=== PATIENT | female | born 1995 | race Caucasian/White ===

== ENCOUNTER → 2019-01-01 10:38 | Outpatient (CLI) | payer SELFPAY ==
[2016-04-16 21:20] VITALS: BMI 28.7
== END ==
LOC: LABSPEC 10:51
PROVIDERS: Referring Provider Nurse Practitioner Family; Visit Provider Nurse Practitioner Family
DX: R30.0 Dysuria (principal)
CPT/HCPCS: 87086; 87088

== ENCOUNTER 2019-08-30 12:37 | Emergency (ER) | payer OTHER, MEDICAID, SELFPAY ==
[2019-08-30 12:39] VITALS: BP 128/73; PULSE 83; RESP 16; TEMP 36.3; O2SAT 99
[2019-08-30 12:40] VITALS: BP 128/73; PULSE 83; RESP 16; TEMP 36.3; O2SAT 99
--- NOTE | 2019-08-30 13:03 | ED.VIS.UPPEX ---
History of Present Illness Chief Complaint: Cellulitis Informant: Patient Occurred: Yesterday Mechanism/Context: Puncture Wound Onset: Yesterday Context: Gradual Onset Timing: Continuous Quality of Pain: Sharp Location: left ring finger Current Severity: Moderate Maximum Severity: Moderate Worsened by: movement, palpation Relieved by: rest Associated Symptoms: Negative for: Parasthesia, Weakness, Loss of Funtion Narrative: 24-year-old ioosb-cwyr-vvoaxaso female presents to the emergency department with an infection on her left ring finger. She just recently began to wear her ring again on this finger she has a small blister that she is concerned is infected and redness into the finger and hand. No other trauma. No numbness or tingling. No weakness. No fevers or chills. Tetanus Immunization: Unknown Prior similar symptoms: No Recent Illness/Hospitalization: No Past Medical History - Allergies and Home Meds Allergies/Adverse Reactions: Allergies No Known Allergies Allergy (Verified 08/30/19 12:38) Primary Care Physician: Care Physician,No Primary [Primary Care Provider] - Prior records reviewed: Yes Past Medical History: None Surgical History: tonsillectomy, - - Lives: With Family Smoking Status: Current some day smoker Alcohol: Occasional Drugs: None Review of Systems All systems negative except as indicated General: Denies: Chills, Fever, Malaise Eyes: Denies: Visual changes - bilaterally, Blurred Vision - bilaterally, Diplopia ENT: Denies: Rhinorrhea, Sore throat Cardiovascular: Denies: Chest pain, Palpitations, Heart racing Respiratory: Denies: Dyspnea, Cough, Sputum Gastrointestinal: Denies: Abdominal pain, Nausea, Vomiting, Diarrhea Genitourinary: Denies: Dysuria, Hematuria, Frequency Musculoskeletal: Reports: Swelling, Extremity Pain. Denies: Myalgias, Arthralgias, Neck pain, Back pain Skin: Reports: Abrasions, Wounds. Denies: Rash, Abscess Neurological: Denies: Headache, Weakness, Parasthesia, Numbness Hematologic: Denies: Easy bruising, Easy bleeding Physical Exam Vital Signs/Narrative: Vital Signs Temp Pulse Resp BP Pulse Ox 08/30/19 12:40 97.3 F L 83 16 128/73 H 99 08/30/19 12:39 97.3 F L 83 16 128/73 H 99 Inital Vital Signs reviewed: Yes Left Finger: - - Patient has a small blister on her left ring finger. There is some very mild surrounding redness. There is no lymphatic streaking. She has normal active range of motion of her left ring finger. She has normal capillary refill and sensation. General: Well nourished, Well developed Head: Normocephalic, Atraumatic Eyes: Perrl, EOMI ENT: No Trauma, Moist Mucous Membranes Neck: Nontender, Full ROM Cardiovascular: Regular rate, Regular rhythm, No murmurs Respiratory: No distress, CTA bilaterally, Chest nontender Abdomen: Soft, Nontender, Nondistended, Normal bowel sounds, No masses Back: Nontender Skin: Normal color, No rash Neurological: Alert, Oriented x3 Psychological: Normal affect, Normal Mood Diagnostic/Tx/Re-eval - Medical Decision Making Patient has an infected blister on her left ring finger. There is no lymphatic streaking. I used an 18-gauge needle under sterile conditions after cleansing with Betadine to ruptured the blister. I cleansed and placed in dressing. Patient will be placed on Bactrim and Keflex. First doses were given to the patient in the emergency department. I advised her to have a follow-up in the next 2 to 3 days with her primary care physician for wound check. Discussed supportive care at home wound care at home and return precautions ED Disposition - Plan for ED Patient: Disposition: Home or Assisted Living Diagnosis: Blister of finger, infected Instructions: Cellulitis Prescriptions: Smz/Tmp Ds [Bactrim Ds] 1 tab PO BID #14 tab Prescription Printed Cephalexin [Keflex] 500 mg PO Q6 #40 cap Prescription Printed Referrals: Dev De Pza MD [STAFF PHYSICIAN] - 2 Days for wound check
[2019-08-30] MEDS: BACITRACIN 15 GM Tube 1 APPLIC TOPICAL (13:19)
[2019-08-30] MEDS: Smz/Tmp Ds Tablet 1 TABLET PO (13:19)
[2019-08-30] MEDS: Cephalexin 250 MG Capsule 500 MG PO (13:19)
== END 2019-08-30 13:32 | disposition home or self-care (01) ==
LOC: ED 13:30
PROVIDERS: Emergency Provider Physician Assistant Medical; PCP Physician Assistant
DX: L03.012 Cellulitis of left finger (principal); S60.425A Blister (nonthermal) of left ring finger, initial encounter; X58.XXXA Exposure to other specified factors, initial encounter; Y93.9 Activity, unspecified; Y92.9 Unspecified place or not applicable; Y99.9 Unspecified external cause status
CPT/HCPCS: 99284

== ENCOUNTER 2022-06-07 07:06 | Emergency (ER) | payer MEDICAID, SELFPAY ==
[2022-06-07 07:07] VITALS: BP 128/75; PULSE 106; RESP 16; TEMP 36.6; O2SAT 100; BMI 25.1
--- NOTE | 2022-06-07 07:32 | EX.ED.DYSGE1 ---
HPI History of Present Illness Chief Complaint: Headache Informant: patient Narrative Narrative: Patient 27-year-old female with history of migraines, currently approximately 12 to 13 weeks (G4, P2) presenting with headache, nausea, vomiting and diarrhea. Patient states she just has been feeling well all week and started feeling sick 3 days ago with nausea. The following day she felt better and was eating but then got nauseous again. Yesterday she was nauseous, vomiting and developed a headache. She did take Tylenol for this. She is also developed diarrhea. She continues to have a bad headache today which she describes as behind her eyes and the back of her head. She has associated photophobia. She continues to have nausea and abdominal discomfort. She notes she is having some urinary frequency. She states she also wants to make sure that the baby's heartbeat is okay. She denies any leakage of fluid, abnormal vaginal discharge or vaginal bleeding. She did think that she had a yeast infection but states those symptoms have resolved. Denies any fever. Denies any sick contacts. Denies any rash. No other complaints at this time. States that she does have issues with morning sickness and takes B6 with Unisom but is not helping. PFSH [facility] Medical History no medical history Home Medications cephalexin 500 mg capsule 500 mg PO Q6 #40 caps 08/30/19 [Rx Last Taken Unknown] sulfamethoxazole 800 mg-trimethoprim 160 mg tablet 1 tab PO BID #14 tabs 08/30/19 [Rx Last Taken Unknown] folic acid 800 mcg tablet 0.8 mg PO DAILY #30 tabs 06/07/22 [Rx Last Taken Unknown] ondansetron 4 mg disintegrating tablet 4 mg PO Q6H PRN nausea and vomiting #20 tabs 06/07/22 [Rx Last Taken Unknown] Allergy/AdvReac Type Severity Reaction Status Date / Time No Known Allergies Allergy Verified 06/07/22 07:09 Social History Smoking Status: Current some day smoker tobacco type: cigarettes ROS ROS ED Constitutional Constitutional ED: Denies chills or fever(s) Eyes Eyes: Reports other Details: photophobia ; Denies change in vision ENT ENT ED: Denies rhinorrhea or sore throat Cardiovascular Cardiovascular: Denies chest pain Respiratory/Chest Respiratory/Chest: Denies cough Gastrointestinal Gastrointestinal: Reports abdominal pain, diarrhea, nausea and vomiting Genitourinary Genitourinary ED: Reports LMP (females 10-50) Details: Comment: (03/03/22) and urinary frequency; Denies dysuria Musculoskeletal Musculoskeletal: Denies arthralgias or myalgias Integumentary Denies rash Neurologic Neurologic: Reports headache(s); Denies paresthesias or weakness Psychiatric Psychiatric: Denies anxiety EXAM Physical Exam Const Vital Signs: 06/07/22 07:07 06/07/22 09:06 06/07/22 10:55 Temperature 97.9 F Temperature Source Temporal Pulse Rate 106 H 101 H 99 Respiratory Rate 16 16 16 Blood Pressure 128/75 H 125/99 H 118/98 H Blood Pressure Mean 92 107 Pulse Ox 100 99 99 Oxygen Delivery Method Room Air Room Air Positive well nourished and well developed General Appearance ED: well developed and NAD HEENT Reports TM's clear and moist mucous membranes Negative for trauma Tympanic Membrane ED: Yes TM's clear Eyes PERRL and EOMs intact bilaterally General Eye ED: Negative for scleral icterus Neck supple Neck Narrative: Normal range of motion, no meningeal signs General: Negative for tenderness Chest Wall inspection of chest normal and palpation of chest normal Resp normal respiratory effort and clear to auscultation bilaterally Cardio regular rate, regular rhythm and no murmurs GI normal to inspection, nondistended, normoactive bowel sounds Palpation: soft and tender suprapubic; Negative for guarding Back/Spine no CVA tenderness Extremity normal to inspection Neuro oriented x3 Sensorium / Orientation: alert Motor Exam: Negative for general weakness Psych mental status grossly normal Skin no rashes or lesions noted MDM MDM MDM Narrative Medical decision making narrative: Patient is evaluated for headache, nausea and vomiting. She is 13 weeks . Bedside ultrasound performed by myself shows heart tones 154 with spontaneous activity. Patient peers nontoxic. I think she was more concerned about her . She is given IV fluids and Zofran as well as Tylenol. On repeat evaluation she is feeling much better. She is a mild leukocytosis 11.9 which is of uncertain clinical significance. It could be reactive from her vomiting. Hemoglobin is mildly low at 11.5. CMP and lipase normal. Urinalysis most consistent with contamination but will be sent off for culture as does have 1+ bacteria. Patient's tachycardia improved with IV fluids. She does not have any meningeal signs. I do not think she requires admission for further work-up of her headache, dehydration and I do not think there is any acute surgical intra-abdominal pathology requiring surgical consult and or further imaging at this time. Patient does request a prescription for folic acid as she can only take [place] vitamins because she does not tolerate vitamins. She is given a prescription for 800 mcg of folic acid. Patient encouraged to follow-up with her ASSOCIATE MEDIA DIRECTOR. Given return precautions. Discharged home in improved and stable condition. Lab Data Attestation: I reviewed the patient's lab results. Labs: Laboratory Results - last 24 hr 06/07/22 06/07/22 06/07/22 07:40 07:44 07:44 WBC 11.9 H RBC 4.11 L Hgb 11.5 L Hct 35.8 L MCV 87.1 MCH 28.0 MCHC 32.1 RDW Std Deviation 44.4 H RDW Coeff of Luc 14.0 Plt Count 323 MPV 10.5 Immature Gran % (Auto) 0.400 Neut % (Auto) 80.2 H Lymph % (Auto) 11.9 L Kay % (Auto) 6.4 Eos % (Auto) 0.8 Baso % (Auto) 0.3 Absolute Neuts (auto) 9.5 H Absolute Lymphs (auto) 1.41 Nucleated RBC % 0 Sodium 139 Potassium 3.7 Chloride 107 Carbon Dioxide 26.0 Anion Gap 6 BUN 7 Creatinine 0.50 L Estim Creat Clear Calc 152.08 Est GFR (MDRD) Af Amer 188 Est GFR (MDRD) Non-Af 155 BUN/Creatinine Ratio 13.9 Glucose 103 Calcium 8.9 Total Bilirubin 0.20 AST 16 ALT 48 Alkaline Phosphatase 64 Total Protein 7.4 Albumin 3.3 Globulin 4.1 Albumin/Globulin Ratio 0.8 L Lipase 88 Urine Color Yellow Urine Clarity Sl. Cloudy Urine pH 6.5 Ur Specific [place] 1.020 Urine Protein 30 H Urine Glucose (UA) Normal Urine Ketones Negative Urine Occult Blood 10 H Urine Nitrite Negative Urine Bilirubin Negative Urine Urobilinogen Normal Ur Leukocyte Esterase 25 H Urine RBC 0-5 SEEN Urine WBC 0-5 SEEN Ur Squamous Epith Cells 0-5 SEEN Urine Bacteria 1+ Urine Mucus 0 SEEN Discharge Plan Triage Chief Complaint: Headache ED Provider: Isabel Arguello Dx/Rx/DC Orders Clinical Impression: Headache, Nausea & vomiting Instructions: ED Headache, Tension, ED Vomiting (Adult) Prescriptions: New ondansetron 4 mg tablet,disintegrating 4 mg PO Q6H PRN (Reason: nausea and vomiting) Qty: 20 0RF folic acid 800 mcg tablet 0.8 mg PO DAILY Qty: 30 0RF No Action sulfamethoxazole-trimethoprim 1 TABLET tablet 1 tab PO BID Qty: 14 0RF cephalexin 500 MG capsule 500 mg PO Q6 Qty: 40 0RF Primary Care Provider: Marlys De Souza Referrals: Marlys De Souza PA [Primary Care Provider] - Activity Restrictions/Additional Instructions: Your urine showed 1+ bacteria and minimal white blood cells. I do not think this is consistent with a shemar urinary tract infection but it is sent for culture. Try to drink lots of fluids. Take Tylenol for your headache. Follow-up with your ASSOCIATE MEDIA DIRECTOR. Continue to take the B6/Unisom for nausea however you can take Zofran as second line treatment for your nausea/vomiting. Disposition Disposition: Home, Self Care Discharge Date/Time: 06/07/22 10:56
[2022-06-07 07:51] LABS: Mucous, Urine 0 SEEN /hpf (<or=2+)
[2022-06-07 07:53] LABS: Absolute Lymphocyte Count 1.41 X10^3/uL (0.83-4.51); Absolute Neutrophil Count 9.5 X10^3/uL (2.0-7.7); Basophil# 0.04 X10^3/uL; Basophil% 0.3 % (0-1); Eosinophil# 0.09 X10^3/uL; Eosinophils% 0.8 % (0-5); Hematocrit 35.8 % (37-47); Hemoglobin 11.5 g/dL (12.0-15.0); Lymphocyte # 1.41 X10^3/ul (0.83-4.51); Lymphocyte % 11.9 % (19-41); Mean Corp Hgb Conc 32.1 g/dL (32-36); Mean Corpuscular Volume 87.1 fL (81-99); Mean Platelet Vol. 10.5 fl (6.2-12.0); Monocyte# 0.76 X10^3/uL; Monocyte% 6.4 % (0-10); NRBC Flagged by Analyzer 0 % (0-5); Neutrophil % 80.2 % (47-70); Platelet Count 323 K/mm3 (150-450); RBC Distribution Width SD 44.4 fl (35.1-43.9); Red Blood Count 4.11 M/mm3 (4.2-5.4); White Blood Count 11.9 K/mm3 (4.4-11.0)
[2022-06-07 08:05] LABS: Color, Urine Yellow (Yellow); Glucose, Dipstick Normal (Normal); Ketone-Dipstick Negative (Negative); Leukocyte Esterase-Dipstick 25 /ul (Negative); Nitrite-Dipstick Negative (Negative); Occult Blood-Urine 10 /ul (Negative); Protein-Dipstick 30 mg/dl (Negative); Urine Bilirubin Dipstick Negative (Negative); Urine Clarity Sl. Cloudy (Clear); Urine Urobilinogen Normal (Normal); Urine pH 6.5 (5.0 - 8.0)
[2022-06-07 08:09] LABS: ALB/GLOB Ratio 0.8 RATIO (0.9-2.4); AST(SGOT) 16 U/L (15-37); Alanine Aminotransfer ALT/SGPT 48 U/L (13-56); Albumin, Serum 3.3 g/dL (3.2-5.0); Alkaline Phosphatase 64 U/L (45-117); Anion Gap 6 (5-15); BUN 7 mg/dL (7-18); BUN/Creat Ratio 13.9 RATIO (10-20); Calcium,Total 8.9 mg/dL (8.5-10.1); Chloride 107 mmol/L (98-107); EST Glomerular Filtration Rate 155 mL/min (>60); Est Glom Filt Rate - Afr Amer 188 mL/min (>60); Estimated Creatinine Clearance 152.08 ml/min; Globulin 4.1 g/dL (2.2-4.2); Glucose 103 mg/dL (74-106); Lipase 88 U/L (73-393); Potassium 3.7 mmol/L (3.5-5.1); Protein, Total 7.4 g/dL (6.4-8.2); Sodium Level 139 mmol/L (136-145)
[2022-06-07 08:11] LABS: Bacteria 1+ /hpf (None Seen); Red Blood Cells-Urine 0-5 SEEN /hpf (0-5); Squamous Epithelial Cells - UA 0-5 SEEN /hpf (5-10); White Blood Cells 0-5 SEEN /hpf (0-5)
[2022-06-07] MEDS: Acetaminophen 500 MG Tablet 1000 MG PO (08:11)
[2022-06-07] MEDS: Ondansetron 4 MG/2 ML Vial IV (08:11)
[2022-06-07] MEDS: 0.9% Normal Saline 1,000 ML 1000 ML IV (08:11)
[2022-06-07 09:06] VITALS: BP 125/99; PULSE 101; RESP 16; O2SAT 99
[2022-06-07 10:55] VITALS: BP 118/98; PULSE 99; RESP 16; O2SAT 99
== END 2022-06-07 10:56 | disposition home or self-care (01) ==
PROVIDERS: Emergency Provider Emergency Medicine; PCP Physician Assistant; Visit Provider Emergency Medicine
DX: O21.9 Vomiting of pregnancy, unspecified (principal); Z3A.13 13 weeks gestation of pregnancy; O99.281 Endocrine, nutritional and metabolic diseases complicating pregnancy, first trimester; R35.0 Frequency of micturition; O99.331 Smoking (tobacco) complicating pregnancy, first trimester; E86.0 Dehydration; R51.9 Headache, unspecified; F17.210 Nicotine dependence, cigarettes, uncomplicated; O26.891 Other specified pregnancy related conditions, first trimester
CPT/HCPCS: 80053; 81001; 83690; 85025; 87086; 87088; 96361; 96374; 99284; J7030; A4216; J2405

== ENCOUNTER → 2022-07-12 | Outpatient (CLI) | payer MEDICAID, SELFPAY ==
[2022-07-12 13:26] VITALS: BP 140/75; PULSE 108; RESP 16; TEMP 36.6; O2SAT 100; BMI 25.7
[2022-07-12] MEDS: Lactated Ringers 1,000 ML 999 ML IV ×2 (13:40→14:56)
[2022-07-12] MEDS: proCHLORPERazine 10 MG/2 ML Vial IV (13:40)
[2022-07-12] MEDS: 0.9% NaCl Peripheral Flush Adult/Peds IV (13:41)
[2022-07-12 14:18] LABS: Hematocrit 34.7 % (37-47); Hemoglobin 11.3 g/dL (12.0-15.0); Mean Corp Hgb Conc 32.6 g/dL (32-36); Mean Corpuscular Hgb 27.6 pg (27.0-32.0); Mean Corpuscular Volume 84.6 fL (81-99); Platelet Count 389 K/mm3 (150-450); RBC Distribution Width SD 43.2 fl (35.1-43.9); White Blood Count 12.3 K/mm3 (4.4-11.0)
[2022-07-12 14:33] LABS: ALB/GLOB Ratio 0.7 RATIO (0.9-2.4); AST(SGOT) 15 U/L (15-37); Alanine Aminotransfer ALT/SGPT 28 U/L (13-56); Albumin, Serum 3.2 g/dL (3.2-5.0); Alkaline Phosphatase 69 U/L (45-117); Anion Gap 9 (5-15); BUN 8 mg/dL (7-18); BUN/Creat Ratio 15.9 RATIO (10-20); Calcium,Total 8.8 mg/dL (8.5-10.1); Chloride 105 mmol/L (98-107); EST Glomerular Filtration Rate 156 mL/min (>60); Est Glom Filt Rate - Afr Amer 188 mL/min (>60); Estimated Creatinine Clearance 152.08 ml/min; Globulin 4.3 g/dL (2.2-4.2); Glucose 96 mg/dL (74-106); Potassium 3.1 mmol/L (3.5-5.1); Protein, Total 7.5 g/dL (6.4-8.2); Sodium Level 137 mmol/L (136-145); Thyroid Stim Hormone (TSH) 1.23 uIU/mL (0.358-3.74)
[2022-07-12 16:02] VITALS: BP 110/67; PULSE 83; RESP 16
== END | disposition home or self-care (01) ==
PROVIDERS: PCP Physician Assistant; Referring Provider Obstetrics & Gynecology; Visit Provider Obstetrics & Gynecology
DX: R11.10 Vomiting, unspecified (principal)
CPT/HCPCS: 96374; 96361; 80053; 84443; 85027; J7120; A4216

== ENCOUNTER 2022-11-27 20:55 | Outpatient (CLI) | payer MEDICAID, SELFPAY ==
[2022-11-27 21:05] VITALS: BP 142/81; PULSE 95; TEMP 37
[2022-11-27 21:34] VITALS: BMI 28.3
--- NOTE | 2022-11-28 13:31 | OB.TRI.NOTE ---
HPI - General General Date of Admission: 11/27/22 Date of Service: 11/27/22 Chief Complaint: decreased FM HPI Narrative ONI ANN, is a 27 4 para 2 who presents with a EDC of 12/08/2022 at 38 weeks gestation with complaint of decreased movement. She denies any vaginal bleeding or leaking of fluid Maternal Data Information Final ROSA: 12/08/22 Gestational age: 38 4/7 PFSH PFSH Medical History no medical history Home Medications folic acid 800 mcg tablet 0.8 mg PO DAILY #30 tabs 06/07/22 [Rx Last Taken Unknown] ondansetron 4 mg disintegrating tablet 4 mg PO Q6H PRN nausea and vomiting #20 tabs 06/07/22 [Rx Last Taken 07/12/22 12:30] vits no.126-ferrous fum 28 mg iron-folic acid 800 mcg tablet (Classic ) tab 11/27/22 [History Last Taken Unknown] Allergy/AdvReac Type Severity Reaction Status Date / Time No Known Allergies Allergy Verified 11/27/22 21:30 Social History Smoking Status: Current some day smoker tobacco type: cigarettes History Elective abortions Hx Para 1 Spontaneous abortions Hx # Term Pregnancies Ectopic pregnancies Hx # Pregnancies Multiple births # of living children NST FHR Rate Baby A Baseline: 135 Variability:: Moderate Accelerations:: 15 x 15 Decelerations:: None NST Reactive:: Yes FHR Category:: Category I Uterine Activity:: quiet Assessment & Plan (1) 38 weeks gestation of : PLAN: Mildly elevated blood pressure at visit. Will have patient return to office on 11 28 for blood pressure check. NST is reactive and category 1. No evidence of labor. (2) Previous section: (3) Decreased movement affecting management of in third trimester:
== END 2022-11-27 21:52 | disposition home or self-care (01) ==
LOC: WPOUT 21:02 → WP 21:03
PROVIDERS: PCP Physician Assistant; Referring Provider Obstetrics & Gynecology; Visit Provider Obstetrics & Gynecology
DX: O36.8130 Decreased fetal movements, third trimester, not applicable or unspecified (principal); Z3A.38 38 weeks gestation of pregnancy; F17.210 Nicotine dependence, cigarettes, uncomplicated; O99.330 Smoking (tobacco) complicating pregnancy, unspecified trimester
CPT/HCPCS: 59025; 59050

== ENCOUNTER 2022-11-29 20:43 | Outpatient (CLI) | payer MEDICAID, SELFPAY ==
[2022-11-29 20:58] VITALS: BP 127/83; PULSE 246; O2SAT 83
[2022-11-29 21:11] VITALS: PULSE 84; O2SAT 98
[2022-11-29 21:12] VITALS: TEMP 36.8; O2SAT 98
[2022-11-29 21:22] VITALS: BMI 28.3
[2022-11-29 21:22] LABS: Bacteria 0 SEEN /hpf (None Seen); Mucous, Urine 0 SEEN /hpf (<or=2+); Red Blood Cells-Urine 0 SEEN /hpf (0-5); White Blood Cells 0 SEEN /hpf (0-5)
[2022-11-29 21:28] LABS: Color, Urine Yellow (Yellow); Glucose, Dipstick Normal (Normal); Ketone-Dipstick Negative (Negative); Leukocyte Esterase-Dipstick 25 /ul (Negative); Nitrite-Dipstick Negative (Negative); Occult Blood-Urine Negative /ul (Negative); Protein-Dipstick 15 mg/dl (Negative); Urine Bilirubin Dipstick Negative (Negative); Urine Clarity Clear (Clear); Urine Urobilinogen Normal (Normal)
[2022-11-29 21:42] LABS: Squamous Epithelial Cells - UA 0-5 SEEN /hpf (5-10)
[2022-11-29] MEDS: Lactated Ringers 1,000 ML 999 ML IV (21:45)
[2022-11-29 21:51] VITALS: BP 135/72; PULSE 78; TEMP 36.7
[2022-11-29 22:23] LABS: Absolute Neutrophil Count 9.7 X10^3/uL (2.0-7.7); Basophil# 0.06 X10^3/uL; Basophil% 0.4 % (0-1); Eosinophil# 0.19 X10^3/uL; Eosinophils% 1.4 % (0-5); Hemoglobin 10.7 g/dL (12.0-15.0); Lymphocyte % 16.3 % (19-41); Mean Corp Hgb Conc 32.4 g/dL (32-36); Mean Corpuscular Hgb 27.6 pg (27.0-32.0); Mean Corpuscular Volume 85.1 fL (81-99); Mean Platelet Vol. 12.6 fl (6.2-12.0); Monocyte# 1.28 X10^3/uL; Monocyte% 9.5 % (0-10); NRBC Flagged by Analyzer 0 % (0-5); Neutrophil # 9.71 X10^3/uL (2.7-7.7); Platelet Count 228 K/mm3 (150-450); RBC Distribution Width CV 15.7 % (11.6-14.6); RBC Distribution Width SD 48.4 fl (35.1-43.9); Red Blood Count 3.88 M/mm3 (4.2-5.4); White Blood Count 13.5 K/mm3 (4.4-11.0)
--- NOTE | 2022-11-29 22:52 | OB.TRI.HP_ITS ---
HPI - General HPI Narrative ONI ANN, is a 27 F at 38.6 weeks gestation who presents with decreased movement and contractions. She is scheduled for a repeat section 12/03/22. [facility] Medical History (Updated 11/29/22 @ 22:56 by Marina Fofana CNM) Anemia affecting Anxiety Depression Genital herpes affecting History of prior with IUGR Tonsillectomy planned Uterine anomaly Home Medications folic acid 800 mcg tablet 0.8 mg PO DAILY #30 tabs 06/07/22 [Rx Last Taken Unknown] ondansetron 4 mg disintegrating tablet 4 mg PO Q6H PRN nausea and vomiting #20 tabs 06/07/22 [Rx Last Taken 07/12/22 12:30] vits no.126-ferrous fum 28 mg iron-folic acid 800 mcg tablet (Classic ) 1 tab PO DAILY 11/27/22 [History Last Taken Unknown] ferrous sulfate 325 mg (65 mg iron) tablet (iron) 325 mg PO DAILY 11/29/22 [History Last Taken Unknown] Allergy/AdvReac Type Severity Reaction Status Date / Time No Known Allergies Allergy Verified 11/29/22 21:09 Surgical History Previous section Social History Smoking Status: Former smoker History Elective abortions Hx Para 2 Spontaneous abortions Hx # Term Pregnancies Ectopic pregnancies Hx # Pregnancies Multiple births # of living children ROS Eyes Eyes: Denies blurry vision Cardiovascular Cardiovascular: Reports none; Denies chest pain at rest, chest pain with activity or dizziness Respiratory/Chest Respiratory/Chest: Denies cough or dyspnea Gastrointestinal Gastrointestinal: Reports none and other; Denies diarrhea or vomiting Genitourinary Genitourinary: Denies dysuria Musculoskeletal Musculoskeletal: Reports none Integumentary Integumentary: Reports none; Denies rash Neurologic Neurologic: Denies dizziness, headache(s) or other visual disturbances Psychiatric Psychiatric: Reports none Physical Exam Const alert and no apparent distress General Appearance: cooperative Orientation / Consciousness: awake Exam Limitations: no limitations HEENT normocephalic Eyes General Eye: normal appearance of both eyes Neck full ROM Chest inspection of chest normal Resp normal respiratory effort and normal air movement Effort and Inspection: symmetric chest movement Auscultation: clear to auscultation bilaterally Cardio regular rate GI soft to palpation, non-tender and non-distended Inspection: and other Back/Spine normal ROM Extremity full ROM, normal capillary refill and no calf tenderness Skin no rashes or lesions noted Neuro oriented x3 and CN's II-XII intact bilaterally Psych mental status grossly normal NST FHR Rate Baby A Baseline: 130 Variability:: Moderate Accelerations:: 15 x 15 Decelerations:: None NST Reactive:: Yes FHR Category:: Category I Uterine Activity:: irregular Assessment & Plan (1) Decreased movement affecting management of in third trimester: (2) Previous section: (3) 38 weeks gestation of : (4) Uterine anomaly: COMMENT: unicornate uterus, 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 PLAN: Plan LR 1000 cc bolus NST reactive, cat. 1 tracing UA collected and sent= negative CE- closed Patient has felt movement since arrival Dr. Baker notified and involved with plan of care D/C home with follow up on Saturday for scheduled repeat section
[2022-11-29] MEDS: Acetaminophen 500 MG Tablet 1000 MG PO (22:56)
[2022-11-30] VITALS (44 sets, daily range): BP systolic 109–114; BP diastolic 56–57; PULSE 63–85; TEMP 36.2; O2SAT 93–98
== END 2022-11-29 23:25 | disposition home or self-care (01) ==
LOC: WPOUT 20:47 → WP 20:47
PROVIDERS: Advanced Practice Midwife; PCP Physician Assistant; Referring Provider Obstetrics & Gynecology; Visit Provider Obstetrics & Gynecology
DX: O36.8130 Decreased fetal movements, third trimester, not applicable or unspecified (principal); Z3A.38 38 weeks gestation of pregnancy; O47.1 False labor at or after 37 completed weeks of gestation; O99.013 Anemia complicating pregnancy, third trimester; Z87.891 Personal history of nicotine dependence; O34.03 Maternal care for unspecified congenital malformation of uterus, third trimester; Q51.4 Unicornate uterus; O99.891 Other specified diseases and conditions complicating pregnancy
CPT/HCPCS: 36415; 59025; 59050 ×2; 81001; 85025; 86850; 86900; 86901; G0378 ×2; J7120; 99221

== ENCOUNTER 2022-11-30 19:34 | Inpatient (IN) | payer MEDICAID, SELFPAY ==
[2022-11-30] VITALS (11 sets, daily range): BP systolic 99–129; BP diastolic 47–78; PULSE 69–113; RESP 16; TEMP 35.9–36.8; O2SAT 97–100; BMI 27.8
--- NOTE | 2022-11-30 | PLAC_PTH ---
PATIENT: ONI ANNCCNapoleon #:[id number] LOC: WP U#:[id number] AGE/SX: 27/F ROOM: WP009 RE11/30/[address]: Dr. Erika Loya DO : 1995 BED: 1 DIS: 12/02/2022 SPEC #: [id number] RECD: 12/01/22 14:30 STATUS: HAILY GAB #: [id number] SOSA: 11/30/22 00:[address]: Erika Loya DEPT: SURGICAL PATHOLOGY RECD BY: Michele Altamirano ENTERED: 12/03/22 09:05 SP TYPE: PLACENTA OTHR DR: TAYA Means Tissues: A - Fallopian tube B - Placenta, NOS Procedures: Surgery Specimen Level II Surgery Specimen Level V HEADER OPERATION: Repeat section, tubal ligation PRE-OP DIAGNOSIS: Sterilization TISSUE SUBMITTED: A - Fallopian tube, B - Placenta MICROSCOPIC DIAGNOSIS A. Right and left fallopian tubes, bilateral salpingectomies: Complete segments of fallopian tubes with focal decidual change. B. Carpenter placenta (510 gm): Umbilical cord - trivascular with no inflammation. Placental membranes - No pathologic change. Placental disc - Bradley-Humphrey change, intravillous congestion and mildly increased intraparenchymal fibrin plaques. AM:sayra 12/04/2022 MICROSCOPIC DESCRIPTION Slides are reviewed. GROSS DESCRIPTION A - Received in fixative is one container labeled with the patient's name and designated fallopian tube. The specimen consists of a portion of fallopian tube without fimbrial end measuring 3.5 cm in length and 0.7 cm in diameter. The specimen is serially sectioned and totally submitted in two cassettes. B - SPECIMEN: PLACENTA / CLINICAL INFORMATION: A. Weight: 2.53 kg B. Gestational Age: 38 weeks C. Sex: Male PLACENTAL WEIGHT (POST FIXATION): 510 gm PLACENTAL DIMENSIONS: 16.5 x 16.0 x 3.0 cm PLACENTAL SHAPE: Usual ovoid PLACENTAL WEIGHT FOR GESTATIONAL AGE: Within 10-99th percentile MEMBRANES - Present A. Insertion: Marginal B. Site of rupture from edge: At edge of placental disc C. Color of membrane: Frazier-garcia D. Abnormalities: None UMBILICAL CORD - Present A. Color: Frazier-garcia B. Insertion: Marginal C. Length: 35.0 cm D. Diameter: 1.2 cm E. Number of vessels: Three F. Abnormalities: None PLACENTAL DISC - Present A. Color of surface: Frazier-garcia B. surface abnormalities: None C. Maternal cotyledons: Intact with minimal tears D. Attached retro placental clot: No clot E. Cut surface: Dark red and spongy F. Lesions: None G. Separate clot: Absent SECTIONS SUBMITTED: 1. Umbilical cord ( end notched) 2. Umbilical cord, placental end 3. Membrane roll 4. Placental disc, and maternal surfaces 5. Placental disc, and maternal surfaces 6. Placental disc, and maternal surfaces AM:sayra 12/03/2022 TC:5 CPT: 78927, 21634 x2
[2022-11-30] MEDS: LACTATED RINGERS 500 ML 999 ML IV (17:45)
--- NOTE | 2022-11-30 18:15 | RAD_ITS ---
INDICATION: inspiratory wheeze EXAMINATION/TECHNIQUE: X-RAY - XR Chest 2 Views COMPARISON: FINDINGS: LINES/DEVICES: None. LUNGS: No consolidation, edema or effusion. No pneumothorax. MEDIASTINUM AND CARDIOVASCULAR STRUCTURES: Cardiac silhouette not enlarged. Central airways and mediastinal contour are unremarkable. BONES AND SOFT TISSUES: Unremarkable. RAD/Chest PA and Lateral IMPRESSION: No radiographic evidence of acute cardiopulmonary disease. Electronically Signed: Alisia Granados MD at 18:46 EDT Reading Location ID and State: [id number] / Tel , Service support ,
[2022-11-30 18:32] LABS: Absolute Lymphocyte Count 2.45 X10^3/uL (0.83-4.51); Absolute Neutrophil Count 8.7 X10^3/uL (2.0-7.7); Basophil# 0.06 X10^3/uL; Basophil% 0.5 % (0-1); Eosinophil# 0.16 X10^3/uL; Eosinophils% 1.3 % (0-5); Hematocrit 32.5 % (37-47); Hemoglobin 10.6 g/dL (12.0-15.0); Lymphocyte # 2.45 X10^3/ul (0.83-4.51); Lymphocyte % 19.6 % (19-41); Mean Corp Hgb Conc 32.6 g/dL (32-36); Mean Corpuscular Hgb 27.6 pg (27.0-32.0); Mean Corpuscular Volume 84.6 fL (81-99); Mean Platelet Vol. 12.6 fl (6.2-12.0); Monocyte# 1.04 X10^3/uL; Monocyte% 8.3 % (0-10); NRBC Flagged by Analyzer 0 % (0-5); Neutrophil # 8.71 X10^3/uL (2.7-7.7); Neutrophil % 69.9 % (47-70); Platelet Count 218 K/mm3 (150-450); RBC Distribution Width CV 15.7 % (11.6-14.6); RBC Distribution Width SD 48.1 fl (35.1-43.9); Red Blood Count 3.84 M/mm3 (4.2-5.4); White Blood Count 12.5 K/mm3 (4.4-11.0)
[2022-11-30] MEDS: Lactated Ringers 1,000 ML 200 ML IV (18:36)
--- NOTE | 2022-11-30 19:40 | PCM.HP.BLA ---
History and Physical Date of Admission: 11/30/22 PROBLEM: 39 week gestation, single IUP, history prior section, request for sterilization ? PAST SURGICAL HISTORY: PAST SURGICAL HISTORYExpand by Default PAST SURGICAL HISTORY Procedure Laterality Date ? DELIVERY ONLY ? 07/08/14 ? , low transverse ? DELIVERY ONLY N/A 04/17/2016 ? TONSILLECTOMY HX ? PAST MEDICAL HISTORY: PAST MEDICAL HISTORYExpand by Default PAST MEDICAL HISTORY Diagnosis Date ? Anemia ? ? Cervicitis 05/26/2013 ? Possible PID ? Depression, major, single episode, mild (HCC) ? ? Herpes simplex without mention of complication ? ? History of section 09/15/2015 ? 09/15/2015Pt had a previous C section. She desires a repeat C section by Dr Campoverde.TKRN History of cesearan section, patient counseled on trial of labor versus repeat cesearan section. Risks/benefits/alternatives discussed with patient regarding trial of labor and potential for uterine rupture. Risks include but are not limited to maternal hemorrhage, risk of injury to adjacent organs includ ? History of depression 09/15/2015 ? 09/15/2015 Pt has a history of depression diagnosed 2 years ago. She has been off medication for 1 year . Discussed increased risks of depression during and and importance of reporting the development or worsening of symptoms should they occur.Pt denies ever having any suicidal thoughts or tendencies or thoughts of hurting others.TKRN ? History of prior with IUGR 09/15/2015 ? 09/15/2015Patient is complaining of nausea in . Advised patient to call/come in if she is unable to keep any food or fluids down in a 24-hour period. TKRN ? Nausea/vomiting in 09/15/2015 ? 09/15/2015Patient is complaining of nausea in . Advised patient to call/come in if she is unable to keep any food or fluids down in a 24-hour period. TKRN ? Uterine anomaly 09/15/2015 ? 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 ? SUBJECTIVE: Doing well today. Some congestion and fatigue. Starting URI. No fevers, chills, SOB, CP. No known sick contacts. No ctx, vb, lof. Good FM. No GARCIA or vision changes. ? SOCIAL HISTORY: SOCIAL HISTORYExpand by Default Social History ? Tobacco Use ? Smoking status: Some Days ? ? Packs/day: 0.25 ? ? Years: 5.00 ? ? Total pack years: 1.25 ? ? Types: Cigarettes ? ? Last attempt to quit: 09/08/2015 ? ? Years since quittin.2 ? Smokeless tobacco: Never Vaping Use ? Vaping Use: Never used Substance Use Topics ? Alcohol use: No ? Drug use: No ? ? ALLERGIESExpand by Default ALLERGIES No Known Allergies ? Current Outpatient Medications on File Prior to Visit Medication Sig ? ferrous sulfate (IRON) 325 mg (65 mg iron) tablet Take 1 tablet by mouth every other day. ? PNV No.40-Iron Fum-FA Cmb No.1 (PNV-SELECT) 27-1 mg tab Take 1 tablet by mouth once daily. ? ondansetron (ZOFRAN) 4 mg tablet Take 1 tablet by mouth every 8 hours as needed for nausea/vomiting. ? doxylamine 25 mg tab Take by mouth. ? pyridoxine, vitamin B6, (VITAMIN B-6) 50 mg tablet Take 1 tablet by mouth twice daily. ? No current facility-administered medications on file prior to visit. ? OBJECTIVE: ? VITALS: BP 120/80 Wt 170 lb 9.6 oz (77.4 kg) LMP 03/03/2022 (Within Days) BMI 27.96 kg/m? ? HEENT: Normocephalic, atraumatic, Mucus membranes moist without lesions. ? SKIN: No lesions. ? CHEST: Good air exchange. ? HEART: Regular rate and rhythm. ? BACK: Nontender. ? ABDOMEN: Soft, non-tender, non-distended, no masses, no hepatosplenomegaly. ? LOWER EXTREMITIES: +Edema of bilateral LE's. ? ? ? ASSESSMENT: repeat C/S with sterilization ? PLAN: 1) Discussed repeat section with tubal sterilization in detail. The rationale for the proposed surgery was discussed in addition to risks, benefits, and alternatives. General pre- and post-operative care was reviewed. Questions were answered. After discussion, the patient indicated a desire to proceed with the planned surgery. ? Erika Loya, DO Assessment & Plan Assessment/Plan (1) Decreased movement: (2) Request for sterilization: (3) History of depression: (4) History of herpes genitalis:
[2022-11-30] MEDS: Acetaminophen 500 MG Tablet 1000 MG PO (19:53)
[2022-11-30] MEDS: Sodium Citrate/Citric Acid 30 ML UDC PO (19:53)
[2022-11-30 19:54] LABS: Syphilis Antibodies Non-reactive
[2022-11-30] MEDS: Lactated Ringers 1,000 ML 999 ML IV (19:54)
[2022-11-30] MEDS: Cefazolin 2 GM in 0.9% Normal Saline 100 ML IV (20:13)
--- NOTE | 2022-11-30 21:34 | PCM.OPRPT ---
Problems Associated Problem List Diagnoses (1) 38 weeks gestation of : (2) Uterine anomaly: (3) Previous section: (4) Decreased movement affecting management of in third trimester: (5) Request for sterilization: Report of Operation Date of Procedure: 11/30/22 Pre-Operative Diagnosis: 38 week gestation, decreased movement x 1 week, history 2 prior sections, uterine anomaly, elevated BP reading without diagnosis of HTN, SGA Post-Operative Diagnosis: As above Surgery/Procedure Performed:: RLTCS via pfannenstiel incision Left salpingectomy Description of Surgical Findings:: VMI in cephalic presentation. Clear fluid. 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 Normal appearing left fallopian tube and ovary. Moderate adhesive disease. Fimbriated end of left fallopian tube adhered to left IP. Bladder minimally adhered to lower uterine segment. Thin lower uterine segment. Apgars 9, 9. Surgeon: Erika Loya sales support associate: Adriana WERNER Type of Anesthesia: Spinal Special Medications: None Specimen's removed: Placenta Drains: Kaufman Estimated Blood Loss (mL): 500 Fluids Replaced: 1500 mL Description of Procedure: The patient was taken to the operating room where spinal anesthesia was found to be adequate. She was prepped and draped in the dorsal supine position with a leftward tilt. A Pfannenstiel skin incision was made using a scalpel and this was carried down to the underlying layer of fascia. The fascia was incised in the midline. The fascia was densely adhered to the rectus muscles. The fascial incision was extended laterally using Sage scissors. The fascia was dissected off of the rectus muscles in a cephalad direction. The rectus muscles were adhered in the midline. Using sharp dissection the rectus muscles were in the midline. The peritoneum was entered bluntly with good visualization of the bladder. The peritoneal incision was extended bluntly using lateral traction. A bladder blade was inserted. A low transverse incision was made on the uterus with a scalpel. Membranes were ruptured for clear fluid. The head was delivered in a flexed position through the hysterotomy, followed by the shoulders and body of the infant without any force or delay. A vigorous viable male was delivered atraumatically and the cord was clamped and cut. The infant was handed off to the waiting nursery staff. The placenta was removed with manual extraction. The uterus was cleared of all clot and debris. The uterus was exteriorized. The hysterotomy was closed with 1-0 Vicryl in a running locked fashion. The right adnexa was absent. Confirmed that the patient desired permanent sterilization. The left fallopian tube was followed out to the fimbriated end. The fimbriated end was adhered to the IP ligament. Using the LigaSure device and hugging adjacent to the uterus the fallopian tube was clamped, cauterized, and transected. The mesosalpinx was serially clamped, cauterized, and transected hugging adjacent to the fallopian tube. The end of the fallopian tube was then transected using the LigaSure device, leaving behind a minimal amount of fimbriated end of fallopian tube that was adhered to the IP. Hemostasis was noted. The uterus was placed back into the abdomen. Akhil was placed over the lower uterine segment and hysterotomy. Hemostasis was again noted. The rectus muscles were noted to be hemostatic. The fascia was closed using strata fix in a running fashion. The subcutaneous space was irrigated and made hemostatic with the Bovie cautery. Subcutaneous space was reapproximated using 3-0 Vicryl. The skin was closed with 4-0 Monocryl in a subcuticular fashion. A dressing was placed. Instrument, sharp, sponge counts correct. The patient was taken to recovery in stable condition. Grafts/Implants Used: None Procedure Start Time: 20:35 Procedure Stop Time: 21:25 Complications None Admit VTE Documentation VTE Present on Admission: No VTE Mechan Device Prophylaxis: SCD's
[2022-11-30] MEDS: Oxytocin 15 Units/NS 250ml 15 UNITS/250 ML IV.SOLN 83 UNITS IV (21:45)
[2022-11-30] MEDS: Ketorolac 30 MG/ML Syringe IV (22:24)
[2022-12-01] VITALS (18 sets, daily range): BP systolic 107–128; BP diastolic 49–78; PULSE 68–97; RESP 14–16; TEMP 36.1–36.8; O2SAT 97–100
[2022-12-01] MEDS: Lactated Ringers 1,000 ML 100 ML IV (01:01)
[2022-12-01] MEDS: Acetaminophen 500 MG Tablet 1000 MG PO ×4 (01:55→20:57)
[2022-12-01 04:01] LABS: Pathology Specimen OB SEE PATHOLOGY REPORT
[2022-12-01] MEDS: Ketorolac 30 MG/ML Syringe IV ×3 (04:02→15:47)
[2022-12-01 06:57] LABS: Hematocrit 31.7 % (37-47); Mean Corp Hgb Conc 31.5 g/dL (32-36); Mean Corpuscular Volume 85.4 fL (81-99); Platelet Count 198 K/mm3 (150-450); RBC Distribution Width CV 15.6 % (11.6-14.6); RBC Distribution Width SD 48.3 fl (35.1-43.9); Red Blood Count 3.71 M/mm3 (4.2-5.4); White Blood Count 15.7 K/mm3 (4.4-11.0)
[2022-12-01] MEDS: Senna/Docusate Sodium 1 Tablet PO ×2 (08:30→10:04)
[2022-12-01] MEDS: 0.9% Saline Lock 10 ML Syringe IV ×2 (10:04→15:47)
--- NOTE | 2022-12-01 11:13 | PCM.PN.OB ---
Subjective Subjective The patient is doing well. She denies lightheadedness, dizziness, chest pain, shortness of breath, leg pain. She is ambulating throughout the room. She is voiding without difficulty. She is tolerating a regular diet without nausea or vomiting. Lochia has been normal. She is breast-feeding without complaints. Her pain is controlled. She reports a cough still and some wheezing. She was a smoker. Objective Data Objective Data Vital Signs: Vital Signs Temp Pulse Resp BP Pulse Ox O2 Del Method 98.2 F 76 14 118/64 97 Room Air 12/01/22 08:03 12/01/22 10:03 12/01/22 10:03 12/01/22 08:03 12/01/22 10:03 12/01/22 10:03 Oxygen Delivery Method Room Air Weight: 170 lb Body Mass Index (BMI) 27.8 Intake & Output: Intake and Output for Last 24 Hours 11/29/22 11/30/22 12/01/22 23:59 23:59 23:59 Intake Total 1076.35 / 1076.35 1248.33 / 1248.33 Output Total 400 / 400 1850 / 1850 Balance 676.35 / 676.35 -601.67 / -601.67 Lab / Micro Data 12/01/22 06:30 Labs: Laboratory Results - last 24 hr 11/30/22 17:45: WBC 12.5 H, RBC 3.84 L, Hgb 10.6 L, Hct 32.5 L, MCV 84.6, MCH 27.6, MCHC 32.6, RDW Std Deviation 48.1 H, RDW Coeff of Luc 15.7 H, Plt Count 218, MPV 12.6 H, Immature Gran % (Auto) 0.400, Neut % (Auto) 69.9, Lymph % (Auto) 19.6, [place] % (Auto) 8.3, Eos % (Auto) 1.3, Baso % (Auto) 0.5, Absolute Neuts (auto) 8.7 H, Absolute Lymphs (auto) 2.45, Nucleated RBC % 0, Syphilis Total Ab Non-reactive, Blood Type A POSITIVE, Antibody Screen NEGATIVE 12/01/22 06:30: WBC 15.7 H, RBC 3.71 L, Hgb 10.0 L, Hct 31.7 L, MCV 85.4, MCH 27.0, MCHC 31.5 L, RDW Std Deviation 48.3 H, RDW Coeff of Luc 15.6 H, Plt Count 198, MPV 12.0 Radiography Diagnostic Testing: Radiology Impression Chest X-Ray 11/30/22 18:15 IMPRESSION: No radiographic evidence of acute cardiopulmonary disease. Electronically Signed: Alisia Granados MD at 18:46 EDT Reading Location ID and State: [id number] / Tel , Service support , Physical Exam Const alert and no apparent distress Constitutional Narrative: up walking around room General Appearance: comfortable Resp normal respiratory effort Effort and Inspection: able to speak in complete sentences GI soft to palpation and non-distended GI Narrative: ATTP, dressing c/d/i Extremity normal to inspection and no calf tenderness Assessment & Plan (1) Delivery by section: PLAN: Patient is postoperative day 1 from a repeat section with sterilization. Pain is well controlled. She is breast-feeding without complaints. Vital signs are stable and morning lab reviewed. Routine postop care. Anticipate discharge home tomorrow. (2) History of depression:
[2022-12-01] MEDS: Albuterol 2.5 MG/3 ML VIAL.NEB. INHALATION (13:39)
[2022-12-01] MEDS: oxyCODONE 5 MG Tablet PO (20:57)
[2022-12-01] MEDS: Ibuprofen 600 MG Tablet PO (21:47)
[2022-12-02] MEDS: Acetaminophen 500 MG Tablet 1000 MG PO ×3 (02:35→13:51)
[2022-12-02 02:38] VITALS: BP 148/92; PULSE 81; RESP 14; TEMP 36.3; O2SAT 99
[2022-12-02] MEDS: oxyCODONE 5 MG Tablet PO ×3 (02:44→13:51)
[2022-12-02] MEDS: Ibuprofen 600 MG Tablet PO (03:13)
[2022-12-02 08:02] VITALS: BP 139/88; PULSE 66; RESP 16; TEMP 36.6; O2SAT 99
[2022-12-02] MEDS: Senna/Docusate Sodium 1 Tablet PO (09:06)
--- NOTE | 2022-12-02 12:00 | PCM.PN.OB ---
Subjective Subjective Pt is doing well. Pain is controlled. She is ambulating and voiding without difficulty. She denies lightheadedness, dizziness, chest pain, shortness of breath, leg pain. Lochia is normal. She is breast-feeding without complaints. She desires discharge today. Objective Data Objective Data Vital Signs: Vital Signs Temp Pulse Resp BP Pulse Ox O2 Del Method 98 F 66 16 139/88 H 99 Room Air 12/02/22 08:02 12/02/22 08:02 12/02/22 08:02 12/02/22 08:02 12/02/22 08:02 12/02/22 08:02 Oxygen Delivery Method Room Air Weight: 170 lb Body Mass Index (BMI) 27.8 Intake & Output: Intake and Output for Last 24 Hours 11/30/22 12/01/22 12/02/22 23:59 23:59 23:59 Intake Total 1076.35 / 1076.35 1248.33 / 1248.33 Output Total 400 / 400 1850 / 1850 Balance 676.35 / 676.35 -601.67 / -601.67 Lab / Micro Data 12/01/22 06:30 Physical Exam Const alert and no apparent distress General Appearance: comfortable HEENT normocephalic Resp normal respiratory effort GI soft to palpation and non-distended GI Narrative: ATTP, FF@U, dressing c/d/i Extremity normal to inspection Assessment & Plan (1) Delivery by section: PLAN: Patient is postoperative day 2 from a repeat section with sterilization. She desires discharge home. Blood pressures have been normotensive, although last 2 elevated with systolic blood pressure in the 130s to 140s. We will recheck blood pressure prior to discharge. Reviewed discharge instructions. She has follow-up in the office next week.
--- NOTE | 2022-12-02 12:02 | DCINST_ITS ---
Discharge Instructions Diet Discharge Diet: No restrictions Activity Discharge Activity: May Not Drive and May Shower May resume sexual activity in: 6 weeks Ice area for (Minutes): 15 Weight Bearing Status: Weight bearing as tolerated Lifting Restrictions: Nothing heavier than baby Dressing / Incision Call your doctor if your incision/area has: Continuous Slow Oozing, Sudden Increased Bleeding, Increased Pain/ Swelling, Increased Redness, Foul Smelling Discharge and Swelling at the incision site Call your doctor if you observe: Fever of 101 or Higher, Coldness, Increased Pain, Numbness or Tingling, Change in Color, Inability to urinate, Inability to have a bowel movement, Using more than 1 pad per hour, Shortness of breath, Dizziness, Fainting spells, Swelling in the ankles, Chest pain, Prolonged hiccupping, Increased palpitations (irregular heartbeat), Calf discomfort and Uncontrolled pain Suture Line Care: Avoid Pulling/Pushing and Avoid Pinching/Bending Remove Dressing in: 4 days (Ok to remove dressing in shower) Cleanse incision/area with: Soap & Water Follow Up Care Please Follow Up With: Erika Loya DO When: 1-2 weeks for incision check and blood pressure check 6 weeks visit Test Results: Test results from this visit will be discussed in further detail at your follow- up appointment, if applicable. Discharge Plan Admission Admit Date/Time: 11/30/22 19:34 Primary Reason for Your Visit: delivery Attending Provider: Erika Loya Primary Care Provider: Marlys De Souza Instructions Patient Instructions: After a Discharge Orders/Prescriptions Prescriptions: New oxycodone-acetaminophen [Percocet] 5-325 mg tablet 1 tab PO Q6H PRN (Reason: pain) 7 Days Qty: 10 0RF ibuprofen 600 mg tablet 600 mg PO Q6H PRN (Reason: pain) Qty: 30 0RF docusate sodium [Colace] 100 mg capsule 100 mg PO BID Qty: 30 0RF Continued Classic 28 mg iron- 800 mcg tablet 1 tab PO DAILY ferrous sulfate [iron] 325 mg (65 mg iron) tablet 325 mg PO DAILY Referrals / Follow Up: Marlys De Souza PA [Primary Care Provider] - Disposition Disposition (needs filled in before D/C Order can be placed): Home, Self Care
--- NOTE | 2022-12-02 12:06 | DS.PCM_ITS ---
Providers Date of Admission: 11/30/22 Date of Discharge: 12/02/22 Primary Care Physician: TAYA Means Reason For Visit: C SECTION Diagnosis Discharge Diagnosis (1) Delivery by section: Status: Acute Plan: Patient is postoperative day 2 from a repeat section with sterilization. She desires discharge home. Blood pressures have been normotensive, although last 2 elevated with systolic blood pressure in the 130s to 140s. We will recheck blood pressure prior to discharge. Reviewed discharge instructions. She has follow-up in the office next week. Medications at Discharge Home Medications vits no.126-ferrous fum 28 mg iron-folic acid 800 mcg tablet (Classic ) 1 tab PO DAILY 11/27/22 ferrous sulfate 325 mg (65 mg iron) tablet (iron) 325 mg PO DAILY 11/29/22 docusate sodium 100 mg capsule (Colace) 100 mg PO BID #30 caps 12/02/22 ibuprofen 600 mg tablet 600 mg PO Q6H PRN pain #30 tabs 12/02/22 oxycodone-acetaminophen 5 mg-325 mg tablet (Percocet) 1 tab PO Q6H PRN pain 7 days #10 tabs 12/02/22 Hospital Course Summary of Care Provided Hospital Course: Presented at 38 weeks and 6 days with decreased movement for 1 week and an isolated elevated blood pressure several days ago. She had history of 2 prior C-sections and was for repeat with sterilization. See operative report for details. She underwent a repeat with sterilization. Postoperatively her pain was controlled, she was ambulating voiding without difficulty, lochia normal, and she was breast-feeding. She has follow-up in the office. Weight / BMI Weight Weight: 170 lb Body Mass Index (BMI) 27.8 ABG / Lab / Microbiology Data 12/01/22 06:30 D/C Instructions Discharge Diet: No restrictions May resume sexual activity in: 6 weeks Ice area for (Minutes): 15 Weight Bearing Status: Weight bearing as tolerated Call your doctor if your incision/area has: Continuous Slow Oozing, Sudden Inc reased Bleeding, Increased Pain/ Swelling, Increased Redness, Foul Smelling Discharge and Swelling at the incision site Call your doctor if you observe: Fever of 101 or Higher, Coldness, Increased Pain, Numbness or Tingling, Change in Color, Inability to urinate, Inability to have a bowel movement, Using more than 1 pad per hour, Shortness of breath, Dizziness, Fainting spells, Swelling in the ankles, Chest pain, Prolonged hiccupping, Increased palpitations (irregular heartbeat), Calf discomfort and Uncontrolled pain Suture Line Care: Avoid Pulling/Pushing and Avoid Pinching/Bending Cleanse incision/area with: Soap & Water Please Follow Up With: Erika Loya DO When: 1-2 weeks for incision check and blood pressure check 6 weeks visit Meaningful Use Info Meaningful Use Diagnoses (Choose all that apply): None applicable Discharge Plan Admission Admit Date/Time: 11/30/22 19:34 Primary Reason for Your Visit: delivery Attending Provider: Erika Loya Primary Care Provider: Marlys De Souza Instructions Patient Instructions: After a Discharge Orders/Prescriptions Prescriptions: New oxycodone-acetaminophen [Percocet] 5-325 mg tablet 1 tab PO Q6H PRN (Reason: pain) 7 Days Qty: 10 0RF ibuprofen 600 mg tablet 600 mg PO Q6H PRN (Reason: pain) Qty: 30 0RF docusate sodium [Colace] 100 mg capsule 100 mg PO BID Qty: 30 0RF Continued Classic 28 mg iron- 800 mcg tablet 1 tab PO DAILY ferrous sulfate [iron] 325 mg (65 mg iron) tablet 325 mg PO DAILY Referrals / Follow Up: Marlys De Souza PA [Primary Care Provider] - Disposition Disposition (needs filled in before D/C Order can be placed): Home, Self Care
[2022-12-02 13:05] VITALS: BP 128/84; PULSE 83; RESP 16; TEMP 36.6; O2SAT 100
[2022-12-02] MEDS: Albuterol 2.5 MG/3 ML VIAL.NEB. INHALATION (13:34)
[2022-12-02 13:35] VITALS: PULSE 90; RESP 16
[2022-12-04 14:43] LABS: Pathology Specimen OB SEE PATHOLOGY REPORT
== END 2022-12-02 16:10 | disposition home or self-care (01) | DRG 541 ==
LOC: WPOUT 19:36 → WP 19:36
PROVIDERS: Admitting Provider Obstetrics & Gynecology; PCP Physician Assistant; Referring Provider Obstetrics & Gynecology; Visit Provider Obstetrics & Gynecology
DX: O34.211 Maternal care for low transverse scar from previous cesarean delivery (principal); Z37.0 Single live birth; D64.9 Anemia, unspecified; Z30.2 Encounter for sterilization; O36.8130 Decreased fetal movements, third trimester, not applicable or unspecified; Z87.891 Personal history of nicotine dependence; O34.03 Maternal care for unspecified congenital malformation of uterus, third trimester; Q51.4 Unicornate uterus; Z3A.38 38 weeks gestation of pregnancy; O99.02 Anemia complicating childbirth
CPT/HCPCS: 36415; 59025; 59050; 71046; 81001; 85025; 85027; 86780; 86850; 86900; 86901; 88302; 88307; 94640; 99221; J7120; A4216; G0378

== ENCOUNTER 2025-04-19 02:02 | Emergency (ER) | payer MEDICAID, SELFPAY ==
[2025-04-19 02:02] VITALS: BP 132/72; PULSE 93; RESP 20; TEMP 36.3; O2SAT 100; BMI 27.1
--- NOTE | 2025-04-19 02:30 | CT_ITS ---
PROCEDURE: SPINE CERVICAL WITHOUT CONTRAS 04/19/2025 REASON FOR EXAM: PAIN TECHNIQUE: Procedure Code: CTSPC Modality: CT Procedure: SPINE CERVICAL WITHOUT CONTRAS Coronal and Sagittal reconstruction series were provided. One or more dose reduction techniques were used (e.g., Automated exposure control, adjustment of the mA and/or kV according to patient size, use of iterative reconstruction technique. RADIATION DOSE SUMMARY: CTDlvol: 44.99 mGy DLP: 728.62 mGycm COMPARISON: NONE FINDINGS: No acute fractures. Normal craniovertebral junction. Normal anterior atlantoaxial articulation. Normal odontoid process. No traumatic subluxation. Straightened cervical lordosis that may be positional or reflecting muscle spasm. Normal vertebral bodies and posterior osseous elements. C2-3: Normal endplates. Normal disc height and morphology. Normal bilateral uncovertebral and apophyseal joints. Normal central canal and intervertebral neuroforamina. C3-4: Normal endplates. Normal disc height and morphology. Normal bilateral uncovertebral and apophyseal joints. Normal central canal and intervertebral neuroforamina. C4-5: Normal endplates. Normal disc height and morphology. Normal bilateral uncovertebral and apophyseal joints. Normal central canal and intervertebral neuroforamina. C5-6: Normal endplates. Normal disc height and morphology. Normal bilateral uncovertebral and apophyseal joints. Normal central canal and intervertebral neuroforamina. C6-7: Normal endplates. Normal disc height and morphology. Normal bilateral uncovertebral and apophyseal joints. Normal central canal and intervertebral neuroforamina. C7-T1: Normal endplates. Normal disc height and morphology. Normal bilateral uncovertebral and apophyseal joints. Normal central canal and intervertebral neuroforamina. Normal visualized soft tissue structures. CT/Spine Cervical without Contras IMPRESSION: No acute fractures. Reading [facility]
--- NOTE | 2025-04-19 02:30 | CT_ITS ---
PROCEDURE: BRAIN/HEAD WITHOUT CONTRAST 04/19/2025 REASON FOR EXAM: HEAD INJURY TECHNIQUE: Procedure Code: CTBR Modality: CT Procedure: BRAIN/HEAD WITHOUT CONTRAST Coronal and Sagittal reconstruction series were provided. One or more dose reduction techniques were used (e.g., Automated exposure control, adjustment of the mA and/or kV according to patient size, use of iterative reconstruction technique. RADIATION DOSE SUMMARY: CTDI Vol 44.99 mGy DLP :846.73 mGycm COMPARISON: none FINDINGS: The visualized brain parenchyma shows normal appearance. No focal parenchymal abnormalities are demonstrated. Sommers-white matter differentiation is maintained. Mild cerebellar tonsils descent. Normal CT appearance of the posterior fossa structures. No intracerebral or extra-axial hemorrhage. No midline shifts or deformity. Normal size and configuration of the cerebral ventricles. No definite calvarial fractures. The osseous structures in the skull base are unremarkable. Scanned paranasal sinuses are unremarkable. CT/Brain/Head without Contrast IMPRESSION: No intracerebral or extra-axial hemorrhage. No acute territorial cerebrovascular abnormalities. If clinical symptoms persis t, further evaluation with MRI may be considered as clinically warranted. Reading Location[facility]
--- OUTSIDE RECORDS SUMMARY | 2025-04-19 02:56 | XMS RPT_ITS | CCD ---
Author Organization [facility] Care Team Providers Care Health Professional Name Role Phone [employer] Unavailable Unavailable FREEDMAN, SHAILA A Unavailable Unavailable Erlin Floyd Unavailable Unavailable Freedman, Shaila Unavailable Unavailable Freedman, Shaila Unavailable Unavailable Freedman, Shaila Unavailable Unavailable Freedman, Shaila Unavailable Unavailable Nirmala Floyd Unavailable Unavailable Freedman, Shaila Unavailable Unavailable Tano, Shaila Unavailable Unavailable Sera Fagan Unavailable Unavailable Marlys De Souza PA-C Primary Care Provider [phone] Erika Loya Attending Unavailable Erika Loya Referring Unavailable Marlys Rai Primary Care Unavailable Vincenzo Erika Admitting Unavailable Zoe Hernández Attending Unavailable Zoe Hernández Referring Unavailable Marlys Rai Primary Care Unavailable Telly Noel Attending Unavailable Telly Noel Referring Unavailable Marlys Rai Primary Care Unavailable Vincenzo Erika Admitting Unavailable Erika Loya Attending Unavailable Marlys Rai Primary Care Unavailable Telly Noel Attending Unavailable Marlys Rai Referring Unavailable Marlys Rai Primary Care Unavailable Ceci Baker Attending Unavailable Ceci Baker Referring Unavailable Marlys Rai Primary Care Unavailable Ceci Baker Attending Unavailable Ceci Baker Referring Unavailable Marlys Rai Primary Care Unavailable Marlys De Souza PA-C Primary Care Provider [phone] Bob De Souza PA-C Primary Care Provider Unavailable Linette CHILD MONITOR.Brittney MARQUIS Unavailable Lauren CHILD MONITOR.HR BUSINESS PARTNER, Louise A Unavailable [phone] BOB DE SOUZA Primary Care Unavailable BOB DE SOUZA Primary Care Unavailable BOB DE SOUZA Primary Care Unavailable FORTUNATO IBRAHIM Attending Unavailable BOB DE SOUZA Primary Care Unavailable Medications Current Medications Medication Drug Class(es) Dates Sig (Normalized) Sig (Original) [id number] 200 actuat albuterol 0.09 mg/actuat metered dose inhaler (1 source) beta2-Adrenergic Agonist Start: 07-09-2024 take 2 puff(s) by inhalation every four hours as needed for wheezing albuterol HFA (PROVENTIL HFA, VENTOLIN HFA) 90 mcg/actuation inhaler Indications: Sinobronchitis Inhale 2 Puffs as instructed every 4 hours as needed for wheezing/shortness of breath. 1 Each 07/09/2024 Active ferrous sulfate 325 mg oral tablet (20 sources) Start: 11-29-2022 take 1 tablet by mouth once daily Ferrous Sulfate (Iron) 325 mg (65 mg iron) tablet Active 325 MG PO DAILY November 29, 2022 12:00am Start: 09-21-2022 End: 02-25-2024 take 1 tablet by mouth every other day ferrous sulfate (IRON) 325 mg (65 mg iron) tablet Take 1 tablet by mouth every other day. 30 tablet 2 09/21/2022 02/25/2024 Discontinued (Course of therapy completed) Comment on above: Take 1 tablet by ciara every other day. folic acid 0.8 mg oral tablet (3 sources) Start: 06-07-2022 take 0.8 mg by mouth once daily Folic Acid Active 0.8 MG PO DAILY June 07, 2022 1:00am predniSONE 10 mg oral tablet (1 source) Start: 07-09-2024 End: 07-18-2024 predniSONE (DELTASONE) 10 mg tablet Indications: Sinobronchitis Take 4 tabs daily for 3 days, then 2 tabs daily for 3 days, then 1 tab daily for 3 days with food. 21 tablet 07/09/2024 07/18/2024 Active Vit No.991-Ypam-Yuzto (Classic ) 28 mg iron- 800 mcg tablet (2 sources) Start: 11-27-2022 take 1 tablet by mouth once daily Vit No.402-Fazt-Utpnh (Classic ) 28 mg iron- 800 mcg tablet Active 1 TABLET PO DAILY November 27, 2022 12:00am Start: 11-27-2022 Vit N o.252-Smnw-Jsehh (Classic ) 28 mg iron- 800 mcg tablet Active TABLET November 27, 2022 12:00am Completed/Discontinued Medications Medication Drug Class(es) Dates Sig (Normalized) Sig (Original) doxylamine succinate 25 mg oral tablet (20 sources) End: 02-25-2024 doxylamine 25 mg tab Take by mouth. 02/25/2024 Discontinued (Course of therapy completed) Comment on above: Take by mouth. Inhalational Spacing Device (1 source) Start: 07-09-2024 End: 07-09-2024 Inhalational Spacing Device 1 Device one time only for 1 dose. 1 Each 07/09/2024 07/09/2024 ondansetron 4 mg oral tablet (20 sources) Serotonin-3 Receptor Antagonist Start: 07-11-2022 End: 02-25-2024 take 1 tablet by mouth every eight hours as needed ondansetron (ZOFRAN) 4 mg tablet Take 1 tablet by mouth every 8 hours as needed for nausea/vomiting. 30 tablet 07/23/2022 02/25/2024 Discontinued Start: 06-07-2022 take 4 mg by mouth e very six hours Ondansetron Active 4 MG PO EVERY 6 HOURS June 07, 2022 1:00am Comment on above: Take 1 tablet by mouth every 8 hours as needed for nausea/vomiting. PNV No.40-Iron Fum-FA Cmb No.1 (PNV-SELECT) 27-1 mg tab (20 sources) Start: End: take 1 tablet by mouth once daily PNV No.40-Iron Fum-FA Cmb No.1 (PNV-SELECT) 27-1 mg tab Take 1 tablet by mouth once daily. 30 tablet 12 07/23/2022 02/25/2024 Discontinued (Course of therapy completed) Start: 07-23-2022 take 1 tablet by ciara th once daily PNV No.40-Iron Fum-FA Cmb No.1 (PNV-SELECT) 27-1 mg tab Take 1 tablet by mouth once daily. 30 tablet 12 07/23/2022 Active Comment on above: Take 1 tablet by ciara th once daily. prental multivitamin 27 mg iron- 800 mcg tablet (10 sources) End: 07-23-2022 take 1 tablet by mouth once daily prental multivitamin 27 mg iron- 800 mcg tablet Take 1 tablet by mouth once daily. 0 07/23/2022 Discontinued take 1 tablet by mouth once caity y prental multivitamin 27 mg iron- 800 mcg tablet Take 1 tablet by mouth once daily. 0 Active Comment on above: Take 1 tablet by ciara th once daily. vitamin b6 50 mg oral tablet (20 sources) Start: 05-24-2022 End: 02-25-2024 take 1 tablet by mouth twice daily pyridoxine, vitamin B6, (VITAMIN B-6) 50 mg tablet Take 1 tablet by mouth twice daily. 30 tablet 1 05/24/2022 02/25/2024 Discontinued (Course of therapy completed) Comment on above: Take 1 tablet by ciara th twice daily. Problems Active Problems Problem Classification Problem Date Documented Date Episodic/Chronic Adjustment disorders (20 sources) Prolonged depressive adjustment reaction; Translations: [Adjustment disorder with depressed mood] Onset: 01-09-2019 01-09-2019 Chronic Bacterial infection (6 sources) Resistance to penicillins; Translations: [Resistance to other specified beta lactam antibiotics] Onset: 01-23-2018 Episodic Diabetes or abnormal glucose tolerance complicating ; childbirth; or the puerperium (2 sources) Abnormal glucose level; Translations: [Abnormal glucose complicating ] Episodic External Injury - Cut / Urena (2 sources) Contact with sharp glass, initial encounter; Translations: [Contact with sharp glass, initial encounter] Onset: 04-09-2017 Fluid and electrolyte disorders (2 sources) Hypokalemia; Translations: [Hypokalemia] Onset: 01-23-2018 Episodic Genitourinary symptoms and ill-defined conditions (1 source) Scalding pain on urination ; Translations: [Dysuria] 02-25-2024 Episodic Headache, including migraine (5 sources) Headache; Translations: [Headache] Onset: 01-23-2018 06-15-2022 Episodic Immunizations and screening for infectious disease (8 sources) Patient encounter status; Translations: [Encounter for screening for human papillomavirus (HPV)] Episodic Other complications of (20 sources) Anemia in mother complicating , childbirth AND/OR puerperium; Translations: [Anemia complicating , third trimester] Onset: 09-21-2022 09-21-2022 Chronic Other complications of (1 source) Anemia during - baby not yet delivered; Translations: [Anemia complicating , third trimester] Chronic Other complications of (7 sources) High risk ; Translations: [Supervision of high risk , unspecified, unspecified trimester] Episodic Other complications of (1 source) Uterine size for dates discrepancy; Translations: [Uterine size-date discrepancy, third trimester] Episodic Other complications of (2 sources) Reduced movement; Translations: [Decreased movements, third trimester, not applicable or unspecified] 11-28-2022 Episodic Other complications of (1 source) Congenital abnormality of uterus in , childbirth and the puerperium; Translations: [Maternal care for unspecified congenital malformation of uterus, third trimester] 12-01-2022 Episodic Other screening for suspected conditions (not mental disorders or infectious disease) (3 sources) Cancer cervix screening status; Translations: [Encounter for screening for malignant neoplasm of cervix] Episodic Other skin disorders (1 source) Rash and other nonspecific skin eruption; Translations: [Rash] Onset: 01-07-2025 Episodic Other upper respiratory infections (1 source) Chronic sinusitis; Translations: [Chronic sinusitis, unspecified] 07-09-2024 Chronic Other upper respiratory infections (2 sources) Sore throat symptom; Translations: [Acute pharyngitis, unspecified] 02-25-2024 Episodic Residual codes; unclassified (2 sources) Gestation period, 12 weeks; Translations: [12 weeks gestation of ] Episodic Residual codes; unclassified (1 source) Gestation period, 16 weeks; Translations: [16 weeks gestation of ] Episodic Residual codes; unclassified (1 source) Gestation period, 18 weeks; Translations: [18 weeks gestation of ] Episodic Residual codes; unclassified (2 sources) Gestation period, 20 weeks; Translations: [20 weeks gestation of ] Episodic Residual codes; unclassified (1 source) Gestation period, 24 weeks; Translations: [24 weeks gestation of ] Episodic Residual codes; unclassified (2 sources) Gestation period, 28 weeks; Translations: [28 weeks gestation of ] Episodic Residual codes; unclassified (1 source) Gestation period, 30 weeks; Translations: [30 weeks gestation of ] Episodic Residual codes; unclassified (2 sources) Gestation period, 32 weeks; Translations: [32 weeks gestation of ] Episodic Residual codes; unclassified (1 source) Gestation period, 33 weeks; Translations: [33 weeks gestation of ] Episodic Residual codes; unclassified (1 source) Gestation period, 34 weeks; Translations: [34 weeks gestation of ] 11-01-2022 Episodic Residual codes; unclassified (3 sources) Gestation period, 35 weeks; Translations: [35 weeks gestation of ] 11-05-2022 Episodic Residual codes; unclassified (1 source) Gestation period, 37 weeks; Translations: [37 weeks gestation of ] 11-22-2022 Episodic Residual codes; unclassified (4 sources) Gestation period, 38 weeks; Translations: [38 weeks gestation of ] 11-26-2022 Episodic Residual codes; unclassified (2 sources) 38 weeks gestation of ; Translations: [ state, incidental] 11-27-2022 Episodic Residual codes; unclassified (2 sources) History of uterine scar from previous surgery; Translations: [Other postprocedural status] 11-27-2022 Episodic Septicemia (4 sources) Sepsis, unspecified organism; Translations: [Sepsis due to Escherichia coli [E. coli]] Onset: 01-23-2018 Substance-related disorders (2 sources) Nicotine dependence, cigarettes, uncomplicated; Translations: [Nicotine dependence, cigarettes, uncomplicated] Onset: 01-23-2018 Chronic Superficial injury; contusion (3 sources) Blister of finger with infection; Translations: [Blister (nonthermal) of unspecified finger, initial encounter] 08-31-2019 Episodic Unclassified (2 sources) Unknown / UNK(Unknown) Onset: 09-05-2017 Urinary tract infections (2 sources) Urinary tract infection, site not specified; Translations: [Urinary tract infection, site not specified] Onset: 01-23-2018 Episodic Past or Other Problems Problem Classification Problem Date Documented Date Episodic/Chronic Contraceptive and procreative management (20 sources) Sterilization requested; Translations: [Encounter for sterilization] Onset: 05-30-2022 Episodic Diabetes mellitus without complication (20 sources) Abnormal glucose tolerance test; Translations: [Other abnormal glucose] Onset: 09-21-2022 Episodic Genitourinary congenital anomalies (5 sources) Congenital uterine anomaly; 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, unspecified] Onset: 09-15-2015 Resolved: 01-09-2019 11-29-2022 Chronic Inflammatory diseases of female pelvic organs (3 sources) Inflammation of cervix; Translations: [Inflammatory disease of cervix uteri] Onset: 05-26-2013 Resolved: 01-09-2019 04-17-2021 Episodic Nausea and vomiting (1 source) Vomiting, unspecified; Translations: [Vomiting, unspecified] Onset: 07-18-2022 Episodic Open wounds of extremities (2 sources) Laceration without foreign body, left foot, initial encounter; Translations: [Laceration without foreign body, left foot, init encntr] Onset: 04-09-2017 Episodic Other complications of (20 sources) Maternal tobacco use; Translations: [Smoking (tobacco) complicating , first trimester] Onset: 09-15-2015 05-02-2021 Episodic Other complications of (20 sources) Supervision of with other poor reproductive or obstetric history, unspecified trimester; Translations: [ with other poor obstetric history] Onset: 05-24-2022 Episodic Other complications of (20 sources) Nausea and vomiting; Translations: [Vomiting of , unspecified] Onset: 09-15-2015 Episodic Other complications of (20 sources) Congenital abnormality of uterus complicating care, baby not yet delivered; Translations: [Maternal care for unspecified congenital malformation of uterus, unspecified trimester] Onset: 05-24-2022 Episodic Other complications of (20 sources) Poor growth affecting management; Translations: [Maternal care for other known or suspected poor growth, third trimester, not applicable or unspecified] Onset: 10-22-2022 Episodic Other complications of (3 sources) Decreased movements, third trimester, not applicable or unspecified; Translations: [Decreased movements, affecting management of mother, antepartum condition or complication] Onset: 12-05-2022 11-27-2022 Episodic Other complications of (3 sources) Vomiting of , unspecified; Translations: [Unspecified vomiting of , unspecified as to episode of care or not applicable] Onset: 09-15-2015 05-24-2022 Episodic Other complications of (3 sources) Congenital abnormality of uterus, affecting ; Translations: [Maternal care for unspecified congenital malformation of uterus, unspecified trimester] Onset: 05-24-2022 05-24-2022 Episodic Other complications of (3 sources) Rubella non-immune; Translations: [Supervision of other high risk pregnancies, unspecified trimester] Onset: 12-11-2013 Resolved: 09-15-2015 09-15-2015 Episodic Other infections; including parasitic (20 sources) History of sexually transmitted disease; Translations: [Personal history of other infectious and parasitic diseases] Onset: 12-07-2013 Resolved: 09-15-2015 04-17-2021 Episodic Other and delivery including normal (7 sources) Normal ; Translations: [Encounter for supervision of other normal , first trimester] Onset: 12-07-2013 Resolved: 09-15-2015 Episodic Previous (20 sources) ; Translations: [Maternal care for unspecified type scar from previous delivery] Onset: 05-24-2022 Episodic Residual codes; unclassified (1 source) Gestation period, 36 weeks; Translations: [36 weeks gestation of ] 11-15-2022 Episodic Residual codes; unclassified (3 sources) History of previous intrauterine growth restricted ; Translations: [Personal history of other complications of , childbirth and the puerperium] Onset: 09-15-2015 Resolved: 01-09-2019 04-17-2021 Episodic Screening and history of mental health and substance abuse codes (3 sources) H/O: depression; Translations: [Personal history of other mental and behavioral disorders] Onset: 09-15-2015 Resolved: 01-09-2019 04-17-2021 Episodic Spondylosis; intervertebral disc disorders; other back problems (5 sources) Backache; Translations: [Muscle spasm of back] Onset: 09-05-2017 Episodic Sprains and strains (2 sources) Strain of muscle and tendon of back wall of thorax, initial encounter; Translations: [Strain of muscle and tendon of back wall of thorax, init] Onset: 09-05-2017 Episodic Results Test Name Value Interpretation Reference Range Facility [facility] 01-07-2025 CNOV Office Visit ([facility]) ----- GRACY NAN ([id number]) 1995 F Date Time Provider Department 01/07/25 1:00 PM FORTUNATO IBRAHIM During your visit today, we recorded the following information about you: Temperature Pulse Respiration Blood pressure 98.2 degrees 95/minute 20/minute 117/72 Weight Last Period 65 kg 01/07/25 Fortunato Ibrahim APRN.HR BUSINESS PARTNER 01/07/2025 1:27 PM Signed [facility] Subjective Gracy Ann is a 29 year old female. Patient presents with: Rash: LLE, red, raised, fluid filled blisters, some pain, x 2-3 days spreading up leg. HPI Nontoxic-appearing female presents urgent care chief complaint rash. Duration of symptoms 2 to 3 days. Associated symptoms pruritic rash lower leg. Presents today for evaluation. OTC medications none. No recent medication changes antibiotic use. Overall feels well. No fevers. No nausea or vomiting. Past medical history prescription medications allergies reviewed Review of Systems Constitutional: Negative for chills, diaphoresis, fatigue and fever. HENT: Negative for congestion, drooling, ear discharge, ear pain, rhinorrhea, sinus pressure, sinus pain, sneezing, sore throat and trouble swallowing. Eyes: Negative for pain, discharge, redness, itching and visual disturbance. Respiratory: Negative for cough, chest tightness, shortness of breath and wheezing. Cardiovascular: Negative for chest pain. Gastrointestinal: Negative for abdominal distention, abdominal pain, blood in stool, constipation, diarrhea, nausea and vomiting. Genitourinary: Negative for difficulty urinating and dysuria. Musculoskeletal: Negative for arthralgias, joint swelling, neck pain and neck stiffness. Skin: Positive for rash. Neurological: Negative for dizziness, weakness, numbness and headaches. Objective BP 117/72 Pulse 95 Temp 36.8 ?C (98.2 ?F) Resp 20 Wt 65 kg (143 lb 4.8 oz) LMP 01/07/2025 (Exact Date) SpO2 98% BMI 23.48 kg/m? Physical Exam Constitutional: Appearance: Normal appearance. HENT: Head: Normocephalic. Jaw: No trismus, tenderness, swelling or pain on movement. Nose: No congestion. Mouth/Throat: Mouth: Mucous membranes are moist. Pharynx: Oropharynx is clear. Uvula midline. No oropharyngeal exudate or posterior oropharyngeal erythema. Eyes: Conjunctiva/sclera: Conjunctivae normal. Cardiovascular: Rate and Rhythm: Normal rate. Pulmonary: Effort: Pulmonary effort is normal. Breath sounds: Normal breath sounds. No wheezing, rhonchi or rales. Abdominal: Palpations: Abdomen is soft. Tenderness: There is no abdominal tenderness. There is no guarding or rebound. Musculoskeletal: General: Normal range of motion. Cervical back: Normal range of motion and neck supple. No edema, erythema or rigidity. No pain with movement. Normal range of motion. Lymphadenopathy: Cervical: No cervical adenopathy. Skin: General: Skin is warm and dry. Findings: Rash present. No abrasion, abscess, acne, bruising, burn, ecchymosis, erythema, signs of injury, laceration, lesion, petechiae or wound. Rash is macular, purpuric and vesicular. Rash is not crusting, nodular, papular, pustular, scaling or urticarial. Neurological: General: No focal deficit present. Mental Status: She is alert and oriented to person, place, and time. Mental status is at baseline. {ASSESSMENT/PLAN: 1. Rash - ICD9: 782.1, ICD10: R21 Diagnosis rash. Suspicious contact dermatitis. No systemic symptoms. Spares palms and hands and mucosal membrane. Treat with Kenalog cream. Use second-generation antihistamines. Patient was educated on supportive therapies. Patient will follow up with primary care provider as needed. Patient was instructed to immediately proceed to emergency room for any new, worsening, or symptoms lasting longer than anticipated. The patient's clinical presentation is otherwise unremarkable at this time. Based on exam and clinical finding, the patient is stable for discharge. Plan of care was discussed with patient. Patient verbalizes understanding and agrees to plan of care. This note was generated using [employer] software. It may contain errors in wording, punctuation, or spelling. Fortunato Ibrahim APRN.HR BUSINESS PARTNER History and Record Review Clinical information obtained from an independent historian. History obtained from or confirmed by: parent. External record(s) reviewed: prior outpatient record. Disposition The patient was discharged. OTC Medications were advised: Procedures Allergies As of Date: 01/07/2025 (No Known Allergies) Date Reviewed: 01/07/2025 Reviewed by: Yanna Aguilar LPN - Fully Assessed Reason for Visit: Rash [1087] Cmt: LLE, red, raised, fluid filled blisters, some pain, x 2-3 days spreading up leg. Primary Visit Diagnosis:Rash [R21] Order(s):triamcinolone acetonide (KENALOG) 0.1 % creamAppl (more content not included)... Normal [facility] CNOVon 07-09-2024 CNOV Office Visit ([facility] ) ----- GRACY ANN ([id number]) 1995 F Date Time Provider Department 07/09/24 7:30 PM EWELINA JUAREZ [facility] During your visit today, we recorded the following information about you: Temperature Pulse Respiration Blood pressure 97 degrees 84/minute 20/minute 99/63 Weight Last Period 64 kg 07/02/24 Ewelina Juarez, KISHORE.HR BUSINESS PARTNER 07/09/2024 8:01 PM Signed [facility] Subjective Gracy Ann is a 29 year old female. Patient presents with: Cough: Chest congestion, tightness in chest, SOB, body aches, sore throat, raspy voice x 1 week Cough Associated symptoms include headaches, rhinorrhea, sore throat, shortness of breath and wheezing. Pertinent negatives include no chest pain, no chills and no myalgias. Gracy Ann is a 29 year old female who presents with cough, congestion, sore throat, wheezing, shortness of breath for the past week. She has had sinus congestion and drainage. She has had a productive cough and feels tired. She initially had some body aches and chills but these resolved. She is currently taking amoxicillin which was prescribed by her dentist 2 days ago. She missed work yesterday and today due to illness. Review of Systems Constitutional: Positive for fatigue. Negative for chills and fever. HENT: Positive for congestion, rhinorrhea, sinus pressure and sore throat. Respiratory: Positive for cough, shortness of breath and wheezing. Cardiovascular: Negative for chest pain. Musculoskeletal: Negative for myalgias. Neurological: Positive for headaches. Objective BP 99/63 Pulse 84 Temp 36.1 ?C (97 ?F) Resp 20 Wt 64 kg (141 lb 1.5 oz) LMP 07/02/2024 (Exact Date) SpO2 100% No BMI 23.12 kg/m? PAST MEDICAL HISTORY Diagnosis Date - Anemia - Cervicitis 05/26/2013 Possible PID - Depression, major, single episode, mild (HCC) - Herpes simplex without mention of complication - History of section 09/15/2015 09/15/2015Pt had a previous C section. She desires a repeat C section by Dr Campoverde.TKRN History of cesearan section, patient counseled on trial of labor versus repeat cesearan section. Risks/benefits/alternativ es discussed with patient regarding trial of labor and potential for uterine rupture. Risks include but are not limited to maternal hemorrhage, risk of injury to adjacent organs includ - History of depression 09/15/2015 09/15/2015 Pt has a history of depression diagnosed 2 years ago. She has been off medication for 1 year . Discussed increased risks of depression during and and importance of reporting the development or worsening of symptoms should they occur.Pt denies ever having any suicidal thoughts or tendencies or thoughts of hurting others.TKRN - History of prior with IUGR 09/15/2015 09/15/2015Patient is complaining of nausea in . Advised patient to call/come in if she is unable to keep any food or fluids down in a 24-hour period. TKRN - Nausea/vomiting in 09/15/2015 09/15/2015Patient is complaining of nausea in . Advised patient to call/come in if she is unable to keep any food or fluids down in a 24-hour period. 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 MEDICATIONS - predniSONE (DELTASONE) 10 mg tablet Take 4 tabs daily for 3 days, then 2 tabs daily for 3 days, then 1 tab daily for 3 days with food. - albuterol HFA (PROVENTIL HFA, VENTOLIN HFA) 90 mcg/actuation inhaler Inhale 2 Puffs as instructed every 4 hours as needed for wheezing/shortness of breath. - Inhalational Spacing Device 1 Device one time only for 1 dose. FAMILY HISTORY Problem Relation Age of Onset - other (lupus) Mother - Rheumatologic disease Mother - No Known Problems Father - No Known Problems Brother - No Known Problems Brother - No Known Problems Brother - Diabetes Maternal Grandmother - No Known Problems Paternal Grandmother - Heart Paternal Grandfather - No Known Problems Daughter - No Known Problems Daughter - Heart Maternal Uncle Social History Tobacco Use - Smoking status: Some Days Current packs/day: 0.00 Average packs/day: 0.3 packs/day for 5.0 years (1.3 ttl pk-yrs) Types: Cigarettes Start date: 09/07/2010 Last attempt to quit: 09/08/2015 Years since quittin.8 - Smokeless tobacco: Never Vaping Use - Vaping status: Never Used Andersen (more content not included)... Normal [facility] CNOVon 05-19-2024 CNOV Office Visit ([facility] ) ----- GRACY ANN ([id number]) 1995 F Date Time Provider Department 05/19/24 7:45 PM MARCOS TOLEDO [facility] During your visit today, we recorded the following information about you: Temperature Pulse Respiration Blood pressure 97.6 degrees 101/minute 20/minute 104/66 Weight Last Period 67 kg 04/24/24 Marcos Toledo PA 05/20/2024 7:09 AM Signed This note was created using Zinioriter. Subjective Gracy Ann is a 29 year old female. HPI 29-year-old female presents for sore throat, headache, nausea x 4 days. Her daughters are sick with similar symptoms. No fevers. No vomiting. She has had a little bit of cough and congestion. She has been taking [id number] Tylenol for symptoms. No other complaints. PAST MEDICAL HISTORY Diagnosis Date Anemia Cervicitis 05/26/2013 Possible PID Depression, major, single episode, mild (HCC) Herpes simplex without mention of complication History of section 09/15/2015 09/15/2015Pt had a previous C section. She desires a repeat C section by Dr Campoverde.TKRN History of cesearan section, patient counseled on trial of labor versus repeat cesearan section. Risks/benefits/alternativ es discussed with patient regarding trial of labor and potential for uterine rupture. Risks include but are not limited to maternal hemorrhage, risk of injury to adjacent organs includ History of depression 09/15/2015 09/15/2015 Pt has a history of depression diagnosed 2 years ago. She has been off medication for 1 year . Discussed increased risks of depression during and and importance of reporting the development or worsening of symptoms should they occur.Pt denies ever having any suicidal thoughts or tendencies or thoughts of hurting others.TKRN History of prior with IUGR 09/15/2015 09/15/2015Patient is complaining of nausea in . Advised patient to call/come in if she is unable to keep any food or fluids down in a 24-hour period. TKRN Nausea/vomiting in 09/15/2015 09/15/2015Patient is complaining of nausea in . Advised patient to call/come in if she is unable to keep any food or fluids down in a 24-hour period. 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 MEDICATIONS No prescriptions on file. FAMILY HISTORY Problem Relation Age of Onset other (lupus) Mother Rheumatologic disease Mother No Known Problems Father No Known Problems Brother No Known Problems Brother No Known Problems Brother Diabetes Maternal Grandmother No Known Problems Paternal Grandmother Heart Paternal Grandfather No Known Problems Daughter No Known Problems Daughter Heart Maternal Uncle Social History Tobacco Use Smoking status: Some Days Current packs/day: 0.00 Average packs/day: 0.3 packs/day for 5.0 years (1.3 ttl pk-yrs) Types: Cigarettes Start date: 09/07/2010 Last attempt to quit: 09/08/2015 Years since quittin.7 Smokeless tobacco: Never Vaping Use Vaping status: Never Used Substance Use Topics Alcohol use: No Drug use: No Review of Systems Constitutional: Negative for chills and fever. HENT: Positive for congestion and sore throat. Negative for ear pain. Respiratory: Positive for cough. Negative for shortness of breath. Cardiovascular: Negative for chest pain. Gastrointestinal: Positive for nausea. Negative for diarrhea and vomiting. Neurological: Positive for headaches. Objective BP 104/66 Pulse 101 Temp 36.4 ?C (97.6 ?F) Resp 20 Wt 67 kg (147 lb 11.3 oz) LMP 04/24/2024 (Approximate) SpO2 97% BMI 24.21 kg/m? Physical Exam Vitals and nursing note reviewed. Constitutional: General: She is not in acute distress. Appearance: Normal appearance. She is not toxic-appearing. HENT: Right Ear: Tympanic membrane and ear canal normal. Left Ear: Tympanic membrane and ear canal normal. Nose: Congestion present. Mouth/Throat: Mouth: Mucous membranes are moist. Pharynx: Posterior oropharyngeal erythema present. Eyes: Conjunctiva/sclera: Conjunctivae normal. Cardiovascular: Rate and Rhythm: Normal rate and regular rhythm. Pulmonary: Effort: Pulmonary effort is normal. Breath sounds: Normal breath sounds. No wheezing, rhonchi or rales. Skin: General: Skin is warm and dry. Neurological: Mental Status: She is alert. Assessment and Plan ASSESSMENT/PLAN: 1. Sore throat - ICD9: 46 (more content not included)... Normal [facility] STREP A MOLECULAR (POC)on Procedural Control Valid [facility] Strep A (POCT) Negative Negative [facility] Bacteria Ur Culton Bacteria identified Cx Nom (U) ORGANISM ID: 1 >=100,000 CFU/ml Normal urogenital palak Normal [facility] Comment on above: Performed By: #### 6 30-4 #### [facility] CLIA [id number] [address] [place] [address] OF [facility] CNOVon 02-25-2024 CNOV Office Visit ([facility] ) ----- GRACY ANN ([id number]) 1995 F Date Time Provider Department 02/25/24 6:30 PM EWELINA JUAREZ [facility] During your visit today, we recorded the following information about you: Temperature Pulse Respiration Blood pressure 97 degrees 97/minute 20/minute 107/67 Weight Last Period 67.5 kg 02/23/24 Ewelina Juarez APRN.[employer]NER 02/25/2024 7:08 PM Signed Subjective Nasal Congestion Associated symptoms include congestion, coughing and a sore throat. Pertinent negatives include no chills or ear pain. Gracy Ann is a 29 year old female who presents with runny nose, cough, sore throat, and dysuria. She has had symptoms for 3 days. Her daughter was diagnosed with strep throat today. Gracy has not had a fever. States her sore throat is minor and thinks it may be due to allergies. She has not taken any medication for her symptoms. Review of Systems Constitutional: Negative for chills and fever. HENT: Positive for congestion and sore throat. Negative for ear pain. Respiratory: Positive for cough. Cardiovascular: Negative. Gastrointestinal: Negative for abdominal pain, nausea and vomiting. Genitourinary: Positive for dysuria. Negative for frequency, hematuria and urgency. Musculoskeletal: Negative for back pain. BP 107/67 Pulse 97 Temp 36.1 ?C (97 ?F) Resp 20 Wt 67.5 kg (148 lb 13 oz) LMP 02/23/2024 (Approximate) SpO2 99% No BMI 24.39 kg/m? PAST MEDICAL HISTORY Diagnosis Date Anemia Cervicitis 05/26/2013 Possible PID Depression, major, single episode, mild (HCC) Herpes simplex without mention of complication History of section 09/15/2015 09/15/2015Pt had a previous C section. She desires a repeat C section by Dr Campoverde.TKRN History of cesearan section, patient counseled on trial of labor versus repeat cesearan section. Risks/benefits/alternativ es discussed with patient regarding trial of labor and potential for uterine rupture. Risks include but are not limited to maternal hemorrhage, risk of injury to adjacent organs includ History of depression 09/15/2015 09/15/2015 Pt has a history of depression diagnosed 2 years ago. She has been off medication for 1 year . Discussed increased risks of depression during and and importance of reporting the development or worsening of symptoms should they occur.Pt denies ever having any suicidal thoughts or tendencies or thoughts of hurting others.TKRN History of prior with IUGR 09/15/2015 09/15/2015Patient is complaining of nausea in . Advised patient to call/come in if she is unable to keep any food or fluids down in a 24-hour period. TKRN Nausea/vomiting in 09/15/2015 09/15/2015Patient is complaining of nausea in . Advised patient to call/come in if she is unable to keep any food or fluids down in a 24-hour period. 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 MEDICATIONS No prescriptions on file. FAMILY HISTORY Problem Relation Age of Onset other (lupus) Mother Rheumatologic disease Mother No Known Problems Father No Known Problems Brother No Known Problems Brother No Known Problems Brother Diabetes Maternal Grandmother No Known Problems Paternal Grandmother Heart Paternal Grandfather No Known Problems Daughter No Known Problems Daughter Heart Maternal Uncle Social History Tobacco Use Smoking status: Some Days Current packs/day: 0.00 Average packs/day: 0.3 packs/day for 5.0 years (1.3 ttl pk-yrs) Types: Cigarettes Start date: 09/07/2010 Last attempt to quit: 09/08/2015 Years since quittin.4 Smokeless tobacco: Never Vaping Use Vaping status: Never Used Substance Use Topics Alcohol use: No Drug use: No Objective Physical Exam Vitals and nursing note reviewed. Constitutional: Appearance: Normal appearance. HENT: Mouth/Throat: Mouth: Mucous membranes are moist. Pharynx: Oropharynx is clear. Uvula midline. No oropharyngeal exudate or posterior oropharyngeal erythema. Cardiovascular: Rate and Rhythm: Normal rate and regular rhythm. Heart sounds: Normal heart sounds. Pulmonary: Effort: Pulmonary effort is normal. No respiratory distress. Breath sounds: Normal breath sounds. No wheezing or rales. Abdominal: Tenderness: There is no right CVA tenderness or left CVA tenderness. Musculoskeletal: Cervic (more content not included)... Normal [facility] STREP A MOLECULAR (POC)on Procedural Control Valid [facility] Strep A (POCT) Negative Negative [facility] UA DIP, URINE (POC)on 2023 BILIRUBIN UA (POCT) Negative Negative [facility] CLARITY UA (POCT) Clear [facility] COLOR UA (POCT) Dark yellow [facility] GLUCOSE UA (POCT) Negative Negative mg/dL [facility] Hemoglobin Ql (U) Negative Negative [facility] KETONE UA (POCT) Trace Negative mg/dL [facility] LEUKOCYTES UA (POCT) Negative Negative [facility] NITRITE UA (POCT) Negative Negative [facility] PH UA (POCT) 6.0 4.5 - 8.0 [facility] Protein Ql (U) Negative Negative mg/dL [facility] SPECIFIC GRAVITY UA (POCT) 1.025 1.005 - 1.030 [facility] UROBILINOGEN UA (POCT) 0.2 Normal E.U./dL [facility] Location:[address], [place], [address] [facility] POINT OF CARE [facility] Urgent Care Visit Reporton 0 06-21-2023 Urgent Care Visit Report [facility] [address] , [address] [place], [place] [id number] OFFICE VISIT Date of Service: 06/21/23 MR#: [id number] Acct: [id number] Name: GRACY ANN Rep #: [id number] : 1995 Provider: TAYA Mcmanus Age/Sex: 28/F Location: [facility] Status: Signed Intake Vital Signs 11/30/22 17:48 Height 5 ft 5.5 in Intake Visit Reasons: PE NON DOT PHYSICAL/ [place] Allergies No Known Allergies Allergy (Verified 11/30/22 16:31) PFSH Medical History (Updated 06/21/23 @ 12:53 by Telly BAIN, PA) Anemia affecting Anxiety Depression Genital herpes affecting GTT (glucose tolerance test) abnormal History of prior with IUGR Request for sterilization Tonsillectomy planned Uterine anomaly Surgical History (Updated 12/05/22 @ 00:03 by Kristen Rushing) Delivery by section Previous section Social History Smoking Status: Former smoker HPI HPI Details: GRACY ANN, is a 28 F who presents to the office today for preemployment physical. Please see corresponding scanned documents with today's date. Office Procedures Physical Exam Coding PE Coding Pre-employment PE: Yes Coding Level of Care Code No Charge Diagnoses Encounter for pre-employment health screening examination Z02.1 Assessment and Plan Assessment and Plan (1) Encounter for pre-employment health screening examination: Status: Acute Orders: Orders Quantiferon TB-Gold+ Today Z02.1 - Encounter for pre-employment examination 06/21/23 1405 Date Telly Amor Signature: Date (if applicable) CC: Normal [facility] Pathology Specimen OBon 11-20 PATH. Spec OB SEE PATHOLOGY REPORT Normal [facility] Comment on above: Order Comment: Send Specimen For (Specify): Not Applicable Time of Procedure: 2012 Date of Procedure: 11/30/22 Reason specimen being sent to pathology (Hx/complications): tubal Type of specimen: Fallopian Tube Type of procedure performed: Tubal Ligation Result Comment: Spec imen submitted to Anatomical Pathology Department for testing. Performed By: #### L 350.1800 #### [facility] [address] [place], [address] Discharge Instructionon 11-20 Discharge Instruction [facility] Medical Records Department [address] [place] [address] Instructions for Home/Discharge Instructions 12/02/22 1202 MR#: [id number] Acct: [id number] Name: GRACY ANN Rep #: [id number] : 1995 27 From: Erika Loya DO PCP: TAYA Means Status:ADM IN Discharge Instructions Diet Discharge Diet: No restrictions Activity Discharge Activity: May Not Drive and May Shower May resume sexual activity in: 6 weeks Ice area for (Minutes): 15 Weight Bearing Status: Weight bearing as tolerated Lifting Restrictions: Nothing heavier than baby Dressing / Incision Call your doctor if your incision/area has: Continuous Slow Oozing, Sudden Increased Bleeding, Increased Pain/ Swelling, Increased Redness, Foul Smelling Discharge and Swelling at the incision site Call your doctor if you observe: Fever of 101 or Higher, Coldness, Increased Pain, Numbness or Tingling, Change in Color, Inability to urinate, Inability to have a bowel movement, Using more than 1 pad per hour, Shortness of breath, Dizziness, Fainting spells, Swelling in the ankles, Chest pain, Prolonged hiccupping, Increased palpitations (irregular heartbeat), Calf discomfort and Uncontrolled pain Suture Line Care: Avoid Pulling/Pushing and Avoid Pinching/Bending Remove Dressing in: 4 days (Ok to remove dressing in shower) Cleanse incision/area with: Soap Water Follow Up Care Please Follow Up With: Erika Loya DO When: 1-2 weeks for incision check and blood pressure check 6 weeks visit Test Results: Test results from this visit will be discussed in further detail at your follow-up appointment, if applicable. Discharge Plan Admission Admit Date/Time: 11/30/22 19:34 Primary Reason for Your Visit: delivery Attending Provider: Erika Loya Primary Care Provider: Marlys De Souza Instructions Patient Instructions: After a Discharge Orders/Prescriptions Prescriptions: New oxycodone-acetaminophen [Percocet] 5-325 mg tablet 1 tab PO Q6H PRN (Reason: pain) 7 Days Qty: 10 0RF ibuprofen 600 mg tablet 600 mg PO Q6H PRN (Reason: pain) Qty: 30 0RF docusate sodium [Colace] 100 mg capsule 100 mg PO BID Qty: 30 0RF Continued Classic 28 mg iron- 800 mcg tablet 1 tab PO DAILY ferrous sulfate [iron] 325 mg (65 mg iron) tablet 325 mg PO DAILY Referrals / Follow Up: Marlys De Souza PA [Primary Care Provider] - Disposition Disposition (needs filled in before D/C Order can be placed): Home, Self Care 12/02/22 1206 Erika Loya DO CC: TAYA Means Signed Normal [facility] CBC-Complete Blood Cnt No Di ffon 12-01-2022 Erythrocyte distribution width (RBC) [Ratio] 15.6 % High 11.6-14.6 [facility] Comment on above: Order Comment: S [id number] Performed By: #### B TS #### [facility] [address] [place], [address] Hematocrit (Bld) [Volume fraction] 31.7 % Low 37-47 [facility] Comment on above: Order Comment: S [id number] Performed By: #### B TS #### [facility] [address] [place], [address] Hemoglobin (Bld) [Mass/Vol] 10.0 g/dL Low 12.0-15.0 [facility] Comment on above: Order Comment: S [id number] Performed By: #### B TS #### [facility] [address] [place], [address] MCH (RBC) [Entitic mass] 27.0 pg Normal 27.0-32.0 [facility] Comment on above: Order Comment: S [id number] Performed By: #### B TS #### [facility] [address] [place], [address] MCHC (RBC) [Mass/Vol] 31.5 g/dL Low 32-36 [facility] Comment on above: Order Comment: S [id number] Performed By: #### B TS #### [facility] [address] [place], [address] MCV (RBC) [Entitic vol] 85.4 fL Normal 81-99 [facility] Comment on above: Order Comment: S [id number] Performed By: #### B TS #### [facility] [address] [place], [address] Platelet mean volume (Bld) [Entitic vol] 12.0 fL Normal 6.2-12.0 [facility] Comment on above: Order Comment: S [id number] Performed By: #### B TS #### [facility] [address] [place], [address] Platelets (Bld) [#/Vol] 198 10*3/uL Normal 150-450 [facility] Comment on above: Order Comment: S 20221130 Performed By: #### B TS #### [facility] [address] [place], [address] RBC (Bld) [#/Vol] 3.71 10*6/uL Low 4.2-5.4 [place] Comment on above: Order Comment: S 20221130 Performed By: #### B TS #### [facility] [address] [place], [address] RDW SD 48.3 fl High 35.1-43.9 [facility] Comment on above: Order Comment: S 20221130 Performed By: #### B TS #### [facility] [address] [place], [address] WBC (Bld) [#/Vol] 15.7 10*3/uL High 4.4-11.0 [facility] Comment on above: Order Comment: S 20221130 Performed By: #### B TS #### [facility] [address] [place], [address] Pathology Specimen OBon 11-20 PATH. Spec OB SEE PATHOLOGY REPORT Normal [facility] Comment on above: Order Comment: S [id number] Result Comment: Spec imen submitted to Anatomical Pathology Department for testing. Performed By: #### B TS #### [facility] [address] [place], [address] CBC W/Diff, Automatedon 08 Absolute Lymph 2.45 X10 3/uL Normal 0.83-4.51 [facility] Comment on above: Performed By: #### L 100.0100 #### [facility] [address] [place], [address] Absolute Neut 8.7 X10 3/uL High 2.0-7.7 [facility] Comment on above: Performed By: #### L 100.0100 #### [facility] [address] [place], [address] Basophils/100 WBC (Bld) 0.5 % Normal 0-1 [facility] Comment on above: Performed By: #### L 100.0100 #### [facility] [address] [place], [address] Eosinophils/100 WBC (Bld) 1.3 % Normal 0-5 [facility] Comment on above: Performed By: #### L 100.0100 #### [facility] [address] [place], [address] Erythrocyte distribution width (RBC) [Ratio] 15.7 % High 11.6-14.6 [facility] Comment on above: Performed By: #### L 100.0100 #### [facility] [address] [place], [address] Hematocrit (Bld) [Volume fraction] 32.5 % Low 37-47 [facility] Comment on above: Performed By: #### L 100.0100 #### [facility] [address] [place], [address] Hemoglobin (Bld) [Mass/Vol] 10.6 g/dL Low 12.0-15.0 [facility] Comment on above: Performed By: #### L 100.0100 #### [facility] [address] [place], [address] IG% 0.400 Normal 0.0-0.9 [facility] Comment on above: Result Comment: IG% - Immature Granulocytes (promyelocytes, myelocytes and metamyelocytes) > 1% indicates that a LEFT SHIFT is Present. Performed By: #### L 100.0100 #### [facility] [address] [place], [address] Lymphocytes/100 WBC (Bld) 19.6 % Normal 19-41 [facility] Comment on above: Performed By: #### L 100.0100 #### [facility] [address] [place], [address] MCH (RBC) [Entitic mass] 27.6 pg Normal 27.0-32.0 [facility] Comment on above: Performed By: #### L 100.0100 #### [facility] [address] [place], [address] MCHC (RBC) [Mass/Vol] 32.6 g/dL Normal 32-36 [facility] Comment on above: Performed By: #### L 100.0100 #### [facility] [address] [place], [address] MCV (RBC) [Entitic vol] 84.6 fL Normal 81-99 [facility] Comment on above: Performed By: #### L 100.0100 #### [facility] [address] [place], [address] Monocytes/100 WBC (Bld) 8.3 % Normal 0-10 [facility] Comment on above: Performed By: #### L 100.0100 #### [facility] [address] [place], [address] Neutrophils/100 WBC (Bld) 69.9 % Normal 47-70 [facility] Comment on above: Performed By: #### L 100.0100 #### [facility] [address] [place], [address] Nucleated RBC (Bld) [#/Vol] 0 10*3/uL Normal 0-5 [facility] Comment on above: Performed By: #### L 100.0100 #### [facility] [address] [place], [address] Platelet mean volume (Bld) [Entitic vol] 12.6 fL High 6.2-12.0 [facility] Comment on above: Performed By: #### L 100.0100 #### [facility] [address] [place], [address] Platelets (Bld) [#/Vol] 218 10*3/uL Normal 150-450 [facility] Comment on above: Performed By: #### L 100.0100 #### [facility] [address] [place], [address] RBC (Bld) [#/Vol] 3.84 10*6/uL Low 4.2-5.4 [place] Comment on above: Performed By: #### L 100.0100 #### [facility] [address] [place], [address] RDW SD 48.1 fl High 35.1-43.9 [facility] Comment on above: Performed By: #### L 100.0100 #### [facility] [address] [place], [address] WBC (Bld) [#/Vol] 12.5 10*3/uL High 4.4-11.0 [facility] Comment on above: Performed By: #### L 100.0100 #### [facility] [address] [place], [place], [address] Absolute Lymph 2.20 X10 3/uL Normal 0.83-4.51 [facility] Comment on above: Performed By: #### L 100.0100 #### [facility] [address] [place], [address] Absolute Neut 9.7 X10 3/uL High 2.0-7.7 [facility] Comment on above: Performed By: #### L 100.0100 #### [facility] [address] [place], [address] Basophils/100 WBC (Bld) 0.4 % Normal 0-1 [facility] Comment on above: Performed By: #### L 100.0100 #### [facility] [address] [place], [address] Eosinophils/100 WBC (Bld) 1.4 % Normal 0-5 [facility] Comment on above: Performed By: #### L 100.0100 #### [facility] [address] [place], [address] Erythrocyte distribution width (RBC) [Ratio] 15.7 % High 11.6-14.6 [facility] Comment on above: Performed By: #### L 100.0100 #### [facility] [address] [place], [address] Hematocrit (Bld) [Volume fraction] 33.0 % Low 37-47 [facility] Comment on above: Performed By: #### L 100.0100 #### [facility] [address] [place], [address] Hemoglobin (Bld) [Mass/Vol] 10.7 g/dL Low 12.0-15.0 [facility] Comment on above: Performed By: #### L 100.0100 #### [facility] [address] [place], [address] IG% 0.400 Normal 0.0-0.9 [facility] Comment on above: Result Comment: IG% - Immature Granulocytes (promyelocytes, myelocytes and metamyelocytes) > 1% indicates that a LEFT SHIFT is Present. Performed By: #### L 100.0100 #### [facility] [address] [place], [address] Lymphocytes/100 WBC (Bld) 16.3 % Low 19-41 [facility] Comment on above: Performed By: #### L 100.0100 #### [facility] [address] [place], [address] MCH (RBC) [Entitic mass] 27.6 pg Normal 27.0-32.0 [facility] Comment on above: Performed By: #### L 100.0100 #### [facility] [address] [place], [address] MCHC (RBC) [Mass/Vol] 32.4 g/dL Normal 32-36 [facility] Comment on above: Performed By: #### L 100.0100 #### [facility] [address] [place], [address] MCV (RBC) [Entitic vol] 85.1 fL Normal 81-99 [facility] Comment on above: Performed By: #### L 100.0100 #### [facility] [address] [place], [address] Monocytes/100 WBC (Bld) 9.5 % Normal 0-10 [facility] Comment on above: Performed By: #### L 100.0100 #### [facility] [address] [place], [address] Neutrophils/100 WBC (Bld) 72.0 % High 47-70 [facility] Comment on above: Performed By: #### L 100.0100 #### [facility] [address] [place], [address] Nucleated RBC (Bld) [#/Vol] 0 10*3/uL Normal 0-5 [facility] Comment on above: Performed By: #### L 100.0100 #### [facility] [address] [place], [address] Platelet mean volume (Bld) [Entitic vol] 12.6 fL High 6.2-12.0 [facility] Comment on above: Performed By: #### L 100.0100 #### [facility] [address] [place], [address] Platelets (Bld) [#/Vol] 228 10*3/uL Normal 150-450 [facility] Comment on above: Performed By: #### L 100.0100 #### [facility] [address] [place], [address] RBC (Bld) [#/Vol] 3.88 10*6/uL Low 4.2-5.4 [place] Comment on above: Performed By: #### L 100.0100 #### [facility] [address] [place], [address] RDW SD 48.4 fl High 35.1-43.9 [facility] Comment on above: Performed By: #### L 100.0100 #### [facility] [address] [place], [address] WBC (Bld) [#/Vol] 13.5 10*3/uL High 4.4-11.0 [place] Comment on above: Performed By: #### L 100.0100 #### [facility] [address] [place], [address] Chest PA and Lateralon 11-30 Chest PA and Lateral [facility] [address] [place] [address] Chest PA and Lateral MR#: [id number] Acct: [id number] Name: GRACY ANN Rep #: [id number] : 1995 F 27 From: Alisia bell MD PCP: TAYA Means Status: REG CLI Study: Chest PA and Lateral Date of Exam: 11/30/22 Exam# [id number] Ordering Dr: Erika Loya DO INDICATION: inspiratory wheeze EXAMINATION/TECHNIQUE: X-RAY - XR Chest 2 Views COMPARISON: FINDINGS: LINES/DEVICES: None. LUNGS: No consolidation, edema or effusion. No pneumothorax. MEDIASTINUM AND CARDIOVASCULAR STRUCTURES: Cardiac silhouette not enlarged. Central airways and mediastinal contour are unremarkable. BONES AND SOFT TISSUES: Unremarkable. RAD/Chest PA and Lateral IMPRESSION: No radiographic evidence of acute cardiopulmonary disease. Electronically Signed: Alisia Granados MD at 18:46 EDT Reading Location ID and State: [id number] / Tel , Service support , CC: Dr. Erika Loya DO; TAYA Means Social Science Research Assistant: Signed Normal [facility] H AND P Exam - OB/GYNon 11-20 H&P Exam - [employer] [facility] Medical Records Department [address] [place] [address] H P Exam - [employer] 11/30/221939 MR#: [id number] Acct: [id number] Name: GRACY ANN Rep #: [id number] : 1995 27 From: Erika Loya DO PCP: TAYA Means Status:ADM IN Location: [id number] History and Physical Date of Admission: 11/30/22 PROBLEM: 39 week gestation, single IUP, history prior section, request for sterilization ??? PAST SURGICAL HISTORY: PAST SURGICAL HISTORYExpand by Default PAST SURGICAL HISTORY Procedure Laterality Date ??? DELIVERY ONLY ??? 07/08/14 ??? , low transverse ??? DELIVERY ONLY N/A 04/17/2016 ??? TONSILLECTOMY HX ? PAST MEDICAL HISTORY: PAST MEDICAL HISTORYExpand by Default PAST MEDICAL HISTORY Diagnosis Date ??? Anemia ? Cervicitis 05/26/2013 ??? Possible PID ??? Depression, major, single episode, mild (HCC) ? Herpes simplex without mention of complication ? History of section 09/15/2015 ??? 09/15/2015Pt had a previous C section. She desires a repeat C section by Dr Campoverde.TKRN History of cesearan section, patient counseled on trial of labor versus repeat cesearan section. Risks/benefits/alternativ es discussed with patient regarding trial of labor and potential for uterine rupture. Risks include but are not limited to maternal hemorrhage, risk of injury to adjacent organs includ ??? History of depression 09/15/2015 ??? 09/15/2015 Pt has a history of depression diagnosed 2 years ago. She has been off medication for 1 year . Discussed increased risks of depression during and and importance of reporting the development or worsening of symptoms should they occur.Pt denies ever having any suicidal thoughts or tendencies or thoughts of hurting others.TKRN ??? History of prior with IUGR 09/15/2015 ??? 09/15/2015Patient is complaining of nausea in . Advised patient to call/come in if she is unable to keep any food or fluids down in a 24-hour period. TKRN ??? Nausea/vomiting in 09/15/2015 ??? 09/15/2015Patient is complaining of nausea in . Advised patient to call/come in if she is unable to keep any food or fluids down in a 24-hour period. TKRN ??? Uterine anomaly 09/15/2015 ??? 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 SUBJECTIVE: Doing well today. Some congestion and fatigue. Starting URI. No fevers, chills, SOB, CP. No known sick contacts. No ctx, vb, lof. Good FM. No GARCIA or vision changes. ??? SOCIAL HISTORY: SOCIAL HISTORYExpand by Default Social History ??? Tobacco Use ??? Smoking status: Some Days ? Packs/day: 0.25 ? Years: 5.00 ? Total pack years: 1.25 ? Types: Cigarettes ? Last attempt to quit: 09/08/2015 ? Years since quittin.2 ??? Smokeless tobacco: Never Vaping Use ??? Vaping Use: Never used Substance Use Topics ??? Alcohol use: No ??? Drug use: No ? ALLERGIESExpand by Default ALLERGIES No Known Allergies ??? Current Outpatient Medications on File Prior to Visit Medication Sig ??? ferrous sulfate (IRON) 325 mg (65 mg iron) tablet Take 1 tablet by mouth every other day. ??? PNV No.40-Iron Fum-FA Cmb No.1 (PNV-SELECT) 27-1 mg tab Take 1 tablet by mouth once daily. ??? ondansetron (ZOFRAN) 4 mg tablet Take 1 tablet by mouth every 8 hours as needed for nausea/vomiting. ??? doxylamine 25 mg tab Take by mouth. ??? pyridoxine, vitamin B6, (VITAMIN B-6) 50 mg tablet Take 1 tablet by mouth twice daily. ??? No current facility-administered medications on file prior to visit. ? OBJECTIVE: ??? VITALS: BP 120/80 Wt 170 lb 9.6 oz (77.4 kg) LMP 03/03/2022 (Within Days) BMI 27.96 kg/m? HEENT: Normocephalic, atraumatic, Mucus membranes moist without lesions. ??? SKIN: No lesions. ??? CHEST: Good air exchange. ??? HEART: Regular rate and rhythm. ??? BACK: Nontender. ??? ABDOMEN: Soft, non-tender, non-distended, no masses, no hepatosplenomegaly. ??? LOWER EXTREMITIES: +Edema of bilateral LE's. ? ASSESSMENT: repeat C/S with sterilization ??? PLAN: 1) Discussed repeat section with tubal sterilization in detail. The rationale for the proposed surgery was discussed in addition to risks, benefits, and alternatives. General pre- and post-operative care was reviewed. Questions were answered. After discussion, the patient indicated a desire to proceed with the planned surgery. ??? Erika Loya, Assessment Plan Assessment/Plan (1) Decreased movement: (2) Request for sterilization: (3) History of depression: (4) History of herpes genitalis: (more content not included)... Normal [facility] L509.8000on 11-30-2022 Syphilis Abs Non-Reactive Normal [facility] Comment on above: Performed By: #### L 509.8000 #### [facility] [address] [place], [address] OB Triage Physician Noteon 0 11-30-2022 OB Triage Physician Note [facility] Medical Records Department [address] [place] [address] OB Triage Physician Note 11/29/22 2252 MR#: [id number] Acct: [id number] Name: GRACY ANN Rep #: [id number] : 1995 27 From: Marina Fofana CNM PCP: TAYA Means Status:REG CLI Y Location: [place] [id number] HPI - General HPI Narrative GRACY ANN, is a 27 F at 38.6 weeks gestation who presents with decreased movement and contractions. She is scheduled for a repeat section 12/03/22. PFSH PFSH Medical History (Updated 11/29/22 @ 22:56 by Marina Fofana CNM) Anemia affecting Anxiety Depression Genital herpes affecting History of prior with IUGR Tonsillectomy planned Uterine anomaly Home Medications folic acid 800 mcg tablet 0.8 mg PO DAILY #30 tabs 06/07/22 [Rx Last Taken Unknown] ondansetron 4 mg disintegrating tablet 4 mg PO Q6H PRN nausea and vomiting #20 tabs 06/07/22 [Rx Last Taken 07/12/22 12:30] vits no.126-ferrous fum 28 mg iron-folic acid 800 mcg tablet (Classic ) 1 tab PO DAILY 11/27/22 [History Last Taken Unknown] ferrous sulfate 325 mg (65 mg iron) tablet (iron) 325 mg PO DAILY 11/29/22 [History Last Taken Unknown] Allergy/AdvReac Type Severity Reaction Status Date / Time No Known Allergies Allergy Verified 11/29/22 21:09 Surgical History Previous section Social History Smoking Status: Former smoker History Elective abortions Hx Para 2 Spontaneous abortions Hx # Term Pregnancies Ectopic pregnancies Hx # Pregnancies Multiple births # of living children ROS Eyes Eyes: Denies blurry vision Cardiovascular Cardiovascular: Reports none; Denies chest pain at rest, chest pain with activity or dizziness Respiratory/Chest Respiratory/Chest: Denies cough or dyspnea Gastrointestinal Gastrointestinal: Reports none and other; Denies diarrhea or vomiting Genitourinary Genitourinary: Denies dysuria Musculoskeletal Musculoskeletal: Reports none Integumentary Integumentary: Reports none; Denies rash Neurologic Neurologic: Denies dizziness, headache(s) or other visual disturbances Psychiatric Psychiatric: Reports none Physical Exam Const alert and no apparent distress General Appearance: cooperative Orientation / Consciousness: awake Exam Limitations: no limitations HEENT normocephalic Eyes General Eye: normal appearance of both eyes Neck full ROM Chest inspection of chest normal Resp normal respiratory effort and normal air movement Effort and Inspection: symmetric chest movement Auscultation: clear to auscultation bilaterally Cardio regular rate GI soft to palpation, non-tender and non-distended Inspection: and other Back/Spine normal ROM Extremity full ROM, normal capillary refill and no calf tenderness Skin no rashes or lesions noted Neuro oriented x3 and CN's II-XII intact bilaterally Psych mental status grossly normal NST FHR Rate Baby A Baseline: 130 Variability:: Moderate Accelerations:: 15 x 15 Decelerations:: None NST Reactive:: Yes FHR Category:: Category I Uterine Activity:: irregular Assessment Plan (1) Decreased movement affecting management of in third trimester: (2) Previous section: (3) 38 weeks gestation of : (4) Uterine anomaly: COMMENT: unicornate uterus, 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 PLAN: Plan LR 1000 cc bolus NST reactive, cat. 1 tracing UA collected and sent= negative CE- closed Patient has felt movement since arrival Dr. Baker notified and involved with plan of care D/C home with follow up on Saturday for scheduled repeat section 11/29/22 9696 Date Marina Amor Signature (if applicable): Date CC: TAYA Kaba Signed Normal [facility] Operative Reporton 3 Operative Report [facility] Medical Records Department [address] [place] [address] Operative Report 11/30/22 2134 MR#: [id number] Acct: [id number] Name: GRACY ANN Rep #: [id number] : 1995 27 From: Erika Loya DO PCP: TAYA Means Status:ADM IN Location: [id number] Problems Associated Problem List Diagnoses (1) 38 weeks gestation of : (2) Uterine anomaly: (3) Previous section: (4) Decreased movement affecting management of in third trimester: (5) Request for sterilization: Report of Operation Date of Procedure: 11/30/22 Pre-Operative Diagnosis: 38 week gestation, decreased movement x 1 week, history 2 prior sections, uterine anomaly, elevated BP reading without diagnosis of HTN, SGA Post-Operative Diagnosis: As above Surgery/Procedure Performed:: RLTCS via pfannenstiel incision Left salpingectomy Description of Surgical Findings:: VMI in cephalic presentation. Clear fluid. 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 Normal appearing left fallopian tube and ovary. Moderate adhesive disease. Fimbriated end of left fallopian tube adhered to left IP. Bladder minimally adhered to lower uterine segment. Thin lower uterine segment. Apgars 9, 9. Surgeon: Erika Loya c programmer: Adriana WERNER Type of Anesthesia: Spinal Special Medications: None Specimen's removed: Placenta Drains: Kaufman Estimated Blood Loss (mL): 500 Fluids Replaced: 1500 mL Description of Procedure: The patient was taken to the operating room where spinal anesthesia was found to be adequate. She was prepped and draped in the dorsal supine position with a leftward tilt. A Pfannenstiel skin incision was made using a scalpel and this was carried down to the underlying layer of fascia. The fascia was incised in the midline. The fascia was densely adhered to the rectus muscles. The fascial incision was extended laterally using Sage scissors. The fascia was dissected off of the rectus muscles in a cephalad direction. The rectus muscles were adhered in the midline. Using sharp dissection the rectus muscles were in the midline. The peritoneum was entered bluntly with good visualization of the bladder. The peritoneal incision was extended bluntly using lateral traction. A bladder blade was inserted. A low transverse incision was made on the uterus with a scalpel. Membranes were ruptured for clear fluid. The head was delivered in a flexed position through the hysterotomy, followed by the shoulders and body of the infant without any force or delay. A vigorous viable male was delivered atraumatically and the cord was clamped and cut. The was handed off to the waiting nursery staff. The placenta was removed with manual extraction. The uterus was cleared of all clot and debris. The uterus was exteriorized. The hysterotomy was closed with 1-0 Vicryl in a running locked fashion. The right adnexa was absent. Confirmed that the patient desired permanent sterilization. The left fallopian tube was followed out to the fimbriated end. The fimbriated end was adhered to the IP ligament. Using the LigaSure device and hugging adjacent to the uterus the fallopian tube was clamped, cauterized, and transected. The mesosalpinx was serially clamped, cauterized, and transected hugging adjacent to the fallopian tube. The end of the fallopian tube was then transected using the LigaSure device, leaving behind a minimal amount of fimbriated end of fallopian tube that was adhered to the IP. Hemostasis was noted. The uterus was placed back into the abdomen. Akhil was placed over the lower uterine segment and hysterotomy. Hemostasis was again noted. The rectus muscles were noted to be hemostatic. The fascia was closed using strata fix in a running fashion. The subcutaneous space was irrigated and made hemostatic with the Bovie cautery. Subcutaneous space was reapproximated using 3-0 Vicryl. The skin was closed with 4-0 Monocryl in a subcuticular fashion. A dressing was placed. Instrument, sharp, sponge counts correct. The patient was taken to recovery in stable condition. Grafts/Implants Used: None Procedure Start Time: 20:35 Procedure Stop Time: 21:25 Complications None Admit VTE Documentation VTE Present on Admission: No VTE Mechan Device Prophylaxis: SCD's 11/30/222146 Cosigner Signature (if applicable): CC: Dr. Erika Loya DO; TAYA Means Signed Normal [facility] Surgery Specimen Level IIon 11-30-2022 Surgery Specimen Level II Patient Age/Sex Location Account Attending Physician GRACY ANN 27/F WP [id number] Dr. Erika Loya DO Specimen: [id number] Received: 12/01/22 Status: HAILY Jones Num: [id number] Spec Type: PLACENTA Subm Dr: Dr. Erkia Loya DO HEADER OPERATION: Repeat section, tubal ligation PRE-OP DIAGNOSIS: Sterilization TISSUE SUBMITTED: A - Fallopian tube, B - Placenta MICROSCOPIC DIAGNOSIS A. Right and left fallopian tubes, bilateral salpingectomies: Complete segments of fallopian tubes with focal decidual change. B. Carpenter placenta (510 gm): Umbilical cord - trivascular with no inflammation. Placental membranes - No pathologic change. Placental disc - Bradley-Humphrey change, intravillous congestion and mildly increased intraparenchymal fibrin plaques. AM:sayra 12/04/2022 MICROSCOPIC DESCRIPTION Slides are reviewed. GROSS DESCRIPTION A - Received in fixative is one container labeled with the patient's name and designated fallopian tube. The specimen consists of a portion of fallopian tube without fimbrial end measuring 3.5 cm in length and 0.7 cm in diameter. The specimen is serially sectioned and totally submitted in two cassettes. B - SPECIMEN: PLACENTA / CLINICAL INFORMATION: A. Weight: 2.53 kg B. Gestational Age: 38 weeks C. Sex: Male PLACENTAL WEIGHT (POST FIXATION): 510 gm PLACENTAL DIMENSIONS: 16.5 x 16.0 x 3.0 cm PLACENTAL SHAPE: Usual ovoid PLACENTAL WEIGHT FOR GESTATIONAL AGE: Within 10-99th percentile MEMBRANES - Present A. Insertion: Marginal B. Site of rupture from edge: At edge of placental disc C. Color of membrane: Frazier-garcia D. Abnormalities: None Patient Age/Sex Location Account Attending Physician GRACY ANN / [id number] Dr. Erika Loya DO UMBILICAL CORD - Present A. Color: Frazier-garcia B. Insertion: Marginal C. Length: 35.0 cm D. Diameter: 1.2 cm E. Number of vessels: Three F. Abnormalities: None PLACENTAL DISC - Present A. Color of surface: Frazier-garcia B. surface abnormalities: None C. Maternal cotyledons: Intact with minimal tears D. Attached retro placental clot: No clot E. Cut surface: Dark red and spongy F. Lesions: None G. Separate clot: Absent SECTIONS SUBMITTED: 1. Umbilical cord ( end notched) 2. Umbilical cord, placental end 3. Membrane roll 4. Placental disc, and maternal surfaces 5. Placental disc, and maternal surfaces 6. Placental disc, and maternal surfaces AM:sayra 12/03/2022 TC:5 CPT: 81758, 53721 x2 Patient Age/Sex Location Account Attending Physician GRACY ANN / WP [id number] Dr. Erika Loya, DO Signed (signature on file) Dr. Mu Prater DO 12/04/22 1154 Normal [facility] Comment on above: Performed By: #### B TS #### [facility] [address] [place], [address] Type AND Screenon 11-30-2022 Ab SCREEN GEL Negative Normal [facility] Comment on above: Order Comment: [id number] Performed By: #### B TS #### [facility] [address] [place], [address] ABO and Rh group Nom (Bld) Blood group A Rh(D) positive Normal [facility] Comment on above: Order Comment: [id number] Performed By: #### B TS #### [facility] [address] [place], [place], [address] Ab SCREEN GEL Negative Normal [facility] Comment on above: Order Comment: [id number] Performed By: #### B TS #### [facility] [address] [place], [place], [address] ABO and Rh group Nom (Bld) Blood group A Rh(D) positive Normal [facility] Comment on above: Order Comment: [id number] Performed By: #### B TS #### [facility] [address] [place], [place], [address] Absolute lymphocyte countOrd ered By: Marina Fofana on 11-29-2022 Lymphocytes Auto (Unsp spec) [#/Vol] 2.20 10*3/uL 0.83-4.51 [facility] BIOPHYSICAL PROFILE US WHIon 11-29-2022 [facility] Basophil percentageOrdered B y: Marina Fofana on 11-29-2022 Basophils/100 WBC (Bld) 0.4 % 0-1 [facility] Eosinophils/100 WBC (Bld) 1.4 % 0-5 [facility] Neutrophils (Bld) [#/Vol] 9.7 10*3/uL 2.0-7.7 [facility] Neutrophils/100 WBC (Bld) 72.0 % 47-70 [facility] WBC (Bld) [#/Vol] 13.5 10*3/uL 4.4-11.0 [place] Basophil percentage 0 SEEN /hpf 0-5 [facility] Bilirubin Test strip Ql (U)O rdered By: Marina Fofana on 11-29-2022 Bilirubin Ql (U) Negative Negative [facility] Blood erythrocytes count (nu mber/volume)Ordered By: Marina Fofana on 11-29-2022 RBC (Bld) [#/Vol] 3.88 10*6/uL 4.2-5.4 [place] Blood hemoglobin measurement (mass/volume)Ordered By: Marina Fofana on 11-29-2022 Hemoglobin (Bld) [Mass/Vol] 10.7 g/dL 12.0-15.0 [facility] Blood lymphocytes/100 leukoc ytesOrdered By: Marina Fofana on 11-29-2022 Lymphocytes/100 WBC (Bld) 16.3 % 19-41 [facility] Blood monocytes/100 leukocyt esOrdered By: Marina Fofana on 11-29-2022 Monocytes/100 WBC (Bld) 9.5 % 0-10 [facility] Blood platelet mean volumeOr dered By: Marina Fofana on 11-29-2022 Platelet mean volume (Bld) [Entitic vol] 12.6 fL 6.2-12.0 [facility] Determination of erythrocyte mean corpuscular volume (MCV)Ordered By: Marina Fofana on 11-29-2022 MCV (RBC) [Entitic vol] 85.1 fL 81-99 [facility] Hematocrit Auto (Bld) [Volum e fraction]Ordered By: Marinadiana Fofana on 11-29-2022 Hematocrit (Bld) [Volume fraction] 33.0 % 37-47 [facility] Ketones Test strip Ql (U)Ord ered By: Marina Fofana on 11-29-2022 Ketones Ql (U) Negative Negative [facility] - Hematology and Cell countsOrdered By: Marina Fofana on 11-29-2022 Erythrocyte distribution width (RBC) [Entitic vol] 48.4 fL 35.1-43.9 [facility] Erythrocyte distribution width (RBC) [Ratio] 15.7 % 11.6-14.6 [facility] Immature granulocytes/100 WBC (Bld) 0.400 % 0.0-0.9 [facility] Comment on above: IG% - Immature Granu locytes (promyelocytes, myelocytes and metamyelocytes) > 1% indicates that a LEFT SHIFT is Present. MCH (RBC) [Entitic mass] 27.6 pg 27.0-32.0 [facility] Nucleated RBC/100 WBC (Bld) [Ratio] 0 % 0-5 [facility] [Mass/Vol]Or dered By: Marina Fofana on 11-29-2022 MCHC (RBC) [Mass/Vol] 32.4 g/dL 32-36 [facility] Mucus LM Ql (Urine sed)Order ed By: Marina Fofana on 11-29-2022 Mucus Ql (Urine sed) 0 SEEN /hpf [facility] Nitrite Test strip Ql (U)Ord ered By: Marina Fofana on 11-29-2022 Nitrite Ql (U) Negative Negative [facility] Platelets bldOrdered By: Arpit Fofana on 11-29-2022 Platelets (Bld) [#/Vol] 228 10*3/uL 150-450 [facility] Protein Test strip Ql (U)Ord ered By: Marina Fofana on 11-29-2022 Protein Ql (U) 15 mg/dl Negative [facility] Squamous epithelial cells de tection in urine sediment by light microscopyOrdered By: Marina Fofana on 11-29-2022 Epithelial cells.squamous LM Ql (Urine sed) 0-5 SEEN /hpf - [facility] Urinalysis, Completeon 11-29 EPI,SQUAMOUS 0-5 SEEN Normal - [facility] Comment on above: Order Comment: CLEAN CATCH Performed By: #### L [id number] #### [facility] [address] [place], [address] BACTERIA 0 SEEN Normal None Seen [facility] Comment on above: Order Comment: CLEAN CATCH Performed By: #### L [id number] #### [facility] [address] [place], [address] Mucus Ql (Urine sed) 0 SEEN Normal [facility] Comment on above: Order Comment: CLEAN CATCH Performed By: #### L [id number] #### [facility] [address] [place], [address] RBC 0 SEEN Normal 0-5 [facility] Comment on above: Order Comment: CLEAN CATCH Performed By: #### L [id number] #### [facility] [address] [place], [address] WBC 0 SEEN Normal 0-5 [facility] Comment on above: Order Comment: CLEAN CATCH Performed By: #### L [id number] #### [facility] [address] [place], [address] Urine blood detectionOrdered By: Marina Fofana on 11-29-2022 RBC Ql (U) Negative Negative [facility] RBC Ql (U) 0 SEEN /hpf 0-5 [facility] Urine clarityOrdered By: Arpit Fofana on 11-29-2022 Clarity (U) Clear Clear [facility] Urine color determinationOrd ered By: Marina Fofana on 11-29-2022 Color (U) Yellow Yellow [facility] Urine glucose detectionOrder ed By: Marina Fofana on 11-29-2022 Glucose Ql (U) Normal mg/dl Normal [facility] Urine leukocyte esterase det ection by dipstickOrdered By: Marina Fofana on 11-29-2022 Leukocyte esterase Test strip Ql (U) 25 /ul Negative [facility] Urine pHOrdered By: Marina Fofana on 11-29-2022 pH (U) 7.0 [pH] 5.0 - 8.0 [facility] Urine sediment bacteria coun t by microscopy (number/high power field)Ordered By: Marina Fofana on 11-29-2022 Bacteria LM.HPF (Urine sed) [#/Area] 0 /[HPF] None Seen [facility] Urine specific gravity measu rementOrdered By: Marina Fofana on 11-29-2022 Specific gravity (U) [Rel density] 1.010 1.002-1.030 [facility] Urobilinogen Auto test strip Ql (U)Ordered By: Marina Fofana on 11-29-2022 Urobilinogen Ql (U) Normal mg/dl Normal [facility] OB Triage Physician Noteon 0 11-28-2022 OB Triage Physician Note [facility] Medical Records Department [address] [place] [address] OB Triage Physician Note 11/28/22 1331 MR#: [id number] Acct: [id number] Name: GRACY ANN Rep #: [id number] : 1995 27 From: Zoe Hernández MD PCP: TAYA Means Status:DEP CLI Y Location: [facility] HPI - General General Date of Admission: 11/27/22 Date of Service: 11/27/22 Chief Complaint: decreased FM HPI Narrative GRACY ANN, is a 27 4 para 2 who presents with a EDC of 12/08/2022 at 38 weeks gestation with complaint of decreased movement. She denies any vaginal bleeding or leaking of fluid Maternal Data Information Final ROSA: 12/08/22 Gestational age: 38 4/7 PFSH PFSH Medical History no medical history Home Medications folic acid 800 mcg tablet 0.8 mg PO DAILY #30 tabs 06/07/22 [Rx Last Taken Unknown] ondansetron 4 mg disintegrating tablet 4 mg PO Q6H PRN nausea and vomiting #20 tabs 06/07/22 [Rx Last Taken 07/12/22 12:30] vits no.126-ferrous fum 28 mg iron-folic acid 800 mcg tablet (Classic ) tab 11/27/22 [History Last Taken Unknown] Allergy/AdvReac Type Severity Reaction Status Date / Time No Known Allergies Allergy Verified 11/27/22 21:30 Social History Smoking Status: Current some day smoker tobacco type: cigarettes History Elective abortions Hx Para 1 Spontaneous abortions Hx # Term Pregnancies Ectopic pregnancies Hx # Pregnancies Multiple births # of living children NST FHR Rate Baby A Baseline: 135 Variability:: Moderate Accelerations:: 15 x 15 Decelerations:: None NST Reactive:: Yes FHR Category:: Category I Uterine Activity:: quiet Assessment Plan (1) 38 weeks gestation of : PLAN: Mildly elevated blood pressure at visit. Will have patient return to office on 11 28 for blood pressure check. NST is reactive and category 1. No evidence of labor. (2) Previous section: (3) Decreased movement affecting management of in third trimester: 11/28/22 1335 Date Zoe Hernández MD Cosigner Signature (if applicable): Date CC: Dr. Zoe Hernández MD; TAYA Means Signed ADDENDUM by Dr. Zoe Hernández MD on 11/28/22 at 1336 Addendum Nonstress test baseline is 130 bpm, variability is moderate, accelerations are present, no decelerations. Category 1. Reactive. No regular contractions 11/28/22 1336 Date Zoe Hernández MD cc: Dr. Zoe Hernández MD; TAYA Means * Signed Normal [facility] URINE OB DIP B/Oon 3 Glucose Ql (U) Negative Neg mg/dL [facility] Protein.monoclonal (U) [Mass/Vol] trace Neg mg/dL [facility] URINE OB DIP B/Oon 3 Glucose Ql (U) Negative Neg mg/dL [facility] Protein.monoclonal (U) [Mass/Vol] Negative Neg mg/dL [facility] URINE OB DIP B/Oon 3 Glucose Ql (U) Negative Neg mg/dL [facility] Protein.monoclonal (U) [Mass/Vol] trace Neg mg/dL [facility] ROUTINE, GROUP B ST REP PCRon 11-16-2022 S. agalactiae Org specific cx Ql (Vag fld) Negative Negative [facility] OBSTETRIC ULTRASOUND WHIon 0 11-15-2022 [facility] URINE OB DIP B/Oon 3 Glucose Ql (U) Negative Neg mg/dL [facility] Protein.monoclonal (U) [Mass/Vol] Negative Neg mg/dL [facility] BIOPHYSICAL PROFILE US WHIon [facility] B/Oon 3 Glucose Ql (U) Negative Neg mg/dL [facility] Protein.monoclonal (U) [Mass/Vol] Negative Neg mg/dL [facility] BIOPHYSICAL PROFILE US WHIon 11-01-2022 [facility] URINE OB DIP B/Oon 3 Glucose Ql (U) Negative Neg mg/dL [facility] Protein.monoclonal (U) [Mass/Vol] Negative Neg mg/dL [facility] URINE OB DIP B/Oon 3 Glucose Ql (U) Negative Neg mg/dL [facility] Protein.monoclonal (U) [Mass/Vol] Negative Neg mg/dL [facility] OBSTETRIC ULTRASOUND WHIon 0 10-18-2022 [facility] URINE OB DIP B/Oon 3 Glucose Ql (U) Negative Neg mg/dL [facility] Protein.monoclonal (U) [Mass/Vol] Negative Neg mg/dL [facility] URINE OB DIP B/Oon 3 Glucose Ql (U) Negative Neg mg/dL [facility] Protein.monoclonal (U) [Mass/Vol] trace Neg mg/dL [facility] URINE OB DIP B/Oon 3 Glucose Ql (U) Negative Neg mg/dL [facility] Protein.monoclonal (U) [Mass/Vol] Negative Neg mg/dL [facility] URINE OB DIP B/Oon 3 Glucose Ql (U) Negative Neg mg/dL [facility] Protein.monoclonal (U) [Mass/Vol] trace Neg mg/dL [facility] OBSTETRIC ULTRASOUND WHIon 0 07-23-2022 [facility] URINE OB DIP B/Oon 3 Glucose Ql (U) Negative Neg mg/dL [facility] Protein.monoclonal (U) [Mass/Vol] Negative Neg mg/dL [facility] Basophil percentageOrdered B y: Dr. Hernández on 07-12-2022 Bilirubin [Mass/Vol] 0.30 mg/dL 0.20-1.00 [facility] Comment on above: For patients on eltr ombopag therapy, use of Dimension Bromide TBIL is not recommended. Chloride [Moles/Vol] 105 mmol/L 98-107 [facility] Glucose [Mass/Vol] 96 mg/dL 74-106 [facility] Potassium [Moles/Vol] 3.1 mmol/L 3.5-5.1 [facility] Protein [Mass/Vol] 7.5 g/dL 6.4-8.2 [facility] Sodium [Moles/Vol] 137 mmol/L 136-145 [facility] WBC (Bld) [#/Vol] 12.3 10*3/uL 4.4-11.0 [place] Blood erythrocytes count (nu mber/volume)Ordered By: Dr. Hernández on 07-12-2022 RBC (Bld) [#/Vol] 4.10 10*6/uL 4.2-5.4 [place] Blood hemoglobin measurement (mass/volume)Ordered By: Dr. Hernández on 07-12-2022 Hemoglobin (Bld) [Mass/Vol] 11.3 g/dL 12.0-15.0 [facility] Blood platelet mean volumeOr dered By: Dr. Hernández on 07-12-2022 Platelet mean volume (Bld) [Entitic vol] 11.0 fL 6.2-12.0 [facility] CBC-Complete Blood Cnt No Di ffon 07-12-2022 Erythrocyte distribution width (RBC) [Ratio] 14.0 % Normal 11.6-14.6 [facility] Comment on above: Performed By: #### L [id number], L501.9520, L100.0500 #### [facility] [address] [place], [address] Hematocrit (Bld) [Volume fraction] 34.7 % Low 37-47 [facility] Comment on above: Performed By: #### L [id number], [id number], L100.0500 #### [facility] [address] [place], [address] Hemoglobin (Bld) [Mass/Vol] 11.3 g/dL Low 12.0-15.0 [facility] Comment on above: Performed By: #### L [id number], [id number], L100.0500 #### [facility] [address] [place], [address] MCH (RBC) [Entitic mass] 27.6 pg Normal 27.0-32.0 [facility] Comment on above: Performed By: #### L [id number], [id number], L100.0500 #### [facility] [address] [place], [address] MCHC (RBC) [Mass/Vol] 32.6 g/dL Normal 32-36 [facility] Comment on above: Performed By: #### L [id number], [id number], [id number] #### [facility] [address] [place], [address] MCV (RBC) [Entitic vol] 84.6 fL Normal 81-99 [facility] Comment on above: Performed By: #### L [id number], [id number], L100.0500 #### [facility] [address] [place], [address] Platelet mean volume (Bld) [Entitic vol] 11.0 fL Normal 6.2-12.0 [facility] Comment on above: Performed By: #### L [id number], [id number], L100.0500 #### [facility] [address] [place], [address] Platelets (Bld) [#/Vol] 389 10*3/uL Normal 150-450 [facility] Comment on above: Performed By: #### L [id number], [id number], L100.0500 #### [facility] [address] [place], [address] RBC (Bld) [#/Vol] 4.10 10*6/uL Low 4.2-5.4 [place] Comment on above: Performed By: #### L [id number], [id number], L100.0500 #### [facility] [address] [place], [address] RDW SD 43.2 fl Normal 35.1-43.9 [facility] Comment on above: Performed By: #### L [id number], [id number], L100.0500 #### [facility] [address] [place], [address] WBC (Bld) [#/Vol] 12.3 10*3/uL High 4.4-11.0 [place] Comment on above: Performed By: #### L [id number], [id number], L100.0500 #### [facility] [address] [place], [address] Comprehensive Metabolic Prof ilon 07-12-2022 Albumin [Mass/Vol] 3.2 g/dL Normal 3.2-5.0 [facility] Comment on above: Performed By: #### L [id number], [id number], L100.0500 #### [facility] [address] [place], [address] Albumin/Globulin [Mass ratio] 0.7 {ratio} Low 0.9-2.4 [facility] Comment on above: Performed By: #### L [id number], [id number], L100.0500 #### [facility] [address] [place], [address] ALK P 69 U/L Normal 45-117 [facility] Comment on above: Performed By: #### L [id number], [id number], L100.0500 #### [facility] [address] [place], [address] ALT [Catalytic activity/Vol] 28 U/L Normal 13-56 [facility] Comment on above: Performed By: #### L [id number], [id number], L100.0500 #### [facility] [address] [place], [address] AST [Catalytic activity/Vol] 15 U/L Normal 15-37 [facility] Comment on above: Performed By: #### L [id number], [id number], L100.0500 #### [facility] [address] [place], [address] Bilirubin [Mass/Vol] 0.30 mg/dL Normal 0.20-1.00 [facility] Comment on above: Result Comment: For patients on eltrombopag therapy, use of Dimension Bromide TBIL is not recommended. Performed By: #### L [id number], [id number], L100.0500 #### [facility] [address] [place], [address] BUN/CRE 15.9 RATIO Normal 10-20 [facility] Comment on above: Performed By: #### L [id number], [id number], L100.0500 #### [facility] [address] [place], [address] CA,Total 8.8 mg/dL Normal 8.5-10.1 [facility] Comment on above: Performed By: #### L [id number], [id number], L100.0500 #### [facility] [address] [place], [address] Chloride [Moles/Vol] 105 mmol/L Normal 98-107 [facility] Comment on above: Performed By: #### L 500.4050, [id number], L100.0500 #### [facility] [address] [place], [address] CO2 [Moles/Vol] 23.0 mmol/L Normal 21.0-32.0 [facility] Comment on above: Performed By: #### L 500.4050, [id number], L100.0500 #### [facility] [address] [place], [address] Creatinine [Mass/Vol] 0.50 mg/dL Low 0.55-1.02 [facility] Comment on above: Result Comment: The validity of the calculated GFR GFRAA in patients over 70 years has not been determined. Clinical correlation is essential. Performed By: #### L [id number], [id number], L100.0500 #### [facility] [address] [place], [address] ECRCL 152.08 ml/min Normal [facility] Comment on above: Performed By: #### L 500.4050, [id number], L100.0500 #### [facility] [address] [place], [address] EST GFR - AA 188 mL/min Normal >60 [facility] Comment on above: Result Comment: Afri can [place] GFR Calc Performed By: #### L [id number], [id number], L100.0500 #### [facility] [address] [place], [address] GAP 9 Normal 5-15 [facility] Comment on above: Performed By: #### L 500.4050, [id number], L100.0500 #### [facility] [address] [place], [address] GFR/1.73 sq M.predicted among non-blacks MDRD (S/P/Bld) [Vol rate/Area] 156 mL/min/{1.73_m2} Normal >60 [facility] Comment on above: Result Comment: Non- GFR Calc Performed By: #### L 500.4050, [id number], L100.0500 #### [facility] [address] [place], [address] Globulin (S) [Mass/Vol] 4.3 g/dL High 2.2-4.2 [facility] Comment on above: Performed By: #### L 500.4050, [id number], L100.0500 #### [facility] [address] [place], [address] Glucose [Mass/Vol] 96 mg/dL Normal 74-106 [facility] Comment on above: Performed By: #### L 500.4050, [id number], L100.0500 #### [facility] [address] [place], [address] Potassium [Moles/Vol] 3.1 mmol/L Low 3.5-5.1 [facility] Comment on above: Performed By: #### L [id number], [id number], L100.0500 #### [facility] [address] [place], [address] Sodium [Moles/Vol] 137 mmol/L Normal 136-145 [facility] Comment on above: Performed By: #### L [id number], [id number], L100.0500 #### [facility] [address] [place], [address] T PROT 7.5 g/dL Normal 6.4-8.2 [facility] Comment on above: Performed By: #### L 500.4050, [id number], L100.0500 #### [facility] [address] [place], [address] Urea nitrogen [Mass/Vol] 8 mg/dL Normal 7-18 [facility] Comment on above: Performed By: #### L [id number], [id number], L100.0500 #### [facility] [address] [place], [address] Determination of erythrocyte mean corpuscular volume (MCV)Ordered By: Dr. Hernández on 07-12-2022 MCV (RBC) [Entitic vol] 84.6 fL 81-99 [facility] Hematocrit Auto (Bld) [Volum e fraction]Ordered By: Dr. Hernández on 07-12-2022 Hematocrit (Bld) [Volume fraction] 34.7 % 37-47 [facility] - Chemistry and C hemistry - challengeOrdered By: Dr. Hernández on 07-12-2022 ALP [Catalytic activity/Vol] 69 U/L 45-117 [facility] ALT [Catalytic activity/Vol] 28 U/L 13-56 [facility] CO2 [Moles/Vol] 23.0 mmol/L 21.0-32.0 [facility] Globulin (S) [Mass/Vol] 4.3 g/dL 2.2-4.2 [facility] Urea nitrogen/Creatinine [Mass ratio] 15.9 mg/mg 10-20 [facility] - Hematology and Cell countsOrdered By: Dr. Hernández on 07-12-2022 Erythrocyte distribution width (RBC) [Entitic vol] 43.2 fL 35.1-43.9 [facility] Erythrocyte distribution width (RBC) [Ratio] 14.0 % 11.6-14.6 [facility] MCH (RBC) [Entitic mass] 27.6 pg 27.0-32.0 [facility] MCHC Auto (RBC) [Mass/Vol]Or dered By: Dr. Hernández on 07-12-2022 MCHC (RBC) [Mass/Vol] 32.6 g/dL 32-36 [facility] No Panel InformationOrdered By: Dr. Hernández on 07-12-2022 Estimated Creatinine Clearance Calc 152.08 ml/min [facility] Estimated GFR (MDRD) Amer 188 mL/min >60 [facility] Comment on above: GFR Calc Estimated GFR (MDRD) Non-Af Amer 156 mL/min >60 [facility] Comment on above: Non- GFR Calc Thyroid Stimulating Hormone (TSH) 1.23 uIU/mL 0.358-3.74 [facility] Platelets bldOrdered By: Dr. Hernández on 07-12-2022 Platelets (Bld) [#/Vol] 389 10*3/uL 150-450 [facility] Serum or plasma albumin troy urement (mass/volume)Ordered By: Dr. Hernández on 07-12-2022 Albumin [Mass/Vol] 3.2 g/dL 3.2-5.0 [facility] Serum or plasma albumin/glob ulin mass ratioOrdered By: Dr. Hernández on 07-12-2022 Albumin/Globulin [Mass ratio] 0.7 {ratio} 0.9-2.4 [facility] Serum or plasma calcium troy urement (mass/volume)Ordered By: Dr. Hernández on 07-12-2022 Calcium [Mass/Vol] 8.8 mg/dL 8.5-10.1 [facility] Serum or plasma creatinine m easurement (mass/volume)Ordered By: Dr. Hernández on 07-12-2022 Creatinine [Mass/Vol] 0.50 mg/dL 0.55-1.02 [facility] Comment on above: The validity of the calculated GFR & GFRAA in patients over 70 years has not been determined. Clinical correlation is essential. Serum or plasma urea nitroge n measurement (mass/volume)Ordered By: Dr. Hernández on 07-12-2022 Urea nitrogen [Mass/Vol] 8 mg/dL 7-18 [facility] Thin prep Papanicolaou smear with manual screeningOrdered By: Dr. Hernández on 07-12-2022 Thin prep Papanicolaou smear with manual screening 15 U/L 15-37 [facility] Thin prep Papanicolaou smear with manual screening 9 5-15 [facility] Thyroid Stim Hormone (TSH)on 07-12-2022 TSH 1.23 uIU/mL Normal 0.358-3.74 [facility] Comment on above: Performed By: #### L 500.4050, L501.9520, L100.0500 #### [facility] [address] [place], [place] [address], [address] URINE OB DIP B/Oon 3 Glucose Ql (U) Negative Neg mg/dL [facility] Protein.monoclonal (U) [Mass/Vol] Negative Neg mg/dL [facility] URINE OB DIP B/Oon 3 Glucose Ql (U) Negative Neg mg/dL [facility] Protein.monoclonal (U) [Mass/Vol] Negative Neg mg/dL [facility] Culture, urineOrdered By: Dr Mateo Arguello on 06-08-2022 Bacteria identified Cx Nom (U) Positive [facility] Absolute lymphocyte countOrd ered By: Dr. Arguello on 06-07-2022 Lymphocytes Auto (Unsp spec) [#/Vol] 1.41 10*3/uL 0.83-4.51 [facility] Basophil percentageOrdered B y: Dr. Arguello on 06-07-2022 Basophils/100 WBC (Bld) 0.3 % 0-1 [facility] Bilirubin [Mass/Vol] 0.20 mg/dL 0.20-1.00 [facility] Comment on above: For patients on eltr ombopag therapy, use of Dimension Bromide TBIL is not recommended. Chloride [Moles/Vol] 107 mmol/L 98-107 [facility] Eosinophils/100 WBC (Bld) 0.8 % 0-5 [facility] Glucose [Mass/Vol] 103 mg/dL 74-106 [facility] Comment on above: Fasting Glucose resu lt from 100 to 125 mg/dL suggests IMPAIRED HOMEOSTASIS per A.D.A. criteria. Neutrophils (Bld) [#/Vol] 9.5 10*3/uL 2.0-7.7 [facility] Neutrophils/100 WBC (Bld) 80.2 % 47-70 [facility] Potassium [Moles/Vol] 3.7 mmol/L 3.5-5.1 [facility] Protein [Mass/Vol] 7.4 g/dL 6.4-8.2 [facility] Sodium [Moles/Vol] 139 mmol/L 136-145 [facility] WBC (Bld) [#/Vol] 11.9 10*3/uL 4.4-11.0 [place] Basophil percentage 0-5 SEEN /hpf 0-5 [facility] Bilirubin Test strip Ql (U)O rdered By: Dr. Arguello on 06-07-2022 Bilirubin Ql (U) Negative Negative [facility] Blood erythrocytes count (nu mber/volume)Ordered By: Dr. Arguello on 06-07-2022 RBC (Bld) [#/Vol] 4.11 10*6/uL 4.2-5.4 [place] Blood hemoglobin measurement (mass/volume)Ordered By: Dr. Arguello on 06-07-2022 Hemoglobin (Bld) [Mass/Vol] 11.5 g/dL 12.0-15.0 [facility] Blood lymphocytes/100 leukoc ytesOrdered By: Dr. Arguello on 06-07-2022 Lymphocytes/100 WBC (Bld) 11.9 % 19-41 [facility] Blood monocytes/100 leukocyt esOrdered By: Dr. Arguello on 06-07-2022 Monocytes/100 WBC (Bld) 6.4 % 0-10 [facility] Blood platelet mean volumeOr dered By: Dr. Arguello on 06-07-2022 Platelet mean volume (Bld) [Entitic vol] 10.5 fL 6.2-12.0 [facility] Determination of erythrocyte mean corpuscular volume (MCV)Ordered By: Dr. Arguello on 06-07-2022 MCV (RBC) [Entitic vol] 87.1 fL 81-99 [facility] Hematocrit Auto (Bld) [Volum e fraction]Ordered By: Dr. Arguello on 06-07-2022 Hematocrit (Bld) [Volume fraction] 35.8 % 37-47 [facility] Ketones Test strip Ql (U)Ord ered By: Dr. Arguello on 06-07-2022 Ketones Ql (U) Negative Negative [facility] - Chemistry and C hemistry - challengeOrdered By: Dr. Arguello on 06-07-2022 ALP [Catalytic activity/Vol] 64 U/L 45-117 [facility] ALT [Catalytic activity/Vol] 48 U/L 13-56 [facility] CO2 [Moles/Vol] 26.0 mmol/L 21.0-32.0 [facility] Globulin (S) [Mass/Vol] 4.1 g/dL 2.2-4.2 [facility] Lipase [Catalytic activity/Vol] 88 U/L 73-393 [facility] Urea nitrogen/Creatinine [Mass ratio] 13.9 mg/mg 10-20 [facility] Laboratory - Hematology and Cell countsOrdered By: Dr. Arguello on 06-07-2022 Erythrocyte distribution width (RBC) [Entitic vol] 44.4 fL 35.1-43.9 [facility] Erythrocyte distribution width (RBC) [Ratio] 14.0 % 11.6-14.6 [facility] Immature granulocytes/100 WBC (Bld) 0.400 % 0.0-0.9 [facility] Comment on above: IG% - Immature Granu locytes (promyelocytes, myelocytes and metamyelocytes) > 1% indicates that a LEFT SHIFT is Present. MCH (RBC) [Entitic mass] 28.0 pg 27.0-32.0 [facility] Nucleated RBC/100 WBC (Bld) [Ratio] 0 % 0-5 [facility] MCHC Auto (RBC) [Mass/Vol]Or dered By: Dr. Arguello on 06-07-2022 MCHC (RBC) [Mass/Vol] 32.1 g/dL 32-36 [facility] Mucus LM Ql (Urine sed)Order ed By: Dr. Arguello on 06-07-2022 Mucus Ql (Urine sed) 0 SEEN /hpf [facility] Nitrite Test strip Ql (U)Ord ered By: Dr. Arguello on 06-07-2022 Nitrite Ql (U) Negative Negative [facility] No Panel InformationOrdered By: Dr. Arguello on 06-07-2022 Estimated Creatinine Clearance Calc 152.08 ml/min [facility] Estimated GFR (MDRD) Amer 188 mL/min >60 [facility] Comment on above: GFR Calc Estimated GFR (MDRD) Non-Af Amer 155 mL/min >60 [facility] Comment on above: Non- GFR Calc Platelets bldOrdered By: Dr. Arguello on 06-07-2022 Platelets (Bld) [#/Vol] 323 10*3/uL 150-450 [facility] Protein Test strip Ql (U)Ord ered By: Dr. Arguello on 06-07-2022 Protein Ql (U) 30 mg/dl Negative [facility] Serum or plasma albumin troy urement (mass/volume)Ordered By: Dr. Arguello on 06-07-2022 Albumin [Mass/Vol] 3.3 g/dL 3.2-5.0 [facility] Serum or plasma albumin/glob ulin mass ratioOrdered By: Dr. Arguello on 06-07-2022 Albumin/Globulin [Mass ratio] 0.8 {ratio} 0.9-2.4 [facility] Serum or plasma calcium troy urement (mass/volume)Ordered By: Dr. Arguello on 06-07-2022 Calcium [Mass/Vol] 8.9 mg/dL 8.5-10.1 [facility] Serum or plasma creatinine m easurement (mass/volume)Ordered By: Dr. Arguello on 06-07-2022 Creatinine [Mass/Vol] 0.50 mg/dL 0.55-1.02 [facility] Comment on above: The validity of the calculated GFR & GFRAA in patients over 70 years has not been determined. Clinical correlation is essential. Serum or plasma urea nitroge n measurement (mass/volume)Ordered By: Dr. Arguello on 06-07-2022 Urea nitrogen [Mass/Vol] 7 mg/dL 7-18 [facility] Squamous epithelial cells de tection in urine sediment by light microscopyOrdered By: Dr. Arguello on 06-07-2022 Epithelial cells.squamous LM Ql (Urine sed) 0-5 SEEN /hpf 5-10 [facility] Thin prep Papanicolaou smear with manual screeningOrdered By: Dr. Arguello on 06-07-2022 Thin prep Papanicolaou smear with manual screening 16 U/L 15-37 [facility] Thin prep Papanicolaou smear with manual screening 6 5-15 [facility] Urine blood detectionOrdered By: Dr. Arguello on 06-07-2022 RBC Ql (U) 10 /ul Negative [facility] RBC Ql (U) 0-5 SEEN /hpf 0-5 [facility] Urine clarityOrdered By: Dr. Arguello on 06-07-2022 Clarity (U) Sl. Cloudy Clear [facility] Urine color determinationOrd ered By: Dr. Arguello on 06-07-2022 Color (U) Yellow Yellow [facility] Urine glucose detectionOrder ed By: Dr. Arguello on 06-07-2022 Glucose Ql (U) Normal mg/dl Normal [facility] Urine leukocyte esterase det ection by dipstickOrdered By: Dr. Arguello on 06-07-2022 Leukocyte esterase Test strip Ql (U) 25 /ul Negative [facility] Urine pHOrdered By: Dr. Candice resendiz on 06-07-2022 pH (U) 6.5 [pH] 5.0 - 8.0 [facility] Urine sediment bacteria coun t by microscopy (number/high power field)Ordered By: Dr. Arguello on 06-07-2022 Bacteria LM.HPF (Urine sed) [#/Area] 1 /[HPF] None Seen [facility] Urine specific gravity measu rementOrdered By: Dr. Arguello on 06-07-2022 Specific gravity (U) [Rel density] 1.020 1.002-1.030 [facility] Urobilinogen Auto test strip Ql (U)Ordered By: Dr. Arguello on 06-07-2022 Urobilinogen Ql (U) Normal mg/dl Normal [facility] CBC panel Auto (Bld)on 05-30 Erythrocyte distribution width (RBC) [Ratio] 13.8 % 11.5 - 15.0 % [facility] Hematocrit (Bld) [Volume fraction] 34.2 % Low 36.0 - 46.0 % [facility] Hemoglobin (Bld) [Mass/Vol] 11.5 g/dL 11.5 - 15.5 g/dL [facility] MCH (RBC) [Entitic mass] 28.3 pg 26.0 - 34.0 pg [facility] MCHC (RBC) [Mass/Vol] 33.6 g/dL 30.5 - 36.0 g/dL [facility] MCV (RBC) [Entitic vol] 84.0 fL 80.0 - 100.0 fL [facility] Nucleated RBC (Bld) [#/Vol] <0.01 k/uL [facility] Platelet mean volume (Bld) [Entitic vol] 10.8 fL 9.0 - 12.7 fL [facility] Platelets (Bld) [#/Vol] 295 10*3/uL 150 - 400 k/uL [facility] RBC (Bld) [#/Vol] 4.07 10*6/uL 3.90 - 5.2 0 m/uL [facility] WBC (Bld) [#/Vol] 10.16 10*3/uL 3.70 - 11 .00 k/uL [facility] No Panel Informationon 05-30 [facility] PAP FLUID CERVICAL SCREENING on 05-29-2022 Case Report Gynecologic Cytology Report Case: [id number] Authorizing Provider: Erika Loya MD Collected: 05/24/2022 02:22 PM Ordering Location: OB/Gynecology Received: 05/24/2022 04:59 PM First Screen: Desiree Ruano, CT, ASCP Rescreen: Sandra Mars, CT, ASCP Specimen: Pap, Pinking Sewing Machine Operator, Screening, CERVICAL SCREENING FLUID [facility] Clinical History ROUTINE EXAM [facility] Cytology Interpretation Negative [facility] FINAL DIAGNOSIS A - CERVICAL SCREENI NG FLUID Satisfactory for interpretation Negative for Intraepithelial lesion or malignancy. [facility] HPV Requested? Yes, Reflex HPV for ASCUS [facility] LMP [facility] Pap Disclaimer The Pap Smear is a screening test for cervical cancer. False negative results occur with all screening tests, emphasizing the need for rescreening at recommended intervals, and clinical correlation. [facility] PAP Pinking Sewing Machine Operator Comment This specimen has be en analyzed by the ThinPrep Imaging System, an automated imaging and review system, which assists the laboratory in evaluating cells on ThinPrep Pap tests. Following automated imaging, selected rae from every slide are reviewed by a pipe finishing supervisor. [facility] Performing Lab Technical component, pipe finishing supervisor screening performed at [facility], [address] [address] CLIA# [id number] Diagnostic interpretation performed at [facility], [address], [facility] [address] CLIA# [id number] Security System Analyst: Hayder Ma M.D. [facility] C. trachomatis+N. gonorrhoea e DNA ALPESH+probe Ql (Unsp spec)on 05-25-2022 C. trachomatis DNA ALPESH+probe Ql (Unsp spec) Negative Negative for Chlamydia trachomatis by amplificaton [facility] N. gonorrhoeae DNA ALPESH+probe Ql (Unsp spec) Negative Negative for Neisseria gonorrhoeae by amplification [facility] URINE CULTUREon 05-25-2022 Bacteria identified Cx Nom (U) <10,000 CFU/ml Normal urogenital palak [facility] Cell Count,CSFon 01-28-2018 Nucleated Cells,CSF 3 {cells}/uL Normal 0-5 [facility] Comment on above: Result Comment: Pauc icellular specimen with chronic inflammatory cells. sheather Performed By: #### H CGUR, UAMAC, UAMIC ####[facility] [address]#### C/UR ####[place] [address] [place] [address] [address], [place] [phone] Basic Metabolic Panelon 10-0 Anion gap 3 molar conc 7 Normal [facility] Comment on above: Performed By: #### H CGUR, UAMAC, UAMIC ####[facility] [place] [address]#### C/UR ####[place] [address] [place] [address]SrnmtDavid [place] [address] [phone] Calcium mass conc 8.6 mg/dL Normal 8.4-10.4 [facility] Comment on above: Performed By: #### H CGUR, UAMAC, UAMIC ####[facility] [place] [address]#### C/UR ####[place] [address] [place] [address]QxxznMary [place] [address] [facility] [address] [phone] CO2 molar conc 22 mmol/L Normal 22-30 [facility] Comment on above: Performed By: #### H CGUR, UAMAC, UAMIC ####[facility] [place] [address]#### C/UR ####[place] [address] [place] [address]YayysDavid [place] [address], [place] [phone] Glucose mass conc 95 mg/dL Normal 70-100 [facility] Comment on above: Performed By: #### H CGUR, UAMAC, UAMIC ####[facility] [place] [address]#### C/UR ####[place] [address] [place] [address]RylsuDavid [place] [address], [place] [phone] Urea nitrogen mass conc 5 mg/dL Low 7-20 [facility] Comment on above: Performed By: #### H CGUR, UAMAC, UAMIC ####[facility] [place] [address]#### C/UR ####[place] [address] [place] [address]WumbbMary [place] [address] [facility] [phone] Creatinine mass conc 0.48 mg/dL Low 0.52-1.25 [facility] Comment on above: Performed By: #### H CGUR, UAMAC, UAMIC ####[address] [place] [address]#### C/UR ####[address] [place] [address]JtuwkMary [place] [address] [place] [phone] GFR/1.73 sq M predicted among blacks MDRD vol rate/area (S/P/Bld) mL/min/{1.73_m2} Normal >60 [facility] Comment on above: Performed By: #### H CGUR, UAMAC, UAMIC ####[address] [place] [address]#### C/UR ####[address] [place] [address]VbdmdMary [place] [address] [facility] [place] [phone] GFR/1.73 sq M predicted among non-blacks MDRD vol rate/area (S/P/Bld) mL/min/{1.73_m2} Normal >60 [facility] Comment on above: Result Comment: Sour ce- MDRD equation with creatinine calibration to IDMS(NKDEP) eGFR not recommended for drug dose adjustment Performed By: #### H CGUR, UAMAC, UAMIC ####[facility] [place] [address]#### C/UR ####[place] [address] [place] [address]AuqqcDavid [place] [place], [place] [phone] Chloride molar conc 110 mmol/L High 98-107 [facility] Comment on above: Performed By: #### H CGUR, UAMAC, UAMIC ####[facility] [place] [address]#### C/UR ####[place] [address] [place] [address]KilncDavid [place] [address] [place], [place] [phone] Potassium molar conc 4.0 mmol/L Normal 3.5-5.1 [facility] Comment on above: Performed By: #### H CGUR, UAMAC, UAMIC ####[address] [place] [address]#### C/UR ####[address] [place] [address]OvyoyDavid [place] [address] [place], [place] [phone] Sodium molar conc 139 mmol/L Normal 137-145 [facility] Comment on above: Performed By: #### H CGUR, UAMAC, UAMIC ####[address] [place] [address]#### C/UR ####[address] [place] [address]VizhyDavid [place] [address] [place], [place] [phone] [place] Head or Brain w/o Contras ton 01-25-2018 CT Head or Brain w/o Contrast Patient Name: GRACY ANN CT Exam Date/Time 01/25/2018 13:28:[address] Head or Brain w/o Contrast Ordering Physician DO SEQUEIRA GEORGE E Accession Number [id number] CPT4 Codes 32326 () Reason For Exam headache Report Clinical indications: Headache Technique: A multislice, volume acquisition was obtained from the foramen magnum to skull vertex, with images reconstructed in 5 mm intervals. Comparisons: None. Findings: Mass effect: None. Midline shift: None. Hemorrhage: None. Secondary findings of acute stroke: None. Ventricular system: Normal size and configuration for patient's age. Basal cisterns: Within normal limits. Cerebral parenchyma: No evidence of focal or diffuse abnormality. Cerebellum: Normal. Brainstem: Normal. Sella: Normal. Skull base and calvarium: Intact. Mastoid air cells: Clear. Paranasal sinuses: Clear. Orbital contents: Unremarkable. Visualized portions of cervical spine: Intact. Impression: No acute intracranial abnormality. Report Dictated on Final Dictating Physician: MD TELLEZ RUSSELL Signed Date and Time: 01/25/2018 1:38 pm Signed by: MD TELLEZ RUSSELL Transcribed Date and Time: 01/25/2018 1:39 Normal [facility] CULTURE URINEon 01-25-2018 CULTURE URINE 1 Organism Escherich ia coli>100,000 CFU/ml 1 Organism Antibiotic Result Intrp Amikacin(KANWAL) <= 2 S Amoxicillin/Clavulanic Acid(KANWAL) = 16 I Ampicillin(KANWAL) >= 32 R Ampicillin/Sulbactam(KANWAL) >= 32 R Aztreonam(KANWAL) <= 1 S Cefazolin(KANWAL) R Cefepime(KANWAL) <= 1 S Ceftriaxone(KANWAL) <= 1 S Ciprofloxacin(KANWAL) <= 0.25 S Ertapenem(KANWAL) <= 0.5 S Gentamicin(KANWAL) <= 1 S Levofloxacin(KANWAL) <= 0.12 S Meropenem(KANWAL) <= 0.25 S Nitrofurantoin(KANWAL) <= 16 S Pip/Tazobactam(KANWAL) <= 4 S Trimeth/Sulfa(KANWAL) >= 320 R Normal [facility] Comment on above: Performed By: #### H CGUR, UAMAC, UAMIC ####[address] [address]#### C/UR ####[address] [address] [phone] Hemogram w/ Autodiffon 01-25 Abs Baso Cnt 0.0 10*3/uL Normal 0.0-0.2 [facility] Comment on above: Performed By: #### H CGUR, UAMAC, UAMIC ####[address] [address]#### C/UR ####[address] [address]BlcyzMary [place] [address] [place], [place] [phone] Abs Neutrophile Cnt 3.5 10*3/uL Normal 1.8-7.0 [facility] Comment on above: Performed By: #### H CGUR, UAMAC, UAMIC ####[address] [address]#### C/UR ####[address] [address]CiiqwMary [place] [address] [place], [place] [phone] Basophils/100 WBC Auto (Bld) 0.6 % Normal 0.0-2.0 [facility] Comment on above: Performed By: #### H CGUR, UAMAC, UAMIC ####[address] [address]#### C/UR ####[address] [address] [phone] Eosinophils Auto #/vol (Bld) 0.1 10*3/uL Normal 0.0-0.5 [facility] Comment on above: Performed By: #### H CGUR, UAMAC, UAMIC ####[address] [place] [address]#### C/UR ####[address] [place] [address] [address] [place], [place] [phone] Eosinophils/100 WBC Auto (Bld) 1.0 % Normal 1.0-6.0 [facility] Comment on above: Performed By: #### H CGUR, UAMAC, UAMIC ####[address] [place] [address]#### C/UR ####[address] [place] [address]LcdflMary [place] [address] [place], [place] [phone] Erythrocyte distribution width Auto Ratio (RBC) 14.7 % High 11.5-14.5 [facility] Comment on above: Performed By: #### H CGUR, UAMAC, UAMIC ####[address] [place] [address]#### C/UR ####[address] [place] [address]RauizDavid [place] [place], [place] [phone] Granulocytes/100 WBC (Bld) 52.0 % Normal 40.0-80.0 [facility] Comment on above: Performed By: #### H CGUR, UAMAC, UAMIC ####[address] [place] [address]#### C/UR ####[address] [place] [address] [address] [place], [place] [phone] Hematocrit Auto Volume Fraction (Bld) 32.2 % Low 35.0-47.0 [facility] Comment on above: Performed By: #### H CGUR, UAMAC, UAMIC ####[address] [place] [address]#### C/UR ####[address] [place] [address]JcmbyDavid [place] [address] [place], [place] [phone] Hemoglobin mass conc (Bld) 10.6 g/dL Low 11.7-16.0 [facility] Comment on above: Performed By: #### H CGUR, UAMAC, UAMIC ####[address] [address]#### C/UR ####[address] [address]DdtoaMary [place] [address] [place], [place] [phone] Lymphocytes Auto #/vol (Bld) 1.9 10*3/uL Normal 1.0-4.3 [facility] Comment on above: Performed By: #### H CGUR, UAMAC, UAMIC ####[address] [address]#### C/UR ####[address] [address]ErlhlMary [place] [address] [place], [place] [phone] Lymphocytes/100 WBC Auto (Bld) 28.7 % Normal 20.0-40.0 [facility] Comment on above: Performed By: #### H CGUR, UAMAC, UAMIC ####[address] [address]#### C/UR ####[address] [address]AhucnDavid [place] [address] [place], [place] [phone] MCH Auto Entitic mass (RBC) 27.6 pg Normal 26.0-34.0 [facility] Comment on above: Performed By: #### H CGUR, UAMAC, UAMIC ####[address] [address]#### C/UR ####[address] [address]PpxjqMary [place] [address] [place], [place] [phone] MCHC Auto mass conc (RBC) 32.8 % Normal 32.0-36.0 [facility] Comment on above: Performed By: #### H CGUR, UAMAC, UAMIC ####[address] [place] [address]#### C/UR ####[address] [address]PobvmDavid [place] [address] [place], [place] [phone] MCV Auto Entitic volume (RBC) 84.3 fL Normal 79.0-98.0 [facility] Comment on above: Performed By: #### H CGUR, UAMAC, UAMIC ####[address] [place] [address]#### C/UR ####[address] [address]InxwuDavid [place] [place], [place] [phone] Monocytes Auto #/vol (Bld) 1.2 10*3/uL High 0.0-0.8 [facility] Comment on above: Performed By: #### H CGUR, UAMAC, UAMIC ####[address] [address]#### C/UR ####[address] [address]MbqgxMary [place] [address] [place], [place] [phone] Monocytes/100 WBC Auto (Bld) 17.7 % High 2.0-10.0 [facility] Comment on above: Performed By: #### H CGUR, UAMAC, UAMIC ####[address] [address]#### C/UR ####[address] [address]XzawkDavid [place] [place], [place] [phone] Platelet mean volume Auto Entitic volume (Bld) 10.0 fL Normal 7.4-10.4 [facility] Comment on above: Performed By: #### H CGUR, UAMAC, UAMIC ####[address] [place] [address]#### C/UR ####[place] [address] [place] [address]HgrzdDavid [place] [place], [place] [phone] Platelets Auto #/vol (Bld) 187 10*3/uL Normal 140-440 [facility] Comment on above: Performed By: #### H CGUR, UAMAC, UAMIC ####[address] [place] [address]#### C/UR ####[address] [address]GqypyDavid [place] [place], [place] [phone] RBC Auto #/vol (Bld) 3.82 10*6/uL Normal 3.80-5.20 [facility] Comment on above: Performed By: #### H CGUR, UAMAC, UAMIC ####[address] [place] [address]#### C/UR ####[address] [address]KauhbDavid [place] [place], [place] [phone] WBC Auto #/vol (Bld) 6.8 10*3/uL Normal 3.6-10.7 [facility] Comment on above: Performed By: #### H CGUR, UAMAC, UAMIC ####[address] [place] [address]#### C/UR ####[address] [address]WsdfjDavid [place] [place], [place] [phone] Magnesiumon 01-25-2018 Magnesium mass conc 2.2 mg/dL Normal 1.6-2.3 [facility] Comment on above: Performed By: #### H CGUR, UAMAC, UAMIC ####[address] [place] [address]#### C/UR ####[place] [address] [place] [address] [address] [facility] [address], [place] [phone] Acute Hepatitis Panelon Hep B Surface Ag NOT DETECTED Normal Not-Detected [facility] Comment on above: Performed By: #### H CGBRITTANEY, UAMAC, UAMIC ####[address] [place] [address]#### C/UR ####[place] [address] [place] [address]NeeezDavid [place] [address] [facility] [address], [place] [phone] Hep C Antibody NOT DETECTED Normal Not-Detected [facility] Comment on above: Result Comment: Lexus ents with DETECTED Hepatitis C Ab results should have a new specimensubmitted for supplemental testing with a Hepatitis C Quantitative RNA assay(viral load), if clinically indicated. Performed By: #### H ALETHEA, UAMAC, UAMIC ####[address] [place] [address]#### C/UR ####[place] [address] [place] [address]SpgvdDavid [place] [address] [facility] [address] [phone] Hep B Core IgM NOT DETECTED Normal Not-Detected [facility] Comment on above: Performed By: #### H ALETHEA, UAMAC, UAMIC ####[address] [place] [address]#### C/UR ####[place] [address] [place] [address]YzubyMary [place] [address] [facility] [address] [phone] Hep A Virus Ab,IgM NOT DETECTED Normal Not-Detected [facility] Comment on above: Performed By: #### H CGBRITTANEY, UAMAC, UAMIC ####[address] [place] [address]#### C/UR ####[place] [address] [place] [address]NdriwMary [place], [place] [phone] Comp Panel with Mg Reflexon 01-24-2018 ALP enzyme act/vol 56 U/L Normal 38-126 [facility] Comment on above: Performed By: #### H CGUR, UAMAC, UAMIC ####[facility] [place] [address]#### C/UR ####[place] [address] [place] [address]XsgabMary [place] [address] [facility] [phone] ALT enzyme act/vol 28 U/L Normal 13-69 [facility] Comment on above: Performed By: #### H CGUR, UAMAC, UAMIC ####[facility] [place] [address]#### C/UR ####[place] [address] [place] [address]BcsbtMary [address] [place], [place] [phone] AST enzyme act/vol 12 U/L Low 15-46 [facility] Comment on above: Performed By: #### H CGUR, UAMAC, UAMIC ####[facility] [place] [address]#### C/UR ####[place] [address] [place] [address]EgwerMary [address] [place], [place] [phone] Calcium mass conc 8.2 mg/dL Low 8.4-10.4 [facility] Comment on above: Performed By: #### H CGUR, UAMAC, UAMIC ####[facility] [place] [address]#### C/UR ####[place] [address] [place] [address]ZwoneMary [place] [place], [place] [phone] Glucose mass conc 134 mg/dL High 70-100 [facility] Comment on above: Performed By: #### H CGUR, UAMAC, UAMIC ####[facility] [place] [address]#### C/UR ####[facility] Foghjh[address] [place] [address] Bnnenk[address], [place] [phone] Protein mass conc 6.3 g/dL Normal 6.3-8.2 [facility] Comment on above: Performed By: #### H CGUR, UAMAC, UAMIC ####[facility] [place] [address]#### C/UR ####[place] [address] [place] [address] [address] [facility] [address], [place] [phone] Urea nitrogen mass conc 6 mg/dL Low 7-20 [facility] Comment on above: Performed By: #### H CGUR, UAMAC, UAMIC ####[facility] [place] [address]#### C/UR ####[place] [address] [place] [address]KrrxnMary [place] [address] [facility] [phone] Anion gap 3 molar conc 7 Normal [facility] Comment on above: Performed By: #### H CGUR, UAMAC, UAMIC ####[facility] [place] [address]#### C/UR ####[place] [address] [place] [address]TkjfrDavid [place] [address] [facility] [phone] Bilirubin mass conc 0.2 mg/dL Normal 0.2-1.3 [facility] Comment on above: Performed By: #### H CGUR, UAMAC, UAMIC ####[address] [place] [address]#### C/UR ####[place] [address] [place] [address] [address], [place] [phone] CO2 molar conc 22 mmol/L Normal 22-30 [facility] Comment on above: Performed By: #### H CGUR, UAMAC, UAMIC ####[facility] [place] [address]#### C/UR ####[address] [place] [address]CvtcfMary [place] [address] [facility] [phone] Creatinine mass conc 0.57 mg/dL Normal 0.52-1.25 [facility] Comment on above: Performed By: #### H CGUR, UAMAC, UAMIC ####[address] [place] [address]#### C/UR ####[address] [place] [address] [id number] GFR/1.73 sq M predicted among blacks MDRD vol rate/area (S/P/Bld) mL/min/{1.73_m2} Normal >60 [facility] Comment on above: Performed By: #### H CGUR, UAMAC, UAMIC ####[address] [place] [address]#### C/UR ####[address] [place] [address]Ovw[address], [place] [phone] GFR/1.73 sq M predicted among non-blacks MDRD vol rate/area (S/P/Bld) mL/min/{1.73_m2} Normal >60 [facility] Comment on above: Result Comment: Sour ce- MDRD equation with creatinine calibration to IDMS(NKDEP) eGFR not recommended for drug dose adjustment Performed By: #### H CGUR, UAMAC, UAMIC ####[facility] [place] [address]#### C/UR ####[place] [address] [facility] [place] [address]NzhpgDavid [place] [address] [facility] [phone] Albumin mass conc 3.7 g/dL Normal 3.5-5.0 [facility] Comment on above: Performed By: #### H CGUR, UAMAC, UAMIC ####[facility] [place] [address]#### C/UR ####[place] [address] [place] [address]EytliDavid [place] [address] [phone] Chloride molar conc 105 mmol/L Normal 98-107 [facility] Comment on above: Performed By: #### H CGUR, UAMAC, UAMIC ####[address] [place] [address]#### C/UR ####[place] [address] [place] [address]UsxfsMary [place] [address] [facility] [phone] Potassium molar conc 3.3 mmol/L Low 3.5-5.1 [facility] Comment on above: Performed By: #### H CGUR, UAMAC, UAMIC ####[facility] [place] [address]#### C/UR ####[place] [address] [place] [address]BasmbDavid [place] [address] [phone] Sodium molar conc 134 mmol/L Low 137-145 [facility] Comment on above: Performed By: #### H CGUR, UAMAC, UAMIC ####[address] [place] [address]#### C/UR ####[place] [address] [place] [address]FzvacDavid [place] [address] [phone] Drugs of Abuseon 01-24-2018 Phencyclidine (PCP), Ur Negative Normal [facility] Comment on above: Result Comment: The expected value for all of the drugs listedabove is Negative.The following drugs or drug groups have been screenedfor by Immunoassay at the following thresholds:Amphetamine class (1000 ng/mL), Barbiturates (200 ng/mL),Benzodiazepines (200 ng/mL), Cocaine (300 ng/mL),Methadone (300 ng/mL), Opiates (300 ng/mL),Oxycodone (100 ng/mL), and PCP (25 ng/mL).NOTE: These results are for medical treatment only.Analysis performed using non-forensic procedures.POSITIVE results are NOT confirmed by a more specificalternative method unless requested. If confirmation isneeded, request confirmation under separate order. Performed By: #### H CGUR, UAMAC, UAMIC ####[address] [place] [address]#### C/UR ####[place] [address] [place] [address]InncxDavid [place] [address] [phone] Cocaine, Ur Negative Normal [facility] Comment on above: Performed By: #### H CGUR, UAMAC, UAMIC ####[address] [place] [address]#### C/UR ####[facility] K[address]qxi[address] [place] [address] [address], [place] [phone] Methadone, Ur Negative Normal [facility] Comment on above: Performed By: #### H CGUR, UAMAC, UAMIC ####[address] [place] [address]#### C/UR ####[facility] [address] [place] [address]YoimbDavid [place] [address] [phone] Opiates, Ur Positive Normal [facility] Comment on above: Performed By: #### H CGUR, UAMAC, UAMIC ####[address] [place] [address]#### C/UR ####[facility] [address] [place] [address] [address]sm[address], [place] [phone] Amphetamines, Ur Negative Normal [facility] Comment on above: Performed By: #### H CGUR, UAMAC, UAMIC ####[facility] [place] [address]#### C/UR ####[place] [address] [place] [address] [address] [facility] [phone] Barbiturates, Ur Negative Normal [facility] Comment on above: Performed By: #### H CGUR, UAMAC, UAMIC ####[facility] [place] [address]#### C/UR ####[place] [address] [place] [address] [address]uh[address] [facility] [phone] Benzodiazepines, Ur Negative Normal [facility] Comment on above: Performed By: #### H CGUR, UAMAC, UAMIC ####[facility] [place] [address]#### C/UR ####[place] [address] [place] [address] [address] [facility] [address] [phone] Oxycodone/Oxymorphine ,Ur Negative Normal [facility] Comment on above: Performed By: #### H CGUR, UAMAC, UAMIC ####[facility] [place] [address]#### C/UR ####[place] [address] [place] [address] Cfixac[address] [facility] [phone] Glucose, CSFon 01-24-2018 Glucose, CSF 67 mg/dL Normal 40-70 [facility] Comment on above: Performed By: #### H CGUR, UAMAC, UAMIC ####[facility] [place] [address]#### C/UR ####[place] [address] [place] [address]Fcqnn [address] [phone] Hemogram w/ Autodiffon 01-24 Abs Baso Cnt 0.0 10*3/uL Normal 0.0-0.2 [facility] Comment on above: Performed By: #### H CGUR, UAMAC, UAMIC ####[address] [address]#### C/UR ####[address] [address]QslwmMary [place] [address] [place], [place] [phone] Abs Neutrophile Cnt 8.3 10*3/uL High 1.8-7.0 [facility] Comment on above: Performed By: #### H CGUR, UAMAC, UAMIC ####[place] [address]#### C/UR ####[address] [address]UmjrqMary [place] [address] [place], [place] [phone] Basophils/100 WBC Auto (Bld) 0.2 % Normal 0.0-2.0 [facility] Comment on above: Performed By: #### H CGUR, UAMAC, UAMIC ####[address] [address]#### C/UR ####[address] [address]HwxdgMary [place] [address] [place], [place] [phone] Eosinophils Auto #/vol (Bld) 0.0 10*3/uL Normal 0.0-0.5 [facility] Comment on above: Performed By: #### H CGUR, UAMAC, UAMIC ####[address] [address]#### C/UR ####[address] [address]VnbqdMary [place] [address] [place], [place] [phone] Eosinophils/100 WBC Auto (Bld) 0.1 % Low 1.0-6.0 [facility] Comment on above: Performed By: #### H CGUR, UAMAC, UAMIC ####[address] [place] [address]#### C/UR ####[place] [address] [place] [address]WyeclDavid [place] [address] [place], [place] [phone] Erythrocyte distribution width Auto Ratio (RBC) 14.6 % High 11.5-14.5 [facility] Comment on above: Performed By: #### H CGUR, UAMAC, UAMIC ####[address] [place] [address]#### C/UR ####[address] [address]WyullMary [place] [address] [place], [place] [phone] Granulocytes/100 WBC (Bld) 79.4 % Normal 40.0-80.0 [facility] Comment on above: Performed By: #### H CGUR, UAMAC, UAMIC ####[address] [place] [address]#### C/UR ####[address] [address]FkqwtMary [place] [address] [place], [place] [phone] Hematocrit Auto Volume Fraction (Bld) 32.9 % Low 35.0-47.0 [facility] Comment on above: Performed By: #### H CGUR, UAMAC, UAMIC ####[address] [place] [address]#### C/UR ####[address] [place] [address]VlcbaMary [place] [address] [place], [place] [phone] Hemoglobin mass conc (Bld) 11.0 g/dL Low 11.7-16.0 [facility] Comment on above: Performed By: #### H CGUR, UAMAC, UAMIC ####[facility] [address] [address]#### C/UR ####[address] [address] [phone] Lymphocytes Auto #/vol (Bld) 0.9 10*3/uL Low 1.0-4.3 [facility] Comment on above: Performed By: #### H CGUR, UAMAC, UAMIC ####[address] [address]#### C/UR ####[address] [address]hih[address] [phone] Lymphocytes/100 WBC Auto (Bld) 8.2 % Low 20.0-40.0 [facility] Comment on above: Performed By: #### H CGUR, UAMAC, UAMIC ####[address] [address]#### C/UR ####[address] [address]EtiotMary [place] [address] [place], [place] [phone] MCH Auto Entitic mass (RBC) 27.7 pg Normal 26.0-34.0 [facility] Comment on above: Performed By: #### H CGUR, UAMAC, UAMIC ####[address] [address]#### C/UR ####[address] [address]ArvbrMary [place] [address] [place], [place] [phone] MCHC Auto mass conc (RBC) 33.4 % Normal 32.0-36.0 [facility] Comment on above: Performed By: #### H CGUR, UAMAC, UAMIC ####[address] [address]#### C/UR ####[address] [address]GejjvDavid [place] [address] [place], [place] [phone] MCV Auto Entitic volume (RBC) 82.9 fL Normal 79.0-98.0 [facility] Comment on above: Performed By: #### H CGUR, UAMAC, UAMIC ####[facility] [place] [address]#### C/UR ####[address] [place] [address]KrrefDavid [place] [address] [place], [place] [phone] Monocytes Auto #/vol (Bld) 1.3 10*3/uL High 0.0-0.8 [facility] Comment on above: Performed By: #### H CGUR, UAMAC, UAMIC ####[address] [address]#### C/UR ####[address] [address]KbaxtMary [place] [address] [place] [phone] Monocytes/100 WBC Auto (Bld) 12.1 % High 2.0-10.0 [facility] Comment on above: Performed By: #### H CGUR, UAMAC, UAMIC ####[facility] [place] [address]#### C/UR ####[address] [address]DstklDavid [place] [address] [place], [place] [phone] Platelet mean volume Auto Entitic volume (Bld) 9.6 fL Normal 7.4-10.4 [facility] Comment on above: Performed By: #### H CGUR, UAMAC, UAMIC ####[facility] [place] [address]#### C/UR ####[address] [address]CuxnzDavid [place] [address] [place], [place] [phone] Platelets Auto #/vol (Bld) 194 10*3/uL Normal 140-440 [facility] Comment on above: Performed By: #### H CGUR, UAMAC, UAMIC ####[facility] [place] [address]#### C/UR ####[place] [address] [place] [address]Nmj[facility] [address] [place], [place] [phone] RBC Auto #/vol (Bld) 3.97 10*6/uL Normal 3.80-5.20 [facility] Comment on above: Performed By: #### H CGUR, UAMAC, UAMIC ####[address] [place] [address]#### C/UR ####[address] [place] [address]FxwjhMary [place] [address] [place], [place] [phone] WBC Auto #/vol (Bld) 10.5 10*3/uL Normal 3.6-10.7 [facility] Comment on above: Performed By: #### H CGUR, UAMAC, UAMIC ####[address] [place] [address]#### C/UR ####[address] [address]LgpfhMary [place] [address] [place], [place] [phone] Magnesiumon 01-24-2018 Magnesium mass conc 1.8 mg/dL Normal 1.6-2.3 [facility] Comment on above: Performed By: #### H CGUR, UAMAC, UAMIC ####[address] [place] [address]#### C/UR ####[place] [address] [place] [address]NzmrgDavid [place] [address] [place], [place] [phone] Procalcitoninon 01-24-2018 Protein mass conc g/dL Normal <0.10 [facility] Comment on above: Performed By: #### H CGUR, UAMAC, UAMIC ####[address] [place] [address]#### C/UR ####[place] [address] [place] [address]XtsigDavid [place] [address] [place], [place] [phone] Interpretation See Below Normal [facility] Comment on above: Result Comment: PCT <0.50 = Low risk of severe sepsis and/or septic shock.PCT >2.00 = High risk of severe sepsis and/or septic shock. Performed By: #### H CGUR, UAMAC, UAMIC ####[address] [place] [address]#### C/UR ####[place] [address] [place] [place] [address]ExmuhDavid [place] [address] [place], [place] [phone] RESPIRATORY PCR PANELon RESPIRATORY PCR PANEL RESPIRATORY PCR PA FABI --> Status: FNEGATIVE: No targets were detected by the Biofire UpperRespiratory Pathogens PCR Panel.The Biofire Upper Respiratory Pathogens PCR Panel detects thefollowing targets:AdenovirusCoronav irus 229ECoronavirus MYY0Xvnipccnxpv NK18Tvwitabvzsq FH56Pzvrk MetapneumovirusHuman Rhinovirus/EnterovirusInf luenza AInfluenza BParainfluenza Virus 1Parainfluenza Virus 2Parainfluenza Virus 3Parainfluenza Virus 4Respiratory Syncytial VirusBordetella pertussisBordetella parapertussisChlamydia pneumoniaeMycoplasma pneumoniaeRespiratory Pathogens PCR Panel.The [employer]fire Upper Respiratory Pathogens PCR Panel detects thefollowing targets:AdenovirusCoronav irus 229ECoronavirus OOA8Uhtkvstfply UW39Kjimmiuthcb WK11Usnpo MetapneumovirusHuman Rhinovirus/EnterovirusInf luenza AInfluenza BParainfluenza Virus 1Parainfluenza Virus 2Parainfluenza Virus 3Parainfluenza Virus 4Respiratory Syncytial VirusBordetella pertussisBordetella parapertussisChlamydia pneumoniaeMycoplasma pneumoniae Normal [facility] Comment on above: Order Comment: Speci men Source Comment:Nasopharyngeal Performed By: #### H CGUR, UAMAC, UAMIC ####[address] [place] [address]#### C/UR ####[address] [place] [address] [phone] APTTon 01-23-2018 aPTT Coag time (Bld) 31.5 s High 20.0-30.5 [facility] Comment on above: Result Comment: NOTE : The therapeutic time for Heparin anticoagulation,based on Xa activity inhibition, is an APTT of 46-80seconds. Performed By: #### H EMDF, LACT3, MG3, CMP3, PT, APTT, TSH5 ####[address] [place] [address] Add on test from HISon 01-23 Add on test from HIS Accepted Normal [facility] Comment on above: Result Comment: Spec imen available & acceptable for analysis. Performed By: #### H CGUR, UAMAC, UAMIC ####[address] [place] [address]#### C/UR ####[address] [address] [phone] CR Chest PA/LATon 01-23-2018 CR Chest PA/LAT Patient Name: GRACY LUKE Diagnostic Radiology Exam Date/Time 01/23/2018 18:11:54 EDT Exam CR Chest PA/LAT Ordering Physician MD MARLENA, [facility] Accession Number [id number] CPT4 Codes 85589 () Reason For Exam cough Report CHEST: CLINICAL INDICATION: Cough TECHNIQUE: PA and Lateral COMPARISON: None FINDINGS: No focal consolidation or pulmonary edema. No pleural effusions or pneumothorax. The cardiac and mediastinal silhouettes are normal. The osseous structures are unremarkable. IMPRESSION: No focal consolidation or pulmonary edema. Report Dictated on Final Dictating Physician: MD VENCES KEVIN Signed Date and Time: 01/23/2018 6:22 pm Signed by: MD VENCES KEVIN Transcribed Date and Time: 01/23/2018 6:23 Normal [facility] CULTURE AND STAIN - FLUIDon 01-23-2018 CULTURE AND STAIN - FLUID CULTURE & STAIN - FLUID --> Status: F No growth at 5 days. STAIN GRAM --> Status: F Rare polymorphonuclear cells/lpf. No organisms seen. Cytocentrifugation performed. No organisms seen. Cytocentrifugation performed. Normal [facility] Comment on above: Order Comment: Speci men Source Comment:Body Fluid Performed By: #### H CGUR, UAMAC, UAMIC ####[place] [address] [place] [address]#### C/UR ####[place] [address] [place] [address]NcuraMary [place] [place], [place] [phone] Cell Count,CSFon 01-23-2018 RBC Count,CSF 0 {RBC}/uL Normal [facility] Comment on above: Performed By: #### H CGUR, UAMAC, UAMIC ####[place] [address] [place] [address]#### C/UR ####[place] [address] [place] [address]FtpqlDavid [place] [place], [place] [phone] Supernatant see below Normal [facility] Comment on above: Result Comment: Nidhi r and colorless Performed By: #### H CGUR, UAMAC, UAMIC ####[place] [address] [place] [address]#### C/UR ####[place] [address] [place] [address]HxhofDavid [place] [place], [place] [phone] Appearance Nom (U) CLEAR Normal [facility] Comment on above: Performed By: #### H CGUR, UAMAC, UAMIC ####[place] [address] [place] [address]#### C/UR ####[place] [address] [place] [address] [phone] Comp Metabolic Panelon 01-23 ALP enzyme act/vol 66 U/L Normal 38-126 [facility] Comment on above: Performed By: #### H EMDF, LACT3, MG3, CMP3, PT, APTT, TSH5 ####[facility] [place] [address] ALT enzyme act/vol 26 U/L Normal 13-69 [facility] Comment on above: Performed By: #### H EMDF, LACT3, MG3, CMP3, PT, APTT, TSH5 ####[facility] [place] [address] AST enzyme act/vol 15 U/L Normal 15-46 [facility] Comment on above: Performed By: #### H EMDF, LACT3, MG3, CMP3, PT, APTT, TSH5 ####[facility] [place] [address] Calcium mass conc 9.1 mg/dL Normal 8.4-10.4 [facility] Comment on above: Performed By: #### H EMDF, LACT3, MG3, CMP3, PT, APTT, TSH5 ####[facility] [place] [address] Glucose mass conc 103 mg/dL High 70-100 [facility] Comment on above: Performed By: #### H EMDF, LACT3, MG3, CMP3, PT, APTT, TSH5 ####[facility] [place] [address] Protein mass conc 8.0 g/dL Normal 6.3-8.2 [facility] Comment on above: Performed By: #### H EMDF, LACT3, MG3, CMP3, PT, APTT, TSH5 ####[facility] [place] [address] Urea nitrogen mass conc 5 mg/dL Low 7-20 [facility] Comment on above: Performed By: #### H EMDF, LACT3, MG3, CMP3, PT, APTT, TSH5 ####[address] [place] [address] Anion gap 3 molar conc 12 Normal [facility] Comment on above: Performed By: #### H EMDF, LACT3, MG3, CMP3, PT, APTT, TSH5 ####[place] [address] [place] [address] Bilirubin mass conc 0.5 mg/dL Normal 0.2-1.3 [facility] Comment on above: Performed By: #### H EMDF, LACT3, MG3, CMP3, PT, APTT, TSH5 ####[address] [place] [address] CO2 molar conc 24 mmol/L Normal 22-30 [facility] Comment on above: Performed By: #### H EMDF, LACT3, MG3, CMP3, PT, APTT, TSH5 ####[address] [place] [address] Creatinine mass conc 0.69 mg/dL Normal 0.52-1.25 [facility] Comment on above: Performed By: #### H EMDF, LACT3, MG3, CMP3, PT, APTT, TSH5 ####[address] [place] [address] GFR/1.73 sq M predicted among blacks MDRD vol rate/area (S/P/Bld) mL/min/{1.73_m2} Normal >60 [facility] Comment on above: Performed By: #### H EMDF, LACT3, MG3, CMP3, PT, APTT, TSH5 ####[address] [place] [address] GFR/1.73 sq M predicted among non-blacks MDRD vol rate/area (S/P/Bld) mL/min/{1.73_m2} Normal >60 [facility] Comment on above: Result Comment: Sour ce- MDRD equation with creatinine calibration to IDMS(NKDEP) eGFR not recommended for drug dose adjustment Performed By: #### H EMDF, LACT3, MG3, CMP3, PT, APTT, TSH5 ####[place] [address] [place] [address] Albumin mass conc 4.8 g/dL Normal 3.5-5.0 [facility] Comment on above: Performed By: #### H EMDF, LACT3, MG3, CMP3, PT, APTT, TSH5 ####[place] [address] [place] [address] Potassium molar conc 3.8 mmol/L Normal 3.5-5.1 [facility] Comment on above: Performed By: #### H EMDF, LACT3, MG3, CMP3, PT, APTT, TSH5 ####[address] [place] [address] Sodium molar conc 137 mmol/L Normal 137-145 [facility] Comment on above: Performed By: #### H EMDF, LACT3, MG3, CMP3, PT, APTT, TSH5 ####[address] [place] [address] Chloride molar conc 101 mmol/L Normal 98-107 [facility] Comment on above: Performed By: #### H EMDF, LACT3, MG3, CMP3, PT, APTT, TSH5 ####[address] [place] [address] ED Provider Noteon 8 Protein mass conc Chief ComplaintPatie nt presents with? Headache? Back Pain? FeverThe history is provided by the patient.Gracy Ann is a 23 y.o. female force that she has not had a headache for 3days. Symptoms are gradually, symptoms are constant, worsening. Headache is 6out of 10. It is in the RIGHT temporal region. She reports subjective fever andheadache radiates down her neck and upper back and lower back. Pain gets worsewith position changes. No sore throat. Has body aches. Chills. Nausea. Reliefwith Tylenol. Review of SystemsGenitourinary: Negative for dysuria. Urine with odorAll other systems reviewed and are negative.Past Medical History:Diagnosis Date? HeadachePast Surgical History:Procedure Laterality Date? SECTION? TONSILLECTOMYSocial HistorySocial History? Marital status: Single Spouse name: N/A? Number of children: N/A? Years of education: N/AOccupational History? Not on file.Social History Main Topics? Smoking status: Current Every Day Smoker Packs/day: 0.50? Smokeless tobacco: Never Used Comment: States 4 cigarettes/day, quit smoking 09/02/17? Alcohol use No? Drug use: No? Sexual activity: Not on fileOther Topics Concern? Not on fileSocial History Narrative? No narrative on filePhysical ExamConstitutional: She is oriented to person, place, and time. She is active andcooperative.HENT:Head: Atraumatic.Right Ear: External ear normal.Left Ear: External ear normal.Nose: Nose normal.Mouth/Throat: No oropharyngeal exudate.Eyes: Pupils are equal, round, and reactive to light. Conjunctivae and EOM arenormal.Neck: Normal range of motion. Neck supple. No JVD present. No tracheal deviationpresent.Cardiova scular: Normal rate, regular rhythm, normal heart sounds and intactdistal pulses.Pulmonary/Chest: Effort normal and breath sounds normal. No respiratorydistress. She has no wheezes. She has no rales.Abdominal: Soft. She exhibits no distension. There is no hepatosplenomegaly.There is CVA tenderness (r). There is no rigidity, no rebound, no guarding, notenderness at McBurney's point and negative López's sign. No hernia.Lymphadenopathy: She has no cervical adenopathy.Neurological: She is alert and oriented to person, place, and time. She hasnormal strength and normal reflexes. She displays no atrophy and no tremor. Nosensory deficit. She exhibits normal muscle tone. Coordination and gait normal.Skin: No rash noted. She is not diaphoretic. No erythema. No pallor.Psychiatric: She has a normal mood and affect. Her behavior is normal. Thoughtcontent normal.Nursing note and vitals reviewed.Vitals: 01/23/18 1714 01/23/18 1824 01/23/18 1846 01/23/18 1855BP: 122/72 123/71 108/81Pulse: 116 103 115 118Resp: 16 22 19Temp: 100.9 ?F (38.3 ?C)TempSrc:SpO2: 100% 98% 100% 100%Weight:ProceduresMDML absRadiologyEKG Interpretation.Xr Chest Standard (2 Vw)Result Date: 01/23/2018Patient Name: GRACY ANN ---DiagnosticRadiology--- Exam Date/Time 01/23/2018 18:11:54 EDT ExamCR Chest PA/LAT Ordering Physician MD MARLENA, [facility]Bay[facility] Campusession Number [id number] CPT4 Codes 42575 () ReasonFor Exam cough Report CHEST: CLINICAL INDICATION: Cough TECHNIQUE: PA andLateral COMPARISON: None FINDINGS: No focal consolidation or pulmonary edema.No pleural effusions or pneumothorax. The cardiac and mediastinal silhouettesare normal. The osseous structures are unremarkable. IMPRESSION: No focalconsolidation or pulmonary edema. Report Dictated on --- Final --- Dictating Physician: MD VENCES KEVIN Signed Date and Time:01/23/2018 6:22 pm Signed by: MD VENCES KEVIN Transcribed Date and Time:01/23/2018 6:23Results for orders placed or performed during the hospital encounter of 01/23/18CB auto differentialResult Value Ref Range WBC 12.3 (H) 3.6 - 10.7 10*3/uL RBC 4.66 3.80 - 5.20 10*6/uL Hemoglobin 12.4 11.7 - 16.0 g/dL Hematocrit 38.4 35.0 - 47.0 % MCV 82.4 79.0 - 98.0 fL MCH 26.7 26.0 - 34.0 pg MCHC 32.4 32.0 - 36.0 % RDW 14.8 (H) 11.5 - 14.5 % Platelets 230 140 - 440 10*3/uL MPV 9.4 7.4 - 10.4 fL Granulocytes % 75.2 40.0 - 80.0 % Lymphocyte % 11.7 (L) 20.0 - 40.0 % Monocytes 12.6 (H) 2.0 - 10.0 % Eosinophils 0.1 (L) 1.0 - 6.0 % Basophils 0.4 0.0 - 2.0 % Absolute Neut # 9.2 (H) 1.8 - 7.0 10*3/uL Absolute Lymph # 1.4 1.0 - 4.3 10*3/uL Absolute [place] # 1.5 (H) 0.0 - 0.8 10*3/uL Absolute Eos # 0.0 0.0 - 0.5 10*3/uL Absolute Baso # 0.0 0.0 - 0.2 10*3/uLProtime-INRResult Value Ref Range Protime 10.5 9.0 - 12.0 s INR 1.0 0.9 - 1.1 NAAPTTResult Value Ref Range aPTT 31.5 (H) 20.0 - 30.5 sMagnesiumResult Value Ref Range Magnesium 1.9 1.6 - 2.3 mg/dLLactic Acid, PlasmaResult Value Ref Range Lactic Acid 0.7 0.7 - 2.0 mmol/LTSH without ReflexResult Value Ref Range TSH 0.656 0.465 - 4.680 u[IU]/mLComprehensive Metabolic PanelResult Value Ref Range Sodium 137 137 - 145 mmol/L Potassium 3.8 3.5 - 5.1 mmol/L Chloride 101 98 - 107 mmol/L CO2 24 22 - 30 mmol/L Anion Gap 12 NA Glucose 103 (H) 70 - 100 mg/dL BUN 5 (L) 7 - 20 mg/dL CREATININE 0.69 0.52 - 1.25 mg/dL eGFR >60.0 >60 mL/min EGFR IF NonAfrican Hong Konger >60.0 >60 mL/min Calcium 9.1 8.4 - 10.4 mg/dL Albumin,Serum 4.8 3.5 - 5.0 g/dL Total Protein 8.0 6.3 - 8.2 g/dL Total Bilirubin 0.5 0.2 - 1.3 mg/dL Alkaline Phosphatase 66 38 - 126 U/L ALT 26 13 - 69 U/L AST 15 15 - 46 U/LUrinalysisResult Value Ref Range Appearance SL CLOUDY Clear NA Color, UA YELLOW Lt. Yellow NA Specific [place], Urine 1.015 1.005 - 1.030 NA pH, Urine 6.0 5.0 - 8.0 NA LEUKOCYTES, UA 1+ Negative NA Nitrite, Urine NEGATIVE Negative NA Total Protein, Urine 1+ Negative mg/dL Glucose, Ur NEGATIVE Negative mg/dL Ketones, Urine 2+ Negative mg/dL Urobilinogen, Urine 0.2 0 - 1 mg/dL Bilirubin, Urine NEGATIVE Negative NA Occult Blood,Urine 1+ Negative [RBC]/uLPREGNANCY, URINEResult Value Ref Range HCG Urine Negative Negative NAUrinalysis with MicroscopicResult Value Ref Range Urine Volume 8-12 ml NA WBC, UA 6-10 0 - 5 /[HPF] RBC, UA 0-2 0 - 2 /[HPF] Epithelial Cells 3-5 3 - 5 /[HPF] Bacteria, UA Moderate (6-50) Negative NA MUCOUS THREADS #/AREA URNS HPF Few Negative NAAdd On Lab TestResult Value Ref Range Add On Accepted NACSF Cell Count with DifferentialResult Value Ref Range Appearance CLEAR NA Color, CSF see below NA Nucleated Cells, CSF 3 0 - 5 [cells]/uL Red blood cells count, CSF 0 [RBC]/uLProtein, CSFResult Value Ref Range Protein, CSF 30.7 12.0 - 60.0 mg/dL Appearance, CSF see below NA Color, CSF see below NAThe primary encounter diagnosis was Sepsis, due to unspecified organism (HCC).Diagnoses of Pyelonephritis and Headache disorder were also pertinent to thisvisit.Condition at time of disposition: improvedED Medication Orders Start Ordered Status Ordering Provider 01/23/18 2100 01/23/18 1634 sodium chloride flush 0.9 % injection 10 mL 2times per day Acknowledged HENOK MARTIN 01/23/18 19301/23/18 193 acetaminophen (TYLENOL) tablet 650 mg ONCE Last JUN action: Given - by MARINA LIN on 01/23/18 at 1947 ANGELICA FAGAN 01/23/18 19301/23/18 192 acyclovir (ZOVIRAX) 975 mg in dextrose 5 % 250 mLIVPB EVERY 8 HOURS Last JUN action: New Bag - by MARINA LIN on 01/23/18 at 1947 HENOK MARTIN 01/23/18 1805 01/23/18 180 lidocaine-EPINEPHrine 1 percent-1:[id number] adyuylzfg88 mL ONCE Last JUN action: Given - by RHEA GRAVES on 01/23/18 at 1829 MARTIN, HENOK 01/23/18 1805 01/23/18 1804 cefTRIAXone (ROCEPHIN) 2 g in dextrose 5 % 50 mLIVPB ONCE Last JUN action: Stopped - by RHEA GRAVES on 01/23/18 at 1921 MARTIN,HENOK 01/23/18 1805 01/23/18 1804 morphine injection 2 mg ONCE Last JUN action: Given - by RHEA GRAVES on 01/23/18 at 1825 MARTIN, HENOK 01/23/18 1634 01/23/18 1634 0.9 % sodium chloride bolus ONCE Last JUN action: Stopped - by RHEA GRAVES on 01/23/18 at 1922 MARTIN,HENOK 01/23/18 1634 01/23/18 1634 ketorolac (TORADOL) injection 30 mg ONCE Last JUN action: Given - by RHEA GRAVES on 01/23/18 at 1711 MARTIN, HENOK 01/23/18 1634 01/23/18 1634 metoclopramide (REGLAN) injection 5 mg ONCE Last JUN action: Given - by RHEA GRAVES on 01/23/18 at 1711 MARTIN, HENOK 01/23/18 1631 01/23/18 1634 sodium chloride flush 0.9 % injection 10 mL PRN Acknowledged HENOK MARTINDISPOSITION:Patient was admitted to the service of Dr.cheryl Fagan , at [facility] After discussionwith her. Thank you.Satish CLEMENS MD01/23/182019Clarification:Cardiov ascular examination: Tachycardia, regular rhythm, normal S1 and S2.Henok Martin MD01/23/182025Patient Name: Gracy WoodwardAPI Healthcareedicvt Record Number: [id number]: 01/23/2018 Lumbar Puncture Procedure NoteIndication: Suspected meningitis, to obtain spinal fluid for diagnostic testingand to measure intracranial pressureConsent: The patient was counseled regarding the procedure, it's indications,risks, potential complications and alternatives and any questions were answered.Consent was obtained.Procedure: The patient was placed in the left lateral decubitus position and theappropriate landmarks were identified. The area was prepped and draped in theusual sterile fashion. Anesthesia was obtained using 5 cc of 2% Lidocainewithout epinephrine. A spinal needle was inserted at the L5- S1 level with thestylet in place until spinal fluid was returned. Opening pressure was 17. Atthis point 8 cc of fluid was obtained and sent for testing. The stylet was thenreplaced and the needle was withdrawn. A sterile dressing was placed over thesite and the patient was placed in the supine position.The patient tolerated the procedure well.Complications: NoneNISHIT Malu Martin MD01/26/18 0318 Normal [facility] HCG,Urine Qualon 01-23-2018 HCG.beta subunit ( test) Ql (U) Negative Normal Negative [facility] Comment on above: Result Comment: Preg julia is the most common reason for HCG in urine, althoughchoriocarcinoma, hydatidiform mole, and certain nontropho-blastic malignancies also result in detectable urinary HCGlevels. Sensitivity = 20mIU/mL. Performed By: #### H CGUR, UAMAC, UAMIC ####[address] [place] [address]#### C/UR ####[address] [address] [phone] Hemogram w/ Autodiffon 01-23 Abs Baso Cnt 0.0 10*3/uL Normal 0.0-0.2 [facility] Comment on above: Performed By: #### H EMDF, LACT3, MG3, CMP3, PT, APTT, TSH5 ####[facility] [place] [address] Abs Neutrophile Cnt 9.2 10*3/uL High 1.8-7.0 [facility] Comment on above: Performed By: #### H EMDF, LACT3, MG3, CMP3, PT, APTT, TSH5 ####[address] [place] [address] Basophils/100 WBC Auto (Bld) 0.4 % Normal 0.0-2.0 [facility] Comment on above: Performed By: #### H EMDF, LACT3, MG3, CMP3, PT, APTT, TSH5 ####[address] [place] [address] Eosinophils Auto #/vol (Bld) 0.0 10*3/uL Normal 0.0-0.5 [facility] Comment on above: Performed By: #### H EMDF, LACT3, MG3, CMP3, PT, APTT, TSH5 ####[address] [place] [address] Eosinophils/100 WBC Auto (Bld) 0.1 % Low 1.0-6.0 [facility] Comment on above: Performed By: #### H EMDF, LACT3, MG3, CMP3, PT, APTT, TSH5 ####[address] [place] [address] Erythrocyte distribution width Auto Ratio (RBC) 14.8 % High 11.5-14.5 [facility] Comment on above: Performed By: #### H EMDF, LACT3, MG3, CMP3, PT, APTT, TSH5 ####[address] [place] [address] Granulocytes/100 WBC (Bld) 75.2 % Normal 40.0-80.0 [facility] Comment on above: Performed By: #### H EMDF, LACT3, MG3, CMP3, PT, APTT, TSH5 ####[address] [place] [address] Hematocrit Auto Volume Fraction (Bld) 38.4 % Normal 35.0-47.0 [facility] Comment on above: Performed By: #### H EMDF, LACT3, MG3, CMP3, PT, APTT, TSH5 ####[address] [place] [address] Hemoglobin mass conc (Bld) 12.4 g/dL Normal 11.7-16.0 [facility] Comment on above: Performed By: #### H EMDF, LACT3, MG3, CMP3, PT, APTT, TSH5 ####[address] [place] [address] Lymphocytes Auto #/vol (Bld) 1.4 10*3/uL Normal 1.0-4.3 [facility] Comment on above: Performed By: #### H EMDF, LACT3, MG3, CMP3, PT, APTT, TSH5 ####[address] [place] [address] Lymphocytes/100 WBC Auto (Bld) 11.7 % Low 20.0-40.0 [facility] Comment on above: Performed By: #### H EMDF, LACT3, MG3, CMP3, PT, APTT, TSH5 ####[address] [place] [address] MCH Auto Entitic mass (RBC) 26.7 pg Normal 26.0-34.0 [facility] Comment on above: Performed By: #### H EMDF, LACT3, MG3, CMP3, PT, APTT, TSH5 ####[address] [place] [address] MCHC Auto mass conc (RBC) 32.4 % Normal 32.0-36.0 [facility] Comment on above: Performed By: #### H EMDF, LACT3, MG3, CMP3, PT, APTT, TSH5 ####[address] [place] [address] MCV Auto Entitic volume (RBC) 82.4 fL Normal 79.0-98.0 [facility] Comment on above: Performed By: #### H EMDF, LACT3, MG3, CMP3, PT, APTT, TSH5 ####[address] [place] [address] Monocytes Auto #/vol (Bld) 1.5 10*3/uL High 0.0-0.8 [facility] Comment on above: Performed By: #### H EMDF, LACT3, MG3, CMP3, PT, APTT, TSH5 ####[address] [place] [address] Monocytes/100 WBC Auto (Bld) 12.6 % High 2.0-10.0 [facility] Comment on above: Performed By: #### H EMDF, LACT3, MG3, CMP3, PT, APTT, TSH5 ####[address] [place] [address] Platelet mean volume Auto Entitic volume (Bld) 9.4 fL Normal 7.4-10.4 [facility] Comment on above: Performed By: #### H EMDF, LACT3, MG3, CMP3, PT, APTT, TSH5 ####[facility] [place] [address] Platelets Auto #/vol (Bld) 230 10*3/uL Normal 140-440 [facility] Comment on above: Performed By: #### H EMDF, LACT3, MG3, CMP3, PT, APTT, TSH5 ####[address] [place] [address] RBC Auto #/vol (Bld) 4.66 10*6/uL Normal 3.80-5.20 [facility] Comment on above: Performed By: #### H EMDF, LACT3, MG3, CMP3, PT, APTT, TSH5 ####[address] [place] [address] WBC Auto #/vol (Bld) 12.3 10*3/uL High 3.6-10.7 [facility] Comment on above: Performed By: #### H EMDF, LACT3, MG3, CMP3, PT, APTT, TSH5 ####[place] [address] [place] [address] Lactic Acidon 01-23-2018 Lactate molar conc 0.7 mmol/L Normal 0.7-2.0 [facility] Comment on above: Performed By: #### H EMDF, LACT3, MG3, CMP3, PT, APTT, TSH5 ####[place] [address] [place] [address] MENINGITIS/ENCEPHALITIS PCR PANELon 01-23-2018 MENINGITIS/ENCEPHALIT IS PCR PANEL MENINGITIS/ENCEPHALITIS PCR PANEL --> Status: FNEGATIVE: No targets were detected by the BiofireMeningitis/Encepha litis PCR Panel.The Biofire Meningitis/Encephalitis Panel detects thefollowing targets:Escherichia coli Z6Zodesryxxya influenzaeListeria monocytogenesNeisseria meningitidisStreptococcus agalactiaeStreptococcus pneumoniaeCytomegalovirus EnterovirusHerpes simplex virus 1Herpes simplex virus 2Human Herpesvirus 6Human ParechovirusVaricella zoster virusCryptococcus neoformans/gattii-NOTE: The Meningitis/Encephalitis Panel does not distinguishbetween latent and active herpesvirus infections (e.g., CMVand HHV-6). Herpesvirus results should be used in conjunctionwith other clinical, laboratory, and epidemiological data.Meningitis/Encephali tis PCR Panel.The Biofire Meningitis/Encephalitis Panel detects thefollowing targets:Escherichia coli U4Plwaxdvxvyj influenzaeListeria monocytogenesNeisseria meningitidisStreptococcus agalactiaeStreptococcus pneumoniaeCytomegalovirus EnterovirusHerpes simplex virus 1Herpes simplex virus 2Human Herpesvirus 6Human ParechovirusVaricella zoster virusCryptococcus neoformans/gattii-NOTE: The Meningitis/Encephalitis Panel does not distinguishbetween latent and active herpesvirus infections (e.g., CMVand HHV-6). Herpesvirus results should be used in conjunctionwith other clinical, laboratory, and epidemiological data. Normal [facility] Comment on above: Order Comment: Speci men Source Comment:CSF Performed By: #### H CGUR, UAMAC, UAMIC ####[facility] [place] [address]#### C/UR ####[facility] [place] [address] [place] [place], [place] [phone] Magnesiumon 01-23-2018 Magnesium mass conc 1.9 mg/dL Normal 1.6-2.3 [facility] Comment on above: Performed By: #### H EMDF, LACT3, MG3, CMP3, PT, APTT, TSH5 ####[facility] [place] [address] Protein, CSFon 01-23-2018 Appearance Nom (U) see below Normal [facility] Comment on above: Result Comment: Nidhi r and colorless Performed By: #### H CGUR, UAMAC, UAMIC ####[address] [place] [address]#### C/UR ####[place] [address] [place] [address]Hy[address]dtDavid [address] [facility] [phone] Supernatant see below Normal [facility] Comment on above: Result Comment: Nidhi r and colorless Performed By: #### H CGUR, UAMAC, UAMIC ####[address] [place] [address]#### C/UR ####[place] [address] [place] [address]KltgcMary [address] [place], [place] [phone] Protein, CSF 30.7 mg/dL Normal 12.0-60.0 [facility] Comment on above: Performed By: #### H CGUR, UAMAC, UAMIC ####[address] [place] [address]#### C/UR ####[place] [address] [place] [address]YkmwoMary [address] [place], [place] [phone] Prothrombin Timeon 8 INR Coag RelTime (PPP) 1.0 Normal 0.9-1.1 [facility] Comment on above: Result Comment: Pranav mmended Anticoagulant Therapy: SEE BELOW----- INR of 2.0 - 3.0 : - Prophylaxis of Venous Thrombosis (high-risk surgery) - Treatment of Venous Thrombosis - Treatment of Pulmonary Embolism (Includes tissue heart valves, Acute Myocardial Infarction to prevent systemic embolism, Valvular Heart Disease, and Atrial Fibrillation)----- INR of 2.5 - 3.5 : - Mechanical Prosthetic Valves (high risk) - If oral anticoagulant therapy is used to prevent Myocardial Infarction Performed By: #### H EMDF, LACT3, MG3, CMP3, PT, APTT, TSH5 ####[address] [place] [address] Prothrombin time (PT) Coag time (PPP) 10.5 s Normal 9.0-12.0 [facility] Comment on above: Result Comment: . Performed By: #### H EMDF, LACT3, MG3, CMP3, PT, APTT, TSH5 ####[facility] [place] [address] Thyroid Stim. Hormoneon 10-0 Thyroid Stim. Hormone 0.656 u[IU]/mL Normal 0.465-4.68 0 [facility] Comment on above: Performed By: #### H CGUR, UAMAC, UAMIC ####[facility] [place] [address]#### C/UR ####[place] [address] [place] [address] [address] [place], [place] [phone] Urinalysis,Macroon 8 Appearance SL CLOUDY Normal Clear [facility] Comment on above: Performed By: #### H CGUR, UAMAC, UAMIC ####[address] [place] [address]#### C/UR ####[place] [address] [place] [address]N[facility] [address] [place], [place] [phone] Bilirubin,Ur Negative Normal Negative [facility] Comment on above: Performed By: #### H CGUR, UAMAC, UAMIC ####[place] [address] [place] [address]#### C/UR ####[place] [address] [place] [address] [address] [facility], [place] [phone] Color YELLOW Normal Lt. Yellow [facility] Comment on above: Performed By: #### H CGUR, UAMAC, UAMIC ####[address] [place] [address]#### C/UR ####[place] [address] [place] [address] [address] [facility], [place] [phone] Glucose Ql (U) Negative Normal Negative [facility] Comment on above: Performed By: #### H CGUR, UAMAC, UAMIC ####[facility] [place] [address]#### C/UR ####[place] [address] [place] [address]Bmgio [facility] [address] [facility], [place] [phone] Ketone,Urine 2 + mg/dL Normal Negative [facility] Comment on above: Performed By: #### H CGUR, UAMAC, UAMIC ####[address] [place] [address]#### C/UR ####[place] [address] [place] [facility] [address]Rbivb[address] [place], [place] [phone] Leukocytes 1 + Normal Negative [facility] Comment on above: Performed By: #### H CGUR, UAMAC, UAMIC ####[address] [place] [address]#### C/UR ####[place] [address] [place] [facility] [address]I[address]cyiMary [address] [place], [place] [phone] Nitrites Negative Normal Negative [facility] Comment on above: Performed By: #### H CGUR, UAMAC, UAMIC ####[address] [place] [address]#### C/UR ####[place] [address] [place] [address]ZbzibMary [address] [place], [place] [phone] Occult Blood,Ur 1 + {RBC}/uL Normal Negative [facility] Comment on above: Performed By: #### H CGUR, UAMAC, UAMIC ####[address] [place] [address]#### C/UR ####[place] [address] [place] [address]Jyyg[facility] [address] [phone] pH Test strip (U) 6.0 Normal 5.0-8.0 [facility] Comment on above: Performed By: #### H CGUR, UAMAC, UAMIC ####[address] [place] [address]#### C/UR ####[place] [address] [place] [address]Twhhg [facility] [address] [facility] [phone] Specific [place],Urine 1.015 Normal 1.005-1.030 [facility] Comment on above: Performed By: #### H CGUR, UAMAC, UAMIC ####[address] [place] [address]#### C/UR ####[place] [address] [place] [address]YtpzdDavid [address] [facility] [phone] Total Protein,Urine 1 + mg/dL Normal Negative [facility] Comment on above: Performed By: #### H CGUR, UAMAC, UAMIC ####[address] [place] [address]#### C/UR ####[place] [address] [place] [address]Apj[address]David [address] [facility] [phone] Urobilinogen 0.2 mg/dL Normal 0-1 [facility] Comment on above: Performed By: #### H CGUR, UAMAC, UAMIC ####[address] [place] [address]#### C/UR ####[place] [address] [place] [address]Bprbr [facility] [address], [place] [phone] Urinalysis,Microscopicon Bacteria Moderate (6-50) Normal Negative [facility] Comment on above: Performed By: #### H CGUR, UAMAC, UAMIC ####[address] [place] [address]#### C/UR ####[place] [address] [place] [address]Wrbqp [facility] [address] [facility] [phone] Epithelial Cells 3 - 5 Normal 3-5 [facility] Comment on above: Performed By: #### H CGUR, UAMAC, UAMIC ####[address] [place] [address]#### C/UR ####[place] [address] [place] [address]Cjecj [facility] [address] [facility] [phone] Mucous Threads Few Normal Negative [facility] Comment on above: Performed By: #### H CGUR, UAMAC, UAMIC ####[address] [place] [address]#### C/UR ####[place] [address] [place] [address]Xmalb [facility] [address] [facility] [phone] RBC LM.HPF #/area (Urine sed) 0 - 2 Normal 0-2 [facility] Comment on above: Performed By: #### H CGUR, UAMAC, UAMIC ####[address] [place] [address]#### C/UR ####[place] [address] [place] [address]Sxpuj [facility] [address] [facility] [phone] Volume,Urine 8-12 ml Normal [facility] Comment on above: Performed By: #### H CGUR, UAMAC, UAMIC ####[address] [place] [address]#### C/UR ####[place] [address] [place] [address]Cwkig [facility] [address] [facility] [phone] WBC LM.HPF #/area (Urine sed) 6 - 10 Normal 0-5 [facility] Comment on above: Performed By: #### H ALETHEA, MELBA, ZAHRAA ####[facility] [address] [place] [address]#### C/UR ####[facility] [place] [address]DbvhsMary [address] [place], [place] [phone] CULTURE URINEon 09-07-2017 CULTURE URINE 1 Organism Escherich ia coli>100,000 CFU/ml 1 Organism Antibiotic Result Intrp Amikacin(KANWAL) <= 2 S Amoxicillin/Clavulanic Acid(KANWAL) = 8 S Ampicillin(KANWAL) >= 32 R Ampicillin/Sulbactam(KANWAL) = 16 I Aztreonam(KANWAL) <= 1 S Cefazolin(KANWAL) <= 4 R Cefepime(KANWAL) <= 1 S Ceftriaxone(KANWAL) <= 1 S Ciprofloxacin(KANWAL) <= 0.25 S Ertapenem(KANWAL) <= 0.5 S Gentamicin(KANWAL) <= 1 S Levofloxacin(KANWAL) = 1 S Meropenem(KANWAL) <= 0.25 S Nitrofurantoin(KANWAL) <= 16 S Pip/Tazobactam(KANWAL) <= 4 S Trimeth/Sulfa(KANWAL) <= 20 S Normal [facility] Comment on above: Performed By: #### H ALETHEA, MELBA, UAKANWAL ####[facility] [address] [place] [address]#### C/UR ####[facility] [place] [address] [place], [place] [phone] ED NOTEon 09-05-2017 ED NOTE HNO ID: [id number] Author: Lauryn LuceroRn) YANELI Turcios Service: Emergency Medicine Author Type: Registered Nurse Type: ED Notes Filed: 09/04/2017 10:51 PM Note Text: See chief complaint Normal [facility] ED Triage Noteon 09-05-2017 ED Triage Note HNO ID: [id number] thor: Eduardo Amador (Pa)ice: Emergency MedicineAuthor Type: Physician AssistantType: ED Triage NotesFiled: 09/04/2017 10:50 PMNote Text:ED INTAKE NOTEPatient Name: Gracy MasonRN: [id number] Date: 09/04/17BRIEF HPI:22-year-old female with chief complaint of low back pain times one weekwith no known injury. She states that her pain got bad tonight and shewas unable to work so she came to the emergency department. She statespain began on the left side and radiates to her right side. Denies fever,chills, numbness, weakness, saddle anesthesia, loss of control of bowelsor bladder, history of IV drug use. Denies dysuria, hematuria. Doesadmit to some pressure with urinating and urinary frequency.BRIEF EXAM:Awake and AlertRRRCTABAbd soft, generalized mild TTP, ND; no rebound/guardingMAEINTAKE WORKUP:UrinalysisSIGNATUR E: Floyd Mckee PA-C Normal [facility] HCG,Urine Qualon 09-05-2017 HCG.beta subunit ( test) Ql (U) Negative Normal Negative [facility] Comment on above: Result Comment: Preg julia is the most common reason for HCG in urine, althoughchoriocarcinoma, hydatidiform mole, and certain nontropho-blastic malignancies also result in detectable urinary HCGlevels. Sensitivity = 20mIU/mL. Performed By: #### H CGUR, UAMAC, UAMIC ####[facility] [address] [place] [address]#### C/UR ####[facility] [address] [place] [address] [address], [place] [id number] Urinalysis,Macroon 8 Appearance CLOUDY Normal Clear [facility] Comment on above: Performed By: #### H CGUR, UAMAC, UAMIC ####[facility] [address] [place] [address]#### C/UR ####[facility] [address] [place] [address]Kd[facility] [address] [facility] [phone] Bilirubin,Ur Negative Normal Negative [facility] Comment on above: Performed By: #### H CGUR, UAMAC, UAMIC ####[facility] [place] [address]#### C/UR ####[facility] [address] [place] [address]Xyxjy [facility] [id number] [facility] [phone] Color YELLOW Normal Lt. Yellow [facility] Comment on above: Performed By: #### H CGUR, UAMAC, UAMIC ####[facility] [address] [place] [address]#### C/UR ####[facility] [address] [place] [address]P[facility] [address] [place], [place] [phone] Glucose Ql (U) Negative Normal Negative [facility] Comment on above: Performed By: #### H CGUR, UAMAC, UAMIC ####[facility] [address] [place] [address]#### C/UR ####[facility] [address] [place] [address]Wllfb [facility] [address], [place] [phone] Ketone,Urine Negative Normal Negative [facility] Comment on above: Performed By: #### H CGUR, UAMAC, UAMIC ####[facility] [place] [address]#### C/UR ####[place] [address] [place] [address]Kdtvw [facility] [address] [facility] [phone] Leukocytes 2 + Normal Negative [facility] Comment on above: Performed By: #### H CGUR, UAMAC, UAMIC ####[facility] [place] [address]#### C/UR ####[place] [address] [place] [address]UylfnDavid [address] [place], [place] [id number] Nitrites Positive Normal Negative [facility] Comment on above: Performed By: #### H CGUR, UAMAC, UAMIC ####[address] [place] [address]#### C/UR ####[place] [address] [place] [address]Pvmqh [facility] [address] [place], [place] [phone] Occult Blood,Ur 1 + {RBC}/uL Normal Negative [facility] Comment on above: Performed By: #### H CGUR, UAMAC, UAMIC ####[address] [place] [address]#### C/UR ####[place] [address] [place] [address]Xzbze [facility] [address] [place] [phone] pH Test strip (U) 6.0 Normal 5.0-8.0 [facility] Comment on above: Performed By: #### H CGUR, UAMAC, UAMIC ####[facility] [place] [address]#### C/UR ####[place] [address] [place] [address]O[facility] [address] [place] [phone] Specific [place],Urine 1.010 Normal 1.005-1.030 [facility] Comment on above: Performed By: #### H CGUR, UAMAC, UAMIC ####[address] [place] [address]#### C/UR ####[place] [address] [place] [address]GtkyzDavid [place] [address] [facility] [place] [phone] Total Protein,Urine TRACE Normal Negative [facility] Comment on above: Performed By: #### H CGUR, UAMAC, UAMIC ####[address] [place] [address]#### C/UR ####[place] [address] [place] [address]PjzrsDavid [place] [address] [facility] [phone] Urobilinogen 0.2 mg/dL Normal 0-1 [facility] Comment on above: Performed By: #### H CGUR, UAMAC, UAMIC ####[address] [place] [address]#### C/UR ####[place] [address] [place] [address]QmptiMary [place] [address] [facility] [phone] Urinalysis,Microscopicon Bacteria Moderate (6-50) Normal Negative [facility] Comment on above: Performed By: #### H CGUR, UAMAC, UAMIC ####[address] [place] [address]#### C/UR ####[place] [address] [place] [address]YbicyMary [place] [address] [facility] [phone] Epithelial Cells 3 - 5 Normal 3-5 [facility] Comment on above: Performed By: #### H CGUR, UAMAC, UAMIC ####[address] [place] [address]#### C/UR ####[facility] [address] [place] [address]Ozlkk [facility] [address] [facility] [phone] RBC LM.HPF #/area (Urine sed) 3 - 5 Normal 0-2 [facility] Comment on above: Performed By: #### H CGUR, UAMAC, UAMIC ####[facility] [place] [address]#### C/UR ####[place] [address] [place] [address]Te[facility] [address] [facility] [phone] Volume,Urine 8-12 ml Normal [facility] Comment on above: Performed By: #### H CGUR, UAMAC, UAMIC ####[facility] [place] [address]#### C/UR ####[place] [address] [place] [address]Ba[facility] [id number] [facility] [phone] WBC LM.HPF #/area (Urine sed) /[HPF] Normal 0-5 [facility] Comment on above: Performed By: #### H CGUR, UAMAC, UAMIC ####[facility] [place] [address]#### C/UR ####[place] [address] [address]Bfszj [facility] [address] [facility] [phone] Vital Signs Date Time Vital Sign Value Performing Clinician Facility 07-09-2024 19:37-0400 Body mass index (BMI) [Ratio] 23.12 kg/m2 Ewelina Juarez APRN.CNP Work Phone: [facility] 07-09-2024 19:37-0400 Body temperature 97 [degF] Ewelina Juarez APRN.CNP Work Phone: [facility] 07-09-2024 19:37-0400 Body weight 64 kg Ewelina Praisler-Wood CHILD MONITOR.HR BUSINESS PARTNER Work Phone: [facility] 07-09-2024 19:37-0400 Diastolic blood pressure 63 mm[Hg] Ewelina Praisler-Wood CHILD MONITOR.HR BUSINESS PARTNER Work Phone: [facility] 07-09-2024 19:37-0400 Heart rate 84 /min Ewelina Praisler-Wood CHILD MONITOR.HR BUSINESS PARTNER Work Phone: [facility] 07-09-2024 19:37-0400 Respiratory rate 20 /min Ewelina Praisler-Wood CHILD MONITOR.HR BUSINESS PARTNER Work Phone: [facility] 07-09-2024 19:37-0400 SaO2% (BldA) [Mass fraction] 100 % Ewelina Praisler-Wood CHILD MONITOR.HR BUSINESS PARTNER Work Phone: [facility] 07-09-2024 19:37-0400 Systolic blood pressure 99 mm[Hg] Ewelina Praisler-Wood CHILD MONITOR.HR BUSINESS PARTNER Work Phone: [facility] 05-19-2024 19:51-0500 Body mass index (BMI) [Ratio] 24.21 kg/m2 Krislyn Aberegg PA Work Phone: [facility] 05-19-2024 19:51-0500 Body temperature 97.59 [degF] Krislyn Aberegg PA Work Phone: [facility] 05-19-2024 19:51-0500 Body weight 67 kg Krislyn Aberegg PA Work Phone: [facility] 05-19-2024 19:51-0500 Diastolic blood pressure 66 mm[Hg] Krislyn Aberegg PA Work Phone: [facility] 05-19-2024 19:51-0500 Heart rate 101 /min Krislyn Aberegg PA Work Phone: [facility] 05-19-2024 19:51-0500 Respiratory rate 20 /min Krislyn Aberegg PA Work Phone: [facility] 05-19-2024 19:51-0500 SaO2% (BldA) [Mass fraction] 97 % Marcos Toledo PA Work Phone: [facility] 05-19-2024 19:51-0500 Systolic blood pressure 104 mm[Hg] Marcos Aberegg PA Work Phone: [facility] 02-25-2024 18:36-0500 Body mass index (BMI) [Ratio] 24.39 kg/m2 Ewelina Praisler-Wood CHILD MONITOR.HR BUSINESS PARTNER Work Phone: [facility] 02-25-2024 18:36-0500 Body temperature 97 [degF] Ewelina Praisler-Wood CHILD MONITOR.HR BUSINESS PARTNER Work Phone: [facility] 02-25-2024 18:36-0500 Body weight 67.5 kg Ewelina Praisler-Wood CHILD MONITOR.HR BUSINESS PARTNER Work Phone: [facility] 02-25-2024 18:36-0500 Diastolic blood pressure 67 mm[Hg] Ewelina Praisler-Wood CHILD MONITOR.HR BUSINESS PARTNER Work Phone: [facility] 02-25-2024 18:36-0500 Heart rate 97 /min Ewelina Praisler-Wood CHILD MONITOR.HR BUSINESS PARTNER Work Phone: [facility] 02-25-2024 18:36-0500 Respiratory rate 20 /min Ewelina Praisler-Wood CHILD MONITOR.HR BUSINESS PARTNER Work Phone: [facility] 02-25-2024 18:36-0500 SaO2% (BldA) [Mass fraction] 99 % Ewelina Praisler-Wood CHILD MONITOR.HR BUSINESS PARTNER Work Phone: [facility] 02-25-2024 18:36-0500 Systolic blood pressure 107 mm[Hg] Ewelina Praisler-Wood CHILD MONITOR.HR BUSINESS PARTNER Work Phone: [facility] 12-10-2022 14:24-0400 Body weight 68.95 kg Erika Loya MD Work Phone: [facility] 12-10-2022 14:24-0400 Diastolic blood pressure 74 mm[Hg] Erika Loya MD Work Phone: [facility] 12-10-2022 14:24-0400 Systolic blood pressure 104 mm[Hg] Erika Loya MD Work Phone: [facility] 11-29-2022 21:51-0400 Body temperature 98 [degF] [facility] 11-29-2022 21:51-0400 Diastolic blood pressure 72 mm[Hg] [facility] 11-29-2022 21:51-0400 Heart rate 78 /min [facility] 11-29-2022 21:51-0400 Systolic blood pressure 135 mm[Hg] [facility] 11-29-2022 21:22-0400 Body height 165.1 cm [facility] 11-29-2022 21:22-0400 Body mass index (BMI) [Ratio] 28.3 kg/m2 [facility] 11-29-2022 21:22-0400 Body weight 77.3 kg [facility] 11-29-2022 21:12-0400 SaO2% (BldA) [Mass fraction] 98 % [facility] 11-29-2022 16:06-0400 Diastolic blood pressure 80 mm[Hg] Ob Ultrasound Work Phone: [facility] 11-29-2022 16:06-0400 Systolic blood pressure 126 mm[Hg] Ob Ultrasound Work Phone: [facility] 11-28-2022 15:09-0400 Body weight 75.75 kg Zoe Hernández MD Work Phone: [facility] 11-28-2022 15:09-0400 Diastolic blood pressure 83 mm[Hg] Zoe Hernández MD Work Phone: [facility] 11-28-2022 15:09-0400 Systolic blood pressure 128 mm[Hg] Zoe Hernández MD Work Phone: [facility] 11-27-2022 21:34-0400 Body height 165.1 cm [facility] 11-27-2022 21:34-0400 Body mass index (BMI) [Ratio] 28.3 kg/m2 [facility] 11-27-2022 21:34-0400 Body weight 77.11 kg [facility] 11-27-2022 21:05-0400 Body temperature 98.6 [degF] [facility] 11-27-2022 21:05-0400 Diastolic blood pressure 81 mm[Hg] [facility] 11-27-2022 21:05-0400 Heart rate 95 /min [facility] 11-27-2022 21:05-0400 Systolic blood pressure 142 mm[Hg] [facility] 11-26-2022 14:21-0400 Body weight 77.38 kg Erika Loya MD Work Phone: [facility] 11-26-2022 14:21-0400 Diastolic blood pressure 80 mm[Hg] Erika Loya MD Work Phone: [facility] 11-26-2022 14:21-0400 Systolic blood pressure 120 mm[Hg] Erika Loya MD Work Phone: [facility] 11-22-2022 11:42-0400 Diastolic blood pressure 62 mm[Hg] Erika Loya MD Work Phone: [facility] 11-22-2022 11:42-0400 Systolic blood pressure 102 mm[Hg] Erika Loya MD Work Phone: [facility] 11-22-2022 11:26-0400 Body height 166.4 cm Ob Ultrasound Work Phone: [facility] 11-22-2022 11:26-0400 Body weight 77.56 kg Ob Ultrasound Work Phone: [facility] 11-15-2022 10:35-0400 Body weight 77.93 kg Erika Loya MD Work Phone: [facility] 11-15-2022 10:35-0400 Diastolic blood pressure 60 mm[Hg] Erika Loya MD Work Phone: [facility] 11-15-2022 10:35-0400 Systolic blood pressure 100 mm[Hg] Erika Loya MD Work Phone: [facility] 11-08-2022 14:34-0400 Body weight 76.66 kg Ob Ultrasound Work Phone: [facility] 11-05-2022 11:15-0400 Body weight 76.66 kg Keshia Carreon MD Work Phone: [facility] 11-05-2022 11:15-0400 Diastolic blood pressure 72 mm[Hg] Keshia Carreon MD Work Phone: [facility] 11-05-2022 11:15-0400 Systolic blood pressure 129 mm[Hg] Keshia Carreon MD Work Phone: [facility] 11-01-2022 13:33-0400 Diastolic blood pressure 64 mm[Hg] Erika Loya MD Work Phone: [facility] 11-01-2022 13:33-0400 Systolic blood pressure 100 mm[Hg] Erika Loya MD Work Phone: [facility] 11-01-2022 13:00-0400 Body weight 76.2 kg Ob Ultrasound Work Phone: [facility] 10-29-2022 14:13-0400 Diastolic blood pressure 59 mm[Hg] Zoe Hernández MD Work Phone: [facility] 10-29-2022 14:13-0400 Systolic blood pressure 97 mm[Hg] Zoe Hernández MD Work Phone: [facility] 10-22-2022 15:56-0400 Body weight 75.21 kg Erika Loya MD Work Phone: [facility] 10-22-2022 15:56-0400 Diastolic blood pressure 73 mm[Hg] Erika Loya MD Work Phone: [facility] 10-22-2022 15:56-0400 Systolic blood pressure 115 mm[Hg] Erika Loya MD Work Phone: [facility] 10-18-2022 14:42-0400 Diastolic blood pressure 62 mm[Hg] Erika Loya MD Work Phone: [facility] 10-18-2022 14:42-0400 Systolic blood pressure 102 mm[Hg] Erika Loya MD Work Phone: [facility] 10-18-2022 14:04-0400 Body weight 74.39 kg Ob Ultrasound Work Phone: [facility] 10-04-2022 16:37-0400 Body weight 74.12 kg Erika Loya MD Work Phone: [facility] 10-04-2022 16:37-0400 Diastolic blood pressure 70 mm[Hg] Erika Loya MD Work Phone: [facility] 10-04-2022 16:37-0400 Systolic blood pressure 110 mm[Hg] Erika Loya MD Work Phone: [facility] 09-19-2022 11:03-0400 Body weight 73.03 kg Zoe Hernández MD Work Phone: [facility] 09-19-2022 11:03-0400 Diastolic blood pressure 60 mm[Hg] Zoe Hernández MD Work Phone: [facility] 09-19-2022 11:03-0400 Systolic blood pressure 104 mm[Hg] Zoe Hernández MD Work Phone: [facility] 08-23-2022 12:05-0400 Body weight 72.67 kg Ceci Baker MD Work Phone: [facility] 08-23-2022 12:05-0400 Diastolic blood pressure 62 mm[Hg] Ceci Baker MD Work Phone: [facility] 08-23-2022 12:05-0400 Systolic blood pressure 110 mm[Hg] Ceci Baker MD Work Phone: [facility] 07-23-2022 14:59-0400 Body weight 71.67 kg Zoe Hernández MD Work Phone: [facility] 07-23-2022 14:59-0400 Diastolic blood pressure 76 mm[Hg] Zoe Hernández MD Work Phone: [facility] 07-23-2022 14:59-0400 Systolic blood pressure 110 mm[Hg] Zoe Hernández MD Work Phone: [facility] 07-12-2022 16:02-0400 Diastolic blood pressure 67 mm[Hg] [facility] 07-12-2022 16:02-0400 Heart rate 83 /min [facility] 07-12-2022 16:02-0400 Respiratory rate 16 /min [facility] 07-12-2022 16:02-0400 Systolic blood pressure 110 mm[Hg] [facility] 07-12-2022 13:26-0400 Body height 165.1 cm [facility] 07-12-2022 13:26-0400 Body mass index (BMI) [Ratio] 25.7 kg/m2 [facility] 07-12-2022 13:26-0400 Body temperature 97.8 [degF] [facility] 07-12-2022 13:26-0400 Body weight 70.3 kg [facility] 07-12-2022 13:26-0400 SaO2% (BldA) [Mass fraction] 100 % [facility] 07-11-2022 14:56-0400 Body weight 71.67 kg Zoe Hernández MD Work Phone: [facility] 07-11-2022 14:56-0400 Diastolic blood pressure 70 mm[Hg] Zoe Hernández MD Work Phone: [facility] 07-11-2022 14:56-0400 Systolic blood pressure 122 mm[Hg] Zoe Hernández MD Work Phone: [facility] 06-27-2022 10:20-0500 Body weight 71.22 kg Zoe Hernández MD Work Phone: [facility] 06-27-2022 10:20-0500 Diastolic blood pressure 68 mm[Hg] Zoe Hernández MD Work Phone: [facility] 06-27-2022 10:20-0500 Systolic blood pressure 104 mm[Hg] Zoe Hernández MD Work Phone: [facility] 06-07-2022 10:55-0500 Diastolic blood pressure 98 mm[Hg] [facility] 06-07-2022 10:55-0500 Heart rate 99 /min [facility] 06-07-2022 10:55-0500 Respiratory rate 16 /min [facility] 06-07-2022 10:55-0500 SaO2% (BldA) [Mass fraction] 99 % [facility] 06-07-2022 10:55-0500 Systolic blood pressure 118 mm[Hg] [facility] 06-07-2022 07:07-0500 Body mass index (BMI) [Ratio] 25.1 kg/m2 [facility] 06-07-2022 07:07-0500 Body temperature 97.9 [degF] [facility] 06-07-2022 07:07-0500 Body weight 68.49 kg [facility] 05-24-2022 13:35-0500 Body height 166.4 cm Erika Loya MD Work Phone: [facility] 05-24-2022 13:35-0500 Body weight 68.58 kg Erika Loya MD Work Phone: [facility] 05-24-2022 13:35-0500 Diastolic blood pressure 70 mm[Hg] Erika Loya MD Work Phone: [facility] 05-24-2022 13:35-0500 Systolic blood pressure 100 mm[Hg] Erika Loya MD Work Phone: [facility] Encounters Encounter Date Encounter Type Care Provider Facility Start: 01-07-2025 End: 01-07-2025 ambulatory FORTUNATO IBRAHIM Facility:[facility] Start: 07-09-2024 End: 07-09-2024 ambulatory BOB DE SOUZA Facility:[facility] Start: 07-09-2024 End: 07-09-2024 Patient encounter procedure Ewelina Juarez APRN.CNP Work Phone: [facility] Comment on above: Sinobronchitis (Prim leigh ann Dx) Start: 05-19-2024 End: 05-19-2024 ambulatory BOB DE SOUZA Facility:[facility] Start: 05-19-2024 End: 05-19-2024 Patient encounter procedure Marcos BAIN Work Phone: [facility] Comment on above: Sore throat (Primary Dx) Start: 02-25-2024 End: 02-25-2024 ambulatory BOB DE SOUZA Facility:[facility] Start: 02-25-2024 End: 02-25-2024 Patient encounter procedure Ewelina Juarez APRN.CNP Work Phone: [facility] Comment on above: Burning with urinati on (Primary Dx); Sore throat Start: 06-21-2023 End: 06-21-2023 ambulatory Telly BAIN Facility:[facility] Start: 12-10-2022 End: 12-10-2022 Patient encounter procedure Erika Loya MD Work Phone: [facility] Comment on above: state (Pr imary Dx) Start: 12-10-2022 Telephone encounter Erika fried MD Work Phone: [facility] Comment on above: Breast Pump Start: 12-03-2022 ambulatory Erika Acuna Work Phone: [facility] Comment on above: Ob Delivery Note Start: 11-30-2022 End: 12-02-2022 Evaluation and management of inpatient Erika Loya Facility:[facility] Start: 11-30-2022 Telephone encounter Erika fried MD Work Phone: [facility]Gy[facility]cology Comment on above: Patient Update Start: 11-29-2022 End: 11-30-2022 ambulatory Ceci Baker Facility:[facility] Start: 11-29-2022 End: 11-29-2022 ambulatory [facility] Work Phone: Start: 11-29-2022 End: 11-29-2022 Patient encounter procedure [facility] Work Phone: Start: 11-29-2022 End: 11-29-2022 Patient encounter procedure Web Development Manager [facility] Work Phone: OB/[facility]cology Comment on above: 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 Facility:[facility] Start: 11-27-2022 End: 11-27-2022 ambulatory [facility] Work Phone: Start: 11-27-2022 End: 11-27-2022 Patient encounter procedure [facility] [place] Work Phone: Start: 11-26-2022 End: 11-26-2022 Patient encounter procedure Erika Loya MD Work Phone: OB/Gynecology Comment on above: 38 weeks gestation o f (Primary Dx); Poor growth affecting management of mother in third trimester, single or unspecified fetus; Supervision of other high risk pregnancies, third trimester Poor growth af fecting management of mother in third trimester, single or unspecified fetus; Need for Tdap vaccination; History of delivery; Supervision of other high risk pregnancies, third trimester Start: 11-22-2022 End: 11-22-2022 Patient encounter procedure Erika Loya MD Work Phone: [facility]cology Comment on above: 37 weeks gestation o f (Primary Dx); Poor growth affecting management of mother in third trimester, single or unspecified fetus; Supervision of other high risk pregnancies, third trimester 35 weeks gestation o f Start: 11-15-2022 End: 11-15-2022 Patient encounter procedure Web Development Manager [facility] Work Phone: OB/[facility] Comment on above: Unicornuate uterus a ffecting , antepartum (Primary Dx); 32 weeks gestation of ; with history of section, antepartum Need for vaccination (Primary Dx); 36 weeks gestation of ; Poor growth affecting management of mother in third trimester, single or unspecified fetus Start: 11-08-2022 End: 11-08-2022 Patient encounter procedure Web Development Manager [facility] Work Phone: [facility] Comment on above: Suspected problem wi th growth not found (Primary Dx); 35 weeks gestation of Start: 11-05-2022 End: 11-05-2022 Patient encounter procedure Keshia Carreon MD Work Phone: OB/Gynecology Comment on above: Poor growth af fecting management of mother in third trimester, single or unspecified fetus (Primary Dx); History of delivery; Supervision of other high risk pregnancies, third trimester; 35 weeks gestation of ; Need for Tdap vaccination Start: 11-01-2022 End: 11-01-2022 Patient encounter procedure Erika Loya MD Work Phone: OB/Gynecology Comment on above: 34 weeks gestation o f (Primary Dx) Poor growth af fecting management of mother in third trimester, single or unspecified fetus Start: 10-29-2022 End: 10-29-2022 Patient encounter procedure Zoe Hernández MD Work Phone: OB/Gynecology Comment on above: Need for Tdap vaccin ation (Primary Dx); Poor growth affecting management of mother in third trimester, single or unspecified fetus; History of delivery; Supervision of other high risk pregnancies, third trimester Start: 10-25-2022 Telephone encounter Ceci mackay MD Work Phone: OB/Gynecology Comment on above: Orders Start: 10-22-2022 End: 10-22-2022 Patient encounter procedure Erika Loya MD Work Phone: OB/Gynecology Comment on above: Poor growth af fecting management of mother in third trimester, single or unspecified fetus (Primary Dx); 33 weeks gestation of Start: 10-18-2022 End: 10-18-2022 Patient encounter procedure Erika Loya MD Work Phone: OB/Gynecology Comment on above: 32 weeks gestation o f (Primary Dx); with history of section, antepartum; Anemia during in third trimester IUGR (intrauterine g rowth restriction) affecting care of mother, third trimester, not applicable or unspecified fetus [O36.5930 (ICD-10-CM)] (Primary Dx); with history of section, antepartum; 28 weeks gestation of ; Uterine size-date discrepancy, third trimester [O26.843 (ICD-10-CM)] Start: 10-04-2022 End: 10-04-2022 Patient encounter procedure Erika Loya MD Work Phone: OB/Gynecology Comment on above: 30 weeks gestation o f (Primary Dx); with history of section, antepartum Start: 09-21-2022 Telephone encounter Ceci mackay MD Work Phone: OB/Gynecology Comment on above: Orders Start: 09-19-2022 End: 09-19-2022 Patient encounter procedure Zoe Hernández MD Work Phone: OB/Gynecology Comment on above: with histo ry of section, antepartum (Primary Dx); 28 weeks gestation of Start: 08-23-2022 End: 08-23-2022 Patient encounter procedure Ceci Baker MD Work Phone: OB/Gynecology Comment on above: with histo ry of section, antepartum (Primary Dx); 24 weeks gestation of ; Request for sterilization Start: 07-23-2022 End: 07-23-2022 Patient encounter procedure Zoe Hernández MD Work Phone: OB/Gynecology Comment on above: with histo ry of section, antepartum (Primary Dx); 20 weeks gestation of Encounter for anatomic survey (Primary Dx); Encounter for supervision of other normal in first trimester; Tobacco smoking affecting , antepartum; with history of section, antepartum; 20 weeks gestation of Start: 07-12-2022 End: 07-12-2022 ambulatory Zoe Hernández [facility] Work Phone: Start: 07-12-2022 End: 07-12-2022 Patient encounter procedure [facility] Start: 07-11-2022 End: 07-11-2022 Patient encounter procedure Zoe Hernández MD Work Phone: OB/Gynecology Comment on above: with histo ry of section, antepartum (Primary Dx); 18 weeks gestation of Start: 07-10-2022 Telephone encounter Ceci mackay MD Work Phone: OB/Gynecology Comment on above: Patient Question Start: 06-27-2022 End: 06-27-2022 Patient encounter procedure Zoe Hernández MD Work Phone: OB/Gynecology Comment on above: 16 weeks gestation o f (Primary Dx); with history of section, antepartum Start: 06-07-2022 Telephone encounter Zoe Hernández MD Work Phone: Maternal Medicine Comment on above: NIPT results Start: 06-07-2022 End: 06-07-2022 Emergency department patient visit [facility]Emergency Department Start: 05-30-2022 Telephone encounter Zoe Hernández MD Work Phone: OB/Gynecology Comment on above: Orders Start: 05-30-2022 End: 05-30-2022 Patient encounter procedure Mehul Casper MD Work Phone: Maternal Medicine Comment on above: First trimester scre ening (Primary Dx); 12 weeks gestation of Start: 05-25-2022 Telephone encounter Livestock Agent RN Obstetrics/Gynecology Comment on above: 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) Start: 05-24-2022 End: 05-24-2022 Patient encounter procedure Erika Loya MD Work Phone: OB/Gynecology Comment on above: Encounter for superv ision of other normal in first trimester (Primary Dx); Tobacco smoking affecting , antepartum; with history of section, antepartum; Screening for cervical cancer; Special screening examination for human papillomavirus (HPV); Prior complicated by IUGR, antepartum; Request for sterilization Start: 05-24-2022 End: 05-24-2022 Nursing evaluation of patient and report Nurse Pnob [facility] Work Phone: OB/Gynecology Comment on above: Supervision of high risk , antepartum (Primary Dx); Reaction, adjustment, with depressed mood, prolonged; with history of section, antepartum; Prior complicated by IUGR, antepartum; Nausea and vomiting during ; Unicornuate uterus affecting , antepartum; Tobacco smoking affecting , antepartum; History of herpes genitalis; Patient request for diagnostic testing Start: 05-24-2022 End: 06-27-2022 Patient requested procedure Nurse Pnob [facility] Work Phone: OB/Gynecology Start: 05-22-2022 Telephone encounter Erika fried MD Work Phone: OB/Gynecology Comment on above: Future Appointment Start: 01-23-2018 Patient encounter [facility] Start: 09-05-2017 Emergency department patient visit [facility] Start: 09-05-2017 End: 09-05-2017 Emergency department patient visit [facility] Facility:[facility] Start: 04-09-2017 Patient encounter Erlin Conrad [facility] Procedures Date Procedure Procedure Detail Performing Clinician Start: 05-19-2024 STREP A MOLECULAR (POC) Marcos BAIN Work Phone: Start: 02-25-2024 Urnls dip stick/tabl et rgnt auto w/o microscopy Ewelina Juarez APRN.HR BUSINESS PARTNER Work Phone: Start: 02-25-2024 STREP A MOLECULAR (POC) Ewelina Juarez APRN.HR BUSINESS PARTNER Work Phone: Start: 11-29-2022 biophysical pr ofile non-stress testing Erika Loya MD Work Phone: Start: 11-28-2022 URINE OB DIP B/O Jojo Hernández MD Work Phone: Start: 11-26-2022 URINE OB DIP B/O Erika draper MD Work Phone: Start: 11-22-2022 URINE OB DIP B/O Erika draper MD Work Phone: Start: 11-15-2022 Iadna streptococcus group b amplified probe tq Erika Loya MD Work Phone: Start: 11-15-2022 URINE OB DIP B/O Erika draper MD Work Phone: Start: 11-15-2022 Us preg uterus after 1st trimest 04/22 gestation Erika Loya MD Work Phone: Start: 11-08-2022 biophysical pr ofile non-stress testing Erika Loya MD Work Phone: Start: 11-05-2022 URINE OB DIP B/O Keshia Carreon MD Work Phone: Start: 11-01-2022 URINE OB DIP B/O Erika draper MD Work Phone: Start: 11-01-2022 biophysical pr ofile non-stress testing Erika Loya MD Work Phone: Start: 10-22-2022 URINE OB DIP B/O Erika draper MD Work Phone: Start: 10-18-2022 URINE OB DIP B/O Erika draper MD Work Phone: Start: 10-18-2022 Us preg uterus after 1st trimest 04/22 gestation Zoe Hernández MD Work Phone: Start: 10-04-2022 URINE OB DIP B/O Erika draper MD Work Phone: Start: 09-19-2022 URINE OB DIP B/O Jojo Hernández MD Work Phone: Start: 08-23-2022 URINE OB DIP B/O Ceci Baker MD Work Phone: Start: 07-23-2022 URINE OB DIP B/O Jojo Hernández MD Work Phone: Start: 07-23-2022 Us preg uterus after 1st trimest 04/22 gestation Erika Loya MD Work Phone: Start: 07-11-2022 URINE OB DIP B/O Jojo Hernández MD Work Phone: Start: 06-27-2022 URINE OB DIP B/O Jojo Hernández MD Work Phone: Start: 05-30-2022 Us nuchal translucency 1st gestation Erika Loya MD Work Phone: Start: 05-24-2022 Cytp c/v auto thin l yr prepj scr mnl rescr phys Erika Loya MD Work Phone: Start: 05-24-2022 Iadna chlamydia trachomatis amplified probe tq Erika Loya MD Work Phone: Start: 01-28-2018 Microscopic examinat ion of blood, culture Erlin Floyd Comment on above: Order Comment: Speci men Source Comment:Blood Performed By: #### H CGUR, UAMAC, UAMIC ####[facility] [place] [address]#### C/UR ####[id number] [place] [id number] [place], [place] [id number] Start: 09-15-2015 End: 01-09-2019 H/O: section History of section Ewelina Juarez APRN.HR BUSINESS PARTNER Work Phone: H/O: section History of delivery Zoe Hernández MD Work Phone: H/O: section History of delivery Keshia Careron MD Work Phone: H/O: section Previous c esarean section H/O: section History of delivery Nst Wstr Work Phone: Urine culture Plan of Treatment Date Care Activity Detail Author Start: 11-15-2032 Urine microalbumin profile [facility] Start: 02-01-2026 Urine microalbumin profile DTAP,TDAP,TD (3 - Td or Tdap) [facility] Start: 05-24-2025 PAP TESTING PAP TESTING [facility] Start: 05-24-2025 Screening for malignant neoplasm of cervix Cervical Cancer Screening [facility] Start: 12-22-2023 Covid-19 Vaccine ( season) Covid-19 Vaccine () [facility] Start: 12-22-2023 Influenza vaccination Influenza Vacc ine (#1) [facility] Start: 11-10-2023 PAP TESTING PAP TESTING [facility] Start: 12-21-2022 Influenza vaccination [facility] Start: 11-29-2022 Nonstress test [facility] Start: 11-29-2022 Obstetric monitoring [facility] Start: 11-29-2022 Vital signs measurements [facility] Start: 11-29-2022 [facility] Start: 11-29-2022 Patient discharge [place] Start: 11-27-2022 Nonstress test [facility] Start: 11-27-2022 Obstetric monitoring [facility] Start: 11-27-2022 Vital signs measurements [facility] Start: 11-27-2022 [facility] Start: 11-27-2022 Patient discharge [place] Start: 10-25-2022 End: 12-25-2022 GEST GLUC DAWOOD, 3-HR, 100 GM, FASTING GEST GLUC DAWOOD, 3-HR, 100 GM, FASTING Lab Routine Abnormal glucose in , antepartum Expected: 10/25/2022, Expires: 12/25/2022 [facility] Work Phone: Comment on above: Expected: 10/25/2022 , Expires: 12/25/2022 Start: 10-18-2022 End: 12-18-2022 CBC panel - Blood by Automated count CBC Lab Routine 32 weeks gestation of Anemia during in third trimester Expected: 10/18/2022, Expires: 12/18/2022 [facility] Work Phone: Comment on above: Expected: 10/18/2022 , Expires: 12/18/2022 Start: 10-18-2022 End: 10-19-2023 OBSTETRIC ULTRASOUND WHI OBSTETRIC ULTRASOUND WHI Anc Imaging Routine 32 weeks gestation of with history of section, antepartum Expected: 10/18/2022, Expires: 10/19/2023 [facility] Work Phone: Comment on above: Expected: 10/18/2022 , Expires: 10/19/2023 Start: 09-21-2022 End: 11-21-2022 GEST GLUC DAWOOD, 3-HR, 100 GM, FASTING GEST GLUC DAWOOD, 3-HR, 100 GM, FASTING Lab Routine Abnormal glucose tolerance test Expected: 09/21/2022, Expires: 11/21/2022 [facility] Work Phone: Comment on above: Expected: 09/21/2022 , Expires: 11/21/2022 Start: 09-19-2022 End: 09-20-2023 OBSTETRIC ULTRASOUND WHI OBSTETRIC ULTRASOUND WHI Anc Imaging Routine with history of section, antepartum 28 weeks gestation of Expected: 09/19/2022, Expires: 09/20/2023 [facility] Work Phone: Comment on above: Expected: 09/19/2022 , Expires: 09/20/2023 Start: 08-23-2022 End: 10-23-2022 CBC W Auto Differential panel - Blood CBC + DIFF Lab Routine 24 weeks gestation of Expected: 08/23/2022, Expires: 10/23/2022 [facility] Work Phone: Comment on above: Expected: 08/23/2022 , Expires: 10/23/2022 Start: 08-23-2022 End: 10-23-2022 GEST GLUC SCREEN, 1-HR, 50 GM, NON-FASTING GEST GLUC SCREEN, 1-HR, 50 GM, NON-FASTING Lab Routine 24 weeks gestation of Expected: 08/23/2022, Expires: 10/23/2022 [facility] Work Phone: Comment on above: Expected: 08/23/2022 , Expires: 10/23/2022 Start: 08-23-2022 End: 10-23-2022 SYPHILIS TOTAL W/REFLEX SYPHILIS TOTAL W/REFLEX Lab Routine 24 weeks gestation of Expected: 08/23/2022, Expires: 10/23/2022 [facility] Work Phone: Comment on above: Expected: 08/23/2022 , Expires: 10/23/2022 Start: 07-12-2022 Iv infusion hydratio n each additional hour HYDRATE IV INFUSION ADD-ON [facility] Start: 07-12-2022 Ther proph/dx njx iv push single/1st sbst/drug THER/PROPH/DIAG INJ IV PUSH [facility] Start: 06-27-2022 End: 08-27-2022 ALPHA FETOPRO MATERNAL [facility] Work Phone: Comment on above: Expected: 06/27/2022 , Expires: 08/27/2022 Start: 05-24-2022 End: 07-24-2022 Hepatitis B virus surface Ag [Presence] in Serum HEP B SURF AG SCRN Lab Routine Encounter for supervision of other normal in first trimester Tobacco smoking affecting , antepartum with history of section, antepartum Expected: 05/24/2022, Expires: 07/24/2022 [facility] Work Phone: Comment on above: Expected: 05/24/2022 , Expires: 07/24/2022 Start: 05-24-2022 End: 07-24-2022 Hepatitis C virus Ab [Presence] in Serum HEP C AB IA W/CONF SCRN Lab Routine Encounter for supervision of other normal in first trimester Tobacco smoking affecting , antepartum with history of section, antepartum Expected: 05/24/2022, Expires: 07/24/2022 [facility] Work Phone: Comment on above: Expected: 05/24/2022 , Expires: 07/24/2022 Start: 05-24-2022 End: 07-24-2022 HIV 1+2 Ab [Presence] in Serum or Plasma by Immunoassay HIV 1 2 COMBO(AG/AB),WITH REFLEX TO DIFFERENTIATION Lab Routine Encounter for supervision of other normal in first trimester Tobacco smoking affecting , antepartum with history of section, antepartum Expected: 05/24/2022, Expires: 07/24/2022 [facility] Work Phone: Comment on above: Expected: 05/24/2022 , Expires: 07/24/2022 Start: 05-24-2022 End: 05-24-2023 OBSTETRIC ULTRASOUND WHI OBSTETRIC ULTRASOUND WHI Anc Imaging Routine Encounter for supervision of other normal in first trimester Tobacco smoking affecting , antepartum with history of section, antepartum Expected: 05/24/2022, Expires: 05/24/2023 [facility] Work Phone: Comment on above: Expected: 05/24/2022 , Expires: 05/24/2023 Start: 05-24-2022 End: 07-24-2022 RUBELLA IGG AB RUBELLA IGG AB Lab Routine Encounter for supervision of other normal in first trimester Tobacco smoking affecting , antepartum with history of section, antepartum Expected: 05/24/2022, Expires: 07/24/2022 [facility] Work Phone: Comment on above: Expected: 05/24/2022 , Expires: 07/24/2022 Start: 05-24-2022 End: 07-24-2022 SYPHILIS TOTAL W/REFLEX SYPHILIS TOTAL W/REFLEX Lab Routine Encounter for supervision of other normal in first trimester Tobacco smoking affecting , antepartum with history of section, antepartum Expected: 05/24/2022, Expires: 07/24/2022 [facility] Work Phone: Comment on above: Expected: 05/24/2022 , Expires: 07/24/2022 Start: 05-24-2022 End: 07-24-2022 TYPE + SCREEN TYPE + SCREEN Blood Bank Routine Encounter for supervision of other normal in first trimester Tobacco smoking affecting , antepartum with history of section, antepartum Expected: 05/24/2022, Expires: 07/24/2022 [facility] Work Phone: Comment on above: Expected: 05/24/2022 , Expires: 07/24/2022 Start: 04-22-2022 DEPRESSION ASSESSMENT DEPRESSION ASS ESSMENT [facility] Start: 12-21-2021 Influenza vaccination INFLUENZA (#1) [facility] Start: 2014 Hepatitis B Vaccine (1 of 3 - 19+ 3-dose series) Hepatitis B Vaccine (1 of 3 - 19+ 3-dose series) [facility] Start: 2014 Pneumococcal vaccination Pneumococcal Vaccine (1 of 2 - PCV) [facility] Start: 2013 Anxiety Screening Anxiety Screening [facility] Start: 2013 Depression Screening Depression Scre ening [facility] Start: 2001 PNEUMOCOCCAL (1 - PCV) PNEUMOCOCCAL (1 - PCV) [facility] Start: 2001 Pneumococcal vaccination [facility] Start: 1995 COVID-19 VACCINE (#1) COVID-19 VACCI NE (#1) [facility] Start: 1995 HEPATITIS B (1 of 3 - 3-dose series) HEPATITIS B (1 of 3 - 3-dose series) [facility] Start: 1995 Hepatitis B Vaccine (1 of 3 - 3-dose series) Hepatitis B Vaccine (1 of 3 - 3-dose series) [facility] Bacteria identified in Urine by Culture URINE CULTURE Microbiology Routine Burning with urination Ordered: 02/25/2024 [facility] Work Phone: Comment on above: Ordered: 02/25/2024 Hepatitis B virus surface Ag [Presence] in Serum HEP B SURF AG SCRN Lab Routine Encounter for supervision of other normal in first trimester Tobacco smoking affecting , antepartum with history of section, antepartum 05/30/2022 11:38 AM [facility] Work Phone: Hepatitis C virus Ab [Presence] in Serum HEP C AB IA W/CONF SCRN Lab Routine Encounter for supervision of other normal in first trimester Tobacco smoking affecting , antepartum with history of section, antepartum 05/30/2022 11:38 AM [facility] Work Phone: HIV 1+2 Ab [Presence ] in Serum or Plasma by Immunoassay HIV 1 2 COMBO(AG/AB),WITH REFLEX TO DIFFERENTIATION Lab Routine Encounter for supervision of other normal in first trimester Tobacco smoking affecting , antepartum with history of section, antepartum 05/30/2022 11:38 AM [facility] Work Phone: Patient Education [facility] Work Phone: Patient referral [facility] Work Phone: RUBELLA IGG AB RUBELLA IGG AB L ab Routine Encounter for supervision of other normal in first trimester Tobacco smoking affecting , antepartum with history of section, antepartum 05/30/2022 11:38 AM [facility] Work Phone: SYPHILIS TOTAL W/REFLEX SYPHILIS TOTAL W/REFLEX Lab Routine Encounter for supervision of other normal in first trimester Tobacco smoking affecting , antepartum with history of section, antepartum 05/30/2022 11:38 AM [facility] Work Phone: Tdap vaccine 7 yrs/> im TDAP VACCINE, AGE 7+ YR (ADACEL, BOOSTRIX) Immunization/Injection Routine Poor growth affecting management of mother in third trimester, single or unspecified fetus Need for Tdap vaccination History of delivery Supervision of other high risk pregnancies, third trimester Ordered: 10/29/2022 [facility] Work Phone: Comment on above: Ordered: 10/29/2022 TYPE + SCREEN TYPE + SC REEN Blood Bank Routine Encounter for supervision of other normal in first trimester Tobacco smoking affecting , antepartum with history of section, antepartum 05/30/2022 11:38 AM [facility] Work Phone: [facility] Immunizations Immunization Date Immunization Notes Care Provider Shannan nick 11-15-2022 tetanus toxoid, reduced diphtheria toxoid, and acellular pertussis vaccine, adsorbed Ob Ultrasound Work Phone: [facility] 02-02-2016 tetanus toxoid, reduced diphtheria toxoid, and acellular pertussis vaccine, adsorbed Erika Loya MD Work Phone: [facility] 07-11-2014 measles, mumps and rubella virus vaccine Erika Loya MD Work Phone: [facility] 05-05-2014 tetanus toxoid, reduced diphtheria toxoid, and acellular pertussis vaccine, adsorbed Erika Loya MD Work Phone: [facility] Work Phone: NEGATED: Highlighted row has not occurred!11-01-2022 tetanus toxoid, reduced diphtheria toxoid, and acellular pertussis vaccine, adsorbed Erika Loya MD Work Phone: [facility] NEGATED: Highlighted row has not occurred!10-29-2022 tetanus toxoid, reduced diphtheria toxoid, and acellular pertussis vaccine, adsorbed Zeo Hernández MD Work Phone: [facility] Work Phone: Payers Date Payer Category Payer Self-pay [id number] 2020 Medicaid [id number] 2016 Medicaid [id number] 1995 Unknown [id number] 1995 Unknown [id number] 68 1995 Unknown [id number] 68 Private Health Insurance [facility] [id number] Unknown [id number] Unknown Unknown [id number] 62 Unknown [id number] 62 Unknown [id number] 62 Unknown [id number] 62 Unknown [id number] 62 Unknown [id number] 62 Unknown [id number] 62 Social History Date Type Detail Facility Start: 09-15-2015 Tobacco smoking stat us DCIS Ex-smoker [facility] Work Phone: End: 09-08-2015 History of tobacco use Current smoker [facility] Work Phone: Start: 09-07-2010 End: 09-08-2015 History of tobacco use Cigarette Smoker [facility] Work Phone: Start: 09-15-2015 End: 08-23-2022 Cigarettes smoked current (pack per day) - Reported 0.5 [facility] Work Phone: Start: 09-15-2015 End: 02-25-2024 Tobacco use and exposure Smokeless tobacco non-user [facility] Work Phone: Start: 11-09-2020 End: 07-09-2024 Alcohol intake Current non-drinker of alcohol (finding) [facility] Start: 1995 Sex Assigned At Not on file C [facility] Start: 09-07-2010 End: 02-25-2024 Tobacco smoking status DCIS Occasional tobacco smoker [facility] Work Phone: Start: 05-24-2022 Education 15 [facility] Start: 03-17-2022 [facility] Start: 06-07-2022 End: 11-29-2022 Tobacco smoking status DCIS Unknown if ever smoked [facility] Start: 08-30-2019 [facility] Start: 08-30-2019 None [facility] Start: 08-30-2019 With Family [facility] Start: 1995 Sex Assigned At Female [facility] Start: 08-23-2022 End: 10-29-2022 Tobacco use panel [facility] Work Phone: Adult Depression Screening Assessment 3 [facility] Work Phone: Goals Date Patient Goal Desired Activity /State Personal health goal Functional Status Date Assessment Result Facility 07-14-2014 Are you deaf, or do you have serious difficulty hearing No 07/14/2014 4:45 PM EDT Angelia Quinones LPN No [facility] 07-14-2014 Are you blind, or do you have serious difficulty seeing, even when wearing glasses No 07/14/2014 4:45 PM EDT Angelia Quinones LPN No [facility] 07-14-2014 Do you have serious difficulty walking or climbing stairs No 07/14/2014 4:45 PM EDT Angelia Quinones LPN No [facility] 07-14-2014 Do you have difficul ty dressing or bathing No 07/14/2014 4:45 PM EDT Angelia Quinones LPN No [facility] 07-14-2014 Because of a physica l, mental, or emotional condition, do you have difficulty doing errands alone such as visiting a physician's office or shopping No 07/14/2014 4:45 PM EDT Angelia Quinones LPN No [facility] Mental Status Date Assessment Result Facility 07-12-2022 Cognitive function Awake;Alert;A ppropriate;Fol lows Commands [facility] Work Phone: 06-07-2022 Cognitive function Level Of Cons ciousness Awake;Alert;Appropriate;Fol lows Commands [facility] Work Phone: 07-14-2014 Because of a physica l, mental, or emotional condition, do you have serious difficulty concentrating, remembering, or making decisions No 07/14/2014 4:45 PM EDT Angelia Quinones LPN No [facility] Clinical Notes 09-15-2015 to 01-07-2025 Patient InstructionsEwelina Juarez APRN.HR BUSINESS PARTNER - 07/09/2024 7:57 PM Marcos Montes PA - 05/19/2024 7:53 PM ESTPatient InstructionsEwelina Antonio APRN.CNP - 02/25/2024 6:48 PM EST Note Date & Type Note Facility 01-07-2025 Note HNO ID: [id number] Author: FORTUNATO IBRAHIM APRN.KANDIS Service: ? Author Type: Nurse Practitioner Type: Progress Notes Filed: 01/07/2025 13:27 Note Text: [facility] Daniel Ann is a 29 year old female. Patient presents with: Rash: LLE, red, raised, fluid filled blisters, some pain, x 2-3 days spreading up leg. HPI Nontoxic-appearing female presents urgent care chief complaint rash. Duration of symptoms 2 to 3 days. Associated symptoms pruritic rash lower leg. Presents today for evaluation. OTC medications none. No recent medication changes antibiotic use. Overall feels well. No fevers. No nausea or vomiting. Past medical history prescription medications allergies reviewed Review of Systems Constitutional: Negative for chills, diaphoresis, fatigue and fever. HENT: Negative for congestion, drooling, ear discharge, ear pain, rhinorrhea, sinus pressure, sinus pain, sneezing, sore throat and trouble swallowing. Eyes: Negative for pain, discharge, redness, itching and visual disturbance. Respiratory: Negative for cough, chest tightness, shortness of breath and wheezing. Cardiovascular: Negative for chest pain. Gastrointestinal: Negative for abdominal distention, abdominal pain, blood in stool, constipation, diarrhea, nausea and vomiting. Genitourinary: Negative for difficulty urinating and dysuria. Musculoskeletal: Negative for arthralgias, joint swelling, neck pain and neck stiffness. Skin: Positive for rash. Neurological: Negative for dizziness, weakness, numbness and headaches. Objective BP 117/72 Pulse 95 Temp 36.8 ?C (98.2 ?F) Resp 20 Wt 65 kg (143 lb 4.8 oz) LMP 01/07/2025 (Exact Date) SpO2 98% BMI 23.48 kg/m? Physical Exam Constitutional: Appearance: Normal appearance. HENT: Head: Normocephalic. Jaw: No trismus, tenderness, swelling or pain on movement. Nose: No congestion. Mouth/Throat: Mouth: Mucous membranes are moist. Pharynx: Oropharynx is clear. Uvula midline. No oropharyngeal exudate or posterior oropharyngeal erythema. Eyes: Conjunctiva/sclera: Conjunctivae normal. Cardiovascular: Rate and Rhythm: Normal rate. Pulmonary: Effort: Pulmonary effort is normal. Breath sounds: Normal breath sounds. No wheezing, rhonchi or rales. Abdominal: Palpations: Abdomen is soft. Tenderness: There is no abdominal tenderness. There is no guarding or rebound. Musculoskeletal: General: Normal range of motion. Cervical back: Normal range of motion and neck supple. No edema, erythema or rigidity. No pain with movement. Normal range of motion. Lymphadenopathy: Cervical: No cervical adenopathy. Skin: General: Skin is warm and dry. Findings: Rash present. No abrasion, abscess, acne, bruising, burn, ecchymosis, erythema, signs of injury, laceration, lesion, petechiae or wound. Rash is macular, purpuric and vesicular. Rash is not crusting, nodular, papular, pustular, scaling or urticarial. Neurological: General: No focal deficit present. Mental Status: She is alert and oriented to person, place, and time. Mental status is at baseline. {ASSESSMENT/PLAN: 1. Rash - ICD9: 782.1, ICD10: R21 Diagnosis rash. Suspicious contact dermatitis. No systemic symptoms. Spares palms and hands and mucosal membrane. Treat with Kenalog cream. Use second-generation antihistamines. Patient was educated on supportive therapies. Patient will follow up with primary care provider as needed. Patient was instructed to immediately proceed to emergency room for any new, worsening, or symptoms lasting longer than anticipated. The patient's clinical presentation is otherwise unremarkable at this time. Based on exam and clinical finding, the patient is stable for discharge. Plan of care was discussed with patient. Patient verbalizes understanding and agrees to plan of care. This note was generated using [employer] software. It may contain errors in wording, punctuation, or spelling. Fortunato Ibrahim APRN.KANDIS History and Record Review Clinical information obtained from an independent historian. History obtained from or confirmed by: parent. External record(s) reviewed: prior outpatient record. Disposition The patient was discharged. OTC Medications were advised: Procedures [facility] 07-09-2024 Instructions Ewelina Juarez APRN.KANDIS - 07/09/2024 8:01 PM EDT ASSESSMENT/PLAN: 1. Sinobronchitis - ICD9: 473.9, 490, ICD10: J32.9, J40 - continue antibiotic as prescribed by dentist. - PREDNISONE 10 MG TABLET - ALBUTEROL SULFATE HFA 90 MCG/ACTUATION AEROSOL INHALER - Follow-up with your PCP in 3-5 days if symptoms have not improved or sooner if symptoms worsen - Discussed red flags and need for immediate medical evaluation if any occur. - Discussed supportive care treatment with fluids, rest and analgesia. - Discussed expected course of illness Ewelina Juarez APRN.HR BUSINESS PARTNER documented in this encounter [facility] 07-09-2024 Note HNO ID: [id number] Author: EWELINA JUAREZ APRN.KANDIS Service: ? Author Type: Nurse Practitioner Type: Progress Notes Filed: 07/09/2024 20:01 Note Text: [facility] Subjective Gracy Ann is a 29 year old female. Patient presents with: Cough: Chest congestion, tightness in chest, SOB, body aches, sore throat, raspy voice x 1 week Cough Associated symptoms include headaches, rhinorrhea, sore throat, shortness of breath and wheezing. Pertinent negatives include no chest pain, no chills and no myalgias. Gracy Ann is a 29 year old female who presents with cough, congestion, sore throat, wheezing, shortness of breath for the past week. She has had sinus congestion and drainage. She has had a productive cough and feels tired. She initially had some body aches and chills but these resolved. She is currently taking amoxicillin which was prescribed by her dentist 2 days ago. She missed work yesterday and today due to illness. Review of Systems Constitutional: Positive for fatigue. Negative for chills and fever. HENT: Positive for congestion, rhinorrhea, sinus pressure and sore throat. Respiratory: Positive for cough, shortness of breath and wheezing. Cardiovascular: Negative for chest pain. Musculoskeletal: Negative for myalgias. Neurological: Positive for headaches. Objective BP 99/63 Pulse 84 Temp 36.1 ?C (97 ?F) Resp 20 Wt 64 kg (141 lb 1.5 oz) LMP 07/02/2024 (Exact Date) SpO2 100% No BMI 23.12 kg/m? PAST MEDICAL HISTORY Diagnosis Date - Anemia - Cervicitis 05/26/2013 Possible PID - Depression, major, single episode, mild (HCC) - Herpes simplex without mention of complication - History of section 09/15/2015 09/15/2015Pt had a previous C section. She desires a repeat C section by Dr Campoverde.TKRN History of cesearan section, patient counseled on trial of labor versus repeat cesearan section. Risks/benefits/alternatives discussed with patient regarding trial of labor and potential for uterine rupture. Risks include but are not limited to maternal hemorrhage, risk of injury to adjacent organs includ - History of depression 09/15/2015 09/15/2015 Pt has a history of depression diagnosed 2 years ago. She has been off medication for 1 year . Discussed increased risks of depression during and and importance of reporting the development or worsening of symptoms should they occur.Pt denies ever having any suicidal thoughts or tendencies or thoughts of hurting others.TKRN - History of prior with IUGR 09/15/2015 09/15/2015Patient is complaining of nausea in . Advised patient to call/come in if she is unable to keep any food or fluids down in a 24-hour period. TKRN - Nausea/vomiting in 09/15/2015 09/15/2015Patient is complaining of nausea in . Advised patient to call/come in if she is unable to keep any food or fluids down in a 24-hour period. 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 MEDICATIONS - predniSONE (DELTASONE) 10 mg tablet Take 4 tabs daily for 3 days, then 2 tabs daily for 3 days, then 1 tab daily for 3 days with food. - albuterol HFA (PROVENTIL HFA, VENTOLIN HFA) 90 mcg/actuation inhaler Inhale 2 Puffs as instructed every 4 hours as needed for wheezing/shortness of breath. - Inhalational Spacing Device 1 Device one time only for 1 dose. FAMILY HISTORY Problem Relation Age of Onset - other (lupus) Mother - Rheumatologic disease Mother - No Known Problems Father - No Known Problems Brother - No Known Problems Brother - No Known Problems Brother - Diabetes Maternal Grandmother - No Known Problems Paternal Grandmother - Heart Paternal Grandfather - No Known Problems Daughter - No Known Problems Daughter - Heart Maternal Uncle Social History Tobacco Use - Smoking status: Some Days Current packs/day: 0.00 Average packs/day: 0.3 packs/day for 5.0 years (1.3 ttl pk-yrs) Types: Cigarettes Start date: 09/07/2010 Last attempt to quit: 09/08/2015 Years since quittin.8 - Smokeless tobacco: Never Vaping Use - Vaping status: Never Used Substance Use Topics - Alcohol use: No - Drug use: No Physical Exam Vitals and nursing note reviewed. Constitutional: General: She is not in acute distress. Appearance: Normal appearance. She is not ill-appearing. HENT: Right Ear: Tympanic membrane, ear canal and external ear normal. Left Ear: T (more content not included)... [facility] 07-09-2024 History of Presen t illness Narrative [facility] Subjective Gracy Ann is a 29 year old female. Patient presents with: Cough: Chest congestion, tightness in chest, SOB, body aches, sore throat, raspy voice x 1 week Cough Associated symptoms include headaches, rhinorrhea, sore throat, shortness of breath and wheezing. Pertinent negatives include no chest pain, no chills and no myalgias. Gracy Ann is a 29 year old female who presents with cough, congestion, sore throat, wheezing, shortness of breath for the past week. She has had sinus congestion and drainage. She has had a productive cough and feels tired. She initially had some body aches and chills but these resolved. She is currently taking amoxicillin which was prescribed by her dentist 2 days ago. She missed work yesterday and today due to illness. Review of Systems Constitutional: Positive for fatigue. Negative for chills and fever. HENT: Positive for congestion, rhinorrhea, sinus pressure and sore throat. Respiratory: Positive for cough, shortness of breath and wheezing. Cardiovascular: Negative for chest pain. Musculoskeletal: Negative for myalgias. Neurological: Positive for headaches. Objective BP 99/63 Pulse 84 Temp 36.1 C (97 F) Resp 20 Wt 64 kg (141 lb 1.5 oz) LMP 07/02/2024 (Exact Date) SpO2 100% No BMI 23.12 kg/m PAST MEDICAL HISTORY Diagnosis Date Anemia Cervicitis 05/26/2013 Possible PID Depression, major, single episode, mild (HCC) Herpes simplex without mention of complication History of section 09/15/2015 09/15/2015Pt had a previous C section. She desires a repeat C section by Dr Campoverde.TKRN History of cesearan section, patient counseled on trial of labor versus repeat cesearan section. Risks/benefits/alternatives discussed with patient regarding trial of labor and potential for uterine rupture. Risks include but are not limited to maternal hemorrhage, risk of injury to adjacent organs includ History of depression 09/15/2015 09/15/2015 Pt has a history of depression diagnosed 2 years ago. She has been off medication for 1 year . Discussed increased risks of depression during and and importance of reporting the development or worsening of symptoms should they occur.Pt denies ever having any suicidal thoughts or tendencies or thoughts of hurting others.TKRN History of prior with IUGR 09/15/2015 09/15/2015Patient is complaining of nausea in . Advised patient to call/come in if she is unable to keep any food or fluids down in a 24-hour period. TKRN Nausea/vomiting in 09/15/2015 09/15/2015Patient is complaining of nausea in . Advised patient to call/come in if she is unable to keep any food or fluids down in a 24-hour period. 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 MEDICATIONS predniSONE (DELTASONE) 10 mg tablet Take 4 tabs daily for 3 days, then 2 tabs daily for 3 days, then 1 tab daily for 3 days with food. albuterol HFA (PROVENTIL HFA, VENTOLIN HFA) 90 mcg/actuation inhaler Inhale 2 Puffs as instructed every 4 hours as needed for wheezing/shortness of breath. Inhalational Spacing Device 1 Device one time only for 1 dose. FAMILY HISTORY Problem Relation Age of Onset other (lupus) Mother Rheumatologic disease Mother No Known Problems Father No Known Problems Brother No Known Problems Brother No Known Problems Brother Diabetes Maternal Grandmother No Known Problems Paternal Grandmother Heart Paternal Grandfather No Known Problems Daughter No Known Problems Daughter Heart Maternal Uncle Social History Tobacco Use Smoking status: Some Days Current packs/day: 0.00 Average packs/day: 0.3 packs/day for 5.0 years (1.3 ttl pk-yrs) Types: Cigarettes Start date: 09/07/2010 Last attempt to quit: 09/08/2015 Years since quittin.8 Smokeless tobacco: Never Vaping Use Vaping status: Never Used Substance Use Topics Alcohol use: No Drug use: No Physical Exam Vitals and nursing note reviewed. Constitutional: General: She is not in acute distress. Appearance: Normal appearance. She is not ill-appearing. HENT: Right Ear: Tympanic membrane, ear canal and external ear normal. Left Ear: Tympanic membrane, ear canal and external ear normal. Nose: Nasal tenderness, mucosal edema, congestion and rhinorrhea present. Mouth/Throat: Mouth: Mucous membranes are moist. Pharynx: Oropharynx is clear. No oropharyngeal exudate or posterior oropharyngeal erythema. Cardiovascular: Rate and Rhythm: Normal rate and regular rhythm. Heart sounds: Normal heart sounds. Pulmonary: Effort: Pulmonary effort is normal. No respiratory distress. Breath sounds: Wheezing present. No rales. Lymphadenopathy: Cervical: No cervical adenopathy. Skin: General: Skin is warm and dry. Findings: No erythema or rash. Neurological: Mental Status: She is alert. {ASSESSMENT/PLAN: 1. Sinobronchitis - ICD9: 473.9, 490, ICD10: J32.9, J40 - continue antibiotic as prescribed by dentist. - PREDNISONE 10 MG TABLET - ALBUTEROL SULFATE HFA 90 MCG/ACTUATION AEROSOL INHALER - Follow-up with your PCP in 3-5 days if symptoms have not improved or sooner if symptoms worsen - Discussed red flags and need for immediate medical evaluation if any occur. - Discussed supportive care treatment with fluids, rest and analgesia. - Discussed expected course of illness Ewelina Juarez APRN.HR BUSINESS PARTNER Disposition The patient was discharged. Procedures documented in this encounter [facility] 05-19-2024 Note HNO ID: [id number] Author: MARCOS TOLEDO PA Service: ? Author Type: Physician Bank Accountant Type: Progress Notes Filed: 05/20/2024 07:09 Note Text: This note was created using [employer]. Subjective Gracy Ann is a 29 year old female. HPI 29-year-old female presents for sore throat, headache, nausea x 4 days. Her daughters are sick with similar symptoms. No fevers. No vomiting. She has had a little bit of cough and congestion. She has been taking [id number] Tylenol for symptoms. No other complaints. PAST MEDICAL HISTORY Diagnosis Date Anemia Cervicitis 05/26/2013 Possible PID Depression, major, single episode, mild (HCC) Herpes simplex without mention of complication History of section 09/15/2015 09/15/2015Pt had a previous C section. She desires a repeat C section by Dr Campoverde.TKRN History of cesearan section, patient counseled on trial of labor versus repeat cesearan section. Risks/benefits/alternatives discussed with patient regarding trial of labor and potential for uterine rupture. Risks include but are not limited to maternal hemorrhage, risk of injury to adjacent organs includ History of depression 09/15/2015 09/15/2015 Pt has a history of depression diagnosed 2 years ago. She has been off medication for 1 year . Discussed increased risks of depression during and and importance of reporting the development or worsening of symptoms should they occur.Pt denies ever having any suicidal thoughts or tendencies or thoughts of hurting others.TKRN History of prior with IUGR 09/15/2015 09/15/2015Patient is complaining of nausea in . Advised patient to call/come in if she is unable to keep any food or fluids down in a 24-hour period. TKRN Nausea/vomiting in 09/15/2015 09/15/2015Patient is complaining of nausea in . Advised patient to call/come in if she is unable to keep any food or fluids down in a 24-hour period. 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 MEDICATIONS No prescriptions on file. FAMILY HISTORY Problem Relation Age of Onset other (lupus) Mother Rheumatologic disease Mother No Known Problems Father No Known Problems Brother No Known Problems Brother No Known Problems Brother Diabetes Maternal Grandmother No Known Problems Paternal Grandmother Heart Paternal Grandfather No Known Problems Daughter No Known Problems Daughter Heart Maternal Uncle Social History Tobacco Use Smoking status: Some Days Current packs/day: 0.00 Average packs/day: 0.3 packs/day for 5.0 years (1.3 ttl pk-yrs) Types: Cigarettes Start date: 09/07/2010 Last attempt to quit: 09/08/2015 Years since quittin.7 Smokeless tobacco: Never Vaping Use Vaping status: Never Used Substance Use Topics Alcohol use: No Drug use: No Review of Systems Constitutional: Negative for chills and fever. HENT: Positive for congestion and sore throat. Negative for ear pain. Respiratory: Positive for cough. Negative for shortness of breath. Cardiovascular: Negative for chest pain. Gastrointestinal: Positive for nausea. Negative for diarrhea and vomiting. Neurological: Positive for headaches. Objective BP 104/66 Pulse 101 Temp 36.4 ?C (97.6 ?F) Resp 20 Wt 67 kg (147 lb 11.3 oz) LMP 04/24/2024 (Approximate) SpO2 97% BMI 24.21 kg/m? Physical Exam Vitals and nursing note reviewed. Constitutional: General: She is not in acute distress. Appearance: Normal appearance. She is not toxic-appearing. HENT: Right Ear: Tympanic membrane and ear canal normal. Left Ear: Tympanic membrane and ear canal normal. Nose: Congestion present. Mouth/Throat: Mouth: Mucous membranes are moist. Pharynx: Posterior oropharyngeal erythema present. Eyes: Conjunctiva/sclera: Conjunctivae normal. Cardiovascular: Rate and Rhythm: Normal rate and regular rhythm. Pulmonary: Effort: Pulmonary effort is normal. Breath sounds: Normal breath sounds. No wheezing, rhonchi or rales. Skin: General: Skin is warm and dry. Neurological: Mental Status: She is alert. Assessment and Plan ASSESSMENT/PLAN: 1. Sore throat - ICD9: 462, ICD10: J02.9 - suspect viral - Group A strep molecular testing negative - Discussed supportive care treatment with fluids, rest and analgesia. - The patient may also use warm salt water gargles, throat lozenges and/or OTC throat spray as needed. - STREP A MOLECULAR (POC) - offered viral testing, pat (more content not included)... [facility] 05-19-2024 History of Presen t illness Narrative This note was created using [employer]. Subjective Grayc Ann is a 29 year old female. HPI 29-year-old female presents for sore throat, headache, nausea x 4 days. Her daughters are sick with similar symptoms. No fevers. No vomiting. She has had a little bit of cough and congestion. She has been taking [id number] Tylenol for symptoms. No other complaints. PAST MEDICAL HISTORY Diagnosis Date Anemia Cervicitis 05/26/2013 Possible PID Depression, major, single episode, mild (HCC) Herpes simplex without mention of complication History of section 09/15/2015 09/15/2015Pt had a previous C section. She desires a repeat C section by Dr Campoverde.TKRN History of cesearan section, patient counseled on trial of labor versus repeat cesearan section. Risks/benefits/alternatives discussed with patient regarding trial of labor and potential for uterine rupture. Risks include but are not limited to maternal hemorrhage, risk of injury to adjacent organs includ History of depression 09/15/2015 09/15/2015 Pt has a history of depression diagnosed 2 years ago. She has been off medication for 1 year . Discussed increased risks of depression during and and importance of reporting the development or worsening of symptoms should they occur.Pt denies ever having any suicidal thoughts or tendencies or thoughts of hurting others.TKRN History of prior with IUGR 09/15/2015 09/15/2015Patient is complaining of nausea in . Advised patient to call/come in if she is unable to keep any food or fluids down in a 24-hour period. TKRN Nausea/vomiting in 09/15/2015 09/15/2015Patient is complaining of nausea in . Advised patient to call/come in if she is unable to keep any food or fluids down in a 24-hour period. 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 MEDICATIONS No prescriptions on file. FAMILY HISTORY Problem Relation Age of Onset other (lupus) Mother Rheumatologic disease Mother No Known Problems Father No Known Problems Brother No Known Problems Brother No Known Problems Brother Diabetes Maternal Grandmother No Known Problems Paternal Grandmother Heart Paternal Grandfather No Known Problems Daughter No Known Problems Daughter Heart Maternal Uncle Social History Tobacco Use Smoking status: Some Days Current packs/day: 0.00 Average packs/day: 0.3 packs/day for 5.0 years (1.3 ttl pk-yrs) Types: Cigarettes Start date: 09/07/2010 Last attempt to quit: 09/08/2015 Years since quittin.7 Smokeless tobacco: Never Vaping Use Vaping status: Never Used Substance Use Topics Alcohol use: No Drug use: No Review of Systems Constitutional: Negative for chills and fever. HENT: Positive for congestion and sore throat. Negative for ear pain. Respiratory: Positive for cough. Negative for shortness of breath. Cardiovascular: Negative for chest pain. Gastrointestinal: Positive for nausea. Negative for diarrhea and vomiting. Neurological: Positive for headaches. Objective BP 104/66 Pulse 101 Temp 36.4 C (97.6 F) Resp 20 Wt 67 kg (147 lb 11.3 oz) LMP 04/24/2024 (Approximate) SpO2 97% BMI 24.21 kg/m Physical Exam Vitals and nursing note reviewed. Constitutional: General: She is not in acute distress. Appearance: Normal appearance. She is not toxic-appearing. HENT: Right Ear: Tympanic membrane and ear canal normal. Left Ear: Tympanic membrane and ear canal normal. Nose: Congestion present. Mouth/Throat: Mouth: Mucous membranes are moist. Pharynx: Posterior oropharyngeal erythema present. Eyes: Conjunctiva/sclera: Conjunctivae normal. Cardiovascular: Rate and Rhythm: Normal rate and regular rhythm. Pulmonary: Effort: Pulmonary effort is normal. Breath sounds: Normal breath sounds. No wheezing, rhonchi or rales. Skin: General: Skin is warm and dry. Neurological: Mental Status: She is alert. Assessment and Plan ASSESSMENT/PLAN: 1. Sore throat - ICD9: 462, ICD10: J02.9 - suspect viral - Group A strep molecular testing negative - Discussed supportive care treatment with fluids, rest and analgesia. - The patient may also use warm salt water gargles, throat lozenges and/or OTC throat spray as needed. - STREP A MOLECULAR (POC) - offered viral testing, patient declined Diagnosis and treatment plan were discussed and questions were answered to the patient's satisfaction. Pt acknowledged understanding of concepts and follow up plan. Specific signs and symptoms that would indicate the need for higher level of care were discussed in detail warranting prompt ER evaluation. TAYA Sanchez documented in this encounter [facility] 02-25-2024 Instructions Ewelina Juarez APRN.[facility] - 02/25/2024 7:08 PM EST ASSESSMENT/PLAN: 1. Burning with urination - ICD9: 788.1, ICD10: R30.0 (primary diagnosis) acute - Send urine for culture - UA DIP, URINE (POC) - URINE CULTURE 2. Sore throat - ICD9: 462, ICD10: J02.9 - suspect viral or allergic - Group A strep molecular testing negative - Discussed supportive care treatment with fluids, rest and analgesia. - STREP A MOLECULAR (POC) - Follow-up with your PCP in 3-5 days if symptoms have not improved or sooner if symptoms worsen - Discussed red flags and need for immediate medical evaluation if any occur. - Discussed supportive care treatment with fluids, rest and analgesia. - Discussed expected course of illness Ewelina Juarez APRN.[employer] documented in this encounter [facility] 02-25-2024 Note HNO ID: [id number] Author: EWELINA JUAREZ APRN.[employer] Service: ? Author Type: Nurse Practitioner Type: Progress Notes Filed: 02/25/2024 19:08 Note Text: Subjective Nasal Congestion Associated symptoms include congestion, coughing and a sore throat. Pertinent negatives include no chills or ear pain. Gracy Ann is a 29 year old female who presents with runny nose, cough, sore throat, and dysuria. She has had symptoms for 3 days. Her daughter was diagnosed with strep throat today. Gracy has not had a fever. States her sore throat is minor and thinks it may be due to allergies. She has not taken any medication for her symptoms. Review of Systems Constitutional: Negative for chills and fever. HENT: Positive for congestion and sore throat. Negative for ear pain. Respiratory: Positive for cough. Cardiovascular: Negative. Gastrointestinal: Negative for abdominal pain, nausea and vomiting. Genitourinary: Positive for dysuria. Negative for frequency, hematuria and urgency. Musculoskeletal: Negative for back pain. BP 107/67 Pulse 97 Temp 36.1 ?C (97 ?F) Resp 20 Wt 67.5 kg (148 lb 13 oz) LMP 02/23/2024 (Approximate) SpO2 99% No BMI 24.39 kg/m? PAST MEDICAL HISTORY Diagnosis Date Anemia Cervicitis 05/26/2013 Possible PID Depression, major, single episode, mild (HCC) Herpes simplex without mention of complication History of section 09/15/2015 09/15/2015Pt had a previous C section. She desires a repeat C section by Dr Campoverde.TKRN History of cesearan section, patient counseled on trial of labor versus repeat cesearan section. Risks/benefits/alternatives discussed with patient regarding trial of labor and potential for uterine rupture. Risks include but are not limited to maternal hemorrhage, risk of injury to adjacent organs includ History of depression 09/15/2015 09/15/2015 Pt has a history of depression diagnosed 2 years ago. She has been off medication for 1 year . Discussed increased risks of depression during and and importance of reporting the development or worsening of symptoms should they occur.Pt denies ever having any suicidal thoughts or tendencies or thoughts of hurting others.TKRN History of prior with IUGR 09/15/2015 09/15/2015Patient is complaining of nausea in . Advised patient to call/come in if she is unable to keep any food or fluids down in a 24-hour period. TKRN Nausea/vomiting in 09/15/2015 09/15/2015Patient is complaining of nausea in . Advised patient to call/come in if she is unable to keep any food or fluids down in a 24-hour period. 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 MEDICATIONS No prescriptions on file. FAMILY HISTORY Problem Relation Age of Onset other (lupus) Mother Rheumatologic disease Mother No Known Problems Father No Known Problems Brother No Known Problems Brother No Known Problems Brother Diabetes Maternal Grandmother No Known Problems Paternal Grandmother Heart Paternal Grandfather No Known Problems Daughter No Known Problems Daughter Heart Maternal Uncle Social History Tobacco Use Smoking status: Some Days Current packs/day: 0.00 Average packs/day: 0.3 packs/day for 5.0 years (1.3 ttl pk-yrs) Types: Cigarettes Start date: 09/07/2010 Last attempt to quit: 09/08/2015 Years since quittin.4 Smokeless tobacco: Never Vaping Use Vaping status: Never Used Substance Use Topics Alcohol use: No Drug use: No Objective Physical Exam Vitals and nursing note reviewed. Constitutional: Appearance: Normal appearance. HENT: Mouth/Throat: Mouth: Mucous membranes are moist. Pharynx: Oropharynx is clear. Uvula midline. No oropharyngeal exudate or posterior oropharyngeal erythema. Cardiovascular: Rate and Rhythm: Normal rate and regular rhythm. Heart sounds: Normal heart sounds. Pulmonary: Effort: Pulmonary effort is normal. No respiratory distress. Breath sounds: Normal breath sounds. No wheezing or rales. Abdominal: Tenderness: There is no right CVA tenderness or left CVA tenderness. Musculoskeletal: Cervical back: Neck supple. Lymphadenopathy: Cervical: No cervical adenopathy. Skin: General: Skin is warm and dry. Findings: No erythema or rash. Neurological: Mental Status: She is alert. Office Visit on 02/25/2024 Component Date Value Ref Range Status GLUCOSE UA (POCT) 02/25/2024 Negative Negative m (more content not included)... [facility] 02-25-2024 History of Presen t illness Narrative Subjective Nasal Congestion Associated symptoms include congestion, coughing and a sore throat. Pertinent negatives include no chills or ear pain. Gracy Ann is a 29 year old female who presents with runny nose, cough, sore throat, and dysuria. She has had symptoms for 3 days. Her daughter was diagnosed with strep throat today. Gracy has not had a fever. States her sore throat is minor and thinks it may be due to allergies. She has not taken any medication for her symptoms. Review of Systems Constitutional: Negative for chills and fever. HENT: Positive for congestion and sore throat. Negative for ear pain. Respiratory: Positive for cough. Cardiovascular: Negative. Gastrointestinal: Negative for abdominal pain, nausea and vomiting. Genitourinary: Positive for dysuria. Negative for frequency, hematuria and urgency. Musculoskeletal: Negative for back pain. BP 107/67 Pulse 97 Temp 36.1 C (97 F) Resp 20 Wt 67.5 kg (148 lb 13 oz) LMP 02/23/2024 (Approximate) SpO2 99% No BMI 24.39 kg/m PAST MEDICAL HISTORY Diagnosis Date Anemia Cervicitis 05/26/2013 Possible PID Depression, major, single episode, mild (HCC) Herpes simplex without mention of complication History of section 09/15/2015 09/15/2015Pt had a previous C section. She desires a repeat C section by Dr Campoverde.TKRN History of cesearan section, patient counseled on trial of labor versus repeat cesearan section. Risks/benefits/alternatives discussed with patient regarding trial of labor and potential for uterine rupture. Risks include but are not limited to maternal hemorrhage, risk of injury to adjacent organs includ History of depression 09/15/2015 09/15/2015 Pt has a history of depression diagnosed 2 years ago. She has been off medication for 1 year . Discussed increased risks of depression during and and importance of reporting the development or worsening of symptoms should they occur.Pt denies ever having any suicidal thoughts or tendencies or thoughts of hurting others.TKRN History of prior with IUGR 09/15/2015 09/15/2015Patient is complaining of nausea in . Advised patient to call/come in if she is unable to keep any food or fluids down in a 24-hour period. TKRN Nausea/vomiting in 09/15/2015 09/15/2015Patient is complaining of nausea in . Advised patient to call/come in if she is unable to keep any food or fluids down in a 24-hour period. 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 MEDICATIONS No prescriptions on file. FAMILY HISTORY Problem Relation Age of Onset other (lupus) Mother Rheumatologic disease Mother No Known Problems Father No Known Problems Brother No Known Problems Brother No Known Problems Brother Diabetes Maternal Grandmother No Known Problems Paternal Grandmother Heart Paternal Grandfather No Known Problems Daughter No Known Problems Daughter Heart Maternal Uncle Social History Tobacco Use Smoking status: Some Days Current packs/day: 0.00 Average packs/day: 0.3 packs/day for 5.0 years (1.3 ttl pk-yrs) Types: Cigarettes Start date: 09/07/2010 Last attempt to quit: 09/08/2015 Years since quittin.4 Smokeless tobacco: Never Vaping Use Vaping status: Never Used Substance Use Topics Alcohol use: No Drug use: No Objective Physical Exam Vitals and nursing note reviewed. Constitutional: Appearance: Normal appearance. HENT: Mouth/Throat: Mouth: Mucous membranes are moist. Pharynx: Oropharynx is clear. Uvula midline. No oropharyngeal exudate or posterior oropharyngeal erythema. Cardiovascular: Rate and Rhythm: Normal rate and regular rhythm. Heart sounds: Normal heart sounds. Pulmonary: Effort: Pulmonary effort is normal. No respiratory distress. Breath sounds: Normal breath sounds. No wheezing or rales. Abdominal: Tenderness: There is no right CVA tenderness or left CVA tenderness. Musculoskeletal: Cervical back: Neck supple. Lymphadenopathy: Cervical: No cervical adenopathy. Skin: General: Skin is warm and dry. Findings: No erythema or rash. Neurological: Mental Status: She is alert. Office Visit on 02/25/2024 Component Date Value Ref Range Status GLUCOSE UA (POCT) 02/25/2024 Negative Negative mg/dL Final BILIRUBIN UA (POCT) 02/25/2024 Negative Negative Final KETONE UA (POCT) 02/25/2024 Trace Negative mg/dL Final SPECIFIC GRAVITY UA (POCT) 02/25/2024 1.025 1.005 - 1.030 Final HEMOGLOBIN/BLOOD UA (POCT) 02/25/2024 Negative Negative Final PH UA (POCT) 02/25/2024 6.0 4.5 - 8.0 Final PROTEIN UA (POCT) 02/25/2024 Negative Negative mg/dL Final UROBILINOGEN UA (POCT) 02/25/2024 0.2 Normal E.U./dL Final NITRITE UA (POCT) 02/25/2024 Negative Negative Final LEUKOCYTES UA (POCT) 02/25/2024 Negative Negative Final COLOR UA (POCT) 02/25/2024 Dark yellow Final CLARITY UA (POCT) 02/25/2024 Clear Final ASSESSMENT/PLAN: 1. Burning with urination - ICD9: 788.1, ICD10: R30.0 (primary diagnosis) acute - Send urine for culture - UA DIP, URINE (POC) - URINE CULTURE 2. Sore throat - ICD9: 462, ICD10: J02.9 - suspect viral or allergic - Group A strep molecular testing negative - Discussed supportive care treatment with fluids, rest and analgesia. - STREP A MOLECULAR (POC) - Follow-up with your PCP in 3-5 days if symptoms have not improved or sooner if symptoms worsen - Discussed red flags and need for immediate medical evaluation if any occur. - Discussed supportive care treatment with fluids, rest and analgesia. - Discussed expected course of illness Ewelina Juarez APRN.[employer] documented in this encounter [facility] 12-10-2022 Miscellaneous Notes Faxed Received breast pump order from [employer]. To SW to sign. Nirmala Amanda RN documented in this encounter [facility] 12-10-2022 History of Presen t illness Narrative EARLY VISIT Gracy Ann is a 27 year old here for 1 week visit. Delivery Summary: C/S 11/30/2022 ROS: General: Denies any fever or chills Hypertension Screening: Headache? No. Visual Changes? No Epigastric Pain? No Increased Swelling? No Taking any BP medications at home? No If applicable, monitoring BP at home? (If Yes, include results) NA Mood: normal Depression: denies symptoms of depression. OB Depression and Anxiety Screening- This Encounter (since 12/09/2022) Over the past 2 weeks have you felt down, depressed, or hopeless? Negative Over the past two weeks, have you felt little interest or pleasure in doing things? Negative Feeling nervous, anxious or on edge 0-Not at all Not being able to stop or control worrying 0-Not al all Anxiety Pre-Screening Total (If >/= 3 additional questions will be reviewed) 0 Feeding: Breast feeding problems: None Bladder: No dysuria, gross hematuria, urinary frequency, urinary urgency, or incontinence Bowel symptoms: Negative for abdominal discomfort, blood in stools or black stools and change in bowel habits Abdomen: She reports no incisional redness, tenderness, erythema Bleeding: spotting Bottom and Perineum: No issues Sleep: no sleep concerns, feels rested [place] since delivery: Not resumed Emotional support: Yes Exercise: N/A Other issues: None PHYSICAL EXAMINATION: LMP 03/03/2022 (Approximate) General: pleasant,female in no apparent distress, A&O x 3. Skin warm and intact. Breast: Deferred Abdomen: soft, non-tender, and no masses /Incision: No incisional redness, swelling, or drainage Pelvic: Deferred Bimanual: Deferred ASSESSMENT AND PLAN: 27 year old status post CS with normal course. Contraception plan: tubal ligation. Reinforced 6-week pelvic rest. Encouraged condom usage should patient deviate. Education: resources provided - see MA/RN note Follow up: Return to Clinic for 6 week visit and as needed Erika Loya DO documented in this encounter [facility] 12-03-2022 History of Presen t illness Narrative Patient delivered via by Dr. Loya on 11/30/22 at [facility]. See OB history. Peggy Luis RN documented in this encounter [facility] 12-02-2022 Note [facility] Medical Records Department [address] [place] [address] Discharge Summary 12/02/22 1206 MR#: [id number] Acct: [id number] Name: GRACY ANN Rep #: [id number] : 1995 27 From: Erika Loya DO PCP: TAYA Means Status:ADM IN Location: [id number] Providers Date of Admission: 11/30/22 Date of Discharge: 12/02/22 Primary Care Physician: TAYA Means Reason For Visit: C SECTION Diagnosis Discharge Diagnosis (1) Delivery by section: Status: Acute Plan: Patient is postoperative day 2 from a repeat section with sterilization. She desires discharge home. Blood pressures have been normotensive, although last 2 elevated with systolic blood pressure in the 130s to 140s. We will recheck blood pressure prior to discharge. Reviewed discharge instructions. She has follow-up in the office next week. Medications at Discharge Home Medications vits no.126-ferrous fum 28 mg iron-folic acid 800 mcg tablet (Classic ) 1 tab PO DAILY 11/27/22 ferrous sulfate 325 mg (65 mg iron) tablet (iron) 325 mg PO DAILY 11/29/22 docusate sodium 100 mg capsule (Colace) 100 mg PO BID #30 caps 12/02/22 ibuprofen 600 mg tablet 600 mg PO Q6H PRN pain #30 tabs 12/02/22 oxycodone-acetaminophen 5 mg-325 mg tablet (Percocet) 1 tab PO Q6H PRN pain 7 days #10 tabs 12/02/22 Hospital Course Summary of Care Provided Hospital Course: Presented at 38 weeks and 6 days with decreased movement for 1 week and an isolated elevated blood pressure several days ago. She had history of 2 prior C-sections and was for repeat with sterilization. See operative report for details. She underwent a repeat with sterilization. Postoperatively her pain was controlled, she was ambulating voiding without difficulty, lochia normal, and she was breast-feeding. She has follow-up in the office. Weight / BMI Weight Weight: 170 lb Body Mass Index (BMI) 27.8 ABG / Lab / Microbiology Data 12/01/22 06:30 D/C Instructions Discharge Diet: No restrictions May resume sexual activity in: 6 weeks Ice area for (Minutes): 15 Weight Bearing Status: Weight bearing as tolerated Call your doctor if your incision/area has: Continuous Slow Oozing, Sudden Increased Bleeding, Increased Pain/ Swelling, Increased Redness, Foul Smelling Discharge and Swelling at the incision site Call your doctor if you observe: Fever of 101 or Higher, Coldness, Increased Pain, Numbness or Tingling, Change in Color, Inability to urinate, Inability to have a bowel movement, Using more than 1 pad per hour, Shortness of breath, Dizziness, Fainting spells, Swelling in the ankles, Chest pain, Prolonged hiccupping, Increased palpitations (irregular heartbeat), Calf discomfort and Uncontrolled pain Suture Line Care: Avoid Pulling/Pushing and Avoid Pinching/Bending Cleanse incision/area with: Soap Water Please Follow Up With: Erika Loya DO When: 1-2 weeks for incision check and blood pressure check 6 weeks visit Meaningful Use Info Meaningful Use Diagnoses (Choose all that apply): None applicable Discharge Plan Admission Admit Date/Time: 11/30/22 19:34 Primary Reason for Your Visit: delivery Attending Provider: Erika Loya Primary Care Provider: Marlys De Souza Instructions Patient Instructions: After a Discharge Orders/Prescriptions Prescriptions: New oxycodone-acetaminophen [Percocet] 5-325 mg tablet 1 tab PO Q6H PRN (Reason: pain) 7 Days Qty: 10 0RF ibuprofen 600 mg tablet 600 mg PO Q6H PRN (Reason: pain) Qty: 30 0RF docusate sodium [Colace] 100 mg capsule 100 mg PO BID Qty: 30 0RF Continued Classic 28 mg iron- 800 mcg tablet 1 tab PO DAILY ferrous sulfate [iron] 325 mg (65 mg iron) tablet 325 mg PO DAILY Referrals / Follow Up: Marlys De Souza PA [Primary Care Provider] - Disposition Disposition (needs filled in before D/C Order can be placed): Home, Self Care 12/02/22 1207 Cosigner Signature (if applicable): CC: Dr. Erika Loya DO; TAYA Means Signed [facility] 11-30-2022 Miscellaneous Notes Noted thanks 38w6d Pt called and stated that she was in L&D last night d/t decreased FM and pelvic pain. Pt was sent home. She is now stating that she is having bloody show, increased pelvic pain and pressure. Pt is going into L&D to be examined. Angelia Quinones LPN documented in this encounter [facility] 11-28-2022 History of Presen t illness Narrative NST SUMMARY PROVIDER ASSESSMENT AND INTERPRETATION Gracy Ann is a 27 year old female, , who is at 38w4d with an ROSA of 12/08/2022, by Last Menstrual Period dating method. Indications for NST: Other: decreased movemetn Baseline: 135 Variability: Moderate Accelerations: Present 15 X 15 Decelerations: None Contractions: TOCO: None Interpretation: Category I and Reactive SIGNATURE: Zoe Hernández MD documented in this encounter [facility] 11-28-2022 Miscellaneous Notes RR- VB No. LOF No. CTXS No. Movement: decreased last few days, seen for NST last night. Other c/o: denies GARCIA or visual changes Medication list reviewed. BP was mildly elevated last night so returns today for BP check Physical Exam See Flow Sheet Abd: soft, nontender, gravid Ext: edema: Trace A/P 38w4d Estimated Date of Delivery: 12/08/22 Kick counts reviewed, NST today, reactive, category 1 return for BPP tomorrow attempted to move delivery up to this week but no available time slots, if nonreassuring testing will add on but will keep scheduled for 12/04 for now. Zoe Hernández M.D. documented in this encounter [facility] 11-28-2022 Ambar Gaona Ma - 11/28/2022 3:09 PM EDT SEQUENTIAL SCREENINGS The [facility] offers sequential screenings for women who are interested in screenings for chromosomal abnormalities and certain defects during a . The sequential screen combines ultrasound and blood tests to determine the risk of chromosomal abnormalities, including Down's Syndrome (Trisomy 21) and Trisomy 18, as well as open neural tube defects including spina bifida. Ultrasound examination is performed between 11 weeks and 13 weeks gestational age. Blood tests are drawn after the ultrasound and again later in the between 15 and 21 weeks gestational age. Please let your physician know if you are interested in this testing. It will require an appointment with our psychology technician. This is not an ultrasound performed by a physician in our office during a routine visit. SIGNS AND SYMPTOMS OF LABOR 1. Contractions every 10 minutes or more often 2. Clear, pink, or brownish fluid (water) leaking from vagina 3. Feeling that baby is pushing down, pressure 4. Low, dull backache 5. Cramps that feel like a period 6. Cramps with or without diarrhea If you notice any of the above symptoms, contact our office at [phone] and ask to speak with a nurse. After hours, you can call doctors registry at [phone] OR call [facility] at [phone] and ask to have the doctor monotype caster paged. If you consider this an emergency, dial [phone] or go to your nearest emergency department. NEED HELP? Are you dealing with a violent or abusive relationship? Are you a victim of rape or sexual assult? Call [facility] ([place]) 24 hour Crisis Hotline: 633.573.1173 or 861-169-9266. MANUAL Your Guide to a Healthy manual is now on-line. Visit [email or web address] to download your free copy documented in this encounter [facility] 11-27-2022 History and physical note DATE OF SERVICE: November 27, 2022 PROBLEM: 39 week gestation, single IUP, history prior section, request for sterilization PAST SURGICAL HISTORY: PAST SURGICAL HISTORY Procedure Laterality Date DELIVERY ONLY 07/08/14 , low transverse DELIVERY ONLY N/A 04/17/2016 TONSILLECTOMY HX PAST MEDICAL HISTORY: PAST MEDICAL HISTORY Diagnosis Date Anemia Cervicitis 05/26/2013 Possible PID Depression, major, single episode, mild (HCC) Herpes simplex without mention of complication History of section 09/15/2015 09/15/2015Pt had a previous C section. She desires a repeat C section by Dr Campoverde.TKRN History of cesearan section, patient counseled on trial of labor versus repeat cesearan section. Risks/benefits/alternatives discussed with patient regarding trial of labor and potential for uterine rupture. Risks include but are not limited to maternal hemorrhage, risk of injury to adjacent organs includ History of depression 09/15/2015 09/15/2015 Pt has a history of depression diagnosed 2 years ago. She has been off medication for 1 year . Discussed increased risks of depression during and and importance of reporting the development or worsening of symptoms should they occur.Pt denies ever having any suicidal thoughts or tendencies or thoughts of hurting others.TKRN History of prior with IUGR 09/15/2015 09/15/2015Patient is complaining of nausea in . Advised patient to call/come in if she is unable to keep any food or fluids down in a 24-hour period. TKRN Nausea/vomiting in 09/15/2015 09/15/2015Patient is complaining of nausea in . Advised patient to call/come in if she is unable to keep any food or fluids down in a 24-hour period. 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 Some congestion and fatigue. Starting URI. No fevers, chills, SOB, CP. No known sick contacts. No ctx, vb, lof. Good FM. No GARCIA or vision changes. SOCIAL HISTORY: Social History Tobacco Use Smoking status: Some Days Packs/day: 0.25 Years: 5.00 Total pack years: 1.25 Types: Cigarettes Last attempt to quit: 09/08/2015 Years since quittin.2 Smokeless tobacco: Never Vaping Use Vaping Use: Never used Substance Use Topics Alcohol use: No Drug use: No ALLERGIES No Known Allergies Current Outpatient Medications on File Prior to Visit Medication Sig ferrous sulfate (IRON) 325 mg (65 mg iron) tablet Take 1 tablet by mouth every other day. PNV No.40-Iron Fum-FA Cmb No.1 (PNV-SELECT) 27-1 mg tab Take 1 tablet by mouth once daily. ondansetron (ZOFRAN) 4 mg tablet Take 1 tablet by mouth every 8 hours as needed for nausea/vomiting. doxylamine 25 mg tab Take by mouth. pyridoxine, vitamin B6, (VITAMIN B-6) 50 mg tablet Take 1 tablet by mouth twice daily. No current facility-administered medications on file prior to visit. OBJECTIVE: VITALS: BP 120/80 Wt 170 lb 9.6 oz (77.4 kg) LMP 03/03/2022 (Within Days) BMI 27.96 kg/m HEENT: Normocephalic, atraumatic, Mucus membranes moist without lesions. SKIN: No lesions. CHEST: Good air exchange. HEART: Regular rate and rhythm. BACK: Nontender. ABDOMEN: Soft, non-tender, non-distended, no masses, no hepatosplenomegaly. LOWER EXTREMITIES: +Edema of bilateral LE's. ASSESSMENT: repeat C/S with sterilization PLAN: 1) Discussed repeat section with tubal sterilization in detail. The rationale for the proposed surgery was discussed in addition to risks, benefits, and alternatives. General pre- and post-operative care was reviewed. Questions were answered. After discussion, the patient indicated a desire to proceed with the planned surgery. Erika Loya DO documented in this encounter [facility] 11-27-2022 History of Presen t illness Narrative NST SUMMARY PROVIDER ASSESSMENT AND INTERPRETATION Gracy Ann is a 27 year old female, , who is at 38w3d with an ROSA of 12/08/2022, by Last Menstrual Period dating method. Indications for NST: H/o IUGR Baseline: 135 Variability: Moderate Accelerations: Present 15 X 15 Decelerations: None Contractions: TOCO: None Interpretation: Reactive SIGNATURE: Erika Loya DO documented in this encounter [facility] 11-27-2022 Miscellaneous Notes SW- Pre op visit today. documented in this encounter [facility] 11-26-2022 Instructions Kindra Meier MA - 11/26/2022 2:21 PM EDT SEQUENTIAL SCREENINGS The [facility] offers sequential screenings for women who are interested in screenings for chromosomal abnormalities and certain defects during a . The sequential screen combines ultrasound and blood tests to determine the risk of chromosomal abnormalities, including Down's Syndrome (Trisomy 21) and Trisomy 18, as well as open neural tube defects including spina bifida. Ultrasound examination is performed between 11 weeks and 13 weeks gestational age. Blood tests are drawn after the ultrasound and again later in the between 15 and 21 weeks gestational age. Please let your physician know if you are interested in this testing. It will require an appointment with our psychology technician. This is not an ultrasound performed by a physician in our office during a routine visit. SIGNS AND SYMPTOMS OF LABOR 1. Contractions every 10 minutes or more often 2. Clear, pink, or brownish fluid (water) leaking from vagina 3. Feeling that baby is pushing down, pressure 4. Low, dull backache 5. Cramps that feel like a period 6. Cramps with or without diarrhea If you notice any of the above symptoms, contact our office at [phone] and ask to speak with a nurse. After hours, you can call doctors registry at [phone] OR call [facility] at [phone] and ask to have the doctor monotype caster paged. If you consider this an emergency, dial 9-5 or go to your nearest emergency department. NEED HELP? Are you dealing with a violent or abusive relationship? Are you a victim of rape or sexual assult? Call [facility] 24 hour Crisis Hotline: 607.510.6097 or 571-829-1670. MANUAL Your Guide to a Healthy manual is now on-line. Visit [email or web address] to download your free copy documented in this encounter [facility] 11-26-2022 Miscellaneous Notes SW- pt doing well and offers no complaints. No pain, ctx, GARCIA, vision changes, vb, lof. Good FM PE: Gen- NAD, well appearing Abd- Soft, gravid, NT, +FHT See flowsheet A/p 37 wk gestation - Anemia: Cont iron. Repeat Hgb 10.8 - MOD: Repeat C/S scheduled - Labor precautions reviewed - RTO 1 wk for pre op Erika Loya DO documented in this encounter [facility] 11-22-2022 Instructions Kindra Meier MA - 11/22/2022 11:02 AM EDT SEQUENTIAL SCREENINGS The [facility] offers sequential screenings for women who are interested in screenings for chromosomal abnormalities and certain defects during a . The sequential screen combines ultrasound and blood tests to determine the risk of chromosomal abnormalities, including Down's Syndrome (Trisomy 21) and Trisomy 18, as well as open neural tube defects including spina bifida. Ultrasound examination is performed between 11 weeks and 13 weeks gestational age. Blood tests are drawn after the ultrasound and again later in the between 15 and 21 weeks gestational age. Please let your physician know if you are interested in this testing. It will require an appointment with our psychology technician. This is not an ultrasound performed by a physician in our office during a routine visit. SIGNS AND SYMPTOMS OF LABOR 1. Contractions every 10 minutes or more often 2. Clear, pink, or brownish fluid (water) leaking from vagina 3. Feeling that baby is pushing down, pressure 4. Low, dull backache 5. Cramps that feel like a period 6. Cramps with or without diarrhea If you notice any of the above symptoms, contact our office at [phone] and ask to speak with a nurse. After hours, you can call doctors registry at [phone] OR call [facility] at [phone] and ask to have the doctor monotype caster paged. If you consider this an emergency, dial -[phone] or go to your nearest emergency department. NEED HELP? Are you dealing with a violent or abusive relationship? Are you a victim of rape or sexual assult? Call [facility] ([place]) 24 hour Crisis Hotline: 100.393.9694 or 386-195-8487. MANUAL Your Guide to a Healthy manual is now on-line. Visit [email or web address] to download your free copy documented in this encounter [facility] 11-15-2022 History of Presen t illness Narrative Patient identified by name and date of . Gracy Ann presents today for a vaccination of Tdap. Patient denies an allergy to latex: yes Patient denies a severe (life-threatening) allergy to a previous dose of Tdap, DTP, DTaP, DT or Td vaccine. Yes Patient denies history of epilepsy or neurological problems: Yes Patient is afebrile and denies being moderately or severely ill: Yes Patient denies history of Guillain-Callaway Syndrome (a severe paralytic illness): Yes Tdap Adacel injection was given without incident. See immunizations for details of immunizations administered today. VIS sheet provided: Yes Provider Erika Loya DO was present in office at time of injection. Kindra Meier MA documented in this encounter [facility] 11-15-2022 Miscellaneous Notes SW- Pt doing well. No GARCIA, vision changes, RUQ pain, ctx, vb, lof. Good FM. LE swelling bilaterally PE: Gen- NAD, well appearing Abd- Soft, gravid, NT Ext- 1+ pitting edema of bilateral LE's See flowsheet A/p 36 wk gestation - Swelling: No evidence of DVT or pre e at this time. Discussed leg elevation, hydration, compression socks - IUGR on prior ultrasounds: Normal growth on most recent ultrasounds - Tdap given today - GBS completed - MOD: Repeat C/S with sterilization Erika Loya DO documented in this encounter [facility] 11-15-2022 Instructions Kindra Meier MA - 11/15/2022 10:31 AM EDT SEQUENTIAL SCREENINGS The [facility] offers sequential screenings for women who are interested in screenings for chromosomal abnormalities and certain defects during a . The sequential screen combines ultrasound and blood tests to determine the risk of chromosomal abnormalities, including Down's Syndrome (Trisomy 21) and Trisomy 18, as well as open neural tube defects including spina bifida. Ultrasound examination is performed between 11 weeks and 13 weeks gestational age. Blood tests are drawn after the ultrasound and again later in the between 15 and 21 weeks gestational age. Please let your physician know if you are interested in this testing. It will require an appointment with our psychology technician. This is not an ultrasound performed by a physician in our office during a routine visit. SIGNS AND SYMPTOMS OF LABOR 1. Contractions every 10 minutes or more often 2. Clear, pink, or brownish fluid (water) leaking from vagina 3. Feeling that baby is pushing down, pressure 4. Low, dull backache 5. Cramps that feel like a period 6. Cramps with or without diarrhea If you notice any of the above symptoms, contact our office at [phone] and ask to speak with a nurse. After hours, you can call doctors registry at [phone] OR call [facility] at [phone] and ask to have the doctor monotype caster paged. If you consider this an emergency, dial 4-6-7 or go to your nearest emergency department. NEED HELP? Are you dealing with a violent or abusive relationship? Are you a victim of rape or sexual assult? Call [facility] ([place]) 24 hour Crisis Hotline: 991.330.8231 or 145-076-9215. MANUAL Your Guide to a Healthy manual is now on-line. Visit [email or web address] to download your free copy documented in this encounter [facility] 11-05-2022 History of Presen t illness Narrative NST SUMMARY PROVIDER ASSESSMENT AND INTERPRETATION Gracy Ann is a 27 year old female, , who is at 35w2d with an ROSA of 12/08/2022, by Last Menstrual Period dating method. Indications for NST: IUGR Baseline: 125 Variability: Moderate Accelerations: Present 15 X 15 Decelerations: None Contractions: TOCO: Irregular Interpretation: Category I and Reactive SIGNATURE: Keshia Barrera MD documented in this encounter [facility] 11-05-2022 Miscellaneous Notes NST only documented in this encounter [facility] 11-05-2022 Instructions Aury Cai Ma 11/05/2022 11:13 AM EDT SEQUENTIAL SCREENINGS The [facility] offers sequential screenings for women who are interested in screenings for chromosomal abnormalities and certain defects during a . The sequential screen combines ultrasound and blood tests to determine the risk of chromosomal abnormalities, including Down's Syndrome (Trisomy 21) and Trisomy 18, as well as open neural tube defects including spina bifida. Ultrasound examination is performed between 11 weeks and 13 weeks gestational age. Blood tests are drawn after the ultrasound and again later in the between 15 and 21 weeks gestational age. Please let your physician know if you are interested in this testing. It will require an appointment with our psychology technician. This is not an ultrasound performed by a physician in our office during a routine visit. SIGNS AND SYMPTOMS OF LABOR 1. Contractions every 10 minutes or more often 2. Clear, pink, or brownish fluid (water) leaking from vagina 3. Feeling that baby is pushing down, pressure 4. Low, dull backache 5. Cramps that feel like a period 6. Cramps with or without diarrhea If you notice any of the above symptoms, contact our office at [phone] and ask to speak with a nurse. After hours, you can call doctors registry at [phone] OR call [facility] at [phone] and ask to have the doctor monotype caster paged. If you consider this an emergency, dial or go to your nearest emergency department. NEED HELP? Are you dealing with a violent or abusive relationship? Are you a victim of rape or sexual assult? Call [facility] ([place]) 24 hour Crisis Hotline: 937.443.2181 or 067-540-2559. MANUAL Your Guide to a Healthy manual is now on-line. Visit [email or web address] to download your free copy documented in this encounter [facility] 11-01-2022 Miscellaneous Notes SW- Pt doing well. No ctx, pain, vb, lof. Good FM. No GARCIA or vision changes PE: Gen- NAD, well appearing Abd- Soft, gravid See flowsheet A/p 34 wk gestation - Ultrasound today and BPP 11/27 - final report pending - IUGR: Cont twice weekly antepartum testing - Anemia: Cont iron. Check CBC around 36 week - Declines tdap today - Rto for 36 week visit Erika Loya DO documented in this encounter [facility] 11-01-2022 Instructions Aury Cai Ma - 11/01/2022 1:08 PM EDT SEQUENTIAL SCREENINGS The [facility] offers sequential screenings for women who are interested in screenings for chromosomal abnormalities and certain defects during a . The sequential screen combines ultrasound and blood tests to determine the risk of chromosomal abnormalities, including Down's Syndrome (Trisomy 21) and Trisomy 18, as well as open neural tube defects including spina bifida. Ultrasound examination is performed between 11 weeks and 13 weeks gestational age. Blood tests are drawn after the ultrasound and again later in the between 15 and 21 weeks gestational age. Please let your physician know if you are interested in this testing. It will require an appointment with our psychology technician. This is not an ultrasound performed by a physician in our office during a routine visit. SIGNS AND SYMPTOMS OF LABOR 1. Contractions every 10 minutes or more often 2. Clear, pink, or brownish fluid (water) leaking from vagina 3. Feeling that baby is pushing down, pressure 4. Low, dull backache 5. Cramps that feel like a period 6. Cramps with or without diarrhea If you notice any of the above symptoms, contact our office at [phone] and ask to speak with a nurse. After hours, you can call doctors registry at [phone] OR call [facility] at [phone] and ask to have the doctor monotype caster paged. If you consider this an emergency, dial 9-1-1 or go to your nearest emergency department. NEED HELP? Are you dealing with a violent or abusive relationship? Are you a victim of rape or sexual assult? Call [facility] ([place]) 24 hour Crisis Hotline: 459.756.5459 or 389-500-0424. MANUAL Your Guide to a Healthy manual is now on-line. Visit [email or web address] to download your free copy documented in this encounter [facility] 10-29-2022 History of Presen t illness Narrative NST SUMMARY PROVIDER ASSESSMENT AND INTERPRETATION Gracy Ann is a 27 year old female, , who is at 34w2d with an ROSA of 12/08/2022, by Last Menstrual Period dating method. Indications for NST: IUGR Baseline: 130 Variability: Moderate Accelerations: Present 15 X 15 Decelerations: None Contractions: TOCO: None Interpretation: Category I and Reactive audible hiccups SIGNATURE: Zoe Hernández MD documented in this encounter [facility] 10-29-2022 Miscellaneous Notes RR- VB No. LOF No. CTXS No. Movement: present. Other c/o: No. Medication list reviewed. Physical Exam See Flow Sheet Abd: soft, nontender, gravid Ext: edema: 1+ A/P 34w2d Estimated Date of Delivery: 12/08/22 IUGR, NSt today cont testing as scheduled vomited w/ 3hr, passed first 2 values, declines repeat anemia improved, cont. Fe. desires tdap next visit, not today, order in. Zoe Hernández M.D. documented in this encounter [facility] 10-25-2022 Miscellaneous Notes Done Ceci Baker MD 33w5d Patient vomited during 3 hour GTT test today. Only had 2 levels drawn. Please file order so patient can retry a different day. Peggy Luis RN documented in this encounter [facility] 10-22-2022 History of Presen t illness Narrative NST SUMMARY PROVIDER ASSESSMENT AND INTERPRETATION Gracy Ann is a 27 year old female, , who is at 33w2d with an ROSA of 12/08/2022, by Last Menstrual Period dating method. Indications for NST: IUGR Baseline: 130 Variability: Moderate Accelerations: Present 15 X 15 Decelerations: None Contractions: TOCO: None Interpretation: Reactive SIGNATURE: Erika Loya DO documented in this encounter [facility] 10-22-2022 Miscellaneous Notes SW- NST only. documented in this encounter [facility] 10-22-2022 Instructions Kindra Meier MA - 10/22/2022 3:46 PM EDT SEQUENTIAL SCREENINGS The [facility] offers sequential screenings for women who are interested in screenings for chromosomal abnormalities and certain defects during a . The sequential screen combines ultrasound and blood tests to determine the risk of chromosomal abnormalities, including Down's Syndrome (Trisomy 21) and Trisomy 18, as well as open neural tube defects including spina bifida. Ultrasound examination is performed between 11 weeks and 13 weeks gestational age. Blood tests are drawn after the ultrasound and again later in the between 15 and 21 weeks gestational age. Please let your physician know if you are interested in this testing. It will require an appointment with our psychology technician. This is not an ultrasound performed by a physician in our office during a routine visit. SIGNS AND SYMPTOMS OF LABOR 1. Contractions every 10 minutes or more often 2. Clear, pink, or brownish fluid (water) leaking from vagina 3. Feeling that baby is pushing down, pressure 4. Low, dull backache 5. Cramps that feel like a period 6. Cramps with or without diarrhea If you notice any of the above symptoms, contact our office at [phone] and ask to speak with a nurse. After hours, you can call doctors registry at [phone] OR call [facility] at [phone] and ask to have the doctor monotype caster paged. If you consider this an emergency, dial 9-1-7 or go to your nearest emergency department. NEED HELP? Are you dealing with a violent or abusive relationship? Are you a victim of rape or sexual assult? Call [facility] ([place]) 24 hour Crisis Hotline: 312.594.9490 or 479-884-3738. MANUAL Your Guide to a Healthy manual is now on-line. Visit [email or web address] to download your free copy documented in this encounter [facility] 10-18-2022 Miscellaneous Notes SW- Pt doing well. No ctx, vb, lof. Good FM. Having carpal tunnel syndrome PE: Gen- NAD well appearing Abd- Soft, gravid Ext- No edema See flowsheet A/p 32 wk gestation - Growth US today. Final report pending. Per pt baby measuring smaller. Ordered growth to be recheck in 4 weeks. Await final report - Anemia: Has not started iron yet as has not been ready at pharmacy. She will try again today. Repeat CBC ordered - 3 hour GTT tomorrow - RTO 2 wks Erika Loya DO documented in this encounter [facility] 10-18-2022 Instructions Kindra Meier MA - 10/18/2022 2:16 PM EDT SEQUENTIAL SCREENINGS The [facility] offers sequential screenings for women who are interested in screenings for chromosomal abnormalities and certain defects during a . The sequential screen combines ultrasound and blood tests to determine the risk of chromosomal abnormalities, including Down's Syndrome (Trisomy 21) and Trisomy 18, as well as open neural tube defects including spina bifida. Ultrasound examination is performed between 11 weeks and 13 weeks gestational age. Blood tests are drawn after the ultrasound and again later in the between 15 and 21 weeks gestational age. Please let your physician know if you are interested in this testing. It will require an appointment with our psychology technician. This is not an ultrasound performed by a physician in our office during a routine visit. SIGNS AND SYMPTOMS OF LABOR 1. Contractions every 10 minutes or more often 2. Clear, pink, or brownish fluid (water) leaking from vagina 3. Feeling that baby is pushing down, pressure 4. Low, dull backache 5. Cramps that feel like a period 6. Cramps with or without diarrhea If you notice any of the above symptoms, contact our office at [phone] and ask to speak with a nurse. After hours, you can call doctors registry at [phone] OR call [facility] at [phone] and ask to have the doctor monotype caster paged. If you consider this an emergency, dial 9-1-3 or go to your nearest emergency department. NEED HELP? Are you dealing with a violent or abusive relationship? Are you a victim of rape or sexual assult? Call [facility] ([place]) 24 hour Crisis Hotline: 441.939.6315 or 868-706-1892. MANUAL Your Guide to a Healthy manual is now on-line. Visit [email or web address] to download your free copy documented in this encounter [facility] 10-04-2022 Miscellaneous Notes SW- pt doing well. No ctx, pain, vb, lof, GARCIA, vision changes. Good FM PE: Gen- NAD, well appearing Abd- Soft, gravid, NT Ext- No edema See flowsheet A/p 30 wk gestation - Anemia: Starting iron today. Reviewed proper use of iron supplement. CBC in 4 weeks - Growth US @ 32 wks - RTO 2 wks for US and visit after Erika Loya DO documented in this encounter [facility] 10-04-2022 Instructions Kindra Meier MA - 10/04/2022 4:33 PM EDT SEQUENTIAL SCREENINGS The [facility] offers sequential screenings for women who are interested in screenings for chromosomal abnormalities and certain defects during a . The sequential screen combines ultrasound and blood tests to determine the risk of chromosomal abnormalities, including Down's Syndrome (Trisomy 21) and Trisomy 18, as well as open neural tube defects including spina bifida. Ultrasound examination is performed between 11 weeks and 13 weeks gestational age. Blood tests are drawn after the ultrasound and again later in the between 15 and 21 weeks gestational age. Please let your physician know if you are interested in this testing. It will require an appointment with our psychology technician. This is not an ultrasound performed by a physician in our office during a routine visit. SIGNS AND SYMPTOMS OF LABOR 1. Contractions every 10 minutes or more often 2. Clear, pink, or brownish fluid (water) leaking from vagina 3. Feeling that baby is pushing down, pressure 4. Low, dull backache 5. Cramps that feel like a period 6. Cramps with or without diarrhea If you notice any of the above symptoms, contact our office at [phone] and ask to speak with a nurse. After hours, you can call doctors registry at [phone] OR call [facility] at [phone] and ask to have the doctor monotype caster paged. If you consider this an emergency, dial 9--1 or go to your nearest emergency department. NEED HELP? Are you dealing with a violent or abusive relationship? Are you a victim of rape or sexual assult? Call [facility] ([place]) 24 hour Crisis Hotline: 831.602.9967 or 289-722-1137. MANUAL Your Guide to a Healthy manual is now on-line. Visit [email or web address] to download your free copy documented in this encounter [facility] 09-21-2022 Miscellaneous Notes Done Ceci Baker MD Patient notified and will have to call back to schedule to lab appointment. Please file gtt order. Patient requesting Rx for iron. ----- Message from Ceci Baker MD sent at 09/21/2022 10:23 AM EDT ----- Needs 3hr GTT Needs iron every other day with OJ Ceci Baker MD documented in this encounter [facility] 09-19-2022 Miscellaneous Notes RR- VB No. LOF No. CTXS No. Movement: present. Other c/o: No. Medication list reviewed. Physical Exam See Flow Sheet Abd: soft, nontender, gravid Ext: edema: Trace A/P 28w4d Estimated Date of Delivery: 12/08/22 Labs: 28 week labs recommended tdap, considering, reeval next appointment declines LARC f/u in 2 weeks or prn plans repeat c/s and likely tubal. Zoe Hernández M.D. documented in this encounter [facility] 09-19-2022 Josue Busch Ma - 09/19/2022 11:03 AM EDT SEQUENTIAL SCREENINGS The [facility] offers sequential screenings for women who are interested in screenings for chromosomal abnormalities and certain defects during a . The sequential screen combines ultrasound and blood tests to determine the risk of chromosomal abnormalities, including Down's Syndrome (Trisomy 21) and Trisomy 18, as well as open neural tube defects including spina bifida. Ultrasound examination is performed between 11 weeks and 13 weeks gestational age. Blood tests are drawn after the ultrasound and again later in the between 15 and 21 weeks gestational age. Please let your physician know if you are interested in this testing. It will require an appointment with our psychology technician. This is not an ultrasound performed by a physician in our office during a routine visit. SIGNS AND SYMPTOMS OF LABOR 1. Contractions every 10 minutes or more often 2. Clear, pink, or brownish fluid (water) leaking from vagina 3. Feeling that baby is pushing down, pressure 4. Low, dull backache 5. Cramps that feel like a period 6. Cramps with or without diarrhea If you notice any of the above symptoms, contact our office at [phone] and ask to speak with a nurse. After hours, you can call doctors registry at [phone] OR call [facility] at [phone] and ask to have the doctor monotype caster paged. If you consider this an emergency, dial 2-1-9 or go to your nearest emergency department. NEED HELP? Are you dealing with a violent or abusive relationship? Are you a victim of rape or sexual assult? Call [facility] ([place]) 24 hour Crisis Hotline: 526.288.2044 or 786-671-3100. MANUAL Your Guide to a Healthy manual is now on-line. Visit [email or web address] to download your free copy documented in this encounter [facility] 08-23-2022 Miscellaneous Notes KJ - VB No. LOF No. CTXS No. Movement: present. Other c/o: No. Medication list reviewed. Physical Exam See Flow Sheet Gen: no accute distress, well appearing Abd: soft, nontender, gravid A/P 24w5d Estimated Date of Delivery: 12/08/22 28wk labs ordered MOD - repeat with tubal sterilization Title 19 papers signed today PTL precautions reviewed, Kick counts reviewed. Ceci Baker MD documented in this encounter [facility] 08-23-2022 Instructions Leonor Bettencourt Nj - 08/23/2022 11:57 AM EDT SEQUENTIAL SCREENINGS The [facility] offers sequential screenings for women who are interested in screenings for chromosomal abnormalities and certain defects during a . The sequential screen combines ultrasound and blood tests to determine the risk of chromosomal abnormalities, including Down's Syndrome (Trisomy 21) and Trisomy 18, as well as open neural tube defects including spina bifida. Ultrasound examination is performed between 11 weeks and 13 weeks gestational age. Blood tests are drawn after the ultrasound and again later in the between 15 and 21 weeks gestational age. Please let your physician know if you are interested in this testing. It will require an appointment with our psychology technician. This is not an ultrasound performed by a physician in our office during a routine visit. SIGNS AND SYMPTOMS OF LABOR 1. Contractions every 10 minutes or more often 2. Clear, pink, or brownish fluid (water) leaking from vagina 3. Feeling that baby is pushing down, pressure 4. Low, dull backache 5. Cramps that feel like a period 6. Cramps with or without diarrhea If you notice any of the above symptoms, contact our office at [phone] and ask to speak with a nurse. After hours, you can call doctors registry at [phone] OR call [facility] at [phone] and ask to have the doctor monotype caster paged. If you consider this an emergency, dial 1--3 or go to your nearest emergency department. NEED HELP? Are you dealing with a violent or abusive relationship? Are you a victim of rape or sexual assult? Call [facility] ([place]) 24 hour Crisis Hotline: 148.286.2962 or 688-976-7027. MANUAL Your Guide to a Healthy manual is now on-line. Visit [email or web address] to download your free copy documented in this encounter [facility] 07-23-2022 Miscellaneous Notes RR- VB No. LOF No. CTXS No. Movement: present. Other c/o: No. Figured out edema she had was from the tomato soup and sodium she injested Medication list reviewed. Physical Exam See Flow Sheet Abd: soft, nontender, gravid Ext: edema: no A/P 20w2d Estimated Date of Delivery: 12/08/22 Anatomy US pending today AFP reviewed f/u in 4 weeks or prn. Zoe Hernández M.D. documented in this encounter [facility] 07-23-2022 Josue Busch Ma - 07/23/2022 2:27 PM EDT SEQUENTIAL SCREENINGS The [facility] offers sequential screenings for women who are interested in screenings for chromosomal abnormalities and certain defects during a . The sequential screen combines ultrasound and blood tests to determine the risk of chromosomal abnormalities, including Down's Syndrome (Trisomy 21) and Trisomy 18, as well as open neural tube defects including spina bifida. Ultrasound examination is performed between 11 weeks and 13 weeks gestational age. Blood tests are drawn after the ultrasound and again later in the between 15 and 21 weeks gestational age. Please let your physician know if you are interested in this testing. It will require an appointment with our psychology technician. This is not an ultrasound performed by a physician in our office during a routine visit. SIGNS AND SYMPTOMS OF LABOR 1. Contractions every 10 minutes or more often 2. Clear, pink, or brownish fluid (water) leaking from vagina 3. Feeling that baby is pushing down, pressure 4. Low, dull backache 5. Cramps that feel like a period 6. Cramps with or without diarrhea If you notice any of the above symptoms, contact our office at [phone] and ask to speak with a nurse. After hours, you can call doctors registry at [phone] OR call [facility] at [phone] and ask to have the doctor monotype caster paged. If you consider this an emergency, dial 9-2-8 or go to your nearest emergency department. NEED HELP? Are you dealing with a violent or abusive relationship? Are you a victim of rape or sexual assult? Call [facility] ([place]) 24 hour Crisis Hotline: 709.935.8997 or 457-837-4614. MANUAL Your Guide to a Healthy manual is now on-line. Visit [email or web address] to download your free copy documented in this encounter [facility] 07-11-2022 Miscellaneous Notes RR- VB No. LOF No. CTXS No. Movement: present. Other c/o: nasuea and vomiting and diarrhea for several days. Feels like she had the same thing 2 weeks ago, lasted a day or two. Denies others being sick in the household. No fever that she knows of but feels chilled at times. Some LE edema after being up. Some GARCIA but hasn't been able to take tylenol b/c of the nausea. Is able to urinate small amounts. Medication list reviewed. Physical Exam See Flow Sheet Abd: soft, nontender, gravid Ext: edema: Trace A/P 18w4d Estimated Date of Delivery: 12/08/22 n/v- seems to be related to gastroenteritis, seems to be getting better. Can try culturelle and will give antiemetics. Ate a BLT today and kept it down so far. Trial of zofrana dn if not feeling better and not able to hydrate then will send to infusion center in am. Schedule for IVF and IV antiemetics, if worsens tonight then to the ED. Edema- limit sodium and push fluids and get support stockings anatomy US scheduled Zoe Hernández M.D. documented in this encounter [facility] 07-11-2022 Instructions Ambar Busch Ma - 07/11/2022 2:58 PM EDT SEQUENTIAL SCREENINGS The [facility] offers sequential screenings for women who are interested in screenings for chromosomal abnormalities and certain defects during a . The sequential screen combines ultrasound and blood tests to determine the risk of chromosomal abnormalities, including Down's Syndrome (Trisomy 21) and Trisomy 18, as well as open neural tube defects including spina bifida. Ultrasound examination is performed between 11 weeks and 13 weeks gestational age. Blood tests are drawn after the ultrasound and again later in the between 15 and 21 weeks gestational age. Please let your physician know if you are interested in this testing. It will require an appointment with our psychology technician. This is not an ultrasound performed by a physician in our office during a routine visit. SIGNS AND SYMPTOMS OF LABOR 1. Contractions every 10 minutes or more often 2. Clear, pink, or brownish fluid (water) leaking from vagina 3. Feeling that baby is pushing down, pressure 4. Low, dull backache 5. Cramps that feel like a period 6. Cramps with or without diarrhea If you notice any of the above symptoms, contact our office at [phone] and ask to speak with a nurse. After hours, you can call doctors registry at [phone] OR call [facility] at [phone] and ask to have the doctor monotype caster paged. If you consider this an emergency, dial 7-5-6 or go to your nearest emergency department. NEED HELP? Are you dealing with a violent or abusive relationship? Are you a victim of rape or sexual assult? Call [facility] ([place]) 24 hour Crisis Hotline: 869.444.5727 or 911-784-2802. MANUAL Your Guide to a Healthy manual is now on-line. Visit [email or web address] to download your free copy documented in this encounter [facility] 07-10-2022 Miscellaneous Notes Patient notified. Declined Reglan and appointment for today. Wants to see RR tomorrow. Appointment scheduled. She will call back and/or go to ER if she develops any worsening symptoms prior to appointment. Peggy Luis RN I am very sorry to hear all of this and that she is feeling worse. The headaches are common in . I would recommend she rest her stomach and stick to liquids and soft foods. Can send in preglan to help nausea and GARCIA also if needed. The edema, there is not much to do for this except limit sodium and drink water, wear compression stockings and elevate them when she can. If she feels she is dehydrated she can go to ED for IVF and antiemetics. I can work her in tomorrow if she would like to be seen. If she has multiple issues and can't see Dr. Baker today she may have to go to ED as I do not have any appointment openings. SWould be ok to add on to end of CP day as well since she doesn't have anyone in labor. Thanks. Zoe Hernández MD Patient notified of the below recommendations. Patient voiced her frustrations and not satisfied with the response. Vomited 3-4 times today. She was able to keep food/fluids down yesterday. Denies GARCIA today. Encouraged patient to call with worsening symptoms. Patient feels that her symptoms can't be much worse. Offered patient an appointment with KJ this afternoon. Patient declined. States she does not want to see KJ. Would like RR to address her concerns. Please advise if you would please. Nirmala Amanda RN Noted. Please discuss methods to improve swelling. If has a persistent or severe headache should seek medical attention. She can take tylenol & use caffeine as needed for headahces. Ceci Baker MD 18w3d Pt is calling and stated that she started with pitting edema in bilateral feet extending up to the ankle. Pt stated that she had been up and about as per usual and noticed that she had a tingling sensation in her toes and feet. She is also reporting that when sitting she does elevate feet to assist in decreasing swelling. Pt states that her feet do improve at night when sleeping but quickly swell again once she is up and about. 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 She states that she has not been wearing support stockings but is planning on going today to purchase some. She also reports that she has been getting headaches frequently, Tylenol has been fairly effective in relieving the pain. Reporting an average of 3-4 headaches per week. Encouraged to continue encouraging fluids. Pt denies any ringing in ears, SOB, chest pain. Please advise how to proceed from here. Angelia Quinones LPN documented in this encounter [facility] 06-27-2022 Miscellaneous Notes RR- VB No. LOF No. CTXS No. Movement: maybe some. Other c/o: occ GARCIA. Nausea improving Medication list reviewed. Physical Exam See Flow Sheet Abd: soft, nontender, gravid Ext: edema: no A/P 16w4d Estimated Date of Delivery: 12/08/22 Labs: AFP today Anatomy US ordered. nausea improving. F/u in 4 weeks or prn cont. PNV Quit tob, encouragement given Zoe Hernández M.D. documented in this encounter [facility] 06-27-2022 Instructions Ambar Busch Ma - 06/27/2022 10:15 AM EST SEQUENTIAL SCREENINGS The [facility] offers sequential screenings for women who are interested in screenings for chromosomal abnormalities and certain defects during a . The sequential screen combines ultrasound and blood tests to determine the risk of chromosomal abnormalities, including Down's Syndrome (Trisomy 21) and Trisomy 18, as well as open neural tube defects including spina bifida. Ultrasound examination is performed between 11 weeks and 13 weeks gestational age. Blood tests are drawn after the ultrasound and again later in the between 15 and 21 weeks gestational age. Please let your physician know if you are interested in this testing. It will require an appointment with our psychology technician. This is not an ultrasound performed by a physician in our office during a routine visit. SIGNS AND SYMPTOMS OF LABOR 1. Contractions every 10 minutes or more often 2. Clear, pink, or brownish fluid (water) leaking from vagina 3. Feeling that baby is pushing down, pressure 4. Low, dull backache 5. Cramps that feel like a period 6. Cramps with or without diarrhea If you notice any of the above symptoms, contact our office at [phone] and ask to speak with a nurse. After hours, you can call doctors registry at [phone] OR call [facility] at [phone] and ask to have the doctor monotype caster paged. If you consider this an emergency, dial 9-9-4 or go to your nearest emergency department. NEED HELP? Are you dealing with a violent or abusive relationship? Are you a victim of rape or sexual assult? Call [facility] ([place]) 24 hour Crisis Hotline: 991.703.5553 or 563-009-8833. MANUAL Your Guide to a Healthy manual is now on-line. Visit [email or web address] to download your free copy documented in this encounter [facility] 06-07-2022 Miscellaneous Notes Called Gracy Ann and left message for patient on identified voicemail. Gracy Ann was informed of negative Non-Invasive Testing (NIPT) results for Trisomy 21, Trisomy 18 and Trisomy 13. Patient was also notified of the result of no sex chromosome aneuploidy detected. Patient instructed to call the office back if she wishes to know reported sex. Reviewed on identified voicemail that NIPT is considered screening and not diagnostic, so this result greatly reduces, but does not eliminate the chance that the fetus could have trisomy 21, trisomy 18, trisomy 13 or sex chromosome aneuploidy. Gracy Ann instructed to call office if she has questions. Patient advised to follow up with AFP neural tube defect screening (blood draw) at 16-18 weeks gestation and 18-20 week detailed anatomy ultrasound. Also instructed to follow-up with Primary OB Provider. Mitzi Daugherty MA documented in this encounter [facility] 05-30-2022 Miscellaneous Notes order placed. Thanks. Zoe Hernández MD Patient in office and requesting [id number] here for First Trimester Screening. See ultrasound report for details. Options for genetic screening and diagnosis discussed with the patient. Patient opts for first trimester screening and the sequential screening protocol. Limitations of screening tests discussed with the patient. Zoe Hernández MD documented in this encounter [facility] 05-30-2022 Instructions Ekta Lisa RN - 05/30/2022 11:22 AM EST SEQUENTIAL TESTING PROCESS Sequential Screen First Trimester Today you are currently: 12w4d weeks 05/30/2022: Ultrasound and blood test. Sequential Screen Second Trimester (16-17 Weeks Gestation) When you are called with your results, the nurse will give the optimal draw dates for the Sequential screen second trimester. Blood testing can be done at any [facility] lab. Please report to the any stockroom associate office bowling or skating front desk clerk for the Sequential Part 2 requisition and order before reporting to the lab. Your weight will need to be documented for testing. Please note: -No appointment is need for your second blood draw. -Office hours are 8 am to 4:30 pm. -Please have testing done prior to 12 noon on Saturday's -Once the sequential testing is started, in the first trimester the only follow-up will be for the sequential screen second trimester. Please don't have a Quad screen ordered by another provider. If you or your Provider have any questions please call your maternal medicine office, for east side please call [phone] or for the West side call [phone] and ask for the the nurse. Thank you. documented in this encounter [facility] 05-25-2022 Miscellaneous Notes PRALisa complete Adwoa Lopez RN documented in this encounter [facility] 05-24-2022 History of Past i llness Narrative Problem Noted Date Resolved Date Patient request for diagnostic testing 3 06/27/2022 Overview: 05/24/2022 Patient desires aneuploidy screening. Contact information for integrated genetics sent to patient to check on insurance coverage. Patient declines genetic carrier screening testing.Ekta Lisa RN History of section 09/15/201512/22 Overview: 09/15/2015Pt had a previous C section. She desires a repeat C section by Dr Campoverde.TKRN History of cesearan section, patient counseled on trial of labor versus repeat cesearan section. Risks/benefits/alternatives discussed with patient regarding trial of labor and potential for uterine rupture. Risks include but are not limited to maternal hemorrhage, risk of injury to adjacent organs including potential hysterectomy. risks discussed as well, including potential for permanent neurologic injury or . Overall uterine rupture risk is less than 1% after one section. Is a trial of labor contraindicated for this patient? 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 She has been off medication for 1 year . Discussed increased risks of depression during and and importance of reporting the development or worsening of symptoms should they occur.Pt denies ever having any suicidal thoughts or tendencies or thoughts of hurting others.TKRN History of prior with IUGR 01/09/2019 Overview: 09/15/2015Patient is complaining of nausea in . Advised patient to call/come in if she is unable to keep any food or fluids down in a 24-hour period. TKRN Rubella non-immune status, antepartum 12/11/2013 09/15/2015 Hx of herpes genitalis 12/07/2013 6 Overview: Prophylaxis at 36 weeks Primigravida in first trimester 12/07/2013 09/15/2015 Cervicitis 05/26/2013 01/09/2019 Overview: Possible PID documented as of this encounter (statuses as of 06/27/2022) [facility] History of Past illness Narrative* Problem Noted Date Resolved Date Patient request for diagnostic testing 3 06/27/2022 Overview: 05/24/2022 Patient desires aneuploidy screening. Contact information for integrated genetics sent to patient to check on insurance coverage. Patient declines genetic carrier screening testing.Ekta Lisa RN History of section 09/15/201512/22 Overview: 09/15/2015Pt had a previous C section. She desires a repeat C section by Dr Campoverde.TKRN History of cesearan section, patient counseled on trial of labor versus repeat cesearan section. Risks/benefits/alternatives discussed with patient regarding trial of labor and potential for uterine rupture. Risks include but are not limited to maternal hemorrhage, risk of injury to adjacent organs including potential hysterectomy. risks discussed as well, including potential for permanent neurologic injury or . Overall uterine rupture risk is less than 1% after one section. Is a trial of labor contraindicated for this patient? 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 She has been off medication for 1 year . Discussed increased risks of depression during and and importance of reporting the development or worsening of symptoms should they occur.Pt denies ever having any suicidal thoughts or tendencies or thoughts of hurting others.TKRN History of prior with IUGR 01/09/2019 Overview: 09/15/2015Patient is complaining of nausea in . Advised patient to call/come in if she is unable to keep any food or fluids down in a 24-hour period. TKRN Rubella non-immune status, antepartum 12/11/2013 09/15/2015 Hx of herpes genitalis 12/07/2013 6 Overview: Prophylaxis at 36 weeks Primigravida in first trimester 12/07/2013 09/15/2015 Cervicitis 05/26/2013 01/09/2019 Overview: Possible PID documented as of this encounter (statuses as of 07/10/2022) [facility]02-02-2023 History of Past illness Narrative* Problem Noted Date Resolved Date Patient request for diagnostic testing 3 06/27/2022 Overview: 05/24/2022 Patient desires aneuploidy screening. Contact information for [facility] sent to patient to check on insurance coverage. Patient declines genetic carrier screening testing.Ekta Lisa RN History of section 09/15/201512/22 Overview: 09/15/2015Pt had a previous C section. She desires a repeat C section by Dr Campoverde.TKRN History of cesearan section, patient counseled on trial of labor versus repeat cesearan section. Risks/benefits/alternatives discussed with patient regarding trial of labor and potential for uterine rupture. Risks include but are not limited to maternal hemorrhage, risk of injury to adjacent organs including potential hysterectomy. risks discussed as well, including potential for permanent neurologic injury or . Overall uterine rupture risk is less than 1% after one section. Is a trial of labor contraindicated for this patient? 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 She has been off medication for 1 year . Discussed increased risks of depression during and and importance of reporting the development or worsening of symptoms should they occur.Pt denies ever having any suicidal thoughts or tendencies or thoughts of hurting others.TKRN History of prior with IUGR 01/09/2019 Overview: 09/15/2015Patient is complaining of nausea in . Advised patient to call/come in if she is unable to keep any food or fluids down in a 24-hour period. TKRN Rubella non-immune status, antepartum 12/11/2013 09/15/2015 Hx of herpes genitalis 12/07/2013 6 Overview: Prophylaxis at 36 weeks Primigravida in first trimester 12/07/2013 09/15/2015 Cervicitis 05/26/2013 01/09/2019 Overview: Possible PID documented as of this encounter (statuses as of 07/11/2022) [facility]02-02-2023 History of Past illness Narrative* Problem Noted Date Resolved Date Patient request for diagnostic testing 3 06/27/2022 Overview: 05/24/2022 Patient desires aneuploidy screening. Contact information for integrated genetics sent to patient to check on insurance coverage. Patient declines genetic carrier screening testing.Ekta Lisa RN History of section 09/15/201512/22 Overview: 09/15/2015Pt had a previous C section. She desires a repeat C section by Dr Campoverde.TKRN History of cesearan section, patient counseled on trial of labor versus repeat cesearan section. Risks/benefits/alternatives discussed with patient regarding trial of labor and potential for uterine rupture. Risks include but are not limited to maternal hemorrhage, risk of injury to adjacent organs including potential hysterectomy. risks discussed as well, including potential for permanent neurologic injury or . Overall uterine rupture risk is less than 1% after one section. Is a trial of labor contraindicated for this patient? 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 She has been off medication for 1 year . Discussed increased risks of depression during and and importance of reporting the development or worsening of symptoms should they occur.Pt denies ever having any suicidal thoughts or tendencies or thoughts of hurting others.TKRN History of prior with IUGR 01/09/2019 Overview: 09/15/2015Patient is complaining of nausea in . Advised patient to call/come in if she is unable to keep any food or fluids down in a 24-hour period. TKRN Rubella non-immune status, antepartum 12/11/2013 09/15/2015 Hx of herpes genitalis 12/07/2013 6 Overview: Prophylaxis at 36 weeks Primigravida in first trimester 12/07/2013 09/15/2015 Cervicitis 05/26/2013 01/09/2019 Overview: Possible PID documented as of this encounter (statuses as of 07/24/2022) [facility]02-02-2023 History of Past illness Narrative* Problem Noted Date Resolved Date Patient request for diagnostic testing 3 06/27/2022 Overview: 05/24/2022 Patient desires aneuploidy screening. Contact information for integrated [facility] sent to patient to check on insurance coverage. Patient declines genetic carrier screening testing.Ekta Lisa RN History of section 09/15/201512/22 Overview: 09/15/2015Pt had a previous C section. She desires a repeat C section by Dr Campoverde.TKRN History of cesearan section, patient counseled on trial of labor versus repeat cesearan section. Risks/benefits/alternatives discussed with patient regarding trial of labor and potential for uterine rupture. Risks include but are not limited to maternal hemorrhage, risk of injury to adjacent organs including potential hysterectomy. risks discussed as well, including potential for permanent neurologic injury or . Overall uterine rupture risk is less than 1% after one section. Is a trial of labor contraindicated for this patient? 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 She has been off medication for 1 year . Discussed increased risks of depression during and and importance of reporting the development or worsening of symptoms should they occur.Pt denies ever having any suicidal thoughts or tendencies or thoughts of hurting others.TKRN History of prior with IUGR 01/09/2019 Overview: 09/15/2015Patient is complaining of nausea in . Advised patient to call/come in if she is unable to keep any food or fluids down in a 24-hour period. TKRN Rubella non-immune status, antepartum 12/11/2013 09/15/2015 Hx of herpes genitalis 12/07/2013 6 Overview: Prophylaxis at 36 weeks Primigravida in first trimester 12/07/2013 09/15/2015 Cervicitis 05/26/2013 01/09/2019 Overview: Possible PID documented as of this encounter (statuses as of 07/24/2022) [facility]02-02-2023 History of Past illness Narrative* Problem Noted Date Resolved Date Patient request for diagnostic testing 3 06/27/2022 Overview: 05/24/2022 Patient desires aneuploidy screening. Contact information for integrated genetics sent to patient to check on insurance coverage. Patient declines genetic carrier screening testing.Ekta Lisa RN History of section 09/15/201512/22 Overview: 09/15/2015Pt had a previous C section. She desires a repeat C section by Dr Campoverde.TKRN History of cesearan section, patient counseled on trial of labor versus repeat cesearan section. Risks/benefits/alternatives discussed with patient regarding trial of labor and potential for uterine rupture. Risks include but are not limited to maternal hemorrhage, risk of injury to adjacent organs including potential hysterectomy. risks discussed as well, including potential for permanent neurologic injury or . Overall uterine rupture risk is less than 1% after one section. Is a trial of labor contraindicated for this patient? 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 She has been off medication for 1 year . Discussed increased risks of depression during and and importance of reporting the development or worsening of symptoms should they occur.Pt denies ever having any suicidal thoughts or tendencies or thoughts of hurting others.TKRN History of prior with IUGR 01/09/2019 Overview: 09/15/2015Patient is complaining of nausea in . Advised patient to call/come in if she is unable to keep any food or fluids down in a 24-hour period. TKRN Rubella non-immune status, antepartum 12/11/2013 09/15/2015 Hx of herpes genitalis 12/07/2013 6 Overview: Prophylaxis at 36 weeks Primigravida in first trimester 12/07/2013 09/15/2015 Cervicitis 05/26/2013 01/09/2019 Overview: Possible PID documented as of this encounter (statuses as of 08/23/2022) [facility]02-02-2023 History of Past illness Narrative* Problem Noted Date Resolved Date Patient request for diagnostic testing 3 06/27/2022 Overview: 05/24/2022 Patient desires aneuploidy screening. Contact information for integrated [facility] sent to patient to check on insurance coverage. Patient declines genetic carrier screening testing.Ekta Lisa RN History of section 09/15/201512/22 Overview: 09/15/2015Pt had a previous C section. She desires a repeat C section by Dr Campoverde.TKRN History of cesearan section, patient counseled on trial of labor versus repeat cesearan section. Risks/benefits/alternatives discussed with patient regarding trial of labor and potential for uterine rupture. Risks include but are not limited to maternal hemorrhage, risk of injury to adjacent organs including potential hysterectomy. risks discussed as well, including potential for permanent neurologic injury or . Overall uterine rupture risk is less than 1% after one section. Is a trial of labor contraindicated for this patient? 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 She has been off medication for 1 year . Discussed increased risks of depression during and and importance of reporting the development or worsening of symptoms should they occur.Pt denies ever having any suicidal thoughts or tendencies or thoughts of hurting others.TKRN History of prior with IUGR 01/09/2019 Overview: 09/15/2015Patient is complaining of nausea in . Advised patient to call/come in if she is unable to keep any food or fluids down in a 24-hour period. TKRN Rubella non-immune status, antepartum 12/11/2013 09/15/2015 Hx of herpes genitalis 12/07/2013 6 Overview: Prophylaxis at 36 weeks Primigravida in first trimester 12/07/2013 09/15/2015 Cervicitis 05/26/2013 01/09/2019 Overview: Possible PID documented as of this encounter (statuses as of 09/19/2022) [facility]02-02-2023 History of Past illness Narrative* Problem Noted Date Resolved Date Patient request for diagnostic testing 3 06/27/2022 Overview: 05/24/2022 Patient desires aneuploidy screening. Contact information for [facility] sent to patient to check on insurance coverage. Patient declines genetic carrier screening testing.Ekta Lisa RN History of section 09/15/201512/22 Overview: 09/15/2015Pt had a previous C section. She desires a repeat C section by Dr Campoverde.TKRN History of cesearan section, patient counseled on trial of labor versus repeat cesearan section. Risks/benefits/alternatives discussed with patient regarding trial of labor and potential for uterine rupture. Risks include but are not limited to maternal hemorrhage, risk of injury to adjacent organs including potential hysterectomy. risks discussed as well, including potential for permanent neurologic injury or . Overall uterine rupture risk is less than 1% after one section. Is a trial of labor contraindicated for this patient? 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 She has been off medication for 1 year . Discussed increased risks of depression during and and importance of reporting the development or worsening of symptoms should they occur.Pt denies ever having any suicidal thoughts or tendencies or thoughts of hurting others.TKRN History of prior with IUGR 01/09/2019 Overview: 09/15/2015Patient is complaining of nausea in . Advised patient to call/come in if she is unable to keep any food or fluids down in a 24-hour period. TKRN Rubella non-immune status, antepartum 12/11/2013 09/15/2015 Hx of herpes genitalis 12/07/2013 6 Overview: Prophylaxis at 36 weeks Primigravida in first trimester 12/07/2013 09/15/2015 Cervicitis 05/26/2013 01/09/2019 Overview: Possible PID documented as of this encounter (statuses as of 09/21/2022) [facility]02-02-2023 History of Past illness Narrative* Problem Noted Date Resolved Date Patient request for diagnostic testing 3 06/27/2022 Overview: 05/24/2022 Patient desires aneuploidy screening. Contact information for integrated [facility] sent to patient to check on insurance coverage. Patient declines genetic carrier screening testing.Ekta Lisa RN History of section 09/15/201512/22 Overview: 09/15/2015Pt had a previous C section. She desires a repeat C section by Dr Campoverde.TKRN History of cesearan section, patient counseled on trial of labor versus repeat cesearan section. Risks/benefits/alternatives discussed with patient regarding trial of labor and potential for uterine rupture. Risks include but are not limited to maternal hemorrhage, risk of injury to adjacent organs including potential hysterectomy. risks discussed as well, including potential for permanent neurologic injury or . Overall uterine rupture risk is less than 1% after one section. Is a trial of labor contraindicated for this patient? 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 She has been off medication for 1 year . Discussed increased risks of depression during and and importance of reporting the development or worsening of symptoms should they occur.Pt denies ever having any suicidal thoughts or tendencies or thoughts of hurting others.TKRN History of prior with IUGR 01/09/2019 Overview: 09/15/2015Patient is complaining of nausea in . Advised patient to call/come in if she is unable to keep any food or fluids down in a 24-hour period. TKRN Rubella non-immune status, antepartum 12/11/2013 09/15/2015 Hx of herpes genitalis 12/07/2013 6 Overview: Prophylaxis at 36 weeks Primigravida in first trimester 12/07/2013 09/15/2015 Cervicitis 05/26/2013 01/09/2019 Overview: Possible PID documented as of this encounter (statuses as of 10/05/2022) [facility]02-02-2023 History of Past illness Narrative* Problem Noted Date Resolved Date Patient request for diagnostic testing 3 06/27/2022 Overview: 05/24/2022 Patient desires aneuploidy screening. Contact information for [facility] sent to patient to check on insurance coverage. Patient declines genetic carrier screening testing.Ekta Lisa RN History of section 09/15/201512/22 Overview: 09/15/2015Pt had a previous C section. She desires a repeat C section by Dr Campoverde.TKRN History of cesearan section, patient counseled on trial of labor versus repeat cesearan section. Risks/benefits/alternatives discussed with patient regarding trial of labor and potential for uterine rupture. Risks include but are not limited to maternal hemorrhage, risk of injury to adjacent organs including potential hysterectomy. risks discussed as well, including potential for permanent neurologic injury or . Overall uterine rupture risk is less than 1% after one section. Is a trial of labor contraindicated for this patient? 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 She has been off medication for 1 year . Discussed increased risks of depression during and and importance of reporting the development or worsening of symptoms should they occur.Pt denies ever having any suicidal thoughts or tendencies or thoughts of hurting others.TKRN History of prior with IUGR 01/09/2019 Overview: 09/15/2015Patient is complaining of nausea in . Advised patient to call/come in if she is unable to keep any food or fluids down in a 24-hour period. TKRN Rubella non-immune status, antepartum 12/11/2013 09/15/2015 Hx of herpes genitalis 12/07/2013 6 Overview: Prophylaxis at 36 weeks Primigravida in first trimester 12/07/2013 09/15/2015 Cervicitis 05/26/2013 01/09/2019 Overview: Possible PID documented as of this encounter (statuses as of 10/19/2022) [facility]02-02-2023 History of Past illness Narrative* Problem Noted Date Resolved Date Patient request for diagnostic testing 3 06/27/2022 Overview: 05/24/2022 Patient desires aneuploidy screening. Contact information for [facility] sent to patient to check on insurance coverage. Patient declines genetic carrier screening testing.Ekta Lisa RN History of section 09/15/201512/22 Overview: 09/15/2015Pt had a previous C section. She desires a repeat C section by Dr Campoverde.TKRN History of cesearan section, patient counseled on trial of labor versus repeat cesearan section. Risks/benefits/alternatives discussed with patient regarding trial of labor and potential for uterine rupture. Risks include but are not limited to maternal hemorrhage, risk of injury to adjacent organs including potential hysterectomy. risks discussed as well, including potential for permanent neurologic injury or . Overall uterine rupture risk is less than 1% after one section. Is a trial of labor contraindicated for this patient? 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 She has been off medication for 1 year . Discussed increased risks of depression during and and importance of reporting the development or worsening of symptoms should they occur.Pt denies ever having any suicidal thoughts or tendencies or thoughts of hurting others.TKRN History of prior with IUGR 01/09/2019 Overview: 09/15/2015Patient is complaining of nausea in . Advised patient to call/come in if she is unable to keep any food or fluids down in a 24-hour period. TKRN Rubella non-immune status, antepartum 12/11/2013 09/15/2015 Hx of herpes genitalis 12/07/2013 6 Overview: Prophylaxis at 36 weeks Primigravida in first trimester 12/07/2013 09/15/2015 Cervicitis 05/26/2013 01/09/2019 Overview: Possible PID documented as of this encounter (statuses as of 10/19/2022) [facility]02-[facility]-2023 History of Past illness Narrative* Problem Noted Date Resolved Date Patient request for diagnostic testing 3 06/27/2022 Overview: 05/24/2022 Patient desires aneuploidy screening. Contact information for [facility] sent to patient to check on insurance coverage. Patient declines genetic carrier screening testing.Ekta Lisa RN History of section 09/15/201512/22 Overview: 09/15/2015Pt had a previous C section. She desires a repeat C section by Dr Campoverde.TKRN History of cesearan section, patient counseled on trial of labor versus repeat cesearan section. Risks/benefits/alternatives discussed with patient regarding trial of labor and potential for uterine rupture. Risks include but are not limited to maternal hemorrhage, risk of injury to adjacent organs including potential hysterectomy. risks discussed as well, including potential for permanent neurologic injury or . Overall uterine rupture risk is less than 1% after one section. Is a trial of labor contraindicated for this patient? 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 She has been off medication for 1 year . Discussed increased risks of depression during and and importance of reporting the development or worsening of symptoms should they occur.Pt denies ever having any suicidal thoughts or tendencies or thoughts of hurting others.TKRN History of prior with IUGR 01/09/2019 Overview: 09/15/2015Patient is complaining of nausea in . Advised patient to call/come in if she is unable to keep any food or fluids down in a 24-hour period. TKRN Rubella non-immune status, antepartum 12/11/2013 09/15/2015 Hx of herpes genitalis 12/07/2013 6 Overview: Prophylaxis at 36 weeks Primigravida in first trimester 12/07/2013 09/15/2015 Cervicitis 05/26/2013 01/09/2019 Overview: Possible PID documented as of this encounter (statuses as of 10/23/2022) [facility]02-02-2023 History of Past illness Narrative* Problem Noted Date Resolved Date Patient request for diagnostic testing 3 06/27/2022 Overview: 05/24/2022 Patient desires aneuploidy screening. Contact information for integrated genetics sent to patient to check on insurance coverage. Patient declines genetic carrier screening testing.Ekta Lisa RN History of section 09/15/201512/22 Overview: 09/15/2015Pt had a previous C section. She desires a repeat C section by Dr Campoverde.TKRN History of cesearan section, patient counseled on trial of labor versus repeat cesearan section. Risks/benefits/alternatives discussed with patient regarding trial of labor and potential for uterine rupture. Risks include but are not limited to maternal hemorrhage, risk of injury to adjacent organs including potential hysterectomy. risks discussed as well, including potential for permanent neurologic injury or . Overall uterine rupture risk is less than 1% after one section. Is a trial of labor contraindicated for this patient? 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 She has been off medication for 1 year . Discussed increased risks of depression during and and importance of reporting the development or worsening of symptoms should they occur.Pt denies ever having any suicidal thoughts or tendencies or thoughts of hurting others.TKRN History of prior with IUGR 01/09/2019 Overview: 09/15/2015Patient is complaining of nausea in . Advised patient to call/come in if she is unable to keep any food or fluids down in a 24-hour period. TKRN Rubella non-immune status, antepartum 12/11/2013 09/15/2015 Hx of herpes genitalis 12/07/2013 6 Overview: Prophylaxis at 36 weeks Primigravida in first trimester 12/07/2013 09/15/2015 Cervicitis 05/26/2013 01/09/2019 Overview: Possible PID documented as of this encounter (statuses as of 10/26/2022) [facility]02-02-2023 History of Past illness Narrative* Problem Noted Date Diagnosed Date Resolved Date Patient request for diagnostic testing 05/24/2022 06/27/2022 Overview: 05/24/2022 Patient desires aneuploidy screening. Contact information for integrated genetics sent to patient to check on insurance coverage. Patient declines genetic carrier screening testing.Ekta Lisa RN History of section 09/15/2015 01/09/2019 Overview: 09/15/2015Pt had a previous C section. She desires a repeat C section by Dr Campoverde.TKRN History of cesearan section, patient counseled on trial of labor versus repeat cesearan section. Risks/benefits/alternatives discussed with patient regarding trial of labor and potential for uterine rupture. Risks include but are not limited to maternal hemorrhage, risk of injury to adjacent organs including potential hysterectomy. risks discussed as well, including potential for permanent neurologic injury or . Overall uterine rupture risk is less than 1% after one section. Is a trial of labor contraindicated for this patient? 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 She has been off medication for 1 year . Discussed increased risks of depression during and and importance of reporting the development or worsening of symptoms should they occur.Pt denies ever having any suicidal thoughts or tendencies or thoughts of hurting others.TKRN History of prior with IUGR 6 01/09/2019 Overview: 09/15/2015Patient is complaining of nausea in . Advised patient to call/come in if she is unable to keep any food or fluids down in a 24-hour period. TKRN Rubella non-immune status, antepartum 12/11/2013 09/15/2015 Hx of herpes genitalis 12/07/201309/14 Overview: Prophylaxis at 36 weeks Primigravida in first trimester 12/07/2013 09/15/2015 Cervicitis 05/26/2013 01/09/2019 Overview: Possible PID documented as of this encounter (statuses as of 10/30/2022) [facility]02-02-2023 History of Past illness Narrative* Problem Noted Date Diagnosed Date Resolved Date Patient request for diagnostic testing 05/24/2022 06/27/2022 Overview: 05/24/2022 Patient desires aneuploidy screening. Contact information for [facility] sent to patient to check on insurance coverage. Patient declines genetic carrier screening testing.Ekta Lisa RN History of section 09/15/2015 01/09/2019 Overview: 09/15/2015Pt had a previous C section. She desires a repeat C section by Dr Campoverde.TKRN History of cesearan section, patient counseled on trial of labor versus repeat cesearan section. Risks/benefits/alternatives discussed with patient regarding trial of labor and potential for uterine rupture. Risks include but are not limited to maternal hemorrhage, risk of injury to adjacent organs including potential hysterectomy. risks discussed as well, including potential for permanent neurologic injury or . Overall uterine rupture risk is less than 1% after one section. Is a trial of labor contraindicated for this patient? 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 She has been off medication for 1 year . Discussed increased risks of depression during and and importance of reporting the development or worsening of symptoms should they occur.Pt denies ever having any suicidal thoughts or tendencies or thoughts of hurting others.TKRN History of prior with IUGR 6 01/09/2019 Overview: 09/15/2015Patient is complaining of nausea in . Advised patient to call/come in if she is unable to keep any food or fluids down in a 24-hour period. TKRN Rubella non-immune status, antepartum 12/11/2013 09/15/2015 Hx of herpes genitalis 12/07/201309/14 Overview: Prophylaxis at 36 weeks Primigravida in first trimester 12/07/2013 09/15/2015 Cervicitis 05/26/2013 01/09/2019 Overview: Possible PID documented as of this encounter (statuses as of 11/01/2022) [facility]02-02-2023 History of Past illness Narrative* Problem Noted Date Diagnosed Date Resolved Date Patient request for diagnostic testing 05/24/2022 06/27/2022 Overview: 05/24/2022 Patient desires aneuploidy screening. Contact information for integrated [facility] sent to patient to check on insurance coverage. Patient declines genetic carrier screening testing.Ekta Lisa RN History of section 09/15/2015 01/09/2019 Overview: 09/15/2015Pt had a previous C section. She desires a repeat C section by Dr Campoverde.TKRN History of cesearan section, patient counseled on trial of labor versus repeat cesearan section. Risks/benefits/alternatives discussed with patient regarding trial of labor and potential for uterine rupture. Risks include but are not limited to maternal hemorrhage, risk of injury to adjacent organs including potential hysterectomy. risks discussed as well, including potential for permanent neurologic injury or . Overall uterine rupture risk is less than 1% after one section. Is a trial of labor contraindicated for this patient? 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 She has been off medication for 1 year . Discussed increased risks of depression during and and importance of reporting the development or worsening of symptoms should they occur.Pt denies ever having any suicidal thoughts or tendencies or thoughts of hurting others.TKRN History of prior with IUGR 6 01/09/2019 Overview: 09/15/2015Patient is complaining of nausea in . Advised patient to call/come in if she is unable to keep any food or fluids down in a 24-hour period. TKRN Rubella non-immune status, antepartum 12/11/2013 09/15/2015 Hx of herpes genitalis 12/07/201309/14 Overview: Prophylaxis at 36 weeks Primigravida in first trimester 12/07/2013 09/15/2015 Cervicitis 05/26/2013 01/09/2019 Overview: Possible PID documented as of this encounter (statuses as of 11/02/2022) [facility]02-02-2023 History of Past illness Narrative* Problem Noted Date Diagnosed Date Resolved Date Patient request for diagnostic testing 05/24/2022 06/27/2022 Overview: 05/24/2022 Patient desires aneuploidy screening. Contact information for integrated [facility] sent to patient to check on insurance coverage. Patient declines genetic carrier screening testing.Ekta Lisa RN History of section 09/15/2015 01/09/2019 Overview: 09/15/2015Pt had a previous C section. She desires a repeat C section by Dr Campoverde.TKRN History of cesearan section, patient counseled on trial of labor versus repeat cesearan section. Risks/benefits/alternatives discussed with patient regarding trial of labor and potential for uterine rupture. Risks include but are not limited to maternal hemorrhage, risk of injury to adjacent organs including potential hysterectomy. risks discussed as well, including potential for permanent neurologic injury or . Overall uterine rupture risk is less than 1% after one section. Is a trial of labor contraindicated for this patient? 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 She has been off medication for 1 year . Discussed increased risks of depression during and and importance of reporting the development or worsening of symptoms should they occur.Pt denies ever having any suicidal thoughts or tendencies or thoughts of hurting others.TKRN History of prior with IUGR 6 01/09/2019 Overview: 09/15/2015Patient is complaining of nausea in . Advised patient to call/come in if she is unable to keep any food or fluids down in a 24-hour period. TKRN Rubella non-immune status, antepartum 12/11/2013 09/15/2015 Hx of herpes genitalis 12/07/201309/14 Overview: Prophylaxis at 36 weeks Primigravida in first trimester 12/07/2013 09/15/2015 Cervicitis 05/26/2013 01/09/2019 Overview: Possible PID documented as of this encounter (statuses as of 11/05/2022) [facility]02-02-2023 History of Past illness Narrative* Problem Noted Date Diagnosed Date Resolved Date Patient request for diagnostic testing 05/24/2022 06/27/2022 Overview: 05/24/2022 Patient desires aneuploidy screening. Contact information for integrated genetics sent to patient to check on insurance coverage. Patient declines genetic carrier screening testing.Ekta Lisa RN History of section 09/15/2015 01/09/2019 Overview: 09/15/2015Pt had a previous C section. She desires a repeat C section by Dr Campoverde.TKRN History of cesearan section, patient counseled on trial of labor versus repeat cesearan section. Risks/benefits/alternatives discussed with patient regarding trial of labor and potential for uterine rupture. Risks include but are not limited to maternal hemorrhage, risk of injury to adjacent organs including potential hysterectomy. risks discussed as well, including potential for permanent neurologic injury or . Overall uterine rupture risk is less than 1% after one section. Is a trial of labor contraindicated for this patient? 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 She has been off medication for 1 year . Discussed increased risks of depression during and and importance of reporting the development or worsening of symptoms should they occur.Pt denies ever having any suicidal thoughts or tendencies or thoughts of hurting others.TKRN History of prior with IUGR 6 01/09/2019 Overview: 09/15/2015Patient is complaining of nausea in . Advised patient to call/come in if she is unable to keep any food or fluids down in a 24-hour period. TKRN Rubella non-immune status, antepartum 12/11/2013 09/15/2015 Hx of herpes genitalis 12/07/201309/14 Overview: Prophylaxis at 36 weeks Primigravida in first trimester 12/07/2013 09/15/2015 Cervicitis 05/26/2013 01/09/2019 Overview: Possible PID documented as of this encounter (statuses as of 11/08/2022) [facility]02-02-2023 History of Past illness Narrative* Problem Noted Date Diagnosed Date Resolved Date Patient request for diagnostic testing 05/24/2022 06/27/2022 Overview: 05/24/2022 Patient desires aneuploidy screening. Contact information for integrated genetics sent to patient to check on insurance coverage. Patient declines genetic carrier screening testing.Ekta Lisa RN History of section 09/15/2015 01/09/2019 Overview: 09/15/2015Pt had a previous C section. She desires a repeat C section by Dr Campoverde.TKRN History of cesearan section, patient counseled on trial of labor versus repeat cesearan section. Risks/benefits/alternatives discussed with patient regarding trial of labor and potential for uterine rupture. Risks include but are not limited to maternal hemorrhage, risk of injury to adjacent organs including potential hysterectomy. risks discussed as well, including potential for permanent neurologic injury or . Overall uterine rupture risk is less than 1% after one section. Is a trial of labor contraindicated for this patient? 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 She has been off medication for 1 year . Discussed increased risks of depression during and and importance of reporting the development or worsening of symptoms should they occur.Pt denies ever having any suicidal thoughts or tendencies or thoughts of hurting others.TKRN History of prior with IUGR 6 01/09/2019 Overview: 09/15/2015Patient is complaining of nausea in . Advised patient to call/come in if she is unable to keep any food or fluids down in a 24-hour period. TKRN Rubella non-immune status, antepartum 12/11/2013 09/15/2015 Hx of herpes genitalis 12/07/201309/14 Overview: Prophylaxis at 36 weeks Primigravida in first trimester 12/07/2013 09/15/2015 Cervicitis 05/26/2013 01/09/2019 Overview: Possible PID documented as of this encounter (statuses as of 11/15/2022) [facility]02-02-2023 History of Past illness Narrative* Problem Noted Date Diagnosed Date Resolved Date Patient request for diagnostic testing 05/24/2022 06/27/2022 Overview: 05/24/2022 Patient desires aneuploidy screening. Contact information for [facility] sent to patient to check on insurance coverage. Patient declines genetic carrier screening testing.Ekta Lisa RN History of section 09/15/2015 01/09/2019 Overview: 09/15/2015Pt had a previous C section. She desires a repeat C section by Dr Campoverde.TKRN History of cesearan section, patient counseled on trial of labor versus repeat cesearan section. Risks/benefits/alternatives discussed with patient regarding trial of labor and potential for uterine rupture. Risks include but are not limited to maternal hemorrhage, risk of injury to adjacent organs including potential hysterectomy. risks discussed as well, including potential for permanent neurologic injury or . Overall uterine rupture risk is less than 1% after one section. Is a trial of labor contraindicated for this patient? 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 She has been off medication for 1 year . Discussed increased risks of depression during and and importance of reporting the development or worsening of symptoms should they occur.Pt denies ever having any suicidal thoughts or tendencies or thoughts of hurting others.TKRN History of prior with IUGR 6 01/09/2019 Overview: 09/15/2015Patient is complaining of nausea in . Advised patient to call/come in if she is unable to keep any food or fluids down in a 24-hour period. TKRN Rubella non-immune status, antepartum 12/11/2013 09/15/2015 Hx of herpes genitalis 12/07/201309/14 Overview: Prophylaxis at 36 weeks Primigravida in first trimester 12/07/2013 09/15/2015 Cervicitis 05/26/2013 01/09/2019 Overview: Possible PID documented as of this encounter (statuses as of 11/26/2022) [facility]02-02-2023 History of Past illness Narrative* Problem Noted Date Diagnosed Date Resolved Date Patient request for diagnostic testing 05/24/2022 06/27/2022 Overview: 05/24/2022 Patient desires aneuploidy screening. Contact information for [facility] sent to patient to check on insurance coverage. Patient declines genetic carrier screening testing.Ekta Lsia RN History of section 09/15/2015 01/09/2019 Overview: 09/15/2015Pt had a previous C section. She desires a repeat C section by Dr Campoverde.TKRN History of cesearan section, patient counseled on trial of labor versus repeat cesearan section. Risks/benefits/alternatives discussed with patient regarding trial of labor and potential for uterine rupture. Risks include but are not limited to maternal hemorrhage, risk of injury to adjacent organs including potential hysterectomy. risks discussed as well, including potential for permanent neurologic injury or . Overall uterine rupture risk is less than 1% after one section. Is a trial of labor contraindicated for this patient? 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 She has been off medication for 1 year . Discussed increased risks of depression during and and importance of reporting the development or worsening of symptoms should they occur.Pt denies ever having any suicidal thoughts or tendencies or thoughts of hurting others.TKRN History of prior with IUGR 6 01/09/2019 Overview: 09/15/2015Patient is complaining of nausea in . Advised patient to call/come in if she is unable to keep any food or fluids down in a 24-hour period. TKRN Rubella non-immune status, antepartum 12/11/2013 09/15/2015 Hx of herpes genitalis 12/07/201309/14 Overview: Prophylaxis at 36 weeks Primigravida in first trimester 12/07/2013 09/15/2015 Cervicitis 05/26/2013 01/09/2019 Overview: Possible PID documented as of this encounter (statuses as of 11/28/2022) [facility]02-02-2023 History of Past illness Narrative* Problem Noted Date Diagnosed Date Resolved Date Patient request for diagnostic testing 05/24/2022 06/27/2022 Overview: 05/24/2022 Patient desires aneuploidy screening. Contact information for [facility] sent to patient to check on insurance coverage. Patient declines genetic carrier screening testing.Ekta Lisa RN History of section 09/15/2015 01/09/2019 Overview: 09/15/2015Pt had a previous C section. She desires a repeat C section by Dr Campoverde.TKRN History of cesearan section, patient counseled on trial of labor versus repeat cesearan section. Risks/benefits/alternatives discussed with patient regarding trial of labor and potential for uterine rupture. Risks include but are not limited to maternal hemorrhage, risk of injury to adjacent organs including potential hysterectomy. risks discussed as well, including potential for permanent neurologic injury or . Overall uterine rupture risk is less than 1% after one section. Is a trial of labor contraindicated for this patient? 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 She has been off medication for 1 year . Discussed increased risks of depression during and and importance of reporting the development or worsening of symptoms should they occur.Pt denies ever having any suicidal thoughts or tendencies or thoughts of hurting others.TKRN History of prior with IUGR 6 01/09/2019 Overview: 09/15/2015Patient is complaining of nausea in . Advised patient to call/come in if she is unable to keep any food or fluids down in a 24-hour period. TKRN Rubella non-immune status, antepartum 12/11/2013 09/15/2015 Hx of herpes genitalis 12/07/201309/14 Overview: Prophylaxis at 36 weeks Primigravida in first trimester 12/07/2013 09/15/2015 Cervicitis 05/26/2013 01/09/2019 Overview: Possible PID documented as of this encounter (statuses as of 11/29/2022) [facility]02-02-2023 History of Past illness Narrative* Problem Noted Date Diagnosed Date Resolved Date Patient request for diagnostic testing 05/24/2022 06/27/2022 Overview: 05/24/2022 Patient desires aneuploidy screening. Contact information for integrated genetics sent to patient to check on insurance coverage. Patient declines genetic carrier screening testing.Ekta Lisa RN History of section 09/15/2015 01/09/2019 Overview: 09/15/2015Pt had a previous C section. She desires a repeat C section by Dr Campoverde.TKRN History of cesearan section, patient counseled on trial of labor versus repeat cesearan section. Risks/benefits/alternatives discussed with patient regarding trial of labor and potential for uterine rupture. Risks include but are not limited to maternal hemorrhage, risk of injury to adjacent organs including potential hysterectomy. risks discussed as well, including potential for permanent neurologic injury or . Overall uterine rupture risk is less than 1% after one section. Is a trial of labor contraindicated for this patient? 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 She has been off medication for 1 year . Discussed increased risks of depression during and and importance of reporting the development or worsening of symptoms should they occur.Pt denies ever having any suicidal thoughts or tendencies or thoughts of hurting others.TKRN History of prior with IUGR 6 01/09/2019 Overview: 09/15/2015Patient is complaining of nausea in . Advised patient to call/come in if she is unable to keep any food or fluids down in a 24-hour period. TKRN Rubella non-immune status, antepartum 12/11/2013 09/15/2015 Hx of herpes genitalis 12/07/201309/14 Overview: Prophylaxis at 36 weeks Primigravida in first trimester 12/07/2013 09/15/2015 Cervicitis 05/26/2013 01/09/2019 Overview: Possible PID documented as of this encounter (statuses as of 11/30/2022) [facility]02-02-2023 History of Past illness Narrative* Problem Noted Date Diagnosed Date Resolved Date Patient request for diagnostic testing 05/24/2022 06/27/2022 Overview: 05/24/2022 Patient desires aneuploidy screening. Contact information for integrated genetics sent to patient to check on insurance coverage. Patient declines genetic carrier screening testing.Ekta Lisa RN History of section 09/15/2015 01/09/2019 Overview: 09/15/2015Pt had a previous C section. She desires a repeat C section by Dr Campoverde.TKRN History of cesearan section, patient counseled on trial of labor versus repeat cesearan section. Risks/benefits/alternatives discussed with patient regarding trial of labor and potential for uterine rupture. Risks include but are not limited to maternal hemorrhage, risk of injury to adjacent organs including potential hysterectomy. risks discussed as well, including potential for permanent neurologic injury or . Overall uterine rupture risk is less than 1% after one section. Is a trial of labor contraindicated for this patient? 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 She has been off medication for 1 year . Discussed increased risks of depression during and and importance of reporting the development or worsening of symptoms should they occur.Pt denies ever having any suicidal thoughts or tendencies or thoughts of hurting others.TKRN History of prior with IUGR 6 01/09/2019 Overview: 09/15/2015Patient is complaining of nausea in . Advised patient to call/come in if she is unable to keep any food or fluids down in a 24-hour period. TKRN Rubella non-immune status, antepartum 12/11/2013 09/15/2015 Hx of herpes genitalis 12/07/201309/14 Overview: Prophylaxis at 36 weeks Primigravida in first trimester 12/07/2013 09/15/2015 Cervicitis 05/26/2013 01/09/2019 Overview: Possible PID documented as of this encounter (statuses as of 12/01/2022) [facility]02-02-2023 History of Past illness Narrative* Problem Noted Date Diagnosed Date Resolved Date Patient request for diagnostic testing 05/24/2022 06/27/2022 Overview: 05/24/2022 Patient desires aneuploidy screening. Contact information for [facility] sent to patient to check on insurance coverage. Patient declines genetic carrier screening testing.Ekta Lisa RN History of section 09/15/2015 01/09/2019 Overview: 09/15/2015Pt had a previous C section. She desires a repeat C section by Dr Campoverde.TKRN History of cesearan section, patient counseled on trial of labor versus repeat cesearan section. Risks/benefits/alternatives discussed with patient regarding trial of labor and potential for uterine rupture. Risks include but are not limited to maternal hemorrhage, risk of injury to adjacent organs including potential hysterectomy. risks discussed as well, including potential for permanent neurologic injury or . Overall uterine rupture risk is less than 1% after one section. Is a trial of labor contraindicated for this patient? 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 She has been off medication for 1 year . Discussed increased risks of depression during and and importance of reporting the development or worsening of symptoms should they occur.Pt denies ever having any suicidal thoughts or tendencies or thoughts of hurting others.TKRN History of prior with IUGR 6 01/09/2019 Overview: 09/15/2015Patient is complaining of nausea in . Advised patient to call/come in if she is unable to keep any food or fluids down in a 24-hour period. TKRN Rubella non-immune status, antepartum 12/11/2013 09/15/2015 Hx of herpes genitalis 12/07/201309/14 Overview: Prophylaxis at 36 weeks Primigravida in first trimester 12/07/2013 09/15/2015 Cervicitis 05/26/2013 01/09/2019 Overview: Possible PID documented as of this encounter (statuses as of 12/01/2022) [facility]02-02-2023 History of Past illness Narrative* Problem Noted Date Diagnosed Date Resolved Date Patient request for diagnostic testing 05/24/2022 06/27/2022 Overview: 05/24/2022 Patient desires aneuploidy screening. Contact information for integrated genetics sent to patient to check on insurance coverage. Patient declines genetic carrier screening testing.Ekta Lisa RN History of section 09/15/2015 01/09/2019 Overview: 09/15/2015Pt had a previous C section. She desires a repeat C section by Dr Campoverde.TKRN History of cesearan section, patient counseled on trial of labor versus repeat cesearan section. Risks/benefits/alternatives discussed with patient regarding trial of labor and potential for uterine rupture. Risks include but are not limited to maternal hemorrhage, risk of injury to adjacent organs including potential hysterectomy. risks discussed as well, including potential for permanent neurologic injury or . Overall uterine rupture risk is less than 1% after one section. Is a trial of labor contraindicated for this patient? 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 She has been off medication for 1 year . Discussed increased risks of depression during and and importance of reporting the development or worsening of symptoms should they occur.Pt denies ever having any suicidal thoughts or tendencies or thoughts of hurting others.TKRN History of prior with IUGR 6 01/09/2019 Overview: 09/15/2015Patient is complaining of nausea in . Advised patient to call/come in if she is unable to keep any food or fluids down in a 24-hour period. TKRN Rubella non-immune status, antepartum 12/11/2013 09/15/2015 Hx of herpes genitalis 12/07/201309/14 Overview: Prophylaxis at 36 weeks Primigravida in first trimester 12/07/2013 09/15/2015 Cervicitis 05/26/2013 01/09/2019 Overview: Possible PID documented as of this encounter (statuses as of 12/03/2022) [facility]02-02-2023 History of Past illness Narrative* Problem Noted Date Diagnosed Date Resolved Date Patient request for diagnostic testing 05/24/2022 06/27/2022 Overview: 05/24/2022 Patient desires aneuploidy screening. Contact information for integrated genetics sent to patient to check on insurance coverage. Patient declines genetic carrier screening testing.Ekta Lisa RN History of section 09/15/2015 01/09/2019 Overview: 09/15/2015Pt had a previous C section. She desires a repeat C section by Dr Campoverde.TKRN History of cesearan section, patient counseled on trial of labor versus repeat cesearan section. Risks/benefits/alternatives discussed with patient regarding trial of labor and potential for uterine rupture. Risks include but are not limited to maternal hemorrhage, risk of injury to adjacent organs including potential hysterectomy. risks discussed as well, including potential for permanent neurologic injury or . Overall uterine rupture risk is less than 1% after one section. Is a trial of labor contraindicated for this patient? 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 She has been off medication for 1 year . Discussed increased risks of depression during and and importance of reporting the development or worsening of symptoms should they occur.Pt denies ever having any suicidal thoughts or tendencies or thoughts of hurting others.TKRN History of prior with IUGR 6 01/09/2019 Overview: 09/15/2015Patient is complaining of nausea in . Advised patient to call/come in if she is unable to keep any food or fluids down in a 24-hour period. TKRN Rubella non-immune status, antepartum 12/11/2013 09/15/2015 Hx of herpes genitalis 12/07/201309/14 Overview: Prophylaxis at 36 weeks Primigravida in first trimester 12/07/2013 09/15/2015 Cervicitis 05/26/2013 01/09/2019 Overview: Possible PID documented as of this encounter (statuses as of 12/11/2022) [facility]02-02-2023 History of Past illness Narrative* Problem Noted Date Diagnosed Date Resolved Date Patient request for diagnostic testing 05/24/2022 06/27/2022 Overview: 05/24/2022 Patient desires aneuploidy screening. Contact information for integrated genetics sent to patient to check on insurance coverage. Patient declines genetic carrier screening testing.Ekta Lisa RN History of section 09/15/2015 01/09/2019 Overview: 09/15/2015Pt had a previous C section. She desires a repeat C section by Dr Campoverde.TKRN History of cesearan section, patient counseled on trial of labor versus repeat cesearan section. Risks/benefits/alternatives discussed with patient regarding trial of labor and potential for uterine rupture. Risks include but are not limited to maternal hemorrhage, risk of injury to adjacent organs including potential hysterectomy. risks discussed as well, including potential for permanent neurologic injury or . Overall uterine rupture risk is less than 1% after one section. Is a trial of labor contraindicated for this patient? 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 She has been off medication for 1 year . Discussed increased risks of depression during and and importance of reporting the development or worsening of symptoms should they occur.Pt denies ever having any suicidal thoughts or tendencies or thoughts of hurting others.TKRN History of prior with IUGR 6 01/09/2019 Overview: 09/15/2015Patient is complaining of nausea in . Advised patient to call/come in if she is unable to keep any food or fluids down in a 24-hour period. TKRN Rubella non-immune status, antepartum 12/11/2013 09/15/2015 Hx of herpes genitalis 12/07/201309/14 Overview: Prophylaxis at 36 weeks Primigravida in first trimester 12/07/2013 09/15/2015 Cervicitis 05/26/2013 01/09/2019 Overview: Possible PID documented as of this encounter (statuses as of 12/11/2022) [facility]02-02-2023 History of Past illness Narrative* Problem Noted Date Diagnosed Date Resolved Date Patient request for diagnostic testing 05/24/2022 06/27/2022 Overview: 05/24/2022 Patient desires aneuploidy screening. Contact information for integrated genetics sent to patient to check on insurance coverage. Patient declines genetic carrier screening testing.Ekta Lisa RN History of section 09/15/2015 01/09/2019 Overview: 09/15/2015Pt had a previous C section. She desires a repeat C section by Dr Campoverde.TKRN History of cesearan section, patient counseled on trial of labor versus repeat cesearan section. Risks/benefits/alternatives discussed with patient regarding trial of labor and potential for uterine rupture. Risks include but are not limited to maternal hemorrhage, risk of injury to adjacent organs including potential hysterectomy. risks discussed as well, including potential for permanent neurologic injury or . Overall uterine rupture risk is less than 1% after one section. Is a trial of labor contraindicated for this patient? 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 She has been off medication for 1 year . Discussed increased risks of depression during and and importance of reporting the development or worsening of symptoms should they occur.Pt denies ever having any suicidal thoughts or tendencies or thoughts of hurting others.TKRN History of prior with IUGR 6 01/09/2019 Overview: 09/15/2015Patient is complaining of nausea in . Advised patient to call/come in if she is unable to keep any food or fluids down in a 24-hour period. TKRN Rubella non-immune status, antepartum 12/11/2013 09/15/2015 Hx of herpes genitalis 12/07/201309/14 Overview: Prophylaxis at 36 weeks Primigravida in first trimester 12/07/2013 09/15/2015 Cervicitis 05/26/2013 01/09/2019 Overview: Possible PID documented as of this encounter (statuses as of 01/01/2023) [facility]02-02-2023 History of Past illness Narrative* Problem Noted Date Diagnosed Date Resolved Date Patient request for diagnostic testing 05/24/2022 06/27/2022 Overview: 05/24/2022 Patient desires aneuploidy screening. Contact information for integrated genetics sent to patient to check on insurance coverage. Patient declines genetic carrier screening testing.Ekta Lisa RN History of section 09/15/2015 01/09/2019 Overview: 09/15/2015Pt had a previous C section. She desires a repeat C section by Dr Campoverde.TKRN History of cesearan section, patient counseled on trial of labor versus repeat cesearan section. Risks/benefits/alternatives discussed with patient regarding trial of labor and potential for uterine rupture. Risks include but are not limited to maternal hemorrhage, risk of injury to adjacent organs including potential hysterectomy. risks discussed as well, including potential for permanent neurologic injury or . Overall uterine rupture risk is less than 1% after one section. Is a trial of labor contraindicated for this patient? 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 She has been off medication for 1 year . Discussed increased risks of depression during and and importance of reporting the development or worsening of symptoms should they occur.Pt denies ever having any suicidal thoughts or tendencies or thoughts of hurting others.TKRN History of prior with IUGR 6 01/09/2019 Overview: 09/15/2015Patient is complaining of nausea in . Advised patient to call/come in if she is unable to keep any food or fluids down in a 24-hour period. TKRN Rubella non-immune status, antepartum 12/11/2013 09/15/2015 Hx of herpes genitalis 12/07/201309/14 Overview: Prophylaxis at 36 weeks Primigravida in first trimester 12/07/2013 09/15/2015 Cervicitis 05/26/2013 01/09/2019 Overview: Possible PID documented as of this encounter (statuses as of 11/17/2022) [facility]02-02-2023 History of Present illness Narrative* Erika Loya MD - 05/24/2022 1:34 PM EST [employer] Br[employer] offered: Patient declines. INITIAL OB ASSESSMENT OB Provider: Erika Loya DO HPI: Gracy Ann is a 27 year old female here to establish Obstetrical Care. Patient's last menstrual period was 03/03/2022 (approximate). from OB Dating Form. Cycle length: 28 days Complaints: Nausea was unplanned but accepted. OB History T2 L2 SAB1 IAB0 Ectopic0 Multiple0 Live Births2 Prior : yes x 2 History of 4th degree laceration: No Patient's Risk Screening for delivery: History of abnormal pap: Yes Prior treatment for cervical dysplasia: none. 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 No Marital Status: In a relationship Partner: Name: Kamran Age: 26 PAST MEDICAL HISTORY Diagnosis Date Anemia Cervicitis 05/26/2013 Possible PID Depression, major, single episode, mild (HCC) Herpes simplex without mention of complication History of section 09/15/2015 09/15/2015Pt had a previous C section. She desires a repeat C section by Dr Campoverde.TKRN Historyof cesearan section, patient counseled on trial of labor versus repeat cesearan section. Risks/benefits/alternatives discussed with patient regarding trial of labor and potential for uterine rupture.Risks include but are not limited to maternal hemorrhage, risk of injury to adjacent organs includ History of depression 09/15/2015 09/15/2015 Pt has a history of depression diagnosed 2 years ago. She has been off medication for 1 year . Discussed increased risks of depression during and and importance of reporting the development or worsening of symptoms should they occur.Pt denies ever having any suicidal thoughts or tendencies or thoughts of hurting others.TKRN History of prior with IUGR 09/15/2015 09/15/2015Patient is complaining of nausea in . Advised patient to call/come in if she is unable to keep any food or fluids down in a 24-hour period. TKRN Nausea/vomiting in 09/15/2015 09/15/2015Patient is complaining of nausea in . Advised patient to call/come in if she is unable to keep any food or fluids down in a 24-hour period. 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 No current facility-administered medications on file prior to visit. Review of Systems: GENERAL: Negative for: Fever or Chills HEENT: Negative for: Headache, Impaired Vision, Ringing in Ears, Nosebleeds NECK: Negative for: Swelling, Pain, Stiffness RESPIRATORY: Negative for: Cough, Shortness of breath, Wheezing GASTROINTESTINAL: Negative for: Heartburn, Constipation, Diarrhea, Blood in stool, Vomiting MUSCULOSKELETAL: Negative for: Muscle or joint pain, stiffness, Joint swelling NEUROLOGIC/PSYCHIATRIC: Negative for: Weakness, Paralysis, Numbness, Tingling, Tremor SKIN: Negative for: Rash, Itching GENITOURINARY: Negative for: vaginal itching, vaginal discharge, hematuria or dysuria PHYSICAL EXAM: BP 100/70 Ht 5' 5.5 (1.66m) Wt 151 lb 3.2 oz (68.6kg) LMP 03/03/2022 BMI 24.77 kg/(m^2). GENERAL: pleasant female in no apparent distress DERMATOLOGY: Normal, without lesions, non-icteric, and non-hirsute NECK: Supple, full range of motion, no adenopathy, and thyroid normal CHEST: Normal inspiratory effort BREAST: soft, non-tender, symmetric, no dominant mass, normal nipple-areolar complex, no lymphadenopathy, and no nipple discharge ABDOMEN: soft, non-tender, and no masses NEURO: exam grossly non-focal PELVIS: External genitalia normal without lesions. Perineal body intact. No vaginal or cervical lesions. Cervix closed. Uterus 11 week size. No adnexal masses or tenderness. Clinical Pelvimetry: Pelvimetry clinically assessed as adequate Limited OB ultrasound exam: single intrauterine , positive cardiac activity, and crown-rump length 11w6d OB Risk Screening: Completed, positive findings include: Patient answered 'Yes' to Partner with Herpes Patient answered 'Yes' to other abnormalities of the uterus not otherwise mentioned. See comments in OB Risk Screening. ASSESSMENT: 27 year old at 11 wks gestational age PLAN: 1) Patient oriented to practice. Discussed nutrition, folic acid supplementation, dietary guidelines, exercise, smoking, alcohol, caffeine, and drug use. Discussed routine OB labs including STD/HIV. Discussed aneuploidy screening options including serum screening and nuchal translucency. Desires aneuploidy screening. NT ordered. To check cost/coverage NIPT. Carrier screening discussed and declines. Repeat C/S. Desires sterilization. Follow up for NT and blood work, and in 4 weeks for routine OB visit. Erika Loya DO [facility] Instructions* Patient Instructions* Kindra Meier MA - 05/24/2022 1:34 PM EST Please select the following link to access the [facility] Your Guide to a Healthy . [email or web address] documented in this encounterOhio [facility] History of Present illness Narrative* Ekta Lisa RN - 05/24/2022 6:50 AM EST # 1 - Date: 2012, Sex: None, Weight: None, GA: None, Delivery: None, Apgar1: None, Apgar5: None, Living: None, Comments: None # 2 - Date: 07/08/14, Sex: Female, Weight: 5 lb 8 oz (2.495 kg), GA: 37w4d, Delivery: , Low Transverse, Apgar1: None, Apgar5: None, Living: Living, Comments: intolerance to labor, FTP, possible chorio, IUGR, unicorniate uterus, only has left ovary, EBL 700cc # 3 - Date: 04/17/16, Sex: Female, Weight: 5 lb 13 oz (2.637 kg), GA: 38w2d, Delivery: , Low Transverse, Apgar1: None, Apgar5: None, Living: Living, Comments: IAL, declined # 4 - Date: None, Sex: None, Weight: None, GA: None, Delivery: None, Apgar1: None, Apgar5: None, Living: None, Comments: None documented in this encounterOhio [facility]23 Miscellaneous Notes* Quick Notes - Ekta Lisa RN - 05/24/2022 6:50 AM EST DISTANCE HEALTH VISIT This Team Access Model visit is a phone encounter. It required patient-provider interaction for themedical decision making as documented below. Gracy Ann is a 27 year old female seen for PNOB visit. Father of the baby involved. He is not the father of her other children. The father of her other children in 2019 from an overdose. Patient states she has not used any control for the past 8 years. Excited to be .Pt has a history of anxiety/depression diagnosed in 2013. She has been off medication since about 2013. She denies any history of depression.. Discussed increased risks of depression during and and importance of reporting the development or worsening of symptoms should they occur. Pt denies ever having any suicidal thoughts or tendencies or thoughts of hurting others. She has a history of 2 previous C-sections. Desires a repeat . History of IUGR with previous .Patient is complaining of nausea and occasional vomiting in . Dietary considerations discussed . Vitamin B6 recommended. Advised patient to call/come in if she is unable to keep any food or fluids down in a 24-hour period. Patient has a history of a unicornuate uterus.Pt smokes about 8 cigarettes a week, down from 1/4 to 1/2 pack a day. Discussed risks of smoking during . Advised pt to quit. Pt has a history of genital herpes. Discussed with pt. importance of reporting any outbreaks during should they occur. Patient desires aneuploidy screening. Contact information for integrated genetics sent to patient to check on insurance coverage. Patient declines genetic carrier screening testing.Ekta Lisa RN documented in this encounterOhio [facility]02-[facility]23 Miscellaneous Notes* Telephone Encounter - Ekta Lisa RN - 05/23/2022 11:23 AM EST Patient scheduled for 6:15am * Telephone Encounter - Ekta Lisa RN - 05/22/2022 3:02 PM EST update that 6:45am is not available. I can do today (Saturday) still at 3:20 or 6am on * Telephone Encounter - Ekta Lisa RN - 05/22/2022 1:13 PM EST Left message for patient to return phone call. Patient has an appointment with Dr Loya on 05/24 for NOB appointment. Please schedule PNOB appointment. I could call her today at 3:20 if she is available or at 6:45 am documented in this encounterOhio [facility]05-26[facility]2016 History of Past illness Narrative* Problem Noted Date Resolved Date History of section 09/15/201512/22 Overview: 09/15/2015Pt had a previous C section. She desires a repeat C section by Dr Campoverde.TKRN History of cesearan section, patient counseled on trial of labor versus repeat cesearan section. Risks/benefits/alternatives discussed with patient regarding trial of labor and potential for uterine rupture. Risks include but are not limited to maternal hemorrhage, risk of injury to adjacent organs including potential hysterectomy. risks discussed as well, including potential for permanent neurologic injury or . Overall uterine rupture risk is less than 1% after one section. Is a trial of labor contraindicated for this patient? 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 She has been off medication for 1 year . Discussed increased risks of depression during and and importance of reporting the development or worsening of symptoms should they occur.Pt denies ever having any suicidal thoughts or tendencies or thoughts of hurting others.TKRN Nausea/vomiting in 09/15/2015 Overview: 09/15/2015Patient is complaining of nausea in . Advised patient to call/come in if she is unable to keep any food or fluids down in a 24-hour period. TKRN History of prior with IUGR 01/09/2019 Overview: 09/15/2015Patient is complaining of nausea in . Advised patient to call/come in if she is unable to keep any food or fluids down in a 24-hour period. TKRN Rubella non-immune status, antepartum 12/11/2013 09/15/2015 Hx of herpes genitalis 12/07/2013 6 Overview: Prophylaxis at 36 weeks Primigravida in first trimester 12/07/2013 09/15/2015 Cervicitis 05/26/2013 01/09/2019 Overview: Possible PID documented as of this encounter (statuses as of 05/23/2022) [facility] History of Past illness Narrative* Problem Noted Date Resolved Date History of section 09/15/201512/22 Overview: 09/15/2015Pt had a previous C section. She desires a repeat C section by Dr Campoverde.TKRN History of cesearan section, patient counseled on trial of labor versus repeat cesearan section. Risks/benefits/alternatives discussed with patient regarding trial of labor and potential for uterine rupture. Risks include but are not limited to maternal hemorrhage, risk of injury to adjacent organs including potential hysterectomy. risks discussed as well, including potential for permanent neurologic injury or . Overall uterine rupture risk is less than 1% after one section. Is a trial of labor contraindicated for this patient? 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 She has been off medication for 1 year . Discussed increased risks of depression during and and importance of reporting the development or worsening of symptoms should they occur.Pt denies ever having any suicidal thoughts or tendencies or thoughts of hurting others.TKRN History of prior with IUGR 01/09/2019 Overview: 09/15/2015Patient is complaining of nausea in . Advised patient to call/come in if she is unable to keep any food or fluids down in a 24-hour period. TKRN Rubella non-immune status, antepartum 12/11/2013 09/15/2015 Hx of herpes genitalis 12/07/2013 6 Overview: Prophylaxis at 36 weeks Primigravida in first trimester 12/07/2013 09/15/2015 Cervicitis 05/26/2013 01/09/2019 Overview: Possible PID documented as of this encounter (statuses as of 05/24/2022) [facility] History of Past illness Narrative* Problem Noted Date Resolved Date History of section 09/15/201512/22 Overview: 09/15/2015Pt had a previous C section. She desires a repeat C section by Dr Campoverde.TKRN History of cesearan section, patient counseled on trial of labor versus repeat cesearan section. Risks/benefits/alternatives discussed with patient regarding trial of labor and potential for uterine rupture. Risks include but are not limited to maternal hemorrhage, risk of injury to adjacent organs including potential hysterectomy. risks discussed as well, including potential for permanent neurologic injury or . Overall uterine rupture risk is less than 1% after one section. Is a trial of labor contraindicated for this patient? 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 She has been off medication for 1 year . Discussed increased risks of depression during and and importance of reporting the development or worsening of symptoms should they occur.Pt denies ever having any suicidal thoughts or tendencies or thoughts of hurting others.TKRN History of prior with IUGR 01/09/2019 Overview: 09/15/2015Patient is complaining of nausea in . Advised patient to call/come in if she is unable to keep any food or fluids down in a 24-hour period. TKRN Rubella non-immune status, antepartum 12/11/2013 09/15/2015 Hx of herpes genitalis 12/07/2013 6 Overview: Prophylaxis at 36 weeks Primigravida in first trimester 12/07/2013 09/15/2015 Cervicitis 05/26/2013 01/09/2019 Overview: Possible PID documented as of this encounter (statuses as of 05/25/2022) [facility] of Past illness Narrative* Problem Noted Date Resolved Date History of section 09/15/201512/22 Overview: 09/15/2015Pt had a previous C section. She desires a repeat C section by Dr Campoverde.TKRN History of cesearan section, patient counseled on trial of labor versus repeat cesearan section. Risks/benefits/alternatives discussed with patient regarding trial of labor and potential for uterine rupture. Risks include but are not limited to maternal hemorrhage, risk of injury to adjacent organs including potential hysterectomy. risks discussed as well, including potential for permanent neurologic injury or . Overall uterine rupture risk is less than 1% after one section. Is a trial of labor contraindicated for this patient? 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 She has been off medication for 1 year . Discussed increased risks of depression during and and importance of reporting the development or worsening of symptoms should they occur.Pt denies ever having any suicidal thoughts or tendencies or thoughts of hurting others.TKRN History of prior with IUGR 01/09/2019 Overview: 09/15/2015Patient is complaining of nausea in . Advised patient to call/come in if she is unable to keep any food or fluids down in a 24-hour period. TKRN Rubella non-immune status, antepartum 12/11/2013 09/15/2015 Hx of herpes genitalis 12/07/2013 6 Overview: Prophylaxis at 36 weeks Primigravida in first trimester 12/07/2013 09/15/2015 Cervicitis 05/26/2013 01/09/2019 Overview: Possible PID documented as of this encounter (statuses as of 05/30/2022) [facility] of Past illness Narrative* Problem Noted Date Resolved Date History of section 09/15/201512/22 Overview: 09/15/2015Pt had a previous C section. She desires a repeat C section by Dr Campoverde.TKRN History of cesearan section, patient counseled on trial of labor versus repeat cesearan section. Risks/benefits/alternatives discussed with patient regarding trial of labor and potential for uterine rupture. Risks include but are not limited to maternal hemorrhage, risk of injury to adjacent organs including potential hysterectomy. risks discussed as well, including potential for permanent neurologic injury or . Overall uterine rupture risk is less than 1% after one section. Is a trial of labor contraindicated for this patient? 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 She has been off medication for 1 year . Discussed increased risks of depression during and and importance of reporting the development or worsening of symptoms should they occur.Pt denies ever having any suicidal thoughts or tendencies or thoughts of hurting others.TKRN History of prior with IUGR 01/09/2019 Overview: 09/15/2015Patient is complaining of nausea in . Advised patient to call/come in if she is unable to keep any food or fluids down in a 24-hour period. TKRN Rubella non-immune status, antepartum 12/11/2013 09/15/2015 Hx of herpes genitalis 12/07/2013 6 Overview: Prophylaxis at 36 weeks Primigravida in first trimester 12/07/2013 09/15/2015 Cervicitis 05/26/2013 01/09/2019 Overview: Possible PID documented as of this encounter (statuses as of 05/30/2022) [facility] of Past illness Narrative* Problem Noted Date Resolved Date History of section 09/15/201512/22 Overview: 09/15/2015Pt had a previous C section. She desires a repeat C section by Dr Campoverde.TKRN History of cesearan section, patient counseled on trial of labor versus repeat cesearan section. Risks/benefits/alternatives discussed with patient regarding trial of labor and potential for uterine rupture. Risks include but are not limited to maternal hemorrhage, risk of injury to adjacent organs including potential hysterectomy. risks discussed as well, including potential for permanent neurologic injury or . Overall uterine rupture risk is less than 1% after one section. Is a trial of labor contraindicated for this patient? 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 She has been off medication for 1 year . Discussed increased risks of depression during and and importance of reporting the development or worsening of symptoms should they occur.Pt denies ever having any suicidal thoughts or tendencies or thoughts of hurting others.TKRN History of prior with IUGR 01/09/2019 Overview: 09/15/2015Patient is complaining of nausea in . Advised patient to call/come in if she is unable to keep any food or fluids down in a 24-hour period. TKRN Rubella non-immune status, antepartum 12/11/2013 09/15/2015 Hx of herpes genitalis 12/07/2013 6 Overview: Prophylaxis at 36 weeks Primigravida in first trimester 12/07/2013 09/15/2015 Cervicitis 05/26/2013 01/09/2019 Overview: Possible PID documented as of this encounter (statuses as of 05/30/2022) [facility] of Past illness Narrative* Problem Noted Date Resolved Date History of section 09/15/201512/22 Overview: 09/15/2015Pt had a previous C section. She desires a repeat C section by Dr Campoverde.TKRN History of cesearan section, patient counseled on trial of labor versus repeat cesearan section. Risks/benefits/alternatives discussed with patient regarding trial of labor and potential for uterine rupture. Risks include but are not limited to maternal hemorrhage, risk of injury to adjacent organs including potential hysterectomy. risks discussed as well, including potential for permanent neurologic injury or . Overall uterine rupture risk is less than 1% after one section. Is a trial of labor contraindicated for this patient? 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 She has been off medication for 1 year . Discussed increased risks of depression during and and importance of reporting the development or worsening of symptoms should they occur.Pt denies ever having any suicidal thoughts or tendencies or thoughts of hurting others.TKRN History of prior with IUGR 01/09/2019 Overview: 09/15/2015Patient is complaining of nausea in . Advised patient to call/come in if she is unable to keep any food or fluids down in a 24-hour period. TKRN Rubella non-immune status, antepartum 12/11/2013 09/15/2015 Hx of herpes genitalis 12/07/2013 6 Overview: Prophylaxis at 36 weeks Primigravida in first trimester 12/07/2013 09/15/2015 Cervicitis 05/26/2013 01/09/2019 Overview: Possible PID documented as of this encounter (statuses as of 06/07/2022) [facility] Diagnosis Supervision of high risk , antepartum- Primary Reaction, adjustment, with depressed mood, prolonged Prolonged depressive reaction as adjustment reaction with history of section, antepartum Prior complicated by IUGR, antepartum with other poor obstetric history Nausea and vomiting during Unicornuate uterus affecting , antepartum Congenital abnormalities of uterus, antepartum Tobacco smoking affecting , antepartum History of herpes genitalis Personal history of other infectious and parasitic disease Patient request for diagnostic testing Other specified examination [facility]* Diagnosis Encounter for supervision of other normal in first trimester- Primary Tobacco smoking affecting , antepartum with history of section, antepartum Screening for cervical cancer Screening for malignant neoplasm of the cervix Special screening examination for human papillomavirus (HPV) Prior complicated by IUGR, antepartum with other poor obstetric history Request for sterilization [facility] Diagnosis Encounter for screening for nuchal translucency- Primary Encounter for screening of mother Unspecified screening 12 weeks gestation of state, incidental [facility]* Diagnosis First trimester screening- Primary Other specified screening 12 weeks gestation of state, incidental [facility] Diagnosis 16 weeks gestation of - Primary state, incidental with history of section, antepartum [facility]* Diagnosis with history of section, antepartum- Primary 18 weeks gestation of state, incidental [facility] noteNo assessment information availableWPike Community [facility] Work Phone: [facility]* Diagnosis with history of section, antepartum- Primary 20 weeks gestation of state, incidental documented in this encounter [facility]* Diagnosis Encounter for anatomic survey- Primary Encounter for supervision of other normal in first trimester Tobacco smoking affecting , antepartum with history of section, antepartum 20 weeks gestation of state, incidental [facility]* Diagnosis with history of section, antepartum- Primary 24 weeks gestation of state, incidental Request for sterilization [facility]* Diagnosis with history of section, antepartum- Primary 28 weeks gestation of state, incidental [facility]* Diagnosis Abnormal glucose tolerance test- Primary Impaired glucose tolerance test Abnormal glucose complicating Abnormal maternal glucose tolerance, complicating , childbirth, or the puerperium, unspecified as to episode of care [facility]* Diagnosis 30 weeks gestation of - Primary state, incidental with history of section, antepartum [facility]* Diagnosis 32 weeks gestation of - Primary state, incidental with history of section, antepartum Anemia during in third trimester [facility]* Diagnosis IUGR (intrauterine growth restriction) affecting care of mother, third trimester, not applicable or unspecified fetus [O36.5930 (ICD-10-CM)]- Primary with history of section, antepartum 28 weeks gestation of state, incidental Uterine size-date discrepancy, third trimester [O26.843 (ICD-10-CM)] [facility]* Diagnosis Poor growth affecting management of mother in third trimester, single or unspecified fetus- Primary 33 weeks gestation of state, incidental [facility]* Diagnosis Abnormal glucose in , antepartum- Primary Abnormal maternal glucose tolerance, antepartum [facility]* Diagnosis Need for Tdap vaccination- Primary Need for prophylactic vaccination with combined [id number]-ttukiuvua (DTP) vaccine Poor growth affecting management of mother in third trimester, single or unspecified fetus History of delivery Other postprocedural status Supervision of other high risk pregnancies, third trimester [facility]* Diagnosis 34 weeks gestation of - Primary state, incidental [facility]* Diagnosis Poor growth affecting management of mother in third trimester, single or unspecified fetus [facility] Diagnosis Poor growth affecting management of mother in third trimester, single or unspecified fetus- Primary History of delivery Other postprocedural status Supervision of other high risk pregnancies, third trimester 35 weeks gestation of state, incidental Need for Tdap vaccination Need for prophylactic vaccination with combined kpuzmoskww-apcmsvc-bfjjlcznk (DTP) vaccine documented [facility]* Diagnosis Suspected problem with growth not found- Primary 35 weeks gestation of state, incidental [facility] Diagnosis Unicornuate uterus affecting , antepartum- Primary Congenital abnormalities of uterus, antepartum 32 weeks gestation of state, incidental with history of section, antepartum [facility]* Diagnosis 37 weeks gestation of - Primary state, incidental Poor growth affecting management of mother in third trimester, single or unspecified fetus Supervision of other high risk pregnancies, third trimester [facility]* Diagnosis 38 weeks gestation of - Primary state, incidental Poor growth affecting management of mother in third trimester, single or unspecified fetus Supervision of other high risk pregnancies, third trimester [facility]* Diagnosis Poor growth affecting management of mother in third trimester, single or unspecified fetus- Primary Supervision of other high risk pregnancies, third trimester 38 weeks gestation of state, incidental Decreased movements in third trimester, single or unspecified fetus documented in this encounter [facility] note* Diagnosis Onset Date Resolution Status 38 weeks gestation of acute Decreased movement aff ecting management of in third trimester acute Previous section [place] 38 weeks gestation of acute Decreased movement aff ecting management of in third trimester acute Previous section [place] Uterine anomaly acute [facility] Work Phone: Evaluation note* Diagnosis Poor growth affecting management of mother in third trimester, single or unspecified fetus Need for Tdap vaccination Need for prophylactic vaccination with combined mgybzimqve-lzctous-jctlawehk (DTP) vaccine History of delivery Other postprocedural status Supervision of other high risk pregnancies, third trimester [facility]* Diagnosis Congenital abnormality of uterus during in third trimester- Primary 38 weeks gestation of state, incidental [facility]* Diagnosis state- Primary Routine follow-up documented in this [facility]* Diagnosis 35 weeks gestation of state, incidental [facility]* Diagnosis Need for vaccination- Primary Need for prophylactic vaccination and inoculation against unspecified single disease 36 weeks gestation of state, incidental Poor growth affecting management of mother in third trimester, single or unspecified fetus [facility]* Diagnosis Burning with urination- Primary Dysuria Sore throat Acute pharyngitis documented [facility] this [facility]* Diagnosis Sore throat- Primary Acute pharyngitis documented [facility]* Diagnosis Sinobronchitis- Primary Unspecified sinusitis (chronic) [facility] Author Marina Fofana [facility] November 29, 2022 10:58pm Note Date/Time November 29, 2022 10 :58pm [facility] Medical Records Department [address] [place] [address] OB Triage Physician Note 11/29/222251 MR#: [id number] Acct: [id number] Name: GRACY ANN p #:[id number] : 1995 27 From: Marina Fofana CNM PCP: TAYA Means Status:MARCIAL Coronel Location: [id number] HPI - General HPI Narrative GRACY ANN, is a 27 F at 38.6 weeks gestation who presents with decreased movement and contractions. She is scheduled for a repeat section 12/03/22. [facility] Medical History (Updated 11/29/22 @ 22:56 by Marina Fofana CNM) Anemia affecting Anxiety Depression Genital herpes affecting History of prior with IUGR Tonsillectomy planned Uterine anomaly Home Medications folic acid 800 mcg tablet 0.8 mg PO DAILY #30 tabs 06/07/22 [Rx Last Taken Unknown] ondansetron 4 mg disintegrating tablet 4 mg PO Q6H PRN nausea and vomiting #20 tabs 06/07/22 [Rx Last Taken 07/12/22 12:30] vits no.126-ferrous fum 28 mg iron-folic acid 800 mcg tablet (Classic ) 1 tab PO DAILY 11/27/22 [History Last Taken Unknown] ferrous sulfate 325 mg (65 mg iron) tablet (iron) 325 mg PO DAILY 11/29/22 [History Last Taken Unknown] Allergy/AdvReac Type Severity Reaction Status Date / Time No Known Allergies Allergy Verified 11/29/22 21:09 Surgical History Previous section Social History Smoking Status: Former smoker History Elective abortions Hx Para 2 Spontaneous abortions Hx # Term Pregnancies Ectopic pregnancies Hx # Pregnancies Multiple births # of living children ROS Eyes Eyes: Denies blurry vision Cardiovascular Cardiovascular: Reports none; Denies chest pain at rest, chest pain with activity or dizziness Respiratory/Chest Respiratory/Chest: Denies cough or dyspnea Gastrointestinal Gastrointestinal: Reports none and other; Denies diarrhea or vomiting Genitourinary Genitourinary: Denies dysuria Musculoskeletal Musculoskeletal: Reports none Integumentary Integumentary: Reports none; Denies rash Neurologic Neurologic: Denies dizziness, headache(s) or other visual disturbances Psychiatric Psychiatric: Reports none Physical Exam Const alert and no apparent distress General Appearance: cooperative Orientation / Consciousness: awake Exam Limitations: no limitations HEENT normocephalic Eyes General Eye: normal appearance of both eyes Neck full ROM Chest inspection of chest normal Resp normal respiratory effort and normal air movement Effort and Inspection: symmetric chest movement Auscultation: clear to auscultation bilaterally Cardio regular rate GI soft to palpation, non-tender and non-distended Inspection: and other Back/Spine normal ROM Extremity full ROM, normal capillary refill and no calf tenderness Skin no rashes or lesions noted Neuro oriented x3 and CN's II-XII intact bilaterally Psych mental status grossly normal NST FHR Rate Baby A Baseline: 130 Variability:: Moderate Accelerations:: 15 x 15 Decelerations:: None NST Reactive:: Yes FHR Category:: Category I Uterine Activity:: irregular Assessment & Plan (1) Decreased movement affecting management of in third trimester: (2) Previous section: (3) 38 weeks gestation of : (4) Uterine anomaly: COMMENT: unicornate uterus, 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 PLAN: Plan LR 1000 cc bolus NST reactive, cat. 1 tracing UA collected and sent= negative CE- closed Patient has felt movement since arrival Dr. Baker notified and involved with plan of care D/C home with follow up on Saturday for scheduled repeat section 11/29/22 5432 <Electronically signed by Marina Plot ts CNM> Date _ Marina Fofana CNM Cosigner Signature (if applicable): Date CC: CIARA Fofana; TAYA Means ~ Signed [facility] Work Phone: Reason for referral (narrative)* Diagnostic Procedure Only (Routine) - Closed Specialty Diagnoses / Procedures Referred By Elaina robles Referred To Contact [facility] Diagnoses Encounter for supervision of other normal in first trimester Tobacco smoking affecting , antepartum with history of section, antepartum Procedures NUCHAL TRANSLUCENCY WHI US NUCHAL TRANSLUCENCY GESTATION Erika Loya MD [address] [id number] [facility] [place][Note 2] [address] [place], [place] [id number] Referral ID Status Reason Start Date Expiration Date V isits Requested Visits Authorized [id number] Closed Auto-Generate d Referral 05/24/2022 05/24/2023 1 1 * Diagnostic Procedure Only (Routine) - Pending Review Specialty Diagnoses / Procedures Referred By Elaina robles Referred To Contact [facility] Diagnoses Encounter for supervision of other normal in first trimester Tobacco smoking affecting , antepartum with history of section, antepartum Procedures OBSTETRIC ULTRASOUND WHI US PREG UTERUS AFTER 1ST TRIMEST GESTATION Erika Loya MD [address] [place] [address] [facility] [place][Note 2] [place] [address] Referral ID Status Reason Start Date Expiration Date Visits Requested Visits Authorized [id number] Pending Review Auto-Generat ed Referral 05/24/2022 05/24/2023 1 1 [facility] for referral (narrative)* Diagnostic Procedure Only (Routine) - Authorized Specialty Diagnoses / Procedures Referred By Contac t Referred To Contact [facility] Diagnoses with history of section, antepartum 28 weeks gestation of Procedures OBSTETRIC ULTRASOUND WHI US PREG UTERUS AFTER 1ST TRIMEST GESTATION Zoe Hernández MD [address] [place] [address] [address] Referral ID Status Reason Start Date Expiration Date Visits Requested Visits Authorized [id number] Authorized Auto-Generat ed Referral 09/19/2022 09/19/2023 1 1 T [facility] for referral (narrative)* Diagnostic Procedure Only (Routine) - Authorized Specialty Diagnoses / Procedures Referred By Contac t Referred To Contact [facility] Diagnoses 32 weeks gestation of with history of section, antepartum Procedures OBSTETRIC ULTRASOUND WHI US PREG UTERUS AFTER 1ST TRIMEST GESTATION Erika Loya MD [address] [place] [address] [address] [place] [address] Referral ID Status Reason Start Date Expiration Date Visits Requested Visits Authorized [id number] Authorized Auto-Generat ed Referral 10/18/2022 10/18/2023 1 1 Healthcare for visit Narrative* Outpatient Procedure (Routine) - Closed Specialty Diagnoses / Procedures Referred By Contac t Referred To [facility] [place] Diagnoses Poor growth affecting management of mother in third trimester, single or unspecified fetus Procedures NON-STRESS TEST NON-STRESS TEST Erika Loya MD [address] [place] [address] [place] [address] Referral ID Status Reason Start Date Expiration Date V isits Requested Visits Authorized [id number] Closed Auto-Generate d Referral 10/22/2022 10/22/2023 7 1 [facility] for visit Narrative* Diagnostic Procedure Only (Routine) - Closed Specialty Diagnoses / Procedures Referred By Elaina t Referred To Contact [facility] Diagnoses Poor growth affecting management of mother in third trimester, single or unspecified fetus Procedures BIOPHYSICAL PROFILE US WHI BIOPHYSICAL PROFILE NON-STRESS TESTING Erika Loya MD [address] [place] [address] [facility] [place][Note 2] [address] [place] [id number] Referral ID Status Reason Start Date Expiration Date V isits Requested Visits Authorized [id number] Closed Auto-Generate d Referral 10/22/2022 10/22/2023 10 1 [facility] Summary Purpose Family History No Family History Records FoundNo Family History Records FoundNo Family History Records FoundNo Family History Records FoundNo Family History Records Found Advance Directives No Advanced Directives Records Found Advance Directive Response Recorded Date/ Time Advance Directives No March 4:30am Living Will No June 07, 2 023 8:15am Power of Senior Design Engineer No June 07, 2022 8:15am Advance Directive Response Recorded Date/ Time Advance Directives No March 4:30am Living Will No November 29 3 9:59pm Power of Senior Design Engineer No November 29, 2 023 9:59pm Hospital Course Note Hospitalist Discharge Summar Adela Ann : 1995 date: 01/23/2018 Discharge date: 01/25/2018Ad[facility] Physician: SHAILA Block Status: ObservationCode Status: Full CodeDischarge Diagnoses:1. Headache likely migraine2. UTI3. SIRS/early sepsis due to #1, viral illness?4. Hypokalemia-replacedDiagnosis Date? HeadacheProcedures: LP, CT(hesd)Hospital Course: The patient is a 23 y.o. female with no significant PMH [place] the [place]. Pt has had a GARCIA for thepast 3 days, is located in the occipital area, with radiation down her spine. Ptalso c/o left sided neck pain. The night prior to admission the patient began tofeel achiness in my whole body, she could not differentiate whether it wasmyalgias, arthralgias or both. She also felt feverish and had shaking chills aswell as nausea. Patient had CT(head) and LP which were both negative. Found tohave UTI. Placed on empiric IV abx and treated. (more content not included)... Health Concerns Problem Noted Date OB Reminders 05/24/2022 Problem Noted Date OB Reminders 05/24/2022 Problem Noted Date OB Reminders 05/24/2022 Problem Noted Date OB Reminders 05/24/2022 Problem Noted Date OB Reminders 05/24/2022 Problem Noted Date OB Reminders 05/24/2022 Problem Noted Date OB Reminders 05/24/2022 Problem Noted Date OB Reminders 05/24/2022 Problem Noted Date OB Reminders 05/24/2022 Problem Noted Date OB Reminders 05/24/2022 Problem Noted Date OB Reminders 05/24/2022 Problem Noted Date OB Reminders 05/24/2022 Problem Noted Date OB Reminders 05/24/2022 Problem Noted Date Diagnosed Date OB Reminders 05/24/2022 Problem Noted Date Diagnosed Date OB Reminders 05/24/2022 Problem Noted Date Diagnosed Date OB Reminders 05/24/2022 Problem Noted Date Diagnosed Date OB Reminders 05/24/2022 Problem Noted Date Diagnosed Date OB Reminders 05/24/2022 Problem Noted Date Diagnosed Date OB Reminders 05/24/2022 Problem Noted Date Diagnosed Date OB Reminders 05/24/2022 Problem Noted Date Diagnosed Date OB Reminders 05/24/2022 Problem Noted Date Diagnosed Date OB Reminders 05/24/2022 Chief Complaint and Reason for Visit Chief Complaint headache HYDRATION Chief Complaint DECREASED MOVE MENT Chief Complaint DECREASED MOVE MENT RULE OUT LABOR Reason for Visit 38 weeks gestation o f Decreased movement affecting management of in third trimester Previous section 38 weeks gestation of Decreased movement affecting management of in third trimester Previous section Uterine anomaly Additional Source Comments INFORMATION SOURCE (unrecogn ized section and content) DATE CREATED AUTHOR 10/08/2017 [facility] DATE CREATED AUTHOR AUTHOR'S ORGANIZ ATION 10/09/2017 [facility] DATE CREATED AUTHOR AUTHOR'S ORGANIZ ATION 02/25/2018 [facility] DATE CREATED AUTHOR AUTHOR'S ORGANIZ ATION 06/23/2023 [facility] DATE CREATED AUTHOR AUTHOR'S ORGANIZ ATION 01/09/2025 [facility] Source Comments (unrecognize d section and content) In the event this informatio n is protected by the Federal Confidentiality of Alcohol and Drug Abuse Patient Records regulations: The Federal rules restrict any use of the information to criminally investigate or prosecute any alcohol or drug abuse patient.[facility] the event this information is protected by the Federal Confidentiality of Alcohol and Drug Abuse Patient Records regulations: The Federal rules restrict any use of the information to criminally investigate or prosecute any alcohol or drug abuse patient.[facility] the event this information is protected by the Federal Confidentiality of Alcohol and Drug Abuse Patient Records regulations: The Federal rules restrict any use of the information to criminally investigate or prosecute any alcohol or drug abuse patient.[facility] the event this information is protected by the Federal Confidentiality of Alcohol and Drug Abuse Patient Records regulations: The Federal rules restrict any use of the information to criminally investigate or prosecute any alcohol or drug abuse patient.[facility] the event this information is protected by the Federal Confidentiality of Alcohol and Drug Abuse Patient Records regulations: The Federal rules restrict any use of the information to criminally investigate or prosecute any alcohol or drug abuse patient.[facility] the event this information is protected by the Federal Confidentiality of Alcohol and Drug Abuse Patient Records regulations: The Federal rules restrict any use of the information to criminally investigate or prosecute any alcohol or drug abuse patient.[facility] the event this information is protected by the Federal Confidentiality of Alcohol and Drug Abuse Patient Records regulations: The Federal rules restrict any use of the information to criminally investigate or prosecute any alcohol or drug abuse patient.[facility] the event this information is protected by the Federal Confidentiality of Alcohol and Drug Abuse Patient Records regulations: The Federal rules restrict any use of the information to criminally investigate or prosecute any alcohol or drug abuse patient.[facility] the event this information is protected by the Federal Confidentiality of Alcohol and Drug Abuse Patient Records regulations: The Federal rules restrict any use of the information to criminally investigate or prosecute any alcohol or drug abuse patient.[facility] Center[facility] the event this information is protected by the Federal Confidentiality of Alcohol and Drug Abuse Patient Records regulations: The Federal rules restrict any use of the information to criminally investigate or prosecute any alcohol or drug abuse patient.[facility] Center[facility] the event this information is protected by the Federal Confidentiality of Alcohol and Drug Abuse Patient Records regulations: The Federal rules restrict any use of the information to criminally investigate or prosecute any alcohol or drug abuse patient.[facility] the event this information is protected by the Federal Confidentiality of Alcohol and Drug Abuse Patient Records regulations: The Federal rules restrict any use of the information to criminally investigate or prosecute any alcohol or drug abuse patient.[facility] the event this information is protected by the Federal Confidentiality of Alcohol and Drug Abuse Patient Records regulations: The Federal rules restrict any use of the information to criminally investigate or prosecute any alcohol or drug abuse patient.[facility] the event this information is protected by the Federal Confidentiality of Alcohol and Drug Abuse Patient Records regulations: The Federal rules restrict any use of the information to criminally investigate or prosecute any alcohol or drug abuse patient.[facility] Center[facility] the event this information is protected by the Federal Confidentiality of Alcohol and Drug Abuse Patient Records regulations: The Federal rules restrict any use of the information to criminally investigate or prosecute any alcohol or drug abuse patient.[facility] Center[facility] the event this information is protected by the Federal Confidentiality of Alcohol and Drug Abuse Patient Records regulations: The Federal rules restrict any use of the information to criminally investigate or prosecute any alcohol or drug abuse patient.[facility] Center[facility] the event this information is protected by the Federal Confidentiality of Alcohol and Drug Abuse Patient Records regulations: The Federal rules restrict any use of the information to criminally investigate or prosecute any alcohol or drug abuse patient.[facility] CenterIn the event this information is protected by the Federal Confidentiality of Alcohol and Drug Abuse Patient Records regulations: The Federal rules restrict any use of the information to criminally investigate or prosecute any alcohol or drug abuse patient.[facility] CenterIn the event this information is protected by the Federal Confidentiality of Alcohol and Drug Abuse Patient Records regulations: The Federal rules restrict any use of the information to criminally investigate or prosecute any alcohol or drug abuse patient.[facility] Center[facility] the event this information is protected by the Federal Confidentiality of Alcohol and Drug Abuse Patient Records regulations: The Federal rules restrict any use of the information to criminally investigate or prosecute any alcohol or drug abuse patient.[facility] CenterIn the event this information is protected by the Federal Confidentiality of Alcohol and Drug Abuse Patient Records regulations: The Federal rules restrict any use of the information to criminally investigate or prosecute any alcohol or drug abuse patient.[facility] CenterIn the event this information is protected by the Federal Confidentiality of Alcohol and Drug Abuse Patient Records regulations: The Federal rules restrict any use of the information to criminally investigate or prosecute any alcohol or drug abuse patient.[facility] CenterIn the event this information is protected by the Federal Confidentiality of Alcohol and Drug Abuse Patient Records regulations: The Federal rules restrict any use of the information to criminally investigate or prosecute any alcohol or drug abuse patient.[facility] CenterIn the event this information is protected by the Federal Confidentiality of Alcohol and Drug Abuse Patient Records regulations: The Federal rules restrict any use of the information to criminally investigate or prosecute any alcohol or drug abuse patient.[facility] CenterIn the event this information is protected by the Federal Confidentiality of Alcohol and Drug Abuse Patient Records regulations: The Federal rules restrict any use of the information to criminally investigate or prosecute any alcohol or drug abuse patient.[facility] CenterIn the event this information is protected by the Federal Confidentiality of Alcohol and Drug Abuse Patient Records regulations: The Federal rules restrict any use of the information to criminally investigate or prosecute any alcohol or drug abuse patient.[facility] CenterIn the event this information is protected by the Federal Confidentiality of Alcohol and Drug Abuse Patient Records regulations: The Federal rules restrict any use of the information to criminally investigate or prosecute any alcohol or drug abuse patient.[facility] CenterIn the event this information is protected by the Federal Confidentiality of Alcohol and Drug Abuse Patient Records regulations: The Federal rules restrict any use of the information to criminally investigate or prosecute any alcohol or drug abuse patient.[facility] CenterIn the event this information is protected by the Federal Confidentiality of Alcohol and Drug Abuse Patient Records regulations: The Federal rules restrict any use of the information to criminally investigate or prosecute any alcohol or drug abuse patient.[facility] CenterIn the event this information is protected by the Federal Confidentiality of Alcohol and Drug Abuse Patient Records regulations: The Federal rules restrict any use of the information to criminally investigate or prosecute any alcohol or drug abuse patient.[facility] CenterIn the event this information is protected by the Federal Confidentiality of Alcohol and Drug Abuse Patient Records regulations: The Federal rules restrict any use of the information to criminally investigate or prosecute any alcohol or drug abuse patient.[facility] CenterIn the event this information is protected by the Federal Confidentiality of Alcohol and Drug Abuse Patient Records regulations: The Federal rules restrict any use of the information to criminally investigate or prosecute any alcohol or drug abuse patient.[facility] CenterIn the event this information is protected by the Federal Confidentiality of Alcohol and Drug Abuse Patient Records regulations: The Federal rules restrict any use of the information to criminally investigate or prosecute any alcohol or drug abuse patient.[facility] CenterIn the event this information is protected by the Federal Confidentiality of Alcohol and Drug Abuse Patient Records regulations: The Federal rules restrict any use of the information to criminally investigate or prosecute any alcohol or drug abuse patient.[facility] CenterIn the event this information is protected by the Federal Confidentiality of Alcohol and Drug Abuse Patient Records regulations: The Federal rules restrict any use of the information to criminally investigate or prosecute any alcohol or drug abuse patient.[facility] CenterIn the event this information is protected by the Federal Confidentiality of Alcohol and Drug Abuse Patient Records regulations: The Federal rules restrict any use of the information to criminally investigate or prosecute any alcohol or drug abuse patient.[facility] CenterIn the event this information is protected by the Federal Confidentiality of Alcohol and Drug Abuse Patient Records regulations: The Federal rules restrict any use of the information to criminally investigate or prosecute any alcohol or drug abuse patient.[facility] CenterIn the event this information is protected by the Federal Confidentiality of Alcohol and Drug Abuse Patient Records regulations: The Federal rules restrict any use of the information to criminally investigate or prosecute any alcohol or drug abuse patient.[facility] CenterIn the event this information is protected by the Federal Confidentiality of Alcohol and Drug Abuse Patient Records regulations: The Federal rules restrict any use of the information to criminally investigate or prosecute any alcohol or drug abuse patient.[facility] CenterIn the event this information is protected by the Federal Confidentiality of Alcohol and Drug Abuse Patient Records regulations: The Federal rules restrict any use of the information to criminally investigate or prosecute any alcohol or drug abuse patient.[facility] Reason for Visit (unrecogniz ed section and content) Reason Comments Future Appointment Reason Comments 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 Reason Comments Care Reason Comments Orders Reason Comments US Specialty Diagnoses / Procedures Referred By Elaina t Referred To Contact [facility] Diagnoses Encounter for supervision of other normal in first trimester Tobacco smoking affecting , antepartum with history of section, antepartum Procedures NUCHAL TRANSLUCENCY WHI US NUCHAL TRANSLUCENCY 1ST GESTATION Erika Loya MD [address] [place] [address] [facility] [place][Note 2] [address] [place] [address] Referral ID Status Reason Start Date Expiration Date V isits Requested Visits Authorized [id number] Closed Auto-Generate d Referral 05/24/2022 05/24/2023 1 1 Reason Comments NIPT results Reason Onset Date Comments Care 06/27/2022 Reason Comments Patient Question Reason Onset Date Comments Care 07/11/2022 Reason Onset Date Comments Care 07/23/2022 Specialty Diagnoses / Procedures Referred By Contac t Referred To Contact [facility] Diagnoses Encounter for supervision of other normal in first trimester Tobacco smoking affecting , antepartum with history of section, antepartum Procedures OBSTETRIC ULTRASOUND WHI US PREG UTERUS AFTER 1ST TRIMEST GESTATION Erika Loya MD [address] [place] [address] [facility] [place][Note 2] [address] [id number] [place] [address] Referral ID Status Reason Start Date Expiration Date V isits Requested Visits Authorized [id number] Closed Auto-Generate d Referral 05/24/2022 05/24/2023 1 1 Reason Onset Date Comments Care 08/23/2022 Reason Onset Date Comments Care 09/19/2022 Reason Onset Date Comments Care 10/04/2022 Reason Onset Date Comments Care 10/18/2022 Specialty Diagnoses / Procedures Referred By Contac t Referred To Contact [facility] Diagnoses with history of section, antepartum 28 weeks gestation of Procedures OBSTETRIC ULTRASOUND WHI US PREG UTERUS AFTER 1ST TRIMEST GESTATION Zoe Hrenández MD [address] [place] [address] [facility] [place][Note 2] [place] [address] Referral ID Status Reason Start Date Expiration Date V isits Requested Visits Authorized [id number] Closed Auto-Generate d Referral 09/19/2022 09/19/2023 1 1 Reason Onset Date Comments Care 10/22/2022 Reason Onset Date Comments Care 11/01/2022 Specialty Diagnoses / Procedures Referred By Contac t Referred To Contact [facility] Diagnoses Poor growth affecting management of mother in third trimester, single or unspecified fetus Procedures BIOPHYSICAL PROFILE US WHI BIOPHYSICAL PROFILE NON-STRESS TESTING Erika Loya MD [address] [facility] [place] [address] [id number] [place] [address] Referral ID Status Reason Start Date Expiration Date V isits Requested Visits Authorized [id number] Closed Auto-Generate d Referral 10/22/2022 10/22/2023 10 1 Reason Onset Date Comments Care 11/05/2022 Specialty Diagnoses / Procedures Referred By Contac t Referred To Contact [facility] Diagnoses Poor growth affecting management of mother in third trimester, single or unspecified fetus Procedures NON-STRESS TEST NON-STRESS TEST Erika Loya MD [address] [place] [address] [address] Referral ID Status Reason Start Date Expiration Date V isits Requested Visits Authorized [id number] Closed Auto-Generate d Referral 10/22/2022 10/22/2023 7 1 Specialty Diagnoses / Procedures Referred By Contac t Referred To Contact [facility] Diagnoses 32 weeks gestation of with history of section, antepartum Procedures OBSTETRIC ULTRASOUND WHI US PREG UTERUS AFTER 1ST TRIMEST GESTATION Erika Loya MD [address] [place] [address] [address] Referral ID Status Reason Start Date Expiration Date V isits Requested Visits Authorized [id number] Closed Auto-Generate d Referral 10/18/2022 10/18/2023 1 1 Reason Onset Date Comments Care 11/22/2022 Reason Onset Date Comments Care 11/26/2022 Reason Onset Date Comments Care 11/28/2022 Reason Comments Patient Update Reason Comments Ob Delivery Note Reason Comments Breast Pump Reason Onset Date Comments Care 11/15/2022 Reason Comments Nasal Congestion Runny nose, cough, s ore mouth taste x 3 days Urinary Problem Burning, frequency x 3 days Reason Comments Sore Throat Headache, nausea, x 4 days Reason Comments Cough Chest congestion, ti ghtness in chest, SOB, body aches, sore throat, raspy voice x 1 week Care Teams (unrecognized sec tion and content) Health Professional Relationship Specialty Start Date End Date Marlys De Souza PA-C [address] [facility] [place] [address] PCP - General Family Medicine 01/09/19 Health Professional Relationship Specialty Start Date End Date Marlys De Souza PA-C [address] [facility] [place] [address] PCP - General Family Medicine 01/09/19 Health Professional Relationship Specialty Start Date End Date Marlys De Souza PA-C [address] [facility] [place] [address] PCP - General Family Medicine 01/09/19 Health Professional Relationship Specialty Start Date End Date Marlys De Souza PA-C [address] [facility] [place] [address] PCP - General Family Medicine 01/09/19 Health Professional Relationship Specialty Start Date End Date Marlys De Souza PA-C [address] [facility] [place] [address] PCP - General Family Medicine 01/09/19 Health Professional Relationship Specialty Start Date End Date Marlys De Souza PA-C [address] [facility] [place] [address] PCP - General Family Medicine 01/09/19 Health Professional Relationship Specialty Start Date End Date Marlys De Souza PA-C [address] [facility] [place] [address] PCP - General Family Medicine 01/09/19 Health Professional Relationship Specialty Start Date End Date Marlys De Souza PA-C [address] [facility] [place] [address] PCP - General Family Medicine 01/09/19 Health Professional Relationship Specialty Start Date End Date Marlys De Souza PA-C [address] [facility] [place] [address] PCP - General Family Medicine 01/09/19 Team Status: Active Member Role Status Dates No Primary Care Physician Family Provider Active TAYA Cuello Primary Care Provider Active Team Status: Inactive Member Role Status Dates TAYA Cuello Primary Care Provider Active Dr. Isabel Arguello DO Attending Provider, Sneha qureshi Active Team Status: Inactive Member Role Status Dates TAYA Cuello Primary Care Provider Active Dr. Zoe Hernández MD Attending Provider, Referring Provider Active Health Professional Relationship Specialty Start Date End Date Marlys De Souza PA-C [address] [place] [address] PCP - General Family Medicine 01/09/19 Health Professional Relationship Specialty Start Date End Date Marlys De Souza PA-C [address] [place] [address] PCP - General Family Medicine 01/09/19 Health Professional Relationship Specialty Start Date End Date Marlys De Souza PA-C [address] [place] [address] PCP - General Family Medicine 01/09/19 Health Professional Relationship Specialty Start Date End Date Marlys De Souza PA-C [address] [place] [address] PCP - General Family Medicine 01/09/19 Health Professional Relationship Specialty Start Date End Date Marlys De Souza PA-C [address] [place] [address] PCP - General Family Medicine 01/09/19 Health Professional Relationship Specialty Start Date End Date Marlys De Souza PA-C [address] [place] [address] PCP - General Family Medicine 01/09/19 Health Professional Relationship Specialty Start Date End Date Malrys De Souza PA-C [address] [place] [address] PCP - General Family Medicine 01/09/19 Health Professional Relationship Specialty Start Date End Date Marlys De Souza PA-C [address] [facility] [place] [address] PCP - General Family Medicine 01/09/19 Health Professional Relationship Specialty Start Date End Date Marlys De Souza PA-C [address] [place] [address] PCP - General Family Medicine 01/09/19 Health Professional Relationship Specialty Start Date End Date Marlys De Souza PA-C [address] [place] [address] PCP - General Family Medicine 01/09/19 Health Professional Relationship Specialty Start Date End Date Marlys De Souza PA-C [address] [place] [address] PCP - General Family Medicine 01/09/19 Team Status: Inactive Member Role Status TAYA Menon Primary Care Provider Active Dr. Ceci Baker MD Attending Provider, Referring Pr ovider Active Health Professional Relationship Specialty Start Date End Date Marlys De Souza PA-C [address] [place] [address] PCP - General Family Medicine 01/09/19 Health Professional Relationship Specialty Start Date End Date Marlys De Souza PA-C [address] [place] [address] PCP - General Family Medicine 01/09/19 Health Professional Relationship Specialty Start Date End Date Marlys De Souza PA-C [address] [place] [address] PCP - General Family Medicine 01/09/19 Health Professional Relationship Specialty Start Date End Date Marlys De Souza PA-C [address] [facility] [place] [address] PCP - General Family Medicine 01/09/19 Health Professional Relationship Specialty Start Date End Date Marlys De Souza PA-C [address] [facility] [place] [address] PCP - General Family Medicine 01/09/19 Health Professional Relationship Specialty Start Date End Date Marlys De Souza PA-C [address] [facility] [place] [address] PCP - General Family Medicine 01/09/19 Health Professional Relationship Specialty Start Date End Date Bob De Souza PA-C PCP - General Family Medicine 01/09/19 Brittney Sue, CHILD MONITOR.HR BUSINESS PARTNER [address] [facility] [place] [address] [facility] 03/27/24 Louise Aguilar, CHILD MONITOR.HR BUSINESS PARTNER [address] [facility] [place] [address] [facility] 03/27/24 Health Professional Relationship Specialty Start Date End Date Brittney Sue, CHILD MONITOR.HR BUSINESS PARTNER [address] [facility] [place] [address] [facility] 03/27/24 Louise Aguilar, CHILD MONITOR.HR BUSINESS PARTNER [address] [facility] [place] [address] [facility] 03/27/24 Goals (unrecognized section and content) Goals may be documented in a n alternate sectionGoals may be documented in an alternate sectionGoals may be documented in an alternate section FOR RECORDS PERTAINING TO PATIENTS WHO ARE OR HAVE BEEN ENROLLED IN A CHEMICAL DEPENDENCY/SUBSTANCEABUSE PROGRAM, SOME INFORMATION MAY BE OMITTED. This clinical summary was aggregated from multiple sources. Caution should be exercised in using it in the provision of clinical care. This summary normalizes information from multiple sources, and as a consequence, information in this document may materially change the coding, format and clinical context of patient data. In addition, data may be omitted in some cases. CLINICAL DECISIONS SHOULD BE BASED ON THE PRIMARY CLINICAL RECORDS. [facility] [employer] [facility]. provides no warranty or guarantee of the accuracy or completeness of information in this document.
--- NOTE | 2025-04-19 03:04 | EX.ED.DYSGE1 ---
HPI History of Present Illness Chief Complaint: Headache Informant: patient Narrative Narrative: Patient is a 30-year-old female who reports no significant past medical history. She states that around 10:00 this evening after getting out of the shower she slipped on the wet floor and struck her head on the bathtub. She denies any loss of consciousness but reports she was dazed following the injury. She denies any other injury such as to her extremities or back. She states she was able to lay down but then awoke with headache and nausea. She states that there is no history of bleeding disorder or blood thinner use but with the worsening symptoms and recent trauma was concern for internal injury and therefore comes in for evaluation [facility] Medical History (Updated 04/19/25 @ 03:[address] Scott Guthrie DO) GTT (glucose tolerance test) abnormal Request for sterilization Anemia affecting Depression Anxiety Tonsillectomy planned Genital herpes affecting Uterine anomaly History of prior with IUGR Home Medications ?Medication ?Instructions ?Recorded ?Last Taken ?Type vits no.126-ferrous fum 1 tab PO DAILY 11/27/22 11/30/22 09:00 History 28 mg iron-folic acid 800 mcg 1 TAB tablet (Classic ) ferrous sulfate 325 mg (65 mg 325 mg PO DAILY 11/29/22 11/28/22 09:00 History iron) tablet (iron) 325 mg docusate sodium 100 mg capsule 100 mg PO BID #30 caps 12/02/22 Unknown Rx (Colace) ibuprofen 600 mg tablet 600 mg PO Q6H PRN pain #30 tabs 12/02/22 Unknown Rx oxycodone-acetaminophen 5 mg-325 1 tab PO Q6H PRN pain 7 days #10 12/02/22 Unknown Rx mg tablet (Percocet) tabs ondansetron 4 mg disintegrating 4 mg PO TID PRN nausea and 04/19/25 Unknown Rx tablet vomiting #21 tabs Allergy/AdvReac Type Severity Reaction Status Date / Time No Known Allergies Allergy Verified 04/19/25 02:03 Surgical History Delivery by section Previous section Social History Smoking Status: Former smoker ROS ROS ED Constitutional Constitutional ED: Denies chills or fever(s) Eyes Eyes: Reports other Details: Positive photophobia ENT ENT ED: Denies sore throat Cardiovascular Cardiovascular: Reports other Details: Negative syncope ; Denies chest pain, palpitations or racing heartbeat Respiratory/Chest Respiratory/Chest: Denies cough or dyspnea Gastrointestinal Gastrointestinal: Reports nausea; Denies abdominal pain, diarrhea or vomiting Genitourinary Genitourinary ED: Reports other Details: Patient denies concern for Musculoskeletal Musculoskeletal: Reports neck pain; Denies back pain Integumentary Denies Abrasions Neurologic Neurologic: Reports headache(s); Denies paresthesias or weakness Psychiatric Psychiatric: Reports anxiety Hematologic/Lymphatic Hematologic/Lymphatic: Denies easy bleeding or easy bruising EXAM Physical Exam Const Vital Signs: 04/19/25 02:02 04/19/25 03:08 Temperature 97.4 F L 97.4 F L Temperature Source Oral Pulse Rate 93 67 Respiratory Rate 20 H 16 Blood Pressure 132/72 H 122/87 H Blood Pressure Mean 92 98 Pulse Ox 100 98 Oxygen Delivery Method Room Air Positive well nourished and well developed General Appearance ED: well developed HEENT HEENT Narrative: Patient has a small 1 x 2 cm hematoma over the mid occipital portion of the scalp No signs of depressed or basilar skull fracture Eyes PERRL and EOMs intact bilaterally General Eye ED: Negative for scleral icterus Neck supple Neck Narrative: No bony deformity or step-off of the cervical spine but there is lower midline pain with palpation Chest Wall palpation of chest normal Resp normal respiratory effort and clear to auscultation bilaterally Cardio regular rate and regular rhythm GI normal to inspection, nondistended, normoactive bowel sounds, non-tender, non-distended and no masses Auscultation: normoactive bowel sounds Palpation: soft Back/Spine Back/Spine Narrative: No bony deformity or step-off of the thoracic or lumbar spine No midline tenderness to palpation Extremity normal to inspection Extremity Narrative: Pelvis is stable and there is no shortening or external rotation of either lower extremity No sign of long bone injury such as bony deformity or joint effusion Neuro oriented x3, CN's II-XII intact bilaterally and no sensory deficits noted Sensorium / Orientation: alert Motor Exam: strength 5/5 throughout Psych Mood & Affect: anxious Skin Skin Narrative: Small occipital hematoma as documented above MDM MDM MDM Narrative Medical decision making narrative: Patient arrived to ER with stable vitals. She reported a mechanical fall and therefore I felt no need for cardiac or syncope workup. With patient having headache and nausea and trauma to the occipital portion of the scalp there is concern for traumatic subarachnoid or subdural hemorrhage. Patient also could have a potential cervical compression fracture and therefore CTs of the head and cervical spine were obtained. Imaging studies revealed no signs of acute trauma. On reevaluation she is resting comfortably and neurologic exam remains normal. With her history of head injury followed by headache light sensitivity and nausea this does classify as mild concussion. However as internal trauma with skull fracture or brain bleed has been ruled out there is no need for further intervention in the ER and she is otherwise safe for discharge History & Record Review Discussion w/independent historian: Patient Radiography Diagnostic Testing: Clinical Impression(s) from Imaging Studies Brain CT 04/19/25 02:30 IMPRESSION: No intracerebral or extra-axial hemorrhage. No acute territorial cerebrovascular abnormalities. If clinical symptoms persist, further evaluation with MRI may be considered as clinically warranted. Reading Location: [id number] Cervical Spine CT 04/19/25 02:30 IMPRESSION: No acute fractures. Reading Location: [id number] Discharge Plan Triage Chief Complaint: Headache ED Provider: Scott Guthrie Dx/Rx/DC Orders Clinical Impression: Closed head injury, Cephalgia, Concussion Instructions: ED Concussion, ED Head Injury (Adult) Prescriptions: New ondansetron 4 mg tablet,disintegrating 4 mg PO TID PRN (Reason: nausea and vomiting) Qty: 21 0RF No Action Classic 28 mg iron- 800 mcg tablet 1 tab PO DAILY ferrous sulfate [iron] 325 mg (65 mg iron) tablet 325 mg PO DAILY oxycodone-acetaminophen [Percocet] 5-325 mg tablet 1 tab PO Q6H PRN (Reason: pain) 7 Days Qty: 10 0RF ibuprofen 600 mg tablet 600 mg PO Q6H PRN (Reason: pain) Qty: 30 0RF docusate sodium [Colace] 100 mg capsule 100 mg PO BID Qty: 30 0RF Primary Care Provider: Marlys De Souza Referrals: De Souza,M Tr PA, PA [Primary Care Provider, Medical] Activity Restrictions/Additional Instructions: The CT scans of your head and neck revealed no sign of skull fracture or brain bleed or neck injury. Based on your trauma and exam and negative workup you also have symptoms consistent with concussion. Please avoid bright flashing lights as this can make symptoms worse or last longer. Take the Zofran to help control nausea associated with this and use Tylenol and/or Motrin for pain control. It will typically take 3 to 5 days for symptoms to improve. Return to the ER should you have any further concerns Print Language: Ecuadorean Disposition Disposition: Home, Self Care Discharge Date/Time: 04/19/25 03:11
[2025-04-19 03:08] VITALS: BP 122/87; PULSE 67; RESP 16; TEMP 36.3; O2SAT 98
== END 2025-04-19 03:11 | disposition home or self-care (01) ==
PROVIDERS: Emergency Provider Emergency Medicine; PCP Physician Assistant; Visit Provider Emergency Medicine
DX: S06.0X0A Concussion without loss of consciousness, initial encounter (principal); Z87.891 Personal history of nicotine dependence; W01.198A Fall on same level from slipping, tripping and stumbling with subsequent striking against other object, initial encounter; F41.9 Anxiety disorder, unspecified
CPT/HCPCS: 70450; 72125; 99282